=== PATIENT | female | born 1965 | race Caucasian/White ===

== ENCOUNTER 2017-08-23 01:51 | Inpatient (IN) | payer SELFPAY ==
[2017-08-23] VITALS (37 sets, daily range): BP systolic 109–241; BP diastolic 51–106; PULSE 45–94; RESP 16–18; TEMP 94–98.9; O2SAT 98–100
[2017-08-23] MEDS ORDERED: MIDAZOLAM HCL 5 MG/ML VIAL (1 ML) ONE (02:10)
[2017-08-23 02:13] LABS: AUTOMATED NEUTROPHIL # 13.3 TH/MM3 (1.8-7.7); BASOPHIL % 0.2 % (0.0-2.0); HEMOGLOBIN 13.7 GM/DL (11.6-15.3); LYMPH % 5.5 % (9.0-44.0); LYMPHOCYTE # 0.8 TH/MM3 (1.0-4.8); MEAN CELL VOLUME 86.3 FL (80.0-100.0); MEAN CORPUSCULAR HEMOGLOBIN 30.4 PG (27.0-34.0); MEAN CORPUSCULAR HGB CONC 35.2 % (32.0-36.0); MEAN PLATELET VOLUME 8.4 FL (7.0-11.0); MONO % 4.7 % (0.0-8.0); MONOCYTE # 0.7 TH/MM3 (0-0.9); NEUT % 89.6 % (16.0-70.0); PLATELET COUNT 361 TH/MM3 (150-450); RED BLOOD COUNT 4.52 MIL/MM3 (4.00-5.30); RED CELL DISTRIBUTION WIDTH 13.2 % (11.6-17.2); WHITE BLOOD COUNT 14.8 TH/MM3 (4.0-11.0)
[2017-08-23] MEDS: POTASSIUM CHLOR 10 MEQ PREMIX 100 ML IV SCH ×3 (02:15→04:15)
[2017-08-23] MEDS ORDERED: SUCCINYLCHOLINE CHLORIDE 200 MG/10 ML VIAL IV PUSH ONE (02:15)
[2017-08-23] MEDS ORDERED: MIDAZOLAM HCL 5 MG/5 ML VIAL IV PUSH ONE (02:15)
[2017-08-23] MEDS ORDERED: ETOMIDATE 20 MG/10 ML VIAL IV PUSH ONE (02:15)
[2017-08-23 02:18] LABS: INTERNATIONAL NORMALIZED RATIO 1.1 RATIO; PROTHROMBIN TIME - PATIENT 11.5 SEC (9.8-11.6)
--- NOTE | 2017-08-23 02:23 | RADRPT ---
EXAM DATE/TIME: 08/23/2017 02:08 [facility] COMPARISON: No previous studies available for comparison. INDICATIONS : Stroke alert; left side gaze. RADIATION DOSE: 56.35 CTDIvol (mGy) This report was called by Dr. Choi to Dr. Prather at 2: 18 AM MEDICAL HISTORY : Non-responsive. SURGICAL HISTORY : Non-responsive. ENCOUNTER: Initial ACUITY: 1 day PAIN SCALE: Non-responsive LOCATION: cranial TECHNIQUE: Multiple contiguous axial images were obtained of the head. Using automated exposure control and adj ustment of the mA and/or kV according to patient size, radiation dose was kept as low as reasonably a chievable to obtain optimal diagnostic quality images. DICOM format image data is available electro nically for review and comparison. FINDINGS: Large area of white matter parenchymal hemorrhage seen in the left frontal lobe, measures 4.8 x 5.9 c m in greatest transaxial dimension. There surrounding cerebral edema and 11 mm of rightward midline s hift. The hemorrhage extends into the ventricles. Probable underlying chronic white matter changes. No perceptible mass lesion demonstrated. No convinc ing evidence of an acute ischemic event. CONCLUSION: Large left frontal lobe parenchymal hemorrhage and diffuse intraventricular blood. 11 mm of rightward midline shift. Saeid Choi MD on August 23, 2017 at 2:17 Board Certified Radiologist. This report was verified electronically.
[2017-08-23] MEDS: niCARdipine INJ 25 MG in SODIUM CHLOR 0.9% 250 ML INJ 240 ML IV PRN ×3 (02:24→09:20)
--- NOTE | 2017-08-23 02:24 | PD ---
HPI Chief Complaint: cva Time Seen by Provider: 01:57 Travel History International Travel<30 days: No Contact w/Intl Traveler<30days: No Traveled to known affect area: No History of Present Illness HPI 52-year-old female presents to the emergency department by EMS transport from home after witnessed collapse. According to delivery specialist report patient had had vomiting earlier in the day this evening was given a one-time dose of ibuprofen by family member and then had further vomiting and collapse. Upon EMS arrival patient was noted to have fixed downward leftward gaze was unresponsive except to painful stimuli with some posturing of the right upper extremity. No seizure activity identified. No report of injury or trauma. No prior medical history provided to EMS by family. No medication use. [facility] Past Medical History Narrative Medical None per delivery specialist/per family; nursing notes reviewed Social History Alcohol Use: Yes (Occasional alcohol) Tobacco Use: Yes Substance Use: Yes (Occasional marijuana) Allergies-Medications (Allergen,Severity, Reaction): Coded Allergies: No Known Allergies (Unverified , 08/23/17) Narrative Medication None per uncle Review of Systems ROS Limitations: Clinical Condition, Unresponsive Except as stated in HPI: all other systems reviewed are Neg Physical Exam Narrative GENERAL: Well-developed well-nourished female unresponsive, Ambu assisted ventilations; gcs6 SKIN: Warm and dry. HEAD: Atraumatic. Normocephalic. EYES: Pupils equal and round nonreactive to light fixed left lateral downward gaze. ENT: No nasal bleeding or discharge. Mucous membranes pink and moist. NECK: Trachea midline. No JVD. Cervical collar applied. CARDIOVASCULAR: Regular rate and rhythm. RESPIRATORY: No accessory muscle use. Clear to auscultation. Breath sounds equal bilaterally. GASTROINTESTINAL: Abdomen soft, non-tender, nondistended. Hepatic and splenic margins not palpable. MUSCULOSKELETAL: Extremities without clubbing, cyanosis, or edema. No obvious deformities. With maintained spinal mobilization log rolled from backboard no bony step-off along the thoracic or lumbar spine no ecchymosis or abrasions. NEUROLOGICAL: GCS 6 no obvious cranial nerve deficits. Occasional flexion posturing of right upper extreme Data Data Last Documented VS Vital Signs Date Time Temp Pulse Resp B/P (MAP) Pulse Ox O2 Delivery O2 Flow Rate FiO2 08/23/17 02:40 100 100 08/23/17 02:37 54 18 174/78 (110) Ventilator 08/23/17 01:45 15.00 Orders Orders Diet Npo (08/23/17 Breakfast) Activity Bed Rest (08/23/17 ) Electrocardiogram (08/23/17 ) I-Stat Profile (08/23/17 01:57) Prothrombin Time / Inr (Pt) (08/23/17 01:57) Act Partial Throm Time (Ptt) (08/23/17 01:57) Complete Blood Count With Diff (08/23/17 01:57) Fibrinogen (08/23/17 01:57) Creatine Kinase (Cpk) (08/23/17 01:57) Troponin I (08/23/17 01:57) Ua Includes Microscopic (08/23/17 01:57) Drug Screen, Random Urine (08/23/17 01:57) Type And Screen (08/23/17 01:57) Ct Brain W/O Iv Contrast(Rout) (08/23/17 ) Cta Brain W Iv Contrast W 3d (08/23/17 01:57) Cta Neck W Iv Contrast W 3d (08/23/17 01:57) Beta Hcg (Quant/Titer) (08/23/17 01:57) Consult Neurology (08/23/17 ) Blood Glucose (08/23/17 01:57) Ecg Monitoring (08/23/17 01:57) Neuro Checks Q2HX12,Q4H (08/23/17 01:57) Nursing Bedside Swallow Assess .ONCE (08/23/17 01:57) Iv Access Insert/Monitor (08/23/17 01:57) NPO (08/23/17 01:57) Oximetry (08/23/17 01:57) Resp Oxygen Nc Stroke (08/23/17 ) Cath For Specimen (08/23/17 01:57) Ct Cerv Spine W/O Contrast (08/23/17 ) Apply Cervical Collar (08/23/17 02:03) Resp Ventilation- Volume (08/23/17 ) Midazolam Inj (Versed Inj) (08/23/17 02:15) Etomidate Inj (Amidate Inj) (08/23/17 02:15) Succinylcholine Inj (Quelicin Inj) (08/23/17 02:15) Nicardipine Inj (Cardene Inj) (08/23/17 02:15) Mickey-Gastric Tube Insert/Mon (08/23/17 02:03) Place Ng Tube To Low Intermit (08/23/17 02:03) Midazolam Inj (Versed Inj) (08/23/17 02:10) (Hub Use Only)Inp Phy Cons/Ref (08/23/17 ) Potassium Chlor 10 Meq Premix (Kcl 10 Me (08/23/17 02:15) Chest, Single Ap (08/23/17 ) Iodixanol 320 Inj (Rad Ct) (Visipaque 32 (08/23/17 02:31) Mannitol Inj (Mannitol Inj) (08/23/17 02:45) Admit Order (Ed Use Only) (08/23/17 ) Real Time Trader / Telemetry MADAN.Q8H (08/23/17 02:40) Activity Bed Rest (08/23/17 02:40) Notify Dr: Other (08/23/17 02:40) Consult Neurosurgery (08/23/17 ) Potassium, Serum (K) (08/23/17 01:55) Labs Laboratory Tests Test 08/23/17 01:55 08/23/17 02:27 White Blood Count 14.8 TH/MM3 Red Blood Count 4.52 MIL/MM3 Hemoglobin 13.7 GM/DL Bedside Hemoglobin 8.5 G/DL Hematocrit 39.0 % Bedside Hematocrit 25.0 % Mean Corpuscular Volume 86.3 FL Mean Corpuscular Hemoglobin 30.4 PG Mean Corpuscular Hemoglobin Concent 35.2 % Red Cell Distribution Width 13.2 % Platelet Count 361 TH/MM3 Mean Platelet Volume 8.4 FL Neutrophils (%) (Auto) 89.6 % Lymphocytes (%) (Auto) 5.5 % Monocytes (%) (Auto) 4.7 % Eosinophils (%) (Auto) 0.0 % Basophils (%) (Auto) 0.2 % Neutrophils # (Auto) 13.3 TH/MM3 Lymphocytes # (Auto) 0.8 TH/MM3 Monocytes # (Auto) 0.7 TH/MM3 Eosinophils # (Auto) 0.0 TH/MM3 Basophils # (Auto) 0.0 TH/MM3 CBC Comment DIFF FINAL Differential Comment Prothrombin Time 11.5 SEC Prothromb Time International Ratio 1.1 RATIO Activated Partial Thromboplast Time 25.8 SEC Fibrinogen 339 mg/dL Bedside Sodium 138 MMOL/L Bedside Potassium LESS THAN 2.0 MMOL/L Potassium Level 1.7 MEQ/L Bedside Chloride 104 MMOL/L Bedside Blood Urea Nitrogen LESS THAN 3 MG/DL Bedside Creatinine LESS THAN 0.2 MG/DL Bedside Glucose 105 MG/DL Total Creatine Kinase 50 U/L Troponin I 0.02 NG/ML Human Chorionic Gonadotropin, Quant 1 MIU/ML Urine Color LIGHT-YELLOW Urine Turbidity CLEAR Urine pH 6.0 Urine Specific [place] 1.020 Urine Protein TRACE mg/dL Urine Glucose (UA) NEG mg/dL Urine Ketones 150 mg/dL Urine Occult Blood NEG Urine Nitrite NEG Urine Bilirubin NEG Urine Urobilinogen LESS THAN 2.0 MG/DL Urine Leukocyte Esterase NEG Urine RBC 1 /hpf Urine WBC 1 /hpf Urine Mucus FEW /lpf Urine Opiates Screen NEG Urine Barbiturates Screen NEG Urine Amphetamines Screen NEG Urine Benzodiazepines Screen POS Urine Cocaine Screen NEG Urine Cannabinoids Screen POS MDM Medical Decision Making Medical Screen Exam Complete: Yes Emergency Medical Condition: Yes Medical Record Reviewed: Yes Interpretation(s) cxrL no lobar infiltrate; ETT in good position Last Impressions Head CT 08/23/17 0000 Signed Impressions: Service Date/Time: Wednesday, August 23, 2017 02:08 - CONCLUSION: Large left frontal lobe parenchymal hemorrhage and diffuse intraventricular blood. 11 mm of rightward midline shift. Saeid Choi MD Cervical Spine CT 08/23/17 0000 Signed Impressions: Service Date/Time: Wednesday, August 23, 2017 02:08 - CONCLUSION: 1. No fracture or acute appearing malalignment of the cervical spine. 2. Degenerative changes as above. Saeid Choi MD Differential Diagnosis Altered mental status, CVA, ICH, mass, hypertensive crisis Narrative Course Patient transferred from EMS stretcher to ED stretcher with Ambu assisted ventilation with emesis about the face and mouth; patient emergently intubated @ 2:[address] Valencia start on mannitol 50mg iv now and then 25 gm iv q 6h to isc to intensivists hyperventilate OR in am At 240 patient's uncle confirms that patient felt well until approximately 3 PM on Monday and then developed vomiting and complained of not feeling well around 6 PM without complaint of pain took a one-time dose of ibuprofen and then fell asleep on the couch while they were watching TV and just prior to arrival to the emergency department awake and vomiting and then became unresponsive. Uncle states there was no injury or trauma he assisted her to the floor and because she was vomiting rolled her over so that she would not aspirate her emesis. Per the uncle there was no injury or trauma and patient has no significant past medical history and no known history of hypertension dyslipidemia diabetes heart disease autoimmune disorder asthma COPD occasionally smokes cigarettes does drink beer and on rare occasion smokes marijuana. Patient has no known medications takes no prescription medications and no known allergies according to the uncle who provides her history. Patient 's name is Casandra Dleuca. @2:45 Dr Carmona at the bedside C-collar removed by me at 2:50 Critical Care Narrative Aggregate critical care time was 30 minutes. Time to perform other separately billable procedures was not included in the critical care time. My time did not include minutes spent treating any other patients simultaneously or on activities that did not directly contribute to the patient's treatment. The services I provided to this patient were to treat and/or prevent clinically significant deterioration that could result in: Arrhythmia, respiratory arrest, brain herniation, I provided critical care services requiring my management, as noted below: Chart data review, documentation time, medication orders and management, vital sign assessments/reviewing monitor data, ordering and reviewing lab tests, ordering and interpreting/reviewing x-rays and diagnostic studies, care of the patient and discussion of the patient with the admitting physicians. Procedures Procedure Narrative Emergently the following procedure was performed: INTUBATION: The patient was put in optimal position for the procedure. Rapid sequence intubation was initiated by me using 20 milligrams of etomidate IV and 5 milligrams of versed IV succinyl choline 70 mg IV. The patient was intubated with a 8.0 cuffed endotracheal tube. Tube placement was confirmed by visualization of the tube and balloon passing through the cords, capnometry and subsequent chest x-ray. Breath sounds were equal and well aerated bilaterally postintubation. No breath sounds over stomach. Patient tolerated procedure well. Physician Communication Physician Communication in field stroke alert called --@ 2:[address] Perfecto MOHR pending; At 2: 18 AM notified by radiologist Dr. Choi large left frontal parenchymal bleed with 11 mm of midline shift and bleeding into the ventricles; discussed with Dr Valencia --ISC to certified emergency vehicle technician mannitol hyperventilate or this AM; call to certified emergency vehicle technician, Dr Carmona Diagnosis Primary Impression: Intraparenchymal hemorrhage of brain Additional Impression: HTN (hypertension) Admitting Information Admitting Physician Requests: Admit Nadia Prather MD Aug 23, 2017 02:24
[2017-08-23] MEDS ORDERED: MANNITOL 12.5 GM/50 ML VIAL IV ONE ×2 (02:30→02:45)
[2017-08-23] MEDS ORDERED: IODIXANOL 320 MG/ML 10 ML VIAL (for Rad CT) IVCONTRAST ONE (02:31)
[2017-08-23 02:43] LABS: TROPONIN I 0.02 NG/ML (0.02-0.05)
--- NOTE | 2017-08-23 02:44 | RADRPT ---
EXAM DATE/TIME: 08/23/2017 02:08 [facility] COMPARISON: No previous studies available for comparison. INDICATIONS : trauma; found down. RADIATION DOSE: 16.29 CTDIvol (mGy) MEDICAL HISTORY : Non-responsive. SURGICAL HISTORY : Non-responsive. ENCOUNTER: Initial ACUITY: 1 day PAIN SCALE: Non-responsive LOCATION: Bilateral neck TECHNIQUE: Volumetric scanning of the cervical spine was performed. Multiplanar reconstructions in the sagittal, coronal and oblique axial planes were performed. Using automated exposure control and adjustment o f the mA and/or kV according to patient size, radiation dose was kept as low as reasonably achievable to obtain optimal diagnostic quality images. DICOM format image data is available electronically f or review and comparison. FINDINGS: There is approximately 3 mm of degenerative anterolisthesis at C4/C5 and 4 mm of degenerative retroli sthesis at C5/C6. No fracture or acute appearing malalignment paravertebral bodies have normal height . Severe disc space narrowing with moderate uncovertebral and and facet osteoarthritis and circumferent ial disc osteophyte complex seen at C5/C6 and C6/C7. Milder degenerative changes at the other levels. There is mild bilateral foraminal stenosis at C4/C5, C5/C6 and C6 on C7. There is mild spinal stenos is at C5/C6. Paravertebral soft tissues are within normal limits. CONCLUSION: 1. No fracture or acute appearing malalignment of the cervical spine. 2. Degenerative changes as above. Saeid Choi MD on August 23, 2017 at 2:41 Board Certified Radiologist. This report was verified electronically.
--- NOTE | 2017-08-23 02:49 | RADRPT ---
EXAM DATE/TIME: 08/23/2017 02:26 [facility] COMPARISON: No previous studies available for comparison. INDICATIONS : Stroke alert; left side gaze. IV CONTRAST: 100 cc Visipaque (iodixanol) IV ; Cumulative dose for multiple exams. RADIATION DOSE: 10.31 CTDIvol (mGy) ; Combined studies - Thorax/Abdomen/Pelvis MEDICAL HISTORY : Non-responsive. SURGICAL HISTORY : Non-responsive. ENCOUNTER: Initial ACUITY: 1 day PAIN SCALE: Non-responsive LOCATION: cranial TECHNIQUE: Volumetric scanning was performed using a multi-row detector CT scanner. The data was post processed with a variety of visualization algorithms including full volume maximum intensity projection, multi -planar sliding thin slab reformation, curved planar reformation, and surface rendering techniques. Using automated exposure control and adjustment of the mA and/or kV according to patient size, radiat ion dose was kept as low as reasonably achievable to obtain optimal diagnostic quality images. DICO M format image data is available electronically for review and comparison. FINDINGS: Large parenchymal hemorrhage of the left frontal lobe white matter. There is mildly decreased filling of the left middle and anterior cerebral arteries in an appearance suggesting secondary to pressure/ mass effect/spasm. No thrombosis demonstrated. No aneurysm. I don't see an enhancing mass lesion. CONCLUSION: No perceptible aneurysm or enhancing mass. Saeid Choi MD on August 23, 2017 at 2:45 Board Certified Radiologist. This report was verified electronically.
--- NOTE | 2017-08-23 03:02 | RADRPT ---
EXAM DATE/TIME: 08/23/2017 02:44 [facility] COMPARISON: No previous studies available for comparison. INDICATIONS : Post ET tube placement. MEDICAL HISTORY : None. SURGICAL HISTORY : None. ENCOUNTER: Initial ACUITY: 1 day PAIN SCORE: 0/10 LOCATION: Bilateral chest FINDINGS: Lungs are clear. No pleural effusion or pneumothorax. Normal heart size. Endotracheal tube tip is approximately 4 cm above the ashley. CONCLUSION: Appropriate position of the endotracheal tube. Clear lungs. Saeid Choi MD on August 23, 2017 at 3:01 Board Certified Radiologist. This report was verified electronically.
--- NOTE | 2017-08-23 03:29 | HHI.HP ---
HPI Service Critical Care Medicine Primary Care Physician No Primary Care Physician Admission Diagnosis L intraparenchymal hemorrhage w/ shift; HTN Diagnosis: (1) Intraparenchymal hemorrhage of brain Diagnosis: Principal (2) Acute respiratory failure Diagnosis: Principal (3) HTN (hypertension) Diagnosis: Principal (4) Leukocytosis Diagnosis: Principal Chief Complaint: Unresponsive, left-sided gaze Travel History International Travel<30 Days: No Contact w/Intl Traveler <30 Da: No Traveled to Known Affected Are: No History of Present Illness This is a 52-year-old female. Actually name is Casandra Deluca. Date of admission 08/23/2017. Past medical history is unremarkable including Dr. Prather spoke with uncle. Patient was in her normal state of health today until approximately 3 PM on Monday and then developed acute onset of nausea associated with vomiting and complained of not feeling well. At approximately 1800 hrs., she took a one-time dose of ibuprofen and fell asleep on the couch. Early this a.m., and just prior to arrival to the emergency department awake and vomiting and then became unresponsive. Uncle states there was no injury or trauma he assisted her to the floor and because she was vomiting rolled her over so that she would not aspirate her emesis. Due to instability patient received 20 mg etomidate, 5 mg midazolam and 70 mg succinylcholine was intubated by ED physician. CT brain revealed a large left frontal parenchymal hemorrhage with diffuse intraventricular blood [address] Valencia/neurosurgery was notified. Recommended 50 g mannitol still hyperventilating he will evaluate the patient. Gear Machine Operator were asked to admit. Central lines placed in ED for mannitol, hypertonic saline and multiple lab draws. Potassium is been reordered. Review of Systems ROS Limitations: Intubated Past Family Social History Allergies: Coded Allergies: No Known Allergies (Unverified , 08/23/17) Past Medical History None Past Surgical History None Reported Medications None Active Ordered Medications Reviewed in EMR Family History Unobtainable. Social History Documentation by ED physician of alcohol, tobacco and THC Physical Exam Vital Signs Vital Signs Date Time Temp Pulse Resp B/P (MAP) Pulse Ox O2 Delivery O2 Flow Rate FiO2 08/23/17 02:51 18 100 Ventilator 100 08/23/17 02:48 100 100 08/23/17 02:30 59 241/106 (151) 100 08/23/17 02:24 54 199/89 08/23/17 01:54 100 100 08/23/17 01:45 100 15.00 100 Physical Exam GENERAL: 52-year-old female currently orotracheally intubated, SKIN: Warm and dry. HEAD: Atraumatic. Normocephalic. EYES: Right pupil is 8 mm in size. Left pupil is 9 mm and nonreactive. No scleral icterus or drainage. ENT: No nasal bleeding or discharge. Mucous membranes pink and moist. NECK: Trachea midline. No JVD. CARDIOVASCULAR: Bradycardic, RRR. S1, S2. No S4. Without murmur RESPIRATORY: Few faint crackles appreciated right lower lobe. No wheezing GASTROINTESTINAL: Abdomen soft, non-tender, nondistended. Hepatic and splenic margins not palpable. MUSCULOSKELETAL: Extremities without significant peripheral edema. No obvious deformities. NEUROLOGICAL: Extremely sedated. Upward toes. Currently minimal cough. No gag.. Pupils as above. Cannot elicit withdrawal to noxious stimuli. Laboratory Laboratory Tests Test 08/23/17 01:55 08/23/17 03:00 White Blood Count 14.8 Red Blood Count 4.52 Hemoglobin 13.7 Bedside Hemoglobin 8.5 Hematocrit 39.0 Bedside Hematocrit 25.0 Mean Corpuscular Volume 86.3 Mean Corpuscular Hemoglobin 30.4 Mean Corpuscular Hemoglobin Concent 35.2 Red Cell Distribution Width 13.2 Platelet Count 361 Mean Platelet Volume 8.4 Neutrophils (%) (Auto) 89.6 Lymphocytes (%) (Auto) 5.5 Monocytes (%) (Auto) 4.7 Eosinophils (%) (Auto) 0.0 Basophils (%) (Auto) 0.2 Neutrophils # (Auto) 13.3 Lymphocytes # (Auto) 0.8 Monocytes # (Auto) 0.7 Eosinophils # (Auto) 0.0 Basophils # (Auto) 0.0 CBC Comment DIFF FINAL Differential Comment Prothrombin Time 11.5 Prothromb Time International Ratio 1.1 Activated Partial Thromboplast Time 25.8 Fibrinogen 339 Bedside Sodium 138 Bedside Potassium LESS THAN 2.0 Bedside Chloride 104 Bedside Blood Urea Nitrogen LESS THAN 3 Bedside Creatinine LESS THAN 0.2 Bedside Glucose 105 Total Creatine Kinase 50 Troponin I 0.02 Human Chorionic Gonadotropin, Quant 1 Result Diagram: 08/23/17154 Imaging Last Impressions Head CTA 08/23/17156 Signed Impressions: Service Date/Time: Wednesday, August 23, 2017 02:26 - CONCLUSION: No perceptible aneurysm or enhancing mass. Saeid Choi MD Head CT 08/23/17 0000 Signed Impressions: Service Date/Time: Wednesday, August 23, 2017 02:08 - CONCLUSION: Large left frontal lobe parenchymal hemorrhage and diffuse intraventricular blood. 11 mm of rightward midline shift. Saeid Choi MD Chest X-Ray 08/23/17 0000 Signed Impressions: Service Date/Time: Wednesday, August 23, 2017 02:44 - CONCLUSION: Appropriate position of the endotracheal tube. Clear lungs. Saeid Choi MD Cervical Spine CT 08/23/17 0000 Signed Impressions: Service Date/Time: Wednesday, August 23, 2017 02:08 - CONCLUSION: 1. No fracture or acute appearing malalignment of the cervical spine. 2. Degenerative changes as above. Saeid Choi MD Septic Shock Reassessment Septic shock perfusion: reassessment completed Caprini VTE Risk Assessment Caprini VTE Risk Assessment: Mod/High Risk (score >= 2) VTE Pharm Contraindication: Hemorrhage Caprini Risk Assessment Model Point Value = 1 Point Value = 2 Point Value = 3 Point Value = 5 Age 41-60 Minor surgery BMI > 25 kg/m2 Swollen legs Varicose veins or History of unexplained or recurrent spontaneous Oral contraceptives or hormone replacement Sepsis (< 1 month) Serious lung disease, including pneumonia (< 1 month) Abnormal pulmonary function Acute myocardial infarction Congestive heart failure (< 1 month) History of inflammatory bowel disease Medical patient at bed rest Age 61-74 Arthroscopic surgery Major open surgery (> 45 min) Laparoscopic surgery (> 45 min) Malignancy Confined to bed (> 72 hours) Immobilizing plaster cast Central venous access Age >= 75 History of VTE Family history of VTE Factor V Leiden Prothrombin [id number] Lupus anticoagulant Anticardiolipin antibodies Elevated serum homocysteine Heparin-induced thrombocytopenia Other congenital or acquired thrombophilia Stroke (< 1 month) Elective arthroplasty Hip, pelvis, or leg fracture Acute spinal cord injury (< 1 month) Prophylaxis Regimen Total Risk Factor Score Risk Level Prophylaxis Regimen 0-1 Low Early ambulation 2 Moderate Order ONE of the following: *Sequential Compression Device (SCD) *Heparin 5000 units SQ BID 3-4 Higher Order ONE of the following medications: *Heparin 5000 units SQ TID *Enoxaparin/Lovenox 40 mg SQ daily (WT < 150 kg, CrCl > 30 mL/min) *Enoxaparin/Lovenox 30 mg SQ daily (WT < 150 kg, CrCl > 10-29 mL/min) *Enoxaparin/Lovenox 30 mg SQ BID (WT < 150 kg, CrCl > 30 mL/min) AND/OR *Sequential Compression Device (SCD) 5 or more Highest Order ONE of the following medications: *Heparin 5000 units SQ TID (Preferred with Epidurals) *Enoxaparin/Lovenox 40 mg SQ daily (WT < 150 kg, CrCl > 30 mL/min) *Enoxaparin/Lovenox 30 mg SQ daily (WT < 150 kg, CrCl > 10-29 mL/min) *Enoxaparin/Lovenox 30 mg SQ BID (WT < 150 kg, CrCl > 30 mL/min) AND *Sequential Compression Device (SCD) Assessment and Plan Assessment and Plan Neuro/Psych: Large left frontal lobe parenchymal hemorrhage with intraventricular blood with associated 11 mm shift from right to left. CT brain revealed 4.85.9 cm left frontoparietal hemorrhage with surrounding cerebral edema and 11 mm right which midline shift. Hemorrhage extends to the ventricles. Negative CT angiogram the brain. Dr. Valencia notified. Recommended mannitol 50 g IV 1, hyperventilation Discussed with Dr. Valencia. Very poor prognosis. Considering ventriculostomy Order repeat CT brain a.m. 08/24 Hypertonic saline will sodium 1 5155 Mannitol 12.5 g IV every 8 hours. Hold if osm > greater than 310 CV: Hypertensive emergency Nicardipine drip to keep systolic blood pressure less than 140 Norepinephrine drip to keep systolic blood pressure greater than 110 Currently normal saline 84 cc an hour EKG pending Resp: Acute respiratory failure secondary to large parenchymal hemorrhage [facility] 16/475/05/12/49 Ventilator bundle Albuterol/ipratropium aerosols every 6 hours with albuterol aerosols every 2 hours as needed dyspnea Spontaneous breathing trials when clinically indicated A.m. chest x-ray 08/24 End-tidal CO2 35-40 GI: N.p.o. NG tube to low intermittent wall suction Lansoprazole for GI prophylaxis Docusate sodium/senna 1 tablet twice daily for bowel regimen : Dumont catheter for accurate I's and O's in a critically ill patient Endo: Sliding scale insulin Novulin R with Accu-Cheks every 6 hours to maintain euglycemia/medium protocol Check TSH in a.m. Renal: Creatinine currently within normal limits Monitor urine output Accurate I's and O's Heme: Leukocytosis Likely leukemoid reaction. Monitor CBC daily. Follow trends ID: Monitor for infection MSK: PT/OT evaluate and treat FEN: Repeat potassium ordered. Originally hypokalemic. Magnesium and phosphorus ordered as well. Replace electrolytes per ICU electrolyte protocol Access -Left IJ CVL day #1 placed 08/23 Prophylaxis -GI -lansoprazole -DVT -SCD/holding pharmacological prophylaxis until okayed with neurosurgery Critical Care: The total critical care time was 35 minutes. Time to perform other separately billable procedures was not included in the critical care time. Code Status Full code Discussed Condition With Dr. Prather. Care plan discussed and all questions answered. Problem Qualifiers (1) Acute respiratory failure: Qualified Codes: J96.01 - Acute respiratory failure with hypoxia (2) HTN (hypertension): Qualified Codes: I10 - Essential (primary) hypertension (3) Leukocytosis: Qualified Codes: D72.829 - Elevated white blood cell count, unspecified Sami Carmona MD Aug 23, 2017 03:29
[2017-08-23] MEDS ORDERED: ONDANSETRON HCL 4 MG/2 ML VIAL IV PUSH PRN (03:30)
[2017-08-23] MEDS ORDERED: fentaNYL DRIP 250 ML IV PRN (03:30)
[2017-08-23] MEDS ORDERED: GLUCAGON 1 MG/ML VIAL OTHER PRN (03:30)
[2017-08-23] MEDS ORDERED: SODIUM PHOSPHATE INJ 30 MMOL in SODIUM CHLOR 0.9% 250 ML INJ 240 ML IV PRN (03:30)
[2017-08-23] MEDS ORDERED: POTASSIUM CHLORIDE 25 MEQ EFFERVESCENT TAB PO PRN (03:30)
[2017-08-23] MEDS ORDERED: LACTULOSE SYRUP 20 GM/30 ML CUP PO PRN (03:30)
[2017-08-23] MEDS ORDERED: levETIRAcetam INJ 500 MG in SODIUM CHLORIDE 0.9% INJ 100 ML IV ONE (03:30)
[2017-08-23] MEDS ORDERED: NOREPINEPHRINE INJ 4 MG in SODIUM CHLOR 0.9% 250 ML INJ 246 ML IV PRN (03:30)
[2017-08-23] MEDS ORDERED: NURSING INFORMATION XX SCH (03:30)
[2017-08-23] MEDS ORDERED: POTASSIUM PHOSPHATE MONOBASIC 500 MG TAB PO/TUBE PRN (03:30)
[2017-08-23] MEDS ORDERED: POTASSIUM CHLOR 40 MEQ PREMIX 100 ML IV PRN (03:30)
[2017-08-23] MEDS ORDERED: MAGNESIUM HYDROXIDE SUSP 30 ML CUP PO PRN (03:30)
[2017-08-23] MEDS ORDERED: MAGNESIUM SULFATE INJ 4 GM in SODIUM CHLORIDE 0.9% INJ 92 ML IV PRN (03:30)
[2017-08-23] MEDS ORDERED: CHLORHEXIDINE GLUCONATE 2 % 1 PACK (2 CLOTHS) TOP PRN (03:30)
[2017-08-23] MEDS ORDERED: POTASSIUM PHOSPHATE MONOBASIC 500 MG TAB PO PRN (03:30)
[2017-08-23] MEDS ORDERED: SODIUM CHLORIDE 0.9% FLUSH 10 ML FLUSH IV FLUSH PRN ×2 (03:30)
[2017-08-23] MEDS ORDERED: BISACODYL 10 MG SUPP RECTAL PRN (03:30)
[2017-08-23] MEDS ORDERED: SENNOSIDES 8.6 MG TAB PO PRN (03:30)
[2017-08-23] MEDS ORDERED: TERBUTALINE INJ 1 MG/ML AMP SQ PRN (03:30)
[2017-08-23] MEDS ORDERED: MAGNESIUM SULFATE INJ 2 GM in SODIUM CHLORIDE 0.9% INJ 96 ML IV PRN (03:30)
[2017-08-23] MEDS ORDERED: PROPOFOL 1000 MG/100 ML INJ 100 ML IV PRN (03:30)
[2017-08-23] MEDS ORDERED: MAGNESIUM OXIDE 400 MG TAB PO PRN (03:30)
--- NOTE | 2017-08-23 03:38 | PD.PROCEDR ---
Central Line Procedure REASON FOR PROCEDURE Central venous access PROCEDURE PERFORMED Central line placement: Left IJ CVL CONSENT Informed consent for procedure was not obtained and considered emergent for hemodynamic access/medication. The risks and benefits of the procedure were discussed to include but limited to bleeding, clot formation, infection, and even . ANESTHESIA Local injection of 1% Lidocaine DESCRIPTION OF THE PROCEDURE The patient was placed in supine, mild Trendelenburg position. The area was exposed and cleansed with ChloraPrep, times two. Large sterile drape was used to cover the patient, with the site exposed, under sterile conditions including cap, face mask, sterile gown, and sterile gloves. On single attempt, the introducer needle was inserted with negative pressure in syringe and venous flash was obtained. The guide wire was then advanced without any restriction and the needle was removed. The dilator was used without any complications. Using Seldinger technique the antibiotic coated triple lumen catheter was advanced over the guide wire to a depth of 20 centimeters. The guide wire was removed. All ports were aspirated with dark venous blood return and flushed easily with sterile saline. All ports were capped. Antibiotic disc was placed around central line at puncture site. The central line was secured to the skin with two interrupted 2.0 silk sutures. The area was bandaged with sterile see- through central line bandage. The site was sutured secondary to unable to affix stay fix dressing - adhesion failure as it would not adequately be secured to the skin RADIOLOGICAL DATA Ultrasound guidance was used to locate left internal jugular vein. Doppler/ color flow was used to confirm venous flow. COMPLICATIONS: No apparent complications ESTIMATED BLOOD LOSS: Less than 1 cc. Sami Carmona MD Aug 23, 2017 03:38
--- NOTE | 2017-08-23 03:43 | RADRPT ---
EXAM DATE/TIME: 08/23/2017 02:26 [facility] COMPARISON: No previous studies available for comparison. INDICATIONS : Stroke alert; left side gaze. IV CONTRAST: 100 cc Visipaque (iodixanol) IV ; Cumulative dose for multiple exams. RADIATION DOSE: 10.31 CTDIvol (mGy) ; Combined studies MEDICAL HISTORY : Non-responsive. SURGICAL HISTORY : Non-responsive. ENCOUNTER: Initial ACUITY: 1 day PAIN SCALE: Non-responsive LOCATION: neck Elevated flow velocities and ICA/CCA ratios have been found to correlate with increased degrees of vessel stenosis, calculated as percentage of diameter relative to a normal segment of distal ICA/CCA. TECHNIQUE: Volumetric scanning was performed using a multirow detector CT scanner. The data was post processed with a variety of visualization algorithms including full-volume maximum intensity projection, multip lanar sliding thin-slab reformation, curved-planar reformation, and surface-rendering techniques. Us ing automated exposure control and adjustment of the mA and/or kV according to patient size, radiatio n dose was kept as low as reasonably achievable to obtain optimal diagnostic quality images. DICOM f ormat image data is available electronically for review and comparison. FINDINGS: AORTIC ARCH: There is a three-vessel origin of the great vessels from the aorta. No evidence of ostial narrowing. RIGHT CAROTID: The common carotid artery is intact. The carotid bulb has a normal configuration without ulceration o r narrowing. The internal carotid artery lumen is smooth without stenosis. The external carotid thu ry is intact. LEFT CAROTID: The common carotid artery is intact. The carotid bulb has a normal configuration without ulceration or narrowing. The internal carotid artery lumen is smooth without stenosis. The external carotid ar ganga is intact. VERTEBRALS: The vertebral arteries have a symmetric diameter. No stenotic lesions are seen. CONCLUSION: Normal carotid arteries. Saeid Choi MD on August 23, 2017 at 3:41 Board Certified Radiologist. This report was verified electronically.
--- NOTE | 2017-08-23 03:51 | RADRPT ---
EXAM DATE/TIME: 08/23/2017 03:22 [facility] COMPARISON: CHEST SINGLE AP, August 23, 2017, 2:44. INDICATIONS : Post central line placement. MEDICAL HISTORY : Non-responsive SURGICAL HISTORY : Non-responsive ENCOUNTER: Subsequent ACUITY: 1 day PAIN SCORE: Non-responsive. LOCATION: Bilateral chest FINDINGS: Lungs remain clear. Endotracheal tube tip is approximately 4.5 cm above the ashley. There is now a na sogastric tube with tip in the stomach. There is also now a left internal jugular centimeters cathete r with tip at the atriocaval junction. CONCLUSION: Appropriate position of lines and tubes as above. Lungs remain clear. Saeid Choi MD on August 23, 2017 at 3:49 Board Certified Radiologist. This report was verified electronically.
[2017-08-23 03:54] LABS: BILIRUBIN, URINE NEG (NEG); BLOOD, URINE NEG (NEG); GLUCOSE,URINE NEG (NEG); KETONE, URINE 150 mg/dL (NEG); MUCUS URINE FEW /lpf (OCC); NITRITE,URINE NEG (NEG); URINE COLOR LIGHT-YELLOW (YELLW/STRAW); URINE LEUKOCYTE ESTERASE NEG (NEG)
[2017-08-23] MEDS: SODIUM CHLOR 0.9% 1000 ML INJ 1,000 ML IV SCH ×2 (04:06→13:38)
[2017-08-23] MEDS: CHLORHEXIDINE GLUCONATE 2 % 1 PACK (2 CLOTHS) TOP SCH (04:06)
--- NOTE | 2017-08-23 04:06 | PD.CONS ---
HPI Consult Requested By Primary Care Physician No Primary Care Physician History of Present Illness This is a 52-year-old female brought to [facility] emergency department by EMS transport from home after collapse at home. According to paramedics she had had vomiting earlier in the day this evening was given a one-time dose of ibuprofen by family member and then had further vomiting and collapse. Upon EMS arrival patient was noted to have fixed downward leftward gaze was unresponsive except to painful stimuli with some posturing of the right upper extremity. No seizure activity identified. No tongue bitting. No incontinence of stool or urine, No tonic clonic movements. No report of injury or trauma. No prior medical history provided to EMS by family. She has a GCS of 3. Pupils 7mm dilated and fixed. CT of the brain showed a very large deep intracerebral hemorrhage, in the dominant hemisphere with uncal and subfalcine herniation. Neurosurgical consultation requested Past Family Social History Allergies: Coded Allergies: No Known Allergies (Unverified , 08/23/17) Social History Alcohol Use: Yes (Occasional alcohol) Tobacco Use: Yes Substance Use: Yes (Occasional marijuana) Physical Exam Vital Signs Vital Signs Date Time Temp Pulse Resp B/P (MAP) Pulse Ox O2 Delivery O2 Flow Rate FiO2 08/23/17 03:31 45 18 109/54 (72) 100 Ventilator 100 08/23/17 02:51 18 100 Ventilator 100 08/23/17 02:48 100 100 08/23/17 02:40 100 100 08/23/17 02:30 59 241/106 (151) 100 08/23/17 02:24 54 199/89 08/23/17 02:23 100 100 08/23/17 02:18 100 100 08/23/17 02:06 100 100 08/23/17 01:54 100 100 08/23/17 01:52 100 08/23/17 01:45 100 15.00 100 Physical Exam The patient is intubated and sedated. GCS 3 Cranial Nerves: Pupils 7mm dilated and fixed. Eyes appear nonconjugated. No nystagmus, no papilledema. Face musculature appeared symmetrical at rest. Face sensation, olfaction, visual mcwilliams, and hearing cannot be adequately assessed due to his neurological condition. The patient has no right corneal reflex, very weak left corneal. I could not elicit a gag reflex. The sternocleidomastoid and trapezius are symmetrical. Cervical Spine: Her neck is soft, supple, without nuchal rigidity. Motor: No response to pain Reflexes: Deep tendon reflexes are trace, if any. There is a bilateral silent response t plantar stimulation. There is no clonus Sensory: On examination there is no response to painful stimuli Cerebellar: Examination cannot be adequately assessed due to the patient's neurological condition. Lungs. Clear Heart regular rhythm and rate Skin warm and dry Laboratory Laboratory Tests Test 08/23/17 01:55 08/23/17 02:27 08/23/17 03:00 White Blood Count 14.8 Red Blood Count 4.52 Hemoglobin 13.7 Bedside Hemoglobin 8.5 Hematocrit 39.0 Bedside Hematocrit 25.0 Mean Corpuscular Volume 86.3 Mean Corpuscular Hemoglobin 30.4 Mean Corpuscular Hemoglobin Concent 35.2 Red Cell Distribution Width 13.2 Platelet Count 361 Mean Platelet Volume 8.4 Neutrophils (%) (Auto) 89.6 Lymphocytes (%) (Auto) 5.5 Monocytes (%) (Auto) 4.7 Eosinophils (%) (Auto) 0.0 Basophils (%) (Auto) 0.2 Neutrophils # (Auto) 13.3 Lymphocytes # (Auto) 0.8 Monocytes # (Auto) 0.7 Eosinophils # (Auto) 0.0 Basophils # (Auto) 0.0 CBC Comment DIFF FINAL Differential Comment Prothrombin Time 11.5 Prothromb Time International Ratio 1.1 Activated Partial Thromboplast Time 25.8 Fibrinogen 339 Bedside Sodium 138 Bedside Potassium LESS THAN 2.0 Bedside Chloride 104 Bedside Blood Urea Nitrogen LESS THAN 3 Bedside Creatinine LESS THAN 0.2 Bedside Glucose 105 Total Creatine Kinase 50 Troponin I 0.02 Human Chorionic Gonadotropin, Quant 1 Urine Color LIGHT-YELLOW Urine Turbidity CLEAR Urine pH 6.0 Urine Specific [place] 1.020 Urine Protein TRACE Urine Glucose (UA) NEG Urine Ketones 150 Urine Occult Blood NEG Urine Nitrite NEG Urine Bilirubin NEG Urine Urobilinogen LESS THAN 2.0 Urine Leukocyte Esterase NEG Urine RBC 1 Urine WBC 1 Urine Mucus FEW Urine Opiates Screen NEG Urine Barbiturates Screen NEG Urine Amphetamines Screen NEG Urine Benzodiazepines Screen POS Urine Cocaine Screen NEG Urine Cannabinoids Screen POS Blood Gas Puncture Site RT RADIAL Blood Gas Patient Temperature 98.6 Blood Gas HCO3 20 Blood Gas Base Excess -2.3 Blood Gas Oxygen Saturation 99 Arterial Blood pH 7.51 Arterial Blood Partial Pressure CO2 26 Arterial Blood Partial Pressure O2 564 Arterial Blood Oxygen Content 20.3 Arterial Blood Carboxyhemoglobin 0.9 Arterial Blood Methemoglobin 0.6 Blood Gas Hemoglobin 13.6 Oxygen Delivery Device VENTILATOR Blood Gas Ventilator Setting AC/18/500/PEEP5 Blood Gas Inspired Oxygen 100 Result Diagram: 08/23/17154 Attending Statement I reviewed her radiological studies, including Chest X-Ray 08/23/17 0316 Signed Impressions: Service Date/Time: Wednesday, August 23, 2017 03:22 - CONCLUSION: Appropriate position of lines and tubes as above. Lungs remain clear. aSeid Choi MD Neck CTA 08/23/17156 Signed Impressions: Service Date/Time: Wednesday, August 23, 2017 02:26 - CONCLUSION: Normal carotid arteries. Saeid Choi MD Head CTA 08/23/17156 Signed Impressions: Service Date/Time: Wednesday, August 23, 2017 02:26 - CONCLUSION: No perceptible aneurysm or enhancing mass. Saeid Choi MD Head CT 08/23/17 0000 Signed Impressions: Service Date/Time: Wednesday, August 23, 2017 02:08 - CONCLUSION: Large left frontal lobe parenchymal hemorrhage and diffuse intraventricular blood. 11 mm of rightward midline shift. Saeid Choi MD Chest X-Ray 08/23/17 0000 Signed Impressions: Service Date/Time: Wednesday, August 23, 2017 02:44 - CONCLUSION: Appropriate position of the endotracheal tube. Clear lungs. Saeid Choi MD Cervical Spine CT 08/23/17 0000 Signed Impressions: Service Date/Time: Wednesday, August 23, 2017 02:08 - CONCLUSION: 1. No fracture or acute appearing malalignment of the cervical spine. 2. Degenerative changes as above. Saeid Choi MD This patient has suffered a devastating injury in his dominant hemisphere with clinical evidence of uncal herniation. She has herniated. Her condition is irreversible, and there is no chance for meaningful recovery at this time. She is not a surgical candidate. I cannot be enthusiastic recommending a neurosurgical intervention. She is not a surgical candidate. Recommend medical nonoperative treatment Pulmonary.aggressive pulmonary toilette, nasotracheal suction, and breathing treatments with nebulizers. Renal. monitor closely urine output, BUN and creatinine Endocrine. Monitor serial Acu checks and SSI as needed in detail ID monitor for signs of infection Protonix for stress ulcer prophylaxis Lc hose and SCD's for DVT prophylaxis Further recommendations will be provided depending on the patient's clinical evaluation and follow up studies. Discussed with Dr Carmona who agrees with the plan Frederick Valencia MD Aug 23, 2017 04:06
[2017-08-23] MEDS: MANNITOL 12.5 GM/50 ML VIAL IV SCH ×3 (04:11→19:54)
[2017-08-23] MEDS: RESP: ALBUTEROL 2.5 MG/IPRATROPIUM 0.5 MG NEB (SCH) INH ×6 (04:13→23:29)
[2017-08-23 04:47] LABS: HEMATOCRIT 37.4 % (35.0-46.0); MEAN CELL VOLUME 85.9 FL (80.0-100.0); MEAN CORPUSCULAR HEMOGLOBIN 29.9 PG (27.0-34.0); MEAN CORPUSCULAR HGB CONC 34.8 % (32.0-36.0); PLATELET COUNT 335 TH/MM3 (150-450); RED BLOOD COUNT 4.36 MIL/MM3 (4.00-5.30); RED CELL DISTRIBUTION WIDTH 13.2 % (11.6-17.2); WHITE BLOOD COUNT 16.7 TH/MM3 (4.0-11.0)
[2017-08-23 05:02] LABS: INTERNATIONAL NORMALIZED RATIO 1.2 RATIO; PROTHROMBIN TIME - PATIENT 12.2 SEC (9.8-11.6)
[2017-08-23] MEDS: 3% SALINE INJ 500 ML IV SCH ×2 (05:03→19:43)
[2017-08-23] MEDS: POTASSIUM CHLOR 40 MEQ PREMIX 100 ML IV PRN ×2 (05:17→06:58)
[2017-08-23 05:22] LABS: BICARBONATE 22.3 MEQ/L (21.0-32.0); CALCIUM 8.3 MG/DL (8.5-10.1); CREATININE 0.56 MG/DL (0.50-1.00); MAGNESIUM 1.5 MG/DL (1.5-2.5)
[2017-08-23] MEDS: ARTIFICIAL TEARS OPTH SOLN 15 ML BTL EACH EYE SCH ×6 (06:00→21:38)
[2017-08-23] MEDS: POTASSIUM CHLOR 40 MEQ PREMIX 100 ML IV SCH ×2 (06:00→09:01)
[2017-08-23] MEDS ORDERED: POTASSIUM CHLORIDE 20 MEQ PWD PACKET PO ONE (06:00)
[2017-08-23] MEDS ORDERED: CALCIUM GLUCONATE 10% 1 GM/10 ML VIAL IV PUSH ONE (06:00)
[2017-08-23] MEDS ORDERED: MAGNESIUM SULFATE 1 GM PREMIX 100 ML IV ONE (06:00)
[2017-08-23] MEDS: INSULIN NovoLIN REGULAR SUPPLEMENTAL SCALE SQ SCH ×3 (06:29→18:00)
[2017-08-23] MEDS: MAGNESIUM SULFATE 1 GM PREMIX 100 ML IV SCH ×2 (06:58→08:21)
[2017-08-23] MEDS: DOCUSATE SODIUM 50 MG/SENNA 8.6 MG TAB PO SCH ×2 (08:22→20:58)
[2017-08-23] MEDS: FOLIC ACID 1 MG TAB PO SCH (08:22)
[2017-08-23] MEDS: SODIUM CHLORIDE 0.9% FLUSH 10 ML FLUSH IV FLUSH SCH ×3 (08:22→20:58)
[2017-08-23] MEDS: CHLORHEXIDINE 0.12% (ORAL KIT) 15 ML CUP MT SCH ×2 (08:22→20:58)
[2017-08-23] MEDS: MULTIVITAMIN TAB PO SCH (08:22)
[2017-08-23] MEDS: LANSOPRAZOLE SOLUTAB 30 MG TAB G-TUBE SCH (08:22)
[2017-08-23] MEDS ORDERED: levETIRAcetam INJ 500 MG in SODIUM CHLORIDE 0.9% INJ 100 ML IV SCH (09:00)
[2017-08-23] MEDS: THIAMINE INJ 100 MG in SODIUM CHLORIDE 0.9% INJ 100 ML IV SCH (09:01)
--- NOTE | 2017-08-23 09:40 | HHI.CCPN ---
Subjective Remarks/Hospital Course L intraparenchymal hemorrhage w/ shift; HTN Diagnosis: (1) Intraparenchymal hemorrhage of brain Diagnosis: Principal (2) Acute respiratory failure Diagnosis: Principal (3) HTN (hypertension) Diagnosis: Principal (4) Leukocytosis Diagnosis: Principal Chief Complaint: Unresponsive, left-sided gaze This is a 52-year-old female. Actually name is Casandra Deluca. Date of admission 08/23/2017. Past medical history is unremarkable including Dr. Prather spoke with uncle. Patient was in her normal state of health today until approximately 3 PM on Monday and then developed acute onset of nausea associated with vomiting and complained of not feeling well. At approximately 1800 hrs., she took a one-time dose of ibuprofen and fell asleep on the couch. Early this a.m., and just prior to arrival to the emergency department awake and vomiting and then became unresponsive. Uncle states there was no injury or trauma he assisted her to the floor and because she was vomiting rolled her over so that she would not aspirate her emesis. Due to instability patient received 20 mg etomidate, 5 mg midazolam and 70 mg succinylcholine was intubated by ED physician. CT brain revealed a large left frontal parenchymal hemorrhage with diffuse intraventricular blood [address] Valencia /neurosurgery was notified. Recommended 50 g mannitol still hyperventilating he will evaluate the patient. [facility] were asked to admit. 08/23 0930 hours: Continued deterioration in neurological exam with absent peripheral reflexes and minimal cough. No Doll's eyes present. Mildly alkalotic , will correct to facilitate apnea test tomorrow. Objective Vital Signs Date Time Temp Pulse Resp B/P (MAP) Pulse Ox O2 Delivery O2 Flow Rate FiO2 08/23/17 09:20 94 128/65 08/23/17 09:05 100 40 08/23/17 05:00 94.0 16 08/23/17 03:45 Ventilator 08/23/17 01:45 15.00 Intake and Output 08/23/17 08/23/17 08/23/17 07:59 15:59 23:59 Intake Total 205 ml Output Total 1650 ml Balance -1445 ml Result Diagram: 08/23/17 0428 08/23/17 0428 Other Results Laboratory Tests Test 08/23/17 03:00 08/23/17 06:49 Blood Gas Puncture Site RT RADIAL RT BRACHIAL Blood Gas Patient Temperature 98.6 98.6 Blood Gas HCO3 20 mmol/L (22-26) 30 mmol/L (22-26) Blood Gas Base Excess -2.3 mmol/L (-2-2) 6.9 mmol/L (-2-2) Blood Gas Oxygen Saturation 99 % (90-100) 98 % (90-100) Arterial Blood pH 7.51 (7.380-7.420) 7.52 (7.380-7.420) Arterial Blood Partial Pressure CO2 26 mmHg (38-42) 37 mmHg (38-42) Arterial Blood Partial Pressure O2 564 mmHG (61-120) 282 mmHg (61-120) Arterial Blood Oxygen Content 20.3 Vol % (12.0-20.0) 19.2 Vol % (12.0-20.0) Arterial Blood Carboxyhemoglobin 0.9 % (0-4) 1.1 % (0-4) Arterial Blood Methemoglobin 0.6 % (0-2) 0.9 % (0-2) Blood Gas Hemoglobin 13.6 G/DL (12.0-16.0) 13.5 G/DL (12.0-16.0) Oxygen Delivery Device VENTILATOR VENT Blood Gas Ventilator Setting AC/18/500/PEEP5 SEE COMMENTS Blood Gas Inspired Oxygen 100 % 50 % Imaging Last Impressions Head CTA 08/23/17 0157 Signed Impressions: Service Date/Time: Wednesday, August 23, 2017 02:26 - CONCLUSION: No perceptible aneurysm or enhancing mass. Saeid Choi MD Head CT 08/23/17 0000 Signed Impressions: Service Date/Time: Wednesday, August 23, 2017 02:08 - CONCLUSION: Large left frontal lobe parenchymal hemorrhage and diffuse intraventricular blood. 11 mm of rightward midline shift. Saeid Choi MD Chest X-Ray 08/23/17 0000 Signed Impressions: Service Date/Time: Wednesday, August 23, 2017 02:44 - CONCLUSION: Appropriate position of the endotracheal tube. Clear lungs. Saeid Choi MD Cervical Spine CT 08/23/17 0000 Signed Impressions: Service Date/Time: Wednesday, August 23, 2017 02:08 - CONCLUSION: 1. No fracture or acute appearing malalignment of the cervical spine. 2. Degenerative changes as above. Saeid Choi MD Objective Remarks GENERAL: 52-year-old female currently orotracheally intubated, SKIN: Warm and dry. HEAD: Atraumatic. Normocephalic. EYES: Right pupil is 3 mm in size. Left pupil is 2 mm and nonreactive. No scleral icterus or drainage. ENT: No nasal bleeding or discharge. Mucous membranes pink and moist. NECK: Trachea midline. Orally intubated. CARDIOVASCULAR: RRR. S1, S2. No S4. Without murmur, no JVD. RESPIRATORY: Few faint crackles appreciated right lower lobe. No wheezing GASTROINTESTINAL: Abdomen soft, non-tender, nondistended. MUSCULOSKELETAL: Extremities without significant peripheral edema. No obvious deformities. NEUROLOGICAL: Unresponsive. Upward toes. Minimal cough. No gag.. Pupils as above. Cannot elicit withdrawal to noxious stimuli. No Doll'e eyes. A/P Assessment and Plan Neuro/Psych: Large left frontal lobe parenchymal hemorrhage with intraventricular blood with associated 11 mm shift from right to left. CT brain revealed 4.85.9 cm left frontoparietal hemorrhage with surrounding cerebral edema and 11 mm right which midline shift. Hemorrhage extends to the ventricles. Negative CT angiogram the brain. Dr. Valencia notified. Recommended mannitol 50 g IV 1, hyperventilation Discussed with Dr. Valencia. Very poor prognosis. Considering ventriculostomy Order repeat CT brain a.m. 08/24 Hypertonic saline will sodium 1 5155 Mannitol 12.5 g IV every 8 hours. Hold if osm > greater than 310 3% saline CV: Hypertensive emergency Nicardipine drip to keep systolic blood pressure less than 140 Norepinephrine drip to keep systolic blood pressure greater than 110 Currently normal saline 84 cc an hour EKG pending Resp: Acute respiratory failure secondary to large parenchymal hemorrhage [facility] 16475/05/12/49 Ventilator bundle Albuterol/ipratropium aerosols every 6 hours with albuterol aerosols every 2 hours as needed dyspnea Spontaneous breathing trials when clinically indicated A.m. chest x-ray 08/24 End-tidal CO2 35-40 GI: N.p.o. NG tube to low intermittent wall suction Lansoprazole for GI prophylaxis Docusate sodium/senna 1 tablet twice daily for bowel regimen : Dumont catheter for accurate I's and O's in a critically ill patient Endo: Sliding scale insulin Novulin R with Accu-Cheks every 6 hours to maintain euglycemia/medium protocol Check TSH in a.m. Renal: Creatinine currently within normal limits Monitor urine output Accurate I's and O's Heme: Leukocytosis Likely leukemoid reaction. Monitor CBC daily. Follow trends ID: Monitor for infection MSK: PT/OT evaluate and treat FEN: Repeat potassium ordered. Originally hypokalemic. Magnesium and phosphorus ordered as well. Replace electrolytes per ICU electrolyte protocol Access -Left IJ CVL day #1 placed 08/23 Prophylaxis -GI -lansoprazole -DVT -SCD/holding pharmacological prophylaxis until okayed with neurosurgery Overall impression: The patient is critically ill with a devastating intracranial hemorrhage and considerable parenchymal destruction. She is requiring ongoing resuscitative efforts particularly designed to reduce cerebral edema. The prognosis is poor. Critical care time 45 minutes aside from procedures. Rayray Strickland MD Aug 23, 2017 09:40
[2017-08-23 12:01] LABS: BICARBONATE 31.5 MEQ/L (21.0-32.0); CALCIUM 9.1 MG/DL (8.5-10.1); CREATININE 0.61 MG/DL (0.50-1.00)
[2017-08-23 12:05] LABS: TROPONIN I 0.05 NG/ML (0.02-0.05)
--- NOTE | 2017-08-23 12:12 | EKG ---
Date Performed: 08/23/2017 Time Performed: 05:11:46 PTAGE: 89 years EKG: Sinus arrhythmia Prolonged QT interval Lateral ST changes are nonspecific Tall T waves - co nsider acute ischemia or hyperkalemia Borderline ECG PREVIOUS TRACING : 08/23/2017 02.52 Compared to previous tracing, rate faster DOCTOR: Julio Louise Interpretating Date/Time 08/23/2017 12:10:43
[2017-08-23] MEDS ORDERED: LORazepam 2 MG/ML VIAL IV PUSH PRN (15:15)
--- NOTE | 2017-08-23 15:51 | PD.PROCEDR ---
Procedure Note Procedure Diagnosis: Intra-parenchymal brain hemorrhage Operation: Insertion left dorsalis pedis arterial monitoring line Procedure: Left foot posterior tibial and dorsalis pedis pulses strong. Compression of dorsalis pedis pulse does not impair circulation to the foot. The dorsum of the left foot is prepped and draped. A 20-gauge needle is inserted in the dorsalis pedis artery in the region of the midfoot and the wire was easily advanced. A 3 cm catheter is advanced over the wire and a good waveform is observed. Sterile dressing is applied. Following the procedure circulation to the left foot and toes is normal. Rayray Strickland MD Aug 23, 2017 15:51
--- NOTE | 2017-08-23 16:13 | MB ---
cc: Adelso Garcia MD, PhD DATE: 08/23/2017 REASON FOR CONSULTATION: Cerebral hemorrhage. HISTORY OF PRESENT ILLNESS: This is a 52-year-old female who came to the ER as a stroke alert after she collapsed at home. She was found on CT scan to have a very large intraparenchymal hemorrhage in the left frontoparietal area with extension into the lateral ventricles, third ventricle and fourth ventricle, with subfalcine as well as uncal herniation. Initially, her pupils were 7 mm, dilated and fixed. GCS was 3. She has developed some twitching activity, myoclonic-type activity of the facial muscles and tongue, and Keppra has been added. Ativan has diminished this. NEUROLOGIC EXAMINATION: VITAL SIGNS: Blood pressure is 136/71, pulse 77, respiratory rate is 16, temperature 98.6 degrees. HIGHER CORTICAL FUNCTION: Nonresponsive. CRANIAL NERVES: The right pupil is oval shaped, roughly 3 mm. Left pupil is 2 mm. Neither of them react to light. She has no corneal reflex present. There is no ciliospinal reflex. There is no extraocular movement to doll's eye maneuver. Gag is absent. MOTOR: There is no spontaneous limb movement. There is some reflexive withdrawal in the lower extremities, probably Babinski's. Reflexes symmetric. DIAGNOSTIC DATA: CT of the brain reveals a very large left frontal lobe hemorrhage with extension into the ventricles, lateral third and fourth, with significant mass effect as well as herniation. She had a CT angiogram of the neck, which was normal. CTA of the head normal. No sign of AVM. LABORATORY DATA: White count is 16,700, hemoglobin 13, hematocrit 37%, platelet count is 335,000. Sodium is 140, potassium 3.3, chloride 99, CO2 is 31.5, the BUN is 5, creatinine 0.61, glucose 170. PT 12.2, INR 1.2, aPTT 28. IMPRESSION: Large intraparenchymal hemorrhage with significant mass effect, herniation and intraventricular extension. At this time, and also early this morning on presentation, she has had no brainstem reflexes. The presentation is extremely poor, poor prognosis. She may be having some seizure activity, which seems to be responding to the Keppra. We will increase the dose to 500 mg IV q. 6 hours. We will also obtain an EEG, which would be helpful prognostically, although prognosis is very poor. Adelso Garcia MD, PhD ALPA/FERCHO , 03:42 PM , 04:12 PM
[2017-08-23] MEDS ORDERED: FOSPHENYTOIN INJ 1,000 MGPE in SODIUM CHLORIDE 0.9% INJ 50 ML IV ONE (16:30)
[2017-08-23] MEDS: levETIRAcetam INJ 500 MG in SODIUM CHLORIDE 0.9% INJ 100 ML IV SCH (17:31)
[2017-08-23 21:00] LABS: ALBUMIN 3.5 GM/DL (3.4-5.0); DIRECT BILIRUBIN ADULT 0.2 MG/DL (0.0-0.2); INDIRECT BILIRUBIN 0.6 MG/DL (0.0-0.8); MAGNESIUM 2.5 MG/DL (1.5-2.5); PHOSPHORUS 1.9 MG/DL (2.5-4.9); TOTAL BILIRUBIN ADULT 0.8 MG/DL (0.2-1.0); TOTAL PROTEIN 7.2 GM/DL (6.4-8.2); TROPONIN I 0.05 NG/ML (0.02-0.05)
[2017-08-23] MEDS: FOSPHENYTOIN SODIUM 100 MG PE/2 ML VIAL IV SCH (21:38)
--- NOTE | 2017-08-23 21:50 | EKG ---
Date Performed: 08/23/2017 Time Performed: 02:52:13 PTAGE: 89 years EKG: SINUS BRADYCARDIA POSSIBLE RIGHT VENTRICULAR CONDUCTION DELAY SIGNIFICANTLY PROLONGED QT IN TERVAL ABNORMAL ECG NO PREVIOUS TRACING DOCTOR: Julio Louise Interpretating Date/Time 08/23/2017 21:48:42
[2017-08-24] VITALS (23 sets, daily range): BP systolic 124–164; BP diastolic 54–88; PULSE 54–91; RESP 16–21; TEMP 94–99; O2SAT 100
[2017-08-24] MEDS: niCARdipine INJ 25 MG in SODIUM CHLOR 0.9% 250 ML INJ 240 ML IV PRN ×3 (00:13→20:59)
[2017-08-24] MEDS: levETIRAcetam INJ 500 MG in SODIUM CHLORIDE 0.9% INJ 100 ML IV SCH ×4 (00:56→17:58)
[2017-08-24] MEDS: INSULIN NovoLIN REGULAR SUPPLEMENTAL SCALE SQ SCH ×4 (00:57→18:00)
[2017-08-24] MEDS: MANNITOL 12.5 GM/50 ML VIAL IV SCH ×3 (03:16→19:30)
[2017-08-24] MEDS: SODIUM CHLOR 0.9% 1000 ML INJ 1,000 ML IV SCH ×2 (03:16→14:09)
[2017-08-24] MEDS: CHLORHEXIDINE GLUCONATE 2 % 1 PACK (2 CLOTHS) TOP SCH (03:17)
[2017-08-24] MEDS: RESP: ALBUTEROL 2.5 MG/IPRATROPIUM 0.5 MG NEB (SCH) INH ×5 (03:24→19:55)
[2017-08-24 04:15] LABS: AUTOMATED NEUTROPHIL # 11.5 TH/MM3 (1.8-7.7); BASOPHIL % 0.1 % (0.0-2.0); HEMATOCRIT 33.5 % (35.0-46.0); HEMOGLOBIN 11.3 GM/DL (11.6-15.3); LYMPH % 3.8 % (9.0-44.0); LYMPHOCYTE # 0.5 TH/MM3 (1.0-4.8); MEAN CELL VOLUME 88.9 FL (80.0-100.0); MEAN CORPUSCULAR HGB CONC 33.8 % (32.0-36.0); MONOCYTE # 0.9 TH/MM3 (0-0.9); NEUT % 89.1 % (16.0-70.0); PLATELET COUNT 281 TH/MM3 (150-450); RED BLOOD COUNT 3.77 MIL/MM3 (4.00-5.30); RED CELL DISTRIBUTION WIDTH 13.7 % (11.6-17.2); WHITE BLOOD COUNT 12.9 TH/MM3 (4.0-11.0)
[2017-08-24 04:27] LABS: INTERNATIONAL NORMALIZED RATIO 1.2 RATIO; PROTHROMBIN TIME - PATIENT 11.8 SEC (9.8-11.6)
[2017-08-24 04:36] LABS: ALBUMIN 2.7 GM/DL (3.4-5.0); ALKALINE PHOSPHATASE 98 U/L (45-117); ALT (GPT) 53 U/L (10-53); AST (GOT) 55 U/L (15-37); BICARBONATE 20.2 MEQ/L (21.0-32.0); BLOOD UREA NITROGEN 5 MG/DL (7-18); CALCIUM 7.9 MG/DL (8.5-10.1); CHLORIDE 122 MEQ/L (98-107); GLOMERULAR FILTRATION RATE 137 ML/MIN (>89); GLUCOSE,RANDOM 201 MG/DL (74-106); MAGNESIUM 1.8 MG/DL (1.5-2.5); PHOSPHORUS 1.5 MG/DL (2.5-4.9); SODIUM (NA) 151 MEQ/L (136-145); TOTAL BILIRUBIN ADULT 0.6 MG/DL (0.2-1.0); TOTAL PROTEIN 5.8 GM/DL (6.4-8.2)
[2017-08-24] MEDS: 3% SALINE INJ 500 ML IV SCH (05:17)
--- NOTE | 2017-08-24 05:23 | RADRPT ---
EXAM DATE/TIME: 08/24/2017 03:57 [facility] COMPARISON: CHEST SINGLE AP, August 23, 2017, 3:22. INDICATIONS : Respiratory failure MEDICAL HISTORY : None. SURGICAL HISTORY : None. ENCOUNTER: Subsequent ACUITY: 2 days PAIN SCORE: Non-responsive. LOCATION: Bilateral chest FINDINGS: No infiltrate, effusion or pneumothorax. Endotracheal tube tip is 4 cm above the ashley. Nasogastric tube courses into the stomach. Study is u nchanged. CONCLUSION: No change. Lungs remain clear. Saeid Choi MD on August 24, 2017 at 5:21 Board Certified Radiologist. This report was verified electronically.
--- NOTE | 2017-08-24 05:57 | RADRPT ---
EXAM DATE/TIME: 08/24/2017 04:27 [facility] COMPARISON: No previous studies available for comparison. INDICATIONS : Left parenchymal hemorrhage. RADIATION DOSE: 56.35 CTDIvol (mGy) MEDICAL HISTORY : Non-responsive. SURGICAL HISTORY : Non-responsive. ENCOUNTER: Subsequent ACUITY: 2 days PAIN SCALE: Non-responsive LOCATION: cranial TECHNIQUE: Multiple contiguous axial images were obtained of the head. Using automated exposure control and adj ustment of the mA and/or kV according to patient size, radiation dose was kept as low as reasonably a chievable to obtain optimal diagnostic quality images. DICOM format image data is available electro nically for review and comparison. FINDINGS: Parenchymal consolidation in the white matter of the left frontal lobe again noted and not significan tly changed in size, approximately 4.8 x 5.8 cm in greatest transaxial dimension. There is increased hemorrhage in the ventricles and mild to moderate ventriculomegaly is developing. There is approximat hola 9 mm of rightward midline shift, slightly improved. No perceptible mass lesion. No evidence of an acute ischemic event. CONCLUSION: Diffuse intraventricular hemorrhage and left frontal lobe parenchymal hemorrhage again noted. Intrave ntricular blood has increased and there is mild to moderate ventriculomegaly. 9 mm of rightward midli ne shift, slightly improved. Saeid Choi MD on August 24, 2017 at 5:53 Board Certified Radiologist. This report was verified electronically.
[2017-08-24] MEDS: ARTIFICIAL TEARS OPTH SOLN 15 ML BTL EACH EYE SCH ×6 (06:00→21:50)
[2017-08-24] MEDS: FOSPHENYTOIN SODIUM 100 MG PE/2 ML VIAL IV SCH ×3 (06:21→21:50)
--- NOTE | 2017-08-24 07:26 | HHI.CCPN ---
Subjective Remarks/Hospital Course L intraparenchymal hemorrhage w/ shift; HTN Diagnosis: (1) Intraparenchymal hemorrhage of brain Diagnosis: Principal (2) Acute respiratory failure Diagnosis: Principal (3) HTN (hypertension) Diagnosis: Principal (4) Leukocytosis Diagnosis: Principal Chief Complaint: Unresponsive, left-sided gaze This is a 52-year-old female. Actually name is Casandra Deluca. Date of admission 08/23/2017. Past medical history is unremarkable including Dr. Prather spoke with uncle. Patient was in her normal state of health today until approximately 3 PM on Monday and then developed acute onset of nausea associated with vomiting and complained of not feeling well. At approximately 1800 hrs., she took a one-time dose of ibuprofen and fell asleep on the couch. Early this a.m., and just prior to arrival to the emergency department awake and vomiting and then became unresponsive. Uncle states there was no injury or trauma he assisted her to the floor and because she was vomiting rolled her over so that she would not aspirate her emesis. Due to instability patient received 20 mg etomidate, 5 mg midazolam and 70 mg succinylcholine was intubated by ED physician. CT brain revealed a large left frontal parenchymal hemorrhage with diffuse intraventricular blood [address] Valencia /neurosurgery was notified. Recommended 50 g mannitol still hyperventilating he will evaluate the patient. [employer] were asked to admit. 08/23 0930 hours: Continued deterioration in neurological exam with absent peripheral reflexes and minimal cough. No Doll's eyes present. Mildly alkalotic , will correct to facilitate apnea test tomorrow. 08/24: Appears to withdraw left foot this morning mild cough response. Breathes strongly over ventilator with slight hyperventilation. Otherwise unresponsive. About 6 x 5 cm area of hemorrhage persists in the left hemisphere with considerable intraventricular blood. Ventricles starting to dilate. Vasogenic edema and surrounding normal brain. Objective Vital Signs Date Time Temp Pulse Resp B/P (MAP) Pulse Ox O2 Delivery O2 Flow Rate FiO2 08/24/17 06:00 56 08/24/17 04:15 100 100 08/24/17 04:00 98.0 17 125/77 (93) 08/23/17 19:00 Mechanical Ventilator 15.00 Intake and Output 08/24/17 08/24/17 08/25/17 08:00 16:00 00:00 Intake Total 1194 ml Output Total 1000 ml Balance 194 ml Result Diagram: 08/24/17 0340 08/24/17 0340 Other Results Laboratory Tests Test 08/23/17 09:44 Blood Gas Puncture Site LT RADIAL Blood Gas Patient Temperature 98.6 Blood Gas HCO3 33 mmol/L (22-26) Blood Gas Base Excess 9.7 mmol/L (-2-2) Blood Gas Oxygen Saturation 98 % (90-100) Arterial Blood pH 7.53 (7.380-7.420) Arterial Blood Partial Pressure CO2 40 mmHg (38-42) Arterial Blood Partial Pressure O2 204 mmHg (61-120) Arterial Blood Oxygen Content 18.3 Vol % (12.0-20.0) Arterial Blood Carboxyhemoglobin 1.3 % (0-4) Arterial Blood Methemoglobin 1.1 % (0-2) Blood Gas Hemoglobin 13.1 G/DL (12.0-16.0) Oxygen Delivery Device VENTILATOR Blood Gas Ventilator Setting 16/470/1.0/+5 Blood Gas Inspired Oxygen 40 % Imaging Last Impressions Head CTA 08/23/17 0157 Signed Impressions: Service Date/Time: Wednesday, August 23, 2017 02:26 - CONCLUSION: No perceptible aneurysm or enhancing mass. Saeid Choi MD Head CT 08/23/17 0000 Signed Impressions: Service Date/Time: Wednesday, August 23, 2017 02:08 - CONCLUSION: Large left frontal lobe parenchymal hemorrhage and diffuse intraventricular blood. 11 mm of rightward midline shift. Saeid Choi MD Chest X-Ray 08/23/17 0000 Signed Impressions: Service Date/Time: Wednesday, August 23, 2017 02:44 - CONCLUSION: Appropriate position of the endotracheal tube. Clear lungs. Saeid Choi MD Cervical Spine CT 08/23/17 0000 Signed Impressions: Service Date/Time: Wednesday, August 23, 2017 02:08 - CONCLUSION: 1. No fracture or acute appearing malalignment of the cervical spine. 2. Degenerative changes as above. Saeid Choi MD Objective Remarks GENERAL: 52-year-old female currently orotracheally intubated, SKIN: Warm and dry. HEAD: Atraumatic. Normocephalic. EYES: Right pupil is 4 mm in size. Left pupil is 3 mm and nonreactive. No scleral icterus or drainage. ENT: No nasal bleeding or discharge. Mucous membranes pink and moist. NECK: Trachea midline. Orally intubated. CARDIOVASCULAR: RRR. S1, S2. No S4. Without murmur, no JVD. RESPIRATORY: Clear, good excursions on ventilated breaths. No wheezing GASTROINTESTINAL: Abdomen soft, non-tender, nondistended. Bowel sounds present. MUSCULOSKELETAL: Extremities without significant peripheral edema. No obvious deformities. NEUROLOGICAL: Unresponsive. Upward toes. Minimal cough. No gag. Withdrawal response left foot. Pupils as above. Cannot elicit withdrawal to noxious stimuli. No Doll'e eyes. A/P Assessment and Plan Neuro/Psych: Large left frontal lobe parenchymal hemorrhage with intraventricular blood with associated 11 mm shift from right to left. CT brain revealed 4.85.9 cm left frontoparietal hemorrhage with surrounding cerebral edema and 11 mm right which midline shift. Hemorrhage extends to the ventricles. Negative CT angiogram the brain. Dr. Valencia notified. Recommended mannitol 50 g IV 1, hyperventilation Discussed with Dr. Valencia. Very poor prognosis. Considering ventriculostomy Order repeat CT brain a.m. 08/24 Hypertonic saline will sodium 1 5155 Mannitol 12.5 g IV every 8 hours. Hold if osm > greater than 310 Hold 3% saline CV: Hypertensive emergency Nicardipine drip to keep systolic blood pressure less than 140 Norepinephrine drip to keep systolic blood pressure greater than 110 Currently normal saline 84 cc an hour EKG pending Well controlled now, add potassium to intravenous fluid. Resp: Acute respiratory failure secondary to large parenchymal hemorrhage [facility] 16/475/05/12/49 Ventilator bundle Albuterol/ipratropium aerosols every 6 hours with albuterol aerosols every 2 hours as needed dyspnea Spontaneous breathing trials when clinically indicated A.m. chest x-ray 08/24 End-tidal CO2 35-40 Patient is hyperventilating, unable to control PCO2 precisely. GI: N.p.o. NG tube to low intermittent wall suction Lansoprazole for GI prophylaxis Docusate sodium/senna 1 tablet twice daily for bowel regimen Start trickle feeds. : Dumont catheter for accurate I's and O's in a critically ill patient Endo: Sliding scale insulin Novulin R with Accu-Cheks every 6 hours to maintain euglycemia/medium protocol Check TSH in a.m. Renal: Creatinine currently within normal limits Monitor urine output Accurate I's and O's Heme: Leukocytosis Likely leukemoid reaction. Monitor CBC daily. Follow trends ID: Monitor for infection MSK: PT/OT evaluate and treat FEN: Repeat potassium ordered. Originally hypokalemic. Magnesium and phosphorus ordered as well. Replace electrolytes per ICU electrolyte protocol Electrolyte replacement protocol, add potassium. Access -Left IJ CVL day #2 placed 08/23 Prophylaxis -GI -lansoprazole -DVT -SCD/holding pharmacological prophylaxis until okayed with neurosurgery Overall impression: The patient remains critically ill with a devastating intracranial hemorrhage and considerable parenchymal destruction. She is requiring ongoing resuscitative efforts particularly designed to reduce cerebral edema. She is now in coma with minimal and weak reflexes. CAT scan of the head reveals progression of bleed and surrounding vasogenic edema. I discussed her prognosis and care in detail with her uncle who is her only family. Her son is estranged and there is no way to contact him. The prognosis is poor. Critical care time 48 minutes aside from procedures. Rayray Strickland MD Aug 24, 2017 07:26
[2017-08-24] MEDS: NS + KCL 40 MEQ INJ 1,000 ML IV SCH (08:33)
[2017-08-24] MEDS: THIAMINE INJ 100 MG in SODIUM CHLORIDE 0.9% INJ 100 ML IV SCH (08:33)
[2017-08-24] MEDS: CHLORHEXIDINE 0.12% (ORAL KIT) 15 ML CUP MT SCH ×2 (08:33→21:48)
[2017-08-24] MEDS: MULTIVITAMIN TAB PO SCH (08:34)
[2017-08-24] MEDS: LANSOPRAZOLE SOLUTAB 30 MG TAB G-TUBE SCH (08:34)
[2017-08-24] MEDS: SODIUM CHLORIDE 0.9% FLUSH 10 ML FLUSH IV FLUSH SCH ×3 (08:34→21:49)
[2017-08-24] MEDS: DOCUSATE SODIUM 50 MG/SENNA 8.6 MG TAB PO SCH ×2 (08:34→21:49)
[2017-08-24] MEDS: FOLIC ACID 1 MG TAB PO SCH (08:34)
[2017-08-24] MEDS: POTASSIUM PHOSPHATE INJ 30 MMOL in SODIUM CHLOR 0.9% 250 ML INJ 250 ML IV PRN (12:30)
--- NOTE | 2017-08-24 16:44 | HHI.NSPN ---
(Shabnam rOosco) Note Status Status: Progress Note (Shabnam Orosco) Interval History Interval History This is a 52-year-old female brought to [facility] emergency department by EMS transport from home after collapse at home. According to paramedics she had had vomiting earlier in the day this evening was given a one-time dose of ibuprofen by family member and then had further vomiting and collapse. Upon EMS arrival patient was noted to have fixed downward leftward gaze was unresponsive except to painful stimuli with some posturing of the right upper extremity. No seizure activity identified. No tongue bitting. No incontinence of stool or urine, No tonic clonic movements. No report of injury or trauma. No prior medical history provided to EMS by family. She has a GCS of 3. Pupils 7mm dilated and fixed. CT of the brain showed a very large deep intracerebral hemorrhage, in the dominant hemisphere with uncal and subfalcine herniation. Neurosurgical consultation requested 08/24: Intubated, no sedatives. Nursing reports given Ativan last night for persistent possible seizures noted from the abnormal movements of her tongue. No eye opening, not following commands. Pupils currently 5-6 mm nonreactive. Positive corneal reflex today on exam. Nursing reports no cough or gag. (Shabnam Orosco) Labs, Micro, & Vital Signs Results Date Time Temp Pulse Resp B/P (MAP) Pulse Ox O2 Delivery O2 Flow Rate FiO2 08/24/17 15:00 56 08/24/17 14:00 59 08/24/17 12:00 59 08/24/17 12:00 40 08/24/17 12:00 98.6 62 19 164/88 (113) 100 08/24/17 11:03 100 40 08/24/17 10:00 57 08/24/17 08:00 94.0 54 18 136/80 (98) 100 08/24/17 08:00 58 08/24/17 08:00 40 08/24/17 07:40 100 40 08/24/17 07:34 100 40 08/24/17 07:00 100 Mechanical Ventilator 40 08/24/17 07:00 58 08/24/17 06:00 56 08/24/17 04:15 100 100 08/24/17 04:00 98.0 55 17 125/77 (93) 100 08/24/17 04:00 40 08/24/17 04:00 55 08/24/17 03:24 100 40 08/24/17 03:16 63 122/56 08/24/17 02:15 100 40 08/24/17 02:00 65 08/24/17 00:13 59 139/53 08/24/17 00:00 98.2 58 16 140/54 (82) 100 08/24/17 00:00 58 08/24/17 00:00 40 08/23/17 23:27 100 40 08/23/17 23:00 59 08/23/17 22:00 58 08/23/17 20:00 98.0 92 16 134/51 (78) 100 08/23/17 20:00 40 08/23/17 20:00 60 08/23/17 19:41 100 40 08/23/17 19:41 100 40 08/23/17 19:00 100 Mechanical Ventilator 15.00 40 08/23/17 18:00 67 Constitutional Vital Signs Date Time Temp Pulse Resp B/P (MAP) Pulse Ox O2 Delivery O2 Flow Rate FiO2 08/24/17 15:00 56 08/24/17 14:00 59 08/24/17 12:00 59 08/24/17 12:00 40 08/24/17 12:00 98.6 62 19 164/88 (113) 100 08/24/17 11:03 100 40 08/24/17 10:00 57 08/24/17 08:00 94.0 54 18 136/80 (98) 100 08/24/17 08:00 58 08/24/17 08:00 40 08/24/17 07:40 100 40 08/24/17 07:34 100 40 08/24/17 07:00 100 Mechanical Ventilator 40 08/24/17 07:00 58 08/24/17 06:00 56 08/24/17 04:15 100 100 08/24/17 04:00 98.0 55 17 125/77 (93) 100 08/24/17 04:00 40 08/24/17 04:00 55 4/19/18 03:24 100 40 08/24/17 03:16 63 122/56 08/24/17 02:15 100 40 08/24/17 02:00 65 08/24/17 00:13 59 139/53 08/24/17 00:00 98.2 58 16 140/54 (82) 100 08/24/17 00:00 58 08/24/17 00:00 40 08/23/17 23:27 100 40 08/23/17 23:00 59 08/23/17 22:00 58 08/23/17 20:00 98.0 92 16 134/51 (78) 100 08/23/17 20:00 40 08/23/17 20:00 60 08/23/17 19:41 100 40 08/23/17 19:41 100 40 08/23/17 19:00 100 Mechanical Ventilator 15.00 40 08/23/17 18:00 67 (Shabnam Orosco) Review of Systems ROS Limitations: Clinical Condition, Intubated, Altered Mental Status (Shabnam Orosco) Physical Exam The patient is intubated and without sedative. Cranial Nerves: Pupils left 5 mm, right 6 mm both nonreactive. Eyes appear conjugated. Face musculature appeared symmetrical at rest. Face sensation, olfaction, visual mcwilliams, and hearing cannot be adequately assessed due to his neurological condition. The patient has a corneal reflex. Cervical Spine: Soft supple Motor: Mild mild clonus noted to both feet with noxious stimuli. Otherwise no withdrawals to extremities, no spontaneous movements. Reflexes: Plantars neutral bilaterally. Cerebellar: Examination cannot be adequately assessed due to the patient's neurological condition. (Shabnam Orosco) The patient is intubated and without sedative. Cranial Nerves: Pupils left 5 mm, right 6 mm both nonreactive. Eyes appear conjugated. Face musculature appeared symmetrical at rest. Face sensation, olfaction, visual mcwilliams, and hearing cannot be adequately assessed due to his neurological condition. The patient has a corneal reflex. Cervical Spine: Soft supple Motor: Mild mild clonus noted to both feet with noxious stimuli. Otherwise no withdrawals to extremities, no spontaneous movements. Reflexes: Plantars neutral bilaterally. Cerebellar: Examination cannot be adequately assessed due to the patient's neurological condition. Lungs clear Heart regular rhythm or rate Skin warm and dry (Frederick Valencia MD) Medications Current Medications Current Medications Medications (Trade) Dose Ordered Sig/Kat Route PRN Reason Start Time Stop Time Status Last Admin Dose Admin Nicardipine HCl 25 mg/Sodium Chloride 250 ml @ 50 mls/hr TITRATE PRN IV Blood pressure management 08/23/17 02:15 08/24/17 03:16 Sodium Chloride (NS Flush) DAILY IV FLUSH 08/23/17 09:00 08/24/17 08:34 Sodium Chloride (NS Flush) UNSCH PRN IV FLUSH SEE PROTOCOL 08/23/17 03:30 Potassium Chloride 100 ml @ 50 mls/hr Q2H PRN IV For Potassium 2.8 - 3.2 mEq/L 08/23/17 03:30 08/23/17 06:58 Potassium Chloride 100 ml @ 50 mls/hr Q2H PRN IV For Potassium 2.8 - 3.2 mEq/L 08/23/17 03:30 Potassium Bicarb/ Potassium Chloride (K-Lyte Cl Eff) 50 meq UNSCH PRN PO For Potassium 3.3 - 3.5 mEq/L 08/23/17 03:30 Potassium Chloride 100 ml @ 25 mls/hr UNSCH PRN IV For Potassium 3.3 - 3.5 mEq/L 08/23/17 03:30 Potassium Chloride 100 ml @ 50 mls/hr Q2H PRN IV For Potassium 3.3 - 3.5 mEq/L 08/23/17 03:30 Magnesium Sulfate 4 gm/Sodium Chloride 100 ml @ 50 mls/hr UNSCH PRN IV For Magnesium 0.9 - 1.1 mg/dL 08/23/17 03:30 Magnesium Oxide (Mag-Ox) 800 mg UNSCH PRN PO For Magnesium 1.2 - 1.6 mg/dL 08/23/17 03:30 Magnesium Sulfate 2 gm/Sodium Chloride 100 ml @ 50 mls/hr UNSCH PRN IV For Magnesium 1.2 - 1.6 mg/dL 08/23/17 03:30 Potassium Phosphate (K-Phos) 2,000 mg Q4H PRN PO For Phosphorus < 2.5 mg/dL 08/23/17 03:30 Sodium Phosphate 30 mmol/Sodium Chloride 250 ml @ 42 mls/hr UNSCH PRN IV For Phosphorus < 2.5 mg/dL 08/23/17 03:30 Potassium Phosphate (K-Phos) 2,000 mg UNSCH PRN PO/TUBE SEE LABEL COMMENTS 08/23/17 03:30 Potassium Phosphate 30 mmol/ Sodium Chloride 260 ml @ 42 mls/hr UNSCH PRN IV SEE LABEL COMMENTS 08/23/17 03:30 08/24/17 12:30 Dextrose (D50w (Vial) Inj) 50 ml UNSCH PRN IV PUSH HYPOGLYCEMIA-SEE COMMENTS 08/23/17 03:30 Glucagon (Glucagon Inj) 1 mg UNSCH PRN OTHER HYPOGLYCEMIA-SEE COMMENTS 08/23/17 03:30 Insulin Human Regular (NovoLIN R SUPPLEMENTAL SCALE) 1 Q6HR SQ 08/23/17 06:00 08/24/17 06:22 Mannitol (Mannitol Inj) 12.5 gm Q8H IV 08/23/17 03:30 08/24/17 03:16 Sodium Chloride 1,000 ml @ 84 mls/hr [id number] IV 08/23/17 03:23 08/24/17 03:16 Sodium Chloride (NS Flush) 2 ml UNSCH PRN IV FLUSH FLUSH AFTER USING IV ACCESS 08/23/17 03:30 Sodium Chloride (NS Flush) 2 ml BID IV FLUSH 08/23/17 09:00 08/23/17 20:58 Lansoprazole (Prevacid Odt) 30 mg DAILY G-TUBE 08/23/17 09:00 08/24/17 08:34 Artificial Tears (Tears Naturale Opth Soln) 1 drop TID EACH EYE 08/23/17 09:00 08/24/17 13:19 Ondansetron HCl (Zofran Inj) 4 mg Q6H PRN IV PUSH NAUSEA OR VOMITING 08/23/17 03:30 Albuterol/ Ipratropium (Duoneb Neb) 1 ampule Q4HR NEB INH 08/23/17 04:00 08/24/17 11:08 Albuterol Sulfate (Albuterol Neb) 2.5 mg Q2HR NEB PRN INH SOB/WHEEZING 08/23/17 03:30 Miscellaneous Information 1 [id number] XX 08/23/17 03:30 08/23/17 04:33 Chlorhexidine Gluconate (Chlorhexidine 2% Cloth) 3 pack Taper DAILY@04 TOP 08/23/17 04:00 08/19/18 03:59 08/23/17 04:06 Chlorhexidine Gluconate (Chlorhexidine 2% Cloth) 3 pack UNSCH PRN TOP HYGIENIC CARE 08/23/17 03:30 Senna/Docusate Sodium (Maggy-Colace) 1 tab BID PO 08/23/17 09:00 08/24/17 08:34 Magnesium Hydroxide (Milk Of Magnesia Liq) 30 ml Q12H PRN PO Mild constipation 08/23/17 03:30 Sennosides (Senokot) 17.2 mg Q12H PRN PO Moderate constipation 08/23/17 03:30 Bisacodyl (Dulcolax Supp) 10 mg DAILY PRN RECTAL SEVERE CONSITIPATION 08/23/17 03:30 Lactulose (Lactulose Liq) 30 ml DAILY PRN PO SEVERE CONSITIPATION 08/23/17 03:30 Chlorhexidine Gluconate (Peridex 0.12% Liq) 15 ml BID@08,20 MT 08/23/17 08:00 08/24/17 08:33 Propofol 100 ml @ 2.286 mls/ hr TITRATE PRN IV SEDATION 08/23/17 03:30 Fentanyl Citrate 250 ml @ 5 mls/hr TITRATE PRN IV SEDATION 08/23/17 03:30 Norepinephrine Bitartrate 4 mg/ Sodium Chloride 250 ml @ 7.5 mls/hr TITRATE PRN IV Blood pressure management 08/23/17 03:30 08/23/17 11:20 Terbutaline Sulfate (Brethine Inj) 1 mg UNSCH PRN SQ For Extravasation 08/23/17 03:30 Artificial Tears (Tears Naturale Opth Soln) 1 drop Q8HR EACH EYE 08/23/17 06:00 08/24/17 06:00 Thiamine HCl 100 mg/Sodium Chloride 101 ml @ 101 mls/hr DAILY IV 08/23/17 09:00 08/24/17 08:33 Multivitamins (Theragran) 1 tab DAILY PO 08/23/17 09:00 08/24/17 08:34 Folic Acid (Folate) 1 mg DAILY PO 08/23/17 09:00 08/24/17 08:34 Lorazepam (Ativan Inj) 1 mg Q15M PRN IV PUSH seizures 08/23/17 15:15 08/23/17 15:42 Levetriacetam 500 mg/Sodium Chloride 105 ml @ 420 mls/hr Q6HR IV 08/23/17 18:00 08/24/17 11:13 Fosphenytoin Sodium (Cerebyx Inj) 100 mgpe Q8HR IV 08/23/17 22:00 08/24/17 14:41 Potassium Chloride/Sodium Chloride 1,000 ml @ 42 mls/hr [id number] IV 08/24/17 07:15 08/24/17 08:33 (Shabnam Orosco) Medical Decision Making MDM Remarks 52-year-old female with large left intra-cranial hemorrhage, intraventricular hemorrhage (Shabnam Orosco) Plan Plan Remarks continue neuro checks critical care management (Shabnam Orosco) Attending Statement She has suffered a devastating injury in his dominant hemisphere with clinical evidence of uncal herniation. Her condition is irreversible, and there is no chance for meaningful recovery at this time. She is not a surgical candidate. I cannot be enthusiastic recommending a neurosurgical intervention. She is undergoing medical treatment Pulmonary. Continue aggressive pulmonary toilette, nasotracheal suction, and breathing treatments with nebulizers. Daily PT and OT Renal. Continue to monitor closely urine output, BUN and creatinine Endocrine. Continue to Monitor serial Acu checks and SSI as needed in detail ID continue to monitor for signs of infection Continue Protonix for stress ulcer prophylaxis Continue Lc hose and SCD's for DVT prophylaxis Further recommendations will be provided depending on the patient's clinical evaluation and follow up studies. The exam, history, and the medical decision-making described in the above note were completed with the assistance of the mid-level provider. I reviewed and agree with the findings presented. I attest that I had a [id number] encounter with the patient on the same day, and personally performed and documented my assessment and findings in the medical record. (Frederick Valencia MD) Shabnam Orosco Aug 24, 2017 16:44 Frederick Valencia MD Aug 25, 2017 18:54
[2017-08-24 19:42] LABS: MAGNESIUM 1.5 MG/DL (1.5-2.5); PHOSPHORUS 2.9 MG/DL (2.5-4.9)
[2017-08-25] VITALS (22 sets, daily range): BP systolic 118–136; BP diastolic 55–65; PULSE 70–88; RESP 16–23; TEMP 96.1–100; O2SAT 100
[2017-08-25] MEDS: RESP: ALBUTEROL 2.5 MG/IPRATROPIUM 0.5 MG NEB (SCH) INH ×8 (00:35→23:55)
[2017-08-25] MEDS: levETIRAcetam INJ 500 MG in SODIUM CHLORIDE 0.9% INJ 100 ML IV SCH ×4 (01:10→17:22)
[2017-08-25] MEDS: MANNITOL 12.5 GM/50 ML VIAL IV SCH ×2 (03:30→11:20)
[2017-08-25] MEDS: CHLORHEXIDINE GLUCONATE 2 % 1 PACK (2 CLOTHS) TOP SCH (04:00)
--- NOTE | 2017-08-25 04:18 | RADRPT ---
EXAM DATE/TIME: 08/25/2017 03:12 [facility] COMPARISON: CHEST SINGLE AP, August 24, 2017, 3:57. INDICATIONS : Respiratory failure MEDICAL HISTORY : None. SURGICAL HISTORY : None. ENCOUNTER: Subsequent ACUITY: 3 days PAIN SCORE: Non-responsive. LOCATION: Bilateral chest FINDINGS: A single portable frontal view of the chest shows an endotracheal tube with the tip 4 cm from the car selin. Left sided central line. Nasogastric tube coiled in the fundus. Heart is normal in size. Lungs a re clear. No pneumothorax. CONCLUSION: Life-support lines. Clear lungs. Julian Gray Jr., MD on August 25, 2017 at 4:16 Board Certified Radiologist. This report was verified electronically.
[2017-08-25] MEDS: INSULIN NovoLIN REGULAR SUPPLEMENTAL SCALE SQ SCH ×4 (06:00→17:22)
[2017-08-25 06:03] LABS: AUTOMATED NEUTROPHIL # 12.8 TH/MM3 (1.8-7.7); BASOPHIL % 0.1 % (0.0-2.0); HEMATOCRIT 32.5 % (35.0-46.0); LYMPH % 7.8 % (9.0-44.0); LYMPHOCYTE # 1.2 TH/MM3 (1.0-4.8); MEAN CELL VOLUME 89.3 FL (80.0-100.0); MEAN CORPUSCULAR HEMOGLOBIN 30.1 PG (27.0-34.0); MEAN CORPUSCULAR HGB CONC 33.7 % (32.0-36.0); MEAN PLATELET VOLUME 8.3 FL (7.0-11.0); MONOCYTE # 1.4 TH/MM3 (0-0.9); NEUT % 83.1 % (16.0-70.0); PLATELET COUNT 280 TH/MM3 (150-450); RED BLOOD COUNT 3.64 MIL/MM3 (4.00-5.30); RED CELL DISTRIBUTION WIDTH 13.9 % (11.6-17.2); WHITE BLOOD COUNT 15.4 TH/MM3 (4.0-11.0)
[2017-08-25] MEDS: ARTIFICIAL TEARS OPTH SOLN 15 ML BTL EACH EYE SCH ×6 (06:07→20:23)
[2017-08-25] MEDS: FOSPHENYTOIN SODIUM 100 MG PE/2 ML VIAL IV SCH ×3 (06:07→20:22)
[2017-08-25] MEDS: SODIUM CHLOR 0.9% 1000 ML INJ 1,000 ML IV SCH ×2 (06:08→16:03)
[2017-08-25] MEDS: niCARdipine INJ 25 MG in SODIUM CHLOR 0.9% 250 ML INJ 240 ML IV PRN ×2 (06:52→09:49)
--- NOTE | 2017-08-25 08:21 | MG ---
cc: Tania Syed MD REFERRING PHYSICIAN: Dr. Garcia DESCRIPTION: An EEG was obtained on this 52-year-old intubated patient. No sedation, unresponsive. This EEG is showing intermittent burst activity characterized by some delta, theta and some beta rhythms. There is suppression sometimes lasting a few seconds. At times, the bursts is a little bit of asynchronous, but perhaps not quite a significant finding. Photic stimulation was unremarkable and hyperventilation not performed. INTERPRETATION: Markedly abnormal EEG because of a burst suppression pattern, with mild asymmetry/asynchronous, but the findings overall suggest a severe diffuse disturbance of cerebral function, No epileptiform features present. Tania Syed MD [facility]/ , 06:56 PM , 07:18 PM
[2017-08-25] MEDS: DOCUSATE SODIUM 50 MG/SENNA 8.6 MG TAB PO SCH ×2 (08:37→20:22)
[2017-08-25] MEDS: FOLIC ACID 1 MG TAB PO SCH (08:37)
[2017-08-25] MEDS: MULTIVITAMIN TAB PO SCH (08:37)
[2017-08-25] MEDS: LANSOPRAZOLE SOLUTAB 30 MG TAB G-TUBE SCH (08:37)
[2017-08-25] MEDS: THIAMINE INJ 100 MG in SODIUM CHLORIDE 0.9% INJ 100 ML IV SCH (08:38)
[2017-08-25] MEDS: NS + KCL 40 MEQ INJ 1,000 ML IV SCH (08:38)
[2017-08-25] MEDS: CHLORHEXIDINE 0.12% (ORAL KIT) 15 ML CUP MT SCH ×2 (08:38→20:00)
[2017-08-25] MEDS: SODIUM CHLORIDE 0.9% FLUSH 10 ML FLUSH IV FLUSH SCH ×3 (08:39→20:23)
[2017-08-25] MEDS: POTASSIUM CHLOR 20 MEQ PREMIX 100 ML IV PRN ×4 (10:42→16:33)
[2017-08-25] MEDS: niCARdipine INJ 50 MG in SODIUM CHLORID 0.9% 500 ML INJ 480 ML IV PRN ×3 (12:00→22:11)
--- NOTE | 2017-08-25 12:32 | HHI.CCPN ---
Subjective Remarks/Hospital Course L intraparenchymal hemorrhage w/ shift; HTN Diagnosis: (1) Intraparenchymal hemorrhage of brain Diagnosis: Principal (2) Acute respiratory failure Diagnosis: Principal (3) HTN (hypertension) Diagnosis: Principal (4) Leukocytosis Diagnosis: Principal Chief Complaint: Unresponsive, left-sided gaze This is a 52-year-old female. Actually name is Casandra Deluca. Date of admission 08/23/2017. Past medical history is unremarkable including Dr. Prather spoke with uncle. Patient was in her normal state of health today until approximately 3 PM on Monday and then developed acute onset of nausea associated with vomiting and complained of not feeling well. At approximately 1800 hrs., she took a one-time dose of ibuprofen and fell asleep on the couch. Early this a.m., and just prior to arrival to the emergency department awake and vomiting and then became unresponsive. Uncle states there was no injury or trauma he assisted her to the floor and because she was vomiting rolled her over so that she would not aspirate her emesis. Due to instability patient received 20 mg etomidate, 5 mg midazolam and 70 mg succinylcholine was intubated by ED physician. CT brain revealed a large left frontal parenchymal hemorrhage with diffuse intraventricular blood [address] Valencia /neurosurgery was notified. Recommended 50 g mannitol still hyperventilating he will evaluate the patient. Director Project Management were asked to admit. 08/23 0930 hours: Continued deterioration in neurological exam with absent peripheral reflexes and minimal cough. No Doll's eyes present. Mildly alkalotic , will correct to facilitate apnea test tomorrow. 08/24: Appears to withdraw left foot this morning mild cough response. Breathes strongly over ventilator with slight hyperventilation. Otherwise unresponsive. About 6 x 5 cm area of hemorrhage persists in the left hemisphere with considerable intraventricular blood. Ventricles starting to dilate. Vasogenic edema and surrounding normal brain. 08/25: No improvement in neurologic function. Persistent severe neurologic deficit. She lives with her uncle and that appears to be the only available family. She basically took care of her uncle and he appears quite devastated by her illness. Her son is estranged for many years and the uncle says he would not know how to get a hold of him. In a personal conversation with the uncle in the [facility] he specifically stated that the patient and he had an agreement that they would not allow the other to be kept alive with artificial devices if each were irreparably injured. The uncle has expressed that he needs to stop the ventilator but states that he cannot do it. I will ask the palliative care service to assist the uncle in his decision involving her care plan. Objective Vital Signs Date Time Temp Pulse Resp B/P (MAP) Pulse Ox O2 Delivery O2 Flow Rate FiO2 08/25/17 12:00 89 134/58 08/25/17 11:41 100 40 08/25/17 04:00 99.7 20 08/24/17 19:00 Mechanical Ventilator 15.00 Intake and Output 08/25/17 08/25/17 08/26/17 08:00 16:00 00:00 Intake Total 442 ml Output Total 1000 ml Balance -558 ml Result Diagram: 08/25/17 0327 08/25/17 0842 Imaging Last Impressions Head CTA 08/23/17 0157 Signed Impressions: Service Date/Time: Wednesday, August 23, 2017 02:26 - CONCLUSION: No perceptible aneurysm or enhancing mass. Saeid Choi MD Head CT 08/23/17 0000 Signed Impressions: Service Date/Time: Wednesday, August 23, 2017 02:08 - CONCLUSION: Large left frontal lobe parenchymal hemorrhage and diffuse intraventricular blood. 11 mm of rightward midline shift. Saeid Choi MD Chest X-Ray 08/23/17 0000 Signed Impressions: Service Date/Time: Wednesday, August 23, 2017 02:44 - CONCLUSION: Appropriate position of the endotracheal tube. Clear lungs. Saeid Choi MD Cervical Spine CT 08/23/17 0000 Signed Impressions: Service Date/Time: Wednesday, August 23, 2017 02:08 - CONCLUSION: 1. No fracture or acute appearing malalignment of the cervical spine. 2. Degenerative changes as above. Saedi Choi MD Objective Remarks GENERAL: 52-year-old female currently orotracheally intubated, SKIN: Warm and dry. HEAD: Atraumatic. Normocephalic. EYES: Right pupil is 4 mm in size. Left pupil is 3 mm and nonreactive. No scleral icterus or drainage. ENT: No nasal bleeding or discharge. Mucous membranes pink and moist. NECK: Trachea midline. Orally intubated. CARDIOVASCULAR: RRR. S1, S2. No S4. Without murmur, no JVD. RESPIRATORY: Clear, good excursions on ventilated breaths. No wheezing GASTROINTESTINAL: Abdomen soft, non-tender, nondistended. Bowel sounds present. MUSCULOSKELETAL: Extremities without significant peripheral edema. No obvious deformities. NEUROLOGICAL: Unresponsive. Upward toes. Minimal cough. No gag. Withdrawal response left foot. Pupils as above. Cannot elicit withdrawal to noxious stimuli. No Doll'e eyes. A/P Assessment and Plan Neuro/Psych: Large left frontal lobe parenchymal hemorrhage with intraventricular blood with associated 11 mm shift from right to left. CT brain revealed 4.85.9 cm left frontoparietal hemorrhage with surrounding cerebral edema and 11 mm right which midline shift. Hemorrhage extends to the ventricles. Negative CT angiogram the brain. Dr. Valencia notified. Recommended mannitol 50 g IV 1, hyperventilation Discussed with Dr. Valencia. Very poor prognosis. Considering ventriculostomy Order repeat CT brain a.m. 08/24 Hypertonic saline will sodium 1 5155 Mannitol 12.5 g IV every 8 hours. Hold if osm > greater than 310 Hold 3% saline CV: Hypertensive emergency Nicardipine drip to keep systolic blood pressure less than 140 Norepinephrine drip to keep systolic blood pressure greater than 110 Currently normal saline 84 cc an hour EKG pending Well controlled now, add potassium to intravenous fluid. Resp: Acute respiratory failure secondary to large parenchymal hemorrhage [facility] 16/475/05/12/49 Ventilator bundle Albuterol/ipratropium aerosols every 6 hours with albuterol aerosols every 2 hours as needed dyspnea Spontaneous breathing trials when clinically indicated A.m. chest x-ray 08/24 End-tidal CO2 35-40 Patient is hyperventilating, unable to control PCO2 precisely. GI: N.p.o. NG tube to low intermittent wall suction Lansoprazole for GI prophylaxis Docusate sodium/senna 1 tablet twice daily for bowel regimen Start trickle feeds. : Dumont catheter for accurate I's and O's in a critically ill patient Endo: Sliding scale insulin Novulin R with Accu-Cheks every 6 hours to maintain euglycemia/medium protocol Check TSH in a.m. Renal: Creatinine currently within normal limits Monitor urine output Accurate I's and O's Heme: Leukocytosis Likely leukemoid reaction. Monitor CBC daily. Follow trends ID: Monitor for infection MSK: PT/OT evaluate and treat FEN: Repeat potassium ordered. Originally hypokalemic. Magnesium and phosphorus ordered as well. Replace electrolytes per ICU electrolyte protocol Electrolyte replacement protocol, add potassium. Access -Left IJ CVL day #2 placed 08/23 Prophylaxis -GI -lansoprazole -DVT -SCD/holding pharmacological prophylaxis until okayed with neurosurgery Overall impression: The patient remains critically ill with a devastating intracranial hemorrhage and considerable parenchymal destruction. She is requiring ongoing resuscitative efforts particularly designed to reduce cerebral edema. She is now in coma with minimal and weak reflexes. CAT scan of the head reveals progression of bleed and surrounding vasogenic edema. I discussed her prognosis and care in detail with her uncle who is her only family. Her son is estranged and there is no way to contact him. The prognosis is poor. We will continue to have discussions with her uncle with whom she lives. Critical care time 45 minutes aside from procedures. Rayray Striclkand MD Aug 25, 2017 12:32
--- NOTE | 2017-08-25 13:07 | HHI.HCPN ---
Palliative care consulted to assist in goals of care and family support for Ms. Deluca. No family at the bedside at this time. Attempted to contact uncle to arrange family meeting, no answer, left message requesting call back. In review of notes, Ms. Deluca has an estranged son, uncle does not have contact information, unable to obtain additional information until we can speak with the uncle. In the meantime to exhaust all searches for patient's son, palliative care has requested an accurint report. Awaiting results. Attempted google and social media search, unable to further identify. Palliative care will continue to follow throughout hospitalization. Family meeting pending contact with uncle. Sultana Gray, BELT SPLICER Aug 25, 2017 13:07
[2017-08-25] MEDS: POTASSIUM CHLORIDE INJ 30 MEQ in LACTATED RINGER'S 1000 ML INJ 1,000 ML IV SCH (13:37)
--- NOTE | 2017-08-25 14:16 | PD.CONS ---
Consult Service Palliative Care . Consult Requested By Dr. Strickland . Primary Care Physician No Primary Care Physician . Reason for Consultation a. To assist with evaluation and management of symptoms including: dyspnea, pain. b. To assist medical decision maker(s) with: better understanding of current medical conditions; weighing benefits/burdens of medical treatment options; making medical treatment decisions. . HPI History of Present Illness Ms. Deluca is a 52 year old female with no known past medical history. She lives with her uncle, Andrew Kinney. Patient presented to [facility] emergency department via EMS as a stroke alert on 08/23/17 after witnessed collapse. Patient had reportedly vomited earlier in the day. She was given as dose of Ibuprofen, vomited again and then collapsed. Upon EMS arrival she was unresponsive with fixed downward leftward gaze. She was noted to have posturing of RUE to painful stimuli. No obvious seizures noted. Review of emergency room evaluation: * VS: Pulse 54, respiration 18, BP 174/78 * WBC 14.8, hemoglobin 13.7, hematocrit 39, platelet count 361, neutrophil 89.6% * PT 11.5, INR 1.1, PTT 25.8, fibrinogen 339 * Sodium 138, potassium 1.7, chloride 104, BUN less than 3, creatinine less than 0.2, glucose 105 * Total creatine kinase 50, troponin 0 0.02 * Quantitative hCG 1 * Urinalysis negative * Toxicology screen positive for benzodiazepine and cannabinoid * CT head - large left frontal parenchymal hemorrhage and diffuse intraventricular bleed, 11 mm rightward midline shift. * CT cervical spine - no fracture or acute appearing malalignment of the cervical spine, degenerative changes. Patient was intubated, [facility] and transferred to ICU. Dr. Valencia, neurosurgery was consulted; his note states "this patient has suffered a devastating injury in his dominant hemisphere with clinical evidence of uncal herniation. Her condition is irreversible, and there is no chance for meaningful recovery at this time. She is not a surgical candidate. I cannot be enthusiastic recommending a neurosurgical intervention. She is undergoing maximal medical treatment." Dr. Garcia, neurology was consulted who agrees with overall poor prognosis. EEG revealed markedly abnormal EEG because of burst suppression pattern, with mild asymmetry/asynchronous findings suggestive of severe diffuse disturbance of cerebral function, no epileptiform features. Patient has had no improvement in neurologic function. No evidence of pain or shortness of breath. She has not been on any sedation since admission. Palliative care was consulted to assist with further clarification of medical treatment goals. . Function/Cognitive Trajectory Patient was apparently living at home with her uncle, she may have been his caregiver. I have left a message for uncle x 2. Requested nurse to have uncle call if he arrives or calls. . Review of Systems ROS Limitations: Intubated, Unresponsive Gastrointestinal: COMPLAINS OF: Nausea, Vomiting Other ROS: Unable to obtain ROS, pt unresponsive. No family present. Pertinent ROS per EMR review. . Past Family Social History Coded Allergies: No Known Allergies (Unverified , 08/23/17) Past Medical History Uncle reported No known past medical history. . Past Surgical History Uncle reported No known prior surgeries. . Reported Medications Uncle reported no medications prior to admission. . Current Medications Medications (Trade) Dose Ordered Sig/Kat Route Start Time Stop Time Status Last Admin (NS Flush) DAILY IV FLUSH 08/23/17 09:00 08/25/17 08:39 (NS Flush) UNSCH PRN IV FLUSH 08/23/17 03:30 Potassium Chloride 100 ml @ 50 mls/hr Q2H PRN IV 08/23/17 03:30 08/23/17 06:58 Potassium Chloride 100 ml @ 50 mls/hr Q2H PRN IV 08/23/17 03:30 08/25/17 12:49 (K-Lyte Cl Eff) 50 meq UNSCH PRN PO 08/23/17 03:30 08/25/17 11:21 Potassium Chloride 100 ml @ 25 mls/hr UNSCH PRN IV 08/23/17 03:30 Potassium Chloride 100 ml @ 50 mls/hr Q2H PRN IV 08/23/17 03:30 Magnesium Sulfate 4 gm/Sodium Chloride 100 ml @ 50 mls/hr UNSCH PRN IV 08/23/17 03:30 (Mag-Ox) 800 mg UNSCH PRN PO 08/23/17 03:30 Magnesium Sulfate 2 gm/Sodium Chloride 100 ml @ 50 mls/hr UNSCH PRN IV 08/23/17 03:30 (K-Phos) 2,000 mg Q4H PRN PO 08/23/17 03:30 Sodium Phosphate 30 mmol/Sodium Chloride 250 ml @ 42 mls/hr UNSCH PRN IV 08/23/17 03:30 (K-Phos) 2,000 mg UNSCH PRN PO/TUBE 08/23/17 03:30 Potassium Phosphate 30 mmol/ Sodium Chloride 260 ml @ 42 mls/hr UNSCH PRN IV 08/23/17 03:30 08/24/17 12:30 (D50w (Vial) Inj) 50 ml UNSCH PRN IV PUSH 08/23/17 03:30 (Glucagon Inj) 1 mg UNSCH PRN OTHER 08/23/17 03:30 (NovoLIN R SUPPLEMENTAL SCALE) 1 Q6HR SQ 08/23/17 06:00 08/25/17 12:00 Sodium Chloride 1,000 ml @ 84 mls/hr [id number] IV 08/23/17 03:23 08/25/17 06:08 (NS Flush) 2 ml UNSCH PRN IV FLUSH 08/23/17 03:30 (NS Flush) 2 ml BID IV FLUSH 08/23/17 09:00 08/25/17 08:39 (Prevacid Odt) 30 mg DAILY G-TUBE 08/23/17 09:00 08/25/17 08:37 (Tears Naturale Opth Soln) 1 drop TID EACH EYE 08/23/17 09:00 08/25/17 12:00 (Zofran Inj) 4 mg Q6H PRN IV PUSH 08/23/17 03:30 (Duoneb Neb) 1 ampule Q4HR NEB INH 08/23/17 04:00 08/25/17 11:40 (Albuterol Neb) 2.5 mg Q2HR NEB PRN INH 08/23/17 03:30 Miscellaneous Information 1 Q361D XX 08/23/17 03:30 08/23/17 04:33 (Chlorhexidine 2% Cloth) 3 pack Taper DAILY@04 TOP 08/23/17 04:00 08/19/18 03:59 08/23/17 04:06 (Chlorhexidine 2% Cloth) 3 pack UNSCH PRN TOP 08/23/17 03:30 (Maggy-Colace) 1 tab BID PO 08/23/17 09:00 08/25/17 08:37 (Milk Of Magnesia Liq) 30 ml Q12H PRN PO 08/23/17 03:30 (Senokot) 17.2 mg Q12H PRN PO 08/23/17 03:30 (Dulcolax Supp) 10 mg DAILY PRN RECTAL 08/23/17 03:30 (Lactulose Liq) 30 ml DAILY PRN PO 08/23/17 03:30 (Peridex 0.12% Liq) 15 ml BID@08,20 MT 08/23/17 08:00 08/25/17 08:38 Propofol 100 ml @ 2.286 mls/ hr TITRATE PRN IV 08/23/17 03:30 Fentanyl Citrate 250 ml @ 5 mls/hr TITRATE PRN IV 08/23/17 03:30 Norepinephrine Bitartrate 4 mg/ Sodium Chloride 250 ml @ 7.5 mls/hr TITRATE PRN IV 08/23/17 03:30 08/23/17 11:20 (Brethine Inj) 1 mg UNSCH PRN SQ 08/23/17 03:30 (Tears Naturale Opth Soln) 1 drop Q8HR EACH EYE 08/23/17 06:00 08/25/17 06:07 Thiamine HCl 100 mg/Sodium Chloride 101 ml @ 101 mls/hr DAILY IV 08/23/17 09:00 08/25/17 08:38 (Theragran) 1 tab DAILY PO 08/23/17 09:00 08/25/17 08:37 (Folate) 1 mg DAILY PO 08/23/17 09:00 08/25/17 08:37 (Ativan Inj) 1 mg Q15M PRN IV PUSH 08/23/17 15:15 08/23/17 15:42 Levetriacetam 500 mg/Sodium Chloride 105 ml @ 420 mls/hr Q6HR IV 08/23/17 18:00 08/25/17 11:19 (Cerebyx Inj) 100 mgpe Q8HR IV 08/23/17 22:00 08/25/17 06:07 Nicardipine HCl 50 mg/Sodium Chloride 500 ml @ 50 mls/hr TITRATE PRN IV 08/25/17 11:00 08/25/17 12:00 Potassium Chloride 30 meq/ Lactated Ringer's 1,015 ml @ 42 mls/hr Q24H IV 08/25/17 13:00 08/25/17 13:37 Family History Only known family is an uncle, possible estranged son. Uncle has not returned palliative care calls. . Substance Use Tobacco: Occasional tobacco use. Alcohol: Occasional alcohol use, drinks beer. Prescription med abuse: Toxicology screen positive benzodiazepines. Illicits: Positive marijuana use. . Psychosocial History Single. Reportedly has an estranged son. Lives with her uncleAndrew. . Spiritual/Cultural Factors Unknown. . Living Will: Never completed Health Care Surrogate: Never completed Durable Power of Gleason Operator: Never completed Health Care Surrogate(s): Patient is not capacitated to make her own healthcare decisions, will not regain capacity. No written advanced directives. Single. According to [place] statutes healthcare proxy decision making would fall to the majority of adult children. Reportedly has 1 son. Left message to obtain additional information from uncle, to further clarify healthcare proxy decision making. . Documented care wishes: None in EMR. Today's verbally stated goals: Patient is not capacitated to make her own healthcare decisions, will not regain capacity. . Family/friends goals: Left messages for uncle to return call. . Ethical and Legal Issues Patient is not capacitated to make her own healthcare decisions, will not regain capacity. No written advanced directives. Single. According to [place] statutes healthcare proxy decision making would fall to the majority of adult children. Reportedly has 1 son. Left message to obtain additional information from uncle, to further clarify healthcare proxy decision making. . Physical Exam Vital Signs Date Time Temp Pulse Resp B/P (MAP) Pulse Ox O2 Delivery O2 Flow Rate FiO2 08/25/17 12:00 89 134/58 08/25/17 11:41 100 40 08/25/17 09:49 86 139/64 08/25/17 08:04 100 40 08/25/17 06:52 88 133/63 08/25/17 06:00 86 08/25/17 04:20 100 40 08/25/17 04:00 40 08/25/17 04:00 88 08/25/17 04:00 99.7 88 20 133/62 (85) 100 08/25/17 02:00 84 08/25/17 00:37 100 40 08/25/17 00:37 100 40 08/25/17 00:00 40 08/25/17 00:00 98.9 88 23 136/63 (87) 100 08/25/17 00:00 88 08/24/17 23:00 82 08/24/17 22:00 80 08/24/17 20:59 77 123/55 08/24/17 20:00 99.0 81 20 124/60 (81) 100 08/24/17 20:00 40 08/24/17 20:00 81 08/24/17 19:56 100 40 08/24/17 19:00 100 Mechanical Ventilator 15.00 40 08/24/17 18:00 74 08/24/17 17:08 100 40 08/24/17 16:00 98.8 91 21 147/58 (87) 100 08/24/17 16:00 40 08/24/17 16:00 86 08/24/17 15:00 56 08/24/17 14:00 59 Exam CONSTITUTIONAL/GENERAL: This is an adequately nourished patient, in no apparent distress. She appears younger than her actual age. TUBES/LINES/DRAINS: ETT, OG, PIV right, a-line right dorsalis pedis, SCDs. SKIN: No jaundice, rashes, or lesions. Ecchymoses on upper extremities. No wounds seen anteriorly. Skin temperature appropriate. Not diaphoretic. HEAD: Atraumatic. Normocephalic. EYES: Pupils right 4mm, left 3mm, non reactive. ENT: Unable to assess hearing. Nose without bleeding or purulent drainage. Throat difficult to visualize due to tubes. NECK: Trachea midline. CARDIOVASCULAR: Regular rate and rhythm without murmur. No JVD. RESPIRATORY/CHEST: Symmetric, unlabored respirations on vent. Clear to auscultation. GASTROINTESTINAL: Abdomen soft, non-tender, nondistended. Bowel sounds present. GENITOURINARY: Without palpable bladder distension. MUSCULOSKELETAL: Extremities with trace edema. No mottling or clubbing. LYMPHATICS: No palpable cervical or supraclavicular adenopathy. NEUROLOGICAL: Unresponsive. Minimal cough. Withdrawal to pain left foot. PSYCHIATRIC: Unresponsive, no sedation. . Diagnostic Tests Laboratory Laboratory Tests Test 08/23/17 01:55 08/23/17 02:27 08/23/17 03:00 08/23/17 04:28 White Blood Count 14.8 TH/MM3 (4.0-11.0) 16.7 TH/MM3 (4.0-11.0) Red Blood Count 4.52 MIL/MM3 (4.00-5.30) 4.36 MIL/MM3 (4.00-5.30) Hemoglobin 13.7 GM/DL (11.6-15.3) 13.0 GM/DL (11.6-15.3) Bedside Hemoglobin 8.5 G/DL (11.6-15.3) Hematocrit 39.0 % (35.0-46.0) 37.4 % (35.0-46.0) Bedside Hematocrit 25.0 % (35.0-46.0) Mean Corpuscular Volume 86.3 FL (80.0-100.0) 85.9 FL (80.0-100.0) Mean Corpuscular Hemoglobin 30.4 PG (27.0-34.0) 29.9 PG (27.0-34.0) Mean Corpuscular Hemoglobin Concent 35.2 % (32.0-36.0) 34.8 % (32.0-36.0) Red Cell Distribution Width 13.2 % (11.6-17.2) 13.2 % (11.6-17.2) Platelet Count 361 TH/MM3 (150-450) 335 TH/MM3 (150-450) Mean Platelet Volume 8.4 FL (7.0-11.0) 8.0 FL (7.0-11.0) Neutrophils (%) (Auto) 89.6 % (16.0-70.0) Lymphocytes (%) (Auto) 5.5 % (9.0-44.0) Monocytes (%) (Auto) 4.7 % (0.0-8.0) Eosinophils (%) (Auto) 0.0 % (0.0-4.0) Basophils (%) (Auto) 0.2 % (0.0-2.0) Neutrophils # (Auto) 13.3 TH/MM3 (1.8-7.7) Lymphocytes # (Auto) 0.8 TH/MM3 (1.0-4.8) Monocytes # (Auto) 0.7 TH/MM3 (0-0.9) Eosinophils # (Auto) 0.0 TH/MM3 (0-0.4) Basophils # (Auto) 0.0 TH/MM3 (0-0.2) CBC Comment DIFF FINAL Differential Comment Prothrombin Time 11.5 SEC (9.8-11.6) 12.2 SEC (9.8-11.6) Prothromb Time International Ratio 1.1 RATIO 1.2 RATIO Activated Partial Thromboplast Time 25.8 SEC (24.3-30.1) 28.0 SEC (24.3-30.1) Fibrinogen 339 mg/dL (227-377) Bedside Sodium 138 MMOL/L (137-144) Bedside Potassium LESS THAN 2.0 MMOL/L Potassium Level 1.7 MEQ/L (3.5-5.1) 2.2 MEQ/L (3.5-5.1) Bedside Chloride 104 MMOL/L (102-111) Bedside Blood Urea Nitrogen LESS THAN 3 MG/DL (5-21) Bedside Creatinine LESS THAN 0.2 MG/DL Bedside Glucose 105 MG/DL (68-110) Total Creatine Kinase 50 U/L (26-192) Troponin I 0.02 NG/ML (0.02-0.05) Human Chorionic Gonadotropin, Quant 1 MIU/ML (0-5) Urine Color LIGHT-YELLOW (YELLW/STRAW) Urine Turbidity CLEAR (CLEAR) Urine pH 6.0 (5.0-8.5) Urine Specific [place]ill 1.020 (1.002-1.035) Urine Protein TRACE mg/dL (NEG-TRACE) Urine Glucose (UA) NEG mg/dL (NEG) Urine Ketones 150 mg/dL (NEG) Urine Occult Blood NEG (NEG) Urine Nitrite NEG (NEG) Urine Bilirubin NEG (NEG) Urine Urobilinogen LESS THAN 2.0 MG/DL (LESS Urine Leukocyte Esterase NEG (NEG) Urine RBC 1 /hpf (0-3) Urine WBC 1 /hpf (0-5) Urine Mucus FEW /lpf (OCC) Urine Opiates Screen NEG (NEG) Urine Barbiturates Screen NEG (NEG) Urine Amphetamines Screen NEG (NEG) Urine Benzodiazepines Screen POS (NEG) Urine Cocaine Screen NEG (NEG) Urine Cannabinoids Screen POS (NEG) Blood Gas Puncture Site RT RADIAL Blood Gas Patient Temperature 98.6 Blood Gas HCO3 20 mmol/L (22-26) Blood Gas Base Excess -2.3 mmol/L (-2-2) Blood Gas Oxygen Saturation 99 % (90-100) Arterial Blood pH 7.51 (7.380-7.420) Arterial Blood Partial Pressure CO2 26 mmHg (38-42) Arterial Blood Partial Pressure O2 564 mmHG (61-120) Arterial Blood Oxygen Content 20.3 Vol % (12.0-20.0) Arterial Blood Carboxyhemoglobin 0.9 % (0-4) Arterial Blood Methemoglobin 0.6 % (0-2) Blood Gas Hemoglobin 13.6 G/DL (12.0-16.0) Oxygen Delivery Device VENTILATOR Blood Gas Ventilator Setting AC/18/500/PEEP5 Blood Gas Inspired Oxygen 100 % Blood Urea Nitrogen 5 MG/DL (7-18) Creatinine 0.56 MG/DL (0.50-1.00) Random Glucose 202 MG/DL (74-106) Calcium Level 8.3 MG/DL (8.5-10.1) Magnesium Level 1.5 MG/DL (1.5-2.5) Sodium Level 127 MEQ/L (136-145) Chloride Level 82 MEQ/L (98-107) Carbon Dioxide Level 22.3 MEQ/L (21.0-32.0) Anion Gap 23 MEQ/L (5-15) Estimat Glomerular Filtration Rate 93 ML/MIN (>89) Lactic Acid Level 5.4 mmol/L (0.4-2.0) Test 08/23/17 06:49 08/23/17 09:44 08/23/17 10:45 08/23/17 14:50 Blood Gas Puncture Site RT BRACHIAL LT RADIAL Blood Gas Patient Temperature 98.6 98.6 Blood Gas HCO3 30 mmol/L (22-26) 33 mmol/L (22-26) Blood Gas Base Excess 6.9 mmol/L (-2-2) 9.7 mmol/L (-2-2) Blood Gas Oxygen Saturation 98 % (90-100) 98 % (90-100) Arterial Blood pH 7.52 (7.380-7.420) 7.53 (7.380-7.420) Arterial Blood Partial Pressure CO2 37 mmHg (38-42) 40 mmHg (38-42) Arterial Blood Partial Pressure O2 282 mmHg (61-120) 204 mmHg (61-120) Arterial Blood Oxygen Content 19.2 Vol % (12.0-20.0) 18.3 Vol % (12.0-20.0) Arterial Blood Carboxyhemoglobin 1.1 % (0-4) 1.3 % (0-4) Arterial Blood Methemoglobin 0.9 % (0-2) 1.1 % (0-2) Blood Gas Hemoglobin 13.5 G/DL (12.0-16.0) 13.1 G/DL (12.0-16.0) Oxygen Delivery Device VENT VENTILATOR Blood Gas Ventilator Setting SEE COMMENTS 16470/1.0/+5 Blood Gas Inspired Oxygen 50 % 40 % Blood Urea Nitrogen 5 MG/DL (7-18) Creatinine 0.61 MG/DL (0.50-1.00) Random Glucose 170 MG/DL (74-106) Calcium Level 9.1 MG/DL (8.5-10.1) Sodium Level 140 MEQ/L (136-145) 144 MEQ/L (136-145) Potassium Level 3.3 MEQ/L (3.5-5.1) Chloride Level 99 MEQ/L (98-107) Carbon Dioxide Level 31.5 MEQ/L (21.0-32.0) Anion Gap 10 MEQ/L (5-15) Estimat Glomerular Filtration Rate 84 ML/MIN (>89) Serum Osmolality 298 MOSM/KG (275-295) 301 MOSM/KG (275-295) Lactic Acid Level 2.2 mmol/L (0.4-2.0) Phosphorus Level 1.9 MG/DL (2.5-4.9) Magnesium Level 2.5 MG/DL (1.5-2.5) Total Bilirubin 0.8 MG/DL (0.2-1.0) Direct Bilirubin 0.2 MG/DL (0.0-0.2) Indirect Bilirubin 0.6 MG/DL (0.0-0.8) Aspartate Amino Transf (AST/SGOT) 83 U/L (15-37) Alanine Aminotransferase (ALT/SGPT) 77 U/L (10-53) Alkaline Phosphatase 130 U/L (45-117) Troponin I 0.05 NG/ML (0.02-0.05) Total Protein 7.2 GM/DL (6.4-8.2) Albumin 3.5 GM/DL (3.4-5.0) Test 08/23/17 22:50 08/24/17 03:40 08/24/17 12:51 08/24/17 18:45 Serum Osmolality 309 MOSM/KG (275-295) 317 MOSM/KG (275-295) 317 MOSM/KG (275-295) 319 MOSM/KG (275-295) White Blood Count 12.9 TH/MM3 (4.0-11.0) Red Blood Count 3.77 MIL/MM3 (4.00-5.30) Hemoglobin 11.3 GM/DL (11.6-15.3) Hematocrit 33.5 % (35.0-46.0) Mean Corpuscular Volume 88.9 FL (80.0-100.0) Mean Corpuscular Hemoglobin 30.0 PG (27.0-34.0) Mean Corpuscular Hemoglobin Concent 33.8 % (32.0-36.0) Red Cell Distribution Width 13.7 % (11.6-17.2) Platelet Count 281 TH/MM3 (150-450) Mean Platelet Volume 8.0 FL (7.0-11.0) Neutrophils (%) (Auto) 89.1 % (16.0-70.0) Lymphocytes (%) (Auto) 3.8 % (9.0-44.0) Monocytes (%) (Auto) 7.0 % (0.0-8.0) Eosinophils (%) (Auto) 0.0 % (0.0-4.0) Basophils (%) (Auto) 0.1 % (0.0-2.0) Neutrophils # (Auto) 11.5 TH/MM3 (1.8-7.7) Lymphocytes # (Auto) 0.5 TH/MM3 (1.0-4.8) Monocytes # (Auto) 0.9 TH/MM3 (0-0.9) Eosinophils # (Auto) 0.0 TH/MM3 (0-0.4) Basophils # (Auto) 0.0 TH/MM3 (0-0.2) CBC Comment DIFF FINAL Differential Comment Prothrombin Time 11.8 SEC (9.8-11.6) Prothromb Time International Ratio 1.2 RATIO Activated Partial Thromboplast Time 28.1 SEC (24.3-30.1) Blood Urea Nitrogen 5 MG/DL (7-18) Creatinine 0.40 MG/DL (0.50-1.00) Random Glucose 201 MG/DL (74-106) Total Protein 5.8 GM/DL (6.4-8.2) Albumin 2.7 GM/DL (3.4-5.0) Calcium Level 7.9 MG/DL (8.5-10.1) Phosphorus Level 1.5 MG/DL (2.5-4.9) 2.9 MG/DL (2.5-4.9) Magnesium Level 1.8 MG/DL (1.5-2.5) 1.5 MG/DL (1.5-2.5) Alkaline Phosphatase 98 U/L (45-117) Aspartate Amino Transf (AST/SGOT) 55 U/L (15-37) Alanine Aminotransferase (ALT/SGPT) 53 U/L (10-53) Total Bilirubin 0.6 MG/DL (0.2-1.0) Sodium Level 151 MEQ/L (136-145) 154 MEQ/L (136-145) 155 MEQ/L (136-145) Potassium Level 2.2 MEQ/L (3.5-5.1) 2.7 MEQ/L (3.5-5.1) Chloride Level 122 MEQ/L (98-107) Carbon Dioxide Level 20.2 MEQ/L (21.0-32.0) Anion Gap 9 MEQ/L (5-15) Estimat Glomerular Filtration Rate 137 ML/MIN (>89) Lactic Acid Level 1.6 mmol/L (0.4-2.0) Test 08/25/17 00:55 08/25/17 03:27 08/25/17 08:42 08/25/17 11:51 Sodium Level 157 MEQ/L (136-145) 157 MEQ/L (136-145) 158 MEQ/L (136-145) Serum Osmolality 321 MOSM/KG (275-295) 317 MOSM/KG (275-295) 323 MOSM/KG (275-295) White Blood Count 15.4 TH/MM3 (4.0-11.0) Red Blood Count 3.64 MIL/MM3 (4.00-5.30) Hemoglobin 11.0 GM/DL (11.6-15.3) Hematocrit 32.5 % (35.0-46.0) Mean Corpuscular Volume 89.3 FL (80.0-100.0) Mean Corpuscular Hemoglobin 30.1 PG (27.0-34.0) Mean Corpuscular Hemoglobin Concent 33.7 % (32.0-36.0) Red Cell Distribution Width 13.9 % (11.6-17.2) Platelet Count 280 TH/MM3 (150-450) Mean Platelet Volume 8.3 FL (7.0-11.0) Neutrophils (%) (Auto) 83.1 % (16.0-70.0) Lymphocytes (%) (Auto) 7.8 % (9.0-44.0) Monocytes (%) (Auto) 9.0 % (0.0-8.0) Eosinophils (%) (Auto) 0.0 % (0.0-4.0) Basophils (%) (Auto) 0.1 % (0.0-2.0) Neutrophils # (Auto) 12.8 TH/MM3 (1.8-7.7) Lymphocytes # (Auto) 1.2 TH/MM3 (1.0-4.8) Monocytes # (Auto) 1.4 TH/MM3 (0-0.9) Eosinophils # (Auto) 0.0 TH/MM3 (0-0.4) Basophils # (Auto) 0.0 TH/MM3 (0-0.2) CBC Comment DIFF FINAL Differential Comment Potassium Level 2.4 MEQ/L (3.5-5.1) Result Diagram: 08/25/17 0327 08/25/17 1151 Imaging Last Impressions Chest X-Ray 08/25/17 0400 Signed Impressions: Service Date/Time: Friday, August 25, 2017 03:12 - CONCLUSION: Life-support lines. Clear lungs. Julian Gray Jr., MD Head CT 08/24/17 0600 Signed Impressions: Service Date/Time: August 04:27 - CONCLUSION: Diffuse intraventricular hemorrhage and left frontal lobe parenchymal hemorrhage again noted. Intraventricular blood has increased and there is mild to moderate ventriculomegaly. 9 mm of rightward midline shift, slightly improved. Saeid Choi MD Neck CTA 08/23/17 0157 Signed Impressions: Service Date/Time: Wednesday, August 23, 2017 02:26 - CONCLUSION: Normal carotid arteries. Saeid Cohi MD Head CTA 08/23/17 0157 Signed Impressions: Service Date/Time: Wednesday, August 23, 2017 02:26 - CONCLUSION: No perceptible aneurysm or enhancing mass. Saeid Choi MD Cervical Spine CT 08/23/17 0000 Signed Impressions: Service Date/Time: Wednesday, August 23, 2017 02:08 - CONCLUSION: 1. No fracture or acute appearing malalignment of the cervical spine. 2. Degenerative changes as above. Saeid Choi MD . Procedures * 08/23/17 - A line placement. * 08/23/17 - left IJ central line placement. * 08/23/17 - Intubated. . Patient/Family Conference Present at Family Conference: Left 2 messages for uncle. Left card with nurse and number on whiteboard in room. . Assessment and Plan Disease Oriented Problem List: (1) Leukocytosis (2) Acute respiratory failure (3) Intraparenchymal hemorrhage of brain (4) HTN (hypertension) Symptom Scale: (1) Pain 0-10 Scale: Unable to quantify Comment: secondary to intracranial hemorrhage, tubes/lines,etc. (2) Dyspnea 0-10 Scale: Unable to quantify Comment: On mechanical ventilation Pertinent Non-Medical Issues Psychosocial: Spiritual: Legal: Ethical issues impacting care: Important Contacts Andrew Katz, uncle: [phone]. Prognosis Per Dr. Valencia, neurosurgery was consulted; his note states "this patient has suffered a devastating injury in his dominant hemisphere with clinical evidence of uncal herniation. Her condition is irreversible, and there is no chance for meaningful recovery at this time. She is not a surgical candidate." . Code Status: No Code Plan * Patient is not capacitated to make her own healthcare decisions, will not regain capacity. No written advanced directives. Single. According to [place] statutes healthcare proxy decision making would fall to the majority of adult children. Reportedly has 1 son. Left message to obtain additional information from uncle, to further clarify healthcare proxy decision making. * NO CODE * Left message x 2, card with nurse and number on whiteboard in room for uncleAndrew to return call to obtain additional history to determine healthcare proxy decision-maker and further clarify medical treatment goals. * Discussed with nurse and Dr. Strickland. * SYMPTOMS: Pain: secondary to intracranial hemorrhage, tubes/lines,etc. Dyspnea : On mechanical ventilation. No new medication recommendations at this time. * Palliative care will continue to follow to assist with communication, symptom management and further clarification of medical treatment goals throughout hospital course. . Thank you for the opportunity to participate in the care of Ms. Deluca. Attestation To help prompt me to consider important information that might be impacting today's encounter and assessment, information from prior notes written by myself or my colleagues may have been "brought forward" into today's note. My signature on this note, however, is an attestation that I personally performed the exam, history, and/or decision-making noted today, and, unless otherwise indicated, the interactions with patient, family, and staff as well as the review of records all occurred today. I also attest that the listed assessment and stated plan reflect my best clinical judgment today based on the combination of historical information, prior notes, and today's exam/ interactions. When time spent is documented, it refers only to time spent today by the signer, or if indicated, combined time spent today by collaborating physician/nurse practitioner. Mey Sherwood Aug 25, 2017 14:16
--- NOTE | 2017-08-25 14:52 | PD.PROCEDR ---
Procedure Note Procedure Procedure Diagnosis: Intra-parenchymal brain hemorrhage Operation: Insertion right dorsalis pedis arterial monitoring line Procedure: Right foot posterior tibial and dorsalis pedis pulses strong. Compression of dorsalis pedis pulse does not impair circulation to the foot. The dorsum of the right foot is prepped and draped. A 20-gauge needle is inserted in the dorsalis pedis artery in the region of the midfoot and the wire was easily advanced. A 3 cm catheter is advanced over the wire and a good waveform is observed. Sterile dressing is applied. Following the procedure circulation to the right foot and toes is normal. Rayray Strickland MD Aug 25, 2017 14:52
--- NOTE | 2017-08-25 18:52 | HHI.NSPN ---
This is a 52-year-old female brought to [place] emergency department by EMS transport from home after collapse at home. According to paramedics she had had vomiting earlier in the day this evening was given a one-time dose of ibuprofen by family member and then had further vomiting and collapse. Upon EMS arrival patient was noted to have fixed downward leftward gaze was unresponsive except to painful stimuli with some posturing of the right upper extremity. No seizure activity identified. No tongue bitting. No incontinence of stool or urine, No tonic clonic movements. No report of injury or trauma. No prior medical history provided to EMS by family. She has a GCS of 3. Pupils 7mm dilated and fixed. CT of the brain showed a very large deep intracerebral hemorrhage, in the dominant hemisphere with uncal and subfalcine herniation. Neurosurgical consultation requested 08/24: Intubated, no sedatives. Nursing reports given Ativan last night for persistent possible seizures noted from the abnormal movements of her tongue. No eye opening, not following commands. Pupils currently 5-6 mm nonreactive. Positive corneal reflex today on exam. Nursing reports no cough or gag. 08/25 No clinical improvement. GCS 3. No pupilary reaction. Some spontaneous respirations Note Status Status: Progress Note Labs, Micro, & Vital Signs Results Date Time Temp Pulse Resp B/P (MAP) Pulse Ox O2 Delivery O2 Flow Rate FiO2 08/25/17 16:44 100 40 08/25/17 16:03 75 123/66 08/25/17 12:00 89 134/58 08/25/17 11:41 100 40 08/25/17 09:49 86 139/64 08/25/17 08:04 100 40 08/25/17 06:52 88 133/63 08/25/17 06:00 86 08/25/17 04:20 100 40 08/25/17 04:00 40 08/25/17 04:00 88 08/25/17 04:00 99.7 88 20 133/62 (85) 100 08/25/17 02:00 84 08/25/17 00:37 100 40 08/25/17 00:37 100 40 08/25/17 00:00 40 08/25/17 00:00 98.9 88 23 136/63 (87) 100 08/25/17 00:00 88 08/24/17 23:00 82 08/24/17 22:00 80 08/24/17 20:59 77 123/55 08/24/17 20:00 99.0 81 20 124/60 (81) 100 08/24/17 20:00 40 08/24/17 20:00 81 08/24/17 19:56 100 40 08/24/17 19:00 100 Mechanical Ventilator 15.00 40 Constitutional Vital Signs Date Time Temp Pulse Resp B/P (MAP) Pulse Ox O2 Delivery O2 Flow Rate FiO2 08/25/17 16:44 100 40 08/25/17 16:03 75 123/66 08/25/17 12:00 89 134/58 08/25/17 11:41 100 40 08/25/17 09:49 86 139/64 08/25/17 08:04 100 40 08/25/17 06:52 88 133/63 08/25/17 06:00 86 08/25/17 04:20 100 40 08/25/17 04:00 40 08/25/17 04:00 88 08/25/17 04:00 99.7 88 20 133/62 (85) 100 08/25/17 02:00 84 08/25/17 00:37 100 40 08/25/17 00:37 100 40 08/25/17 00:00 40 08/25/17 00:00 98.9 88 23 136/63 (87) 100 08/25/17 00:00 88 08/24/17 23:00 82 08/24/17 22:00 80 08/24/17 20:59 77 123/55 08/24/17 20:00 99.0 81 20 124/60 (81) 100 08/24/17 20:00 40 08/24/17 20:00 81 08/24/17 19:56 100 40 08/24/17 19:00 100 Mechanical Ventilator 15.00 40 Physical Exam The patient is intubated and without sedative. Cranial Nerves: Pupils left mm nonreactive. No pupilary reaction. Eyes appear conjugated. Face musculature appeared symmetrical at rest. Face sensation, olfaction, visual mcwilliams, and hearing cannot be adequately assessed due to his neurological condition. The patient has a corneal reflex. Cervical Spine: Soft supple Motor: Mild mild clonus noted to both feet with noxious stimuli. Otherwise no withdrawals to extremities, no spontaneous movements. Reflexes: Plantars neutral bilaterally. Cerebellar: Examination cannot be adequately assessed due to the patient's neurological condition. Lungs clear Heart regular rhythm and rate Skin warm and dry Attending Statement She has suffered a devastating injury in his dominant hemisphere with clinical evidence of uncal herniation. Her condition is irreversible, and there is no chance for meaningful recovery at this time. She is not a surgical candidate. I cannot be enthusiastic recommending a neurosurgical intervention. She is undergoing medical treatment Pulmonary. Continue aggressive pulmonary toilette, nasotracheal suction, and breathing treatments with nebulizers. Daily PT and OT Renal. Continue to monitor closely urine output, BUN and creatinine Endocrine. Continue to Monitor serial Acu checks and SSI as needed in detail ID continue to monitor for signs of infection Continue Protonix for stress ulcer prophylaxis Continue Lc hose and SCD's for DVT prophylaxis Further recommendations will be provided depending on the patient's clinical evaluation and follow up studies. Discussed with dr Strickland who is in agreement Frederick Valencia MD Aug 25, 2017 18:52
[2017-08-26] VITALS (18 sets, daily range): BP systolic 110–139; BP diastolic 58–66; PULSE 66–102; RESP 16–20; TEMP 96.8–98.6; O2SAT 100
[2017-08-26] MEDS: levETIRAcetam INJ 500 MG in SODIUM CHLORIDE 0.9% INJ 100 ML IV SCH ×4 (00:37→17:53)
[2017-08-26] MEDS: hydrALAZINE HCL 20 MG/ML VIAL IV PUSH PRN ×2 (01:58→14:28)
[2017-08-26] MEDS: POTASSIUM CHLORIDE INJ 30 MEQ in LACTATED RINGER'S 1000 ML INJ 1,000 ML IV SCH (02:03)
[2017-08-26] MEDS: niCARdipine INJ 50 MG in SODIUM CHLORID 0.9% 500 ML INJ 480 ML IV PRN ×4 (03:00→22:11)
[2017-08-26] MEDS: RESP: ALBUTEROL 2.5 MG/IPRATROPIUM 0.5 MG NEB (SCH) INH ×5 (03:09→23:39)
[2017-08-26] MEDS: SODIUM CHLOR 0.9% 1000 ML INJ 1,000 ML IV SCH ×2 (03:24→14:11)
[2017-08-26] MEDS: CHLORHEXIDINE GLUCONATE 2 % 1 PACK (2 CLOTHS) TOP SCH (03:25)
[2017-08-26] MEDS: FOSPHENYTOIN SODIUM 100 MG PE/2 ML VIAL IV SCH ×3 (05:29→21:03)
[2017-08-26] MEDS: ARTIFICIAL TEARS OPTH SOLN 15 ML BTL EACH EYE SCH ×6 (05:29→21:03)
[2017-08-26 05:52] LABS: ALBUMIN 2.3 GM/DL (3.4-5.0); AST (GOT) 60 U/L (15-37); BICARBONATE 22.4 MEQ/L (21.0-32.0); BLOOD UREA NITROGEN 4 MG/DL (7-18); CALCIUM 8.7 MG/DL (8.5-10.1); CHLORIDE 126 MEQ/L (98-107); CREATININE 0.48 MG/DL (0.50-1.00); GLOMERULAR FILTRATION RATE 136 ML/MIN (>89); GLUCOSE,RANDOM 169 MG/DL (74-106); SODIUM (NA) 155 MEQ/L (136-145)
[2017-08-26 05:53] LABS: ALT (GPT) 33 U/L (10-53)
[2017-08-26 05:55] LABS: ALKALINE PHOSPHATASE 91 U/L (45-117); TOTAL BILIRUBIN ADULT 0.3 MG/DL (0.2-1.0); TOTAL PROTEIN 5.9 GM/DL (6.4-8.2)
[2017-08-26] MEDS: INSULIN NovoLIN REGULAR SUPPLEMENTAL SCALE SQ SCH ×4 (06:00→17:53)
[2017-08-26] MEDS: POTASSIUM CHLOR 20 MEQ PREMIX 100 ML IV PRN ×3 (06:19→17:55)
[2017-08-26] MEDS: LABETALOL HCL 100 MG/20 ML VIAL IV PUSH PRN (07:29)
--- NOTE | 2017-08-26 07:55 | HHI.CCPN ---
Subjective Remarks/Hospital Course L intraparenchymal hemorrhage w/ shift; HTN Diagnosis: (1) Intraparenchymal hemorrhage of brain Diagnosis: Principal (2) Acute respiratory failure Diagnosis: Principal (3) HTN (hypertension) Diagnosis: Principal (4) Leukocytosis Diagnosis: Principal Chief Complaint: Unresponsive, left-sided gaze This is a 52-year-old female. Actually name is Casandra Deluca. Date of admission 08/23/2017. Past medical history is unremarkable including Dr. Prather spoke with uncle. Patient was in her normal state of health today until approximately 3 PM on Monday and then developed acute onset of nausea associated with vomiting and complained of not feeling well. At approximately 1800 hrs., she took a one-time dose of ibuprofen and fell asleep on the couch. Early this a.m., and just prior to arrival to the emergency department awake and vomiting and then became unresponsive. Uncle states there was no injury or trauma he assisted her to the floor and because she was vomiting rolled her over so that she would not aspirate her emesis. Due to instability patient received 20 mg etomidate, 5 mg midazolam and 70 mg succinylcholine was intubated by ED physician. CT brain revealed a large left frontal parenchymal hemorrhage with diffuse intraventricular blood [address] Valencia /neurosurgery was notified. Recommended 50 g mannitol still hyperventilating he will evaluate the patient. Traveling Storekeeper were asked to admit. 08/23 0930 hours: Continued deterioration in neurological exam with absent peripheral reflexes and minimal cough. No Doll's eyes present. Mildly alkalotic , will correct to facilitate apnea test tomorrow. 08/24: Appears to withdraw left foot this morning mild cough response. Breathes strongly over ventilator with slight hyperventilation. Otherwise unresponsive. About 6 x 5 cm area of hemorrhage persists in the left hemisphere with considerable intraventricular blood. Ventricles starting to dilate. Vasogenic edema and surrounding normal brain. 08/25: No improvement in neurologic function. Persistent severe neurologic deficit. She lives with her uncle and that appears to be the only available family. She basically took care of her uncle and he appears quite devastated by her illness. Her son is estranged for many years and the uncle says he would not know how to get a hold of him. In a personal conversation with the uncle in the [facility] he specifically stated that the patient and he had an agreement that they would not allow the other to be kept alive with artificial devices if each were irreparably injured. The uncle has expressed that he needs to stop the ventilator but states that he cannot do it. I will ask the palliative care service to assist the uncle in his decision involving her care plan. 08/26: Devastating neurological injury. Largely unresponsive with the exception of withdrawal of her feet to noxious stimulation. Her uncle is still deciding care plan. Objective Vital Signs Date Time Temp Pulse Resp B/P (MAP) Pulse Ox O2 Delivery O2 Flow Rate FiO2 08/26/17 07:25 91 144/60 08/26/17 04:00 96.8 20 100 08/26/17 04:00 40 08/25/17 19:00 Mechanical Ventilator 08/24/17 19:00 15.00 Intake and Output 08/26/17 08/26/17 08/26/17 07:59 15:59 23:59 Intake Total 2093 ml Output Total 800 ml Balance 1293 ml Result Diagram: 08/25/17 0327 08/26/17 0500 Imaging Last Impressions Head CTA 08/23/17 0157 Signed Impressions: Service Date/Time: Wednesday, August 23, 2017 02:26 - CONCLUSION: No perceptible aneurysm or enhancing mass. Saeid Choi MD Head CT 08/23/17 0000 Signed Impressions: Service Date/Time: Wednesday, August 23, 2017 02:08 - CONCLUSION: Large left frontal lobe parenchymal hemorrhage and diffuse intraventricular blood. 11 mm of rightward midline shift. Saeid Choi MD Chest X-Ray 08/23/17 0000 Signed Impressions: Service Date/Time: Wednesday, August 23, 2017 02:44 - CONCLUSION: Appropriate position of the endotracheal tube. Clear lungs. Saeid Choi MD Cervical Spine CT 08/23/17 0000 Signed Impressions: Service Date/Time: Wednesday, August 23, 2017 02:08 - CONCLUSION: 1. No fracture or acute appearing malalignment of the cervical spine. 2. Degenerative changes as above. Saeid Choi MD Objective Remarks GENERAL: 52-year-old female currently orotracheally intubated, SKIN: Warm and dry. HEAD: Atraumatic. Normocephalic. EYES: Right pupil is 4 mm in size. Left pupil is 3 mm and nonreactive. No scleral icterus or drainage. ENT: No nasal bleeding or discharge. Mucous membranes pink and moist. NECK: Trachea midline. Orally intubated. CARDIOVASCULAR: RRR. S1, S2. No S4. Without murmur, no JVD. RESPIRATORY: Clear, good excursions on ventilated breaths. No wheezing GASTROINTESTINAL: Abdomen soft, non-tender, nondistended. Bowel sounds present. MUSCULOSKELETAL: Extremities without significant peripheral edema. No obvious deformities. NEUROLOGICAL: Unresponsive. Unreactive toes. Minimal cough. No gag. Withdrawal response left, right foot. Pupils as above. Cannot elicit withdrawal to noxious stimuli. No Doll's eyes. A/P Assessment and Plan Neuro/Psych: Large left frontal lobe parenchymal hemorrhage with intraventricular blood with associated 11 mm shift from right to left. CT brain revealed 4.85.9 cm left frontoparietal hemorrhage with surrounding cerebral edema and 11 mm right which midline shift. Hemorrhage extends to the ventricles. Negative CT angiogram the brain. Dr. Valencia notified. Recommended mannitol 50 g IV 1, hyperventilation Discussed with Dr. Valencia. Very poor prognosis. Considering ventriculostomy Order repeat CT brain a.m. 08/24 Hypertonic saline will sodium 1 5155 Mannitol 12.5 g IV every 8 hours. Hold if osm > greater than 310 Hold 3% saline Seizures have ceased on multiple AEDs. CV: Hypertensive emergency Nicardipine drip to keep systolic blood pressure less than 140 Norepinephrine drip to keep systolic blood pressure greater than 110 Currently normal saline 84 cc an hour EKG pending Well controlled now, add potassium to intravenous fluid. Resp: Acute respiratory failure secondary to large parenchymal hemorrhage [facility] 16/05/12/49 Ventilator bundle Albuterol/ipratropium aerosols every 6 hours with albuterol aerosols every 2 hours as needed dyspnea Spontaneous breathing trials when clinically indicated A.m. chest x-ray 08/24 End-tidal CO2 35-40 Patient is hyperventilating, unable to control PCO2 precisely. GI: N.p.o. NG tube to low intermittent wall suction Lansoprazole for GI prophylaxis Docusate sodium/senna 1 tablet twice daily for bowel regimen Start trickle feeds. : Dumont catheter for accurate I's and O's in a critically ill patient Endo: Sliding scale insulin Novulin R with Accu-Cheks every 6 hours to maintain euglycemia/medium protocol Check TSH in a.m. Renal: Creatinine currently within normal limits Monitor urine output Accurate I's and O's Heme: Leukocytosis Likely leukemoid reaction. Monitor CBC daily. Follow trends ID: Monitor for infection MSK: PT/OT evaluate and treat FEN: Repeat potassium ordered. Originally hypokalemic. Magnesium and phosphorus ordered as well. Replace electrolytes per ICU electrolyte protocol Electrolyte replacement protocol, add potassium. Access -Left IJ CVL day #2 placed 08/23 Prophylaxis -GI -lansoprazole -DVT -SCD/holding pharmacological prophylaxis until okayed with neurosurgery Overall impression: The patient remains critically ill with a devastating CAT scan of the head reveals continued progression of bleed and surrounding vasogenic edema. I discussed her prognosis and care in detail with her uncle who is her only family. Her son is estranged and there is no way to contact him. The prognosis is poor. We will continue to have discussions with her uncle with whom she lives. Continues to demonstrate some brainstem function, but supratentorial function appears largely absent. Critical care time 40 minutes aside from procedures. Rayray Strickland MD Aug 26, 2017 07:55
[2017-08-26] MEDS: CHLORHEXIDINE 0.12% (ORAL KIT) 15 ML CUP MT SCH ×2 (08:00→20:00)
[2017-08-26] MEDS: SODIUM CHLORIDE 0.9% FLUSH 10 ML FLUSH IV FLUSH SCH ×3 (09:00→21:00)
[2017-08-26] MEDS: THIAMINE INJ 100 MG in SODIUM CHLORIDE 0.9% INJ 100 ML IV SCH (09:06)
[2017-08-26] MEDS: LANSOPRAZOLE SOLUTAB 30 MG TAB G-TUBE SCH (09:07)
[2017-08-26] MEDS: MULTIVITAMIN TAB PO SCH (09:07)
[2017-08-26] MEDS: FOLIC ACID 1 MG TAB PO SCH (09:07)
[2017-08-26] MEDS: DOCUSATE SODIUM 50 MG/SENNA 8.6 MG TAB PO SCH ×2 (09:07→21:03)
--- NOTE | 2017-08-26 13:38 | HHI.NSPN ---
(Enrique Samson) History Chief Complaint: Unable to obtain due to patient's clinical condition. (Enrique Samson) Interval History This is a 52-year-old female brought to [place] emergency department by EMS transport from home after collapse at home. According to paramedics she had had vomiting earlier in the day this evening was given a one-time dose of ibuprofen by family member and then had further vomiting and collapse. Upon EMS arrival patient was noted to have fixed downward leftward gaze was unresponsive except to painful stimuli with some posturing of the right upper extremity. No seizure activity identified. No tongue bitting. No incontinence of stool or urine, No tonic clonic movements. No report of injury or trauma. No prior medical history provided to EMS by family. She has a GCS of 3. Pupils 7mm dilated and fixed. CT of the brain showed a very large deep intracerebral hemorrhage, in the dominant hemisphere with uncal and subfalcine herniation. Neurosurgical consultation requested 08/24: Intubated, no sedatives. Nursing reports given Ativan last night for persistent possible seizures noted from the abnormal movements of her tongue. No eye opening, not following commands. Pupils currently 5-6 mm nonreactive. Positive corneal reflex today on exam. Nursing reports no cough or gag. 08/25 No clinical improvement. GCS 3. No pupilary reaction. Some spontaneous respirations 08/26: The patient is obtunded when seen. She has no sedation infusing. She remains intubated and mechanically ventilated. She has a flexion response to the lower extremities to noxious stimulation but no other response. Her pupils are 4 to 5 mm and nonreactive. (Enrique Samson) System Review Comments Unable to obtain due to patient's clinical condition. (Enrique Samson) Exam Results 08/24/17 08/24/17 08/25/17 08/25/17 08/26/17 08/26/17 06:00 18:00 06:00 18:00 06:00 18:00 Intake Total 1233.6 ml 846 ml 554 ml 2593 ml Output Total 1000 ml 1100 ml 1000 ml 1000 ml 800 ml Balance 233.6 ml -1100 ml -154 ml -446 ml 1793 ml Intake IV Total 1233.6 ml 404 ml 105 ml 2120 ml Tube Feeding 242 ml 329 ml 473 ml Other 200 ml 120 ml Output Urine Total 1000 ml 1100 ml 1000 ml 1000 ml 800 ml Gastric Drainage Total 0 ml 0 ml # Bowel Movements 0 0 0 0 Vital Signs Date Time Temp Pulse Resp B/P (MAP) Pulse Ox O2 Delivery O2 Flow Rate FiO2 08/26/17 08:10 100 40 08/26/17 08:10 100 40 08/26/17 07:25 91 144/60 08/26/17 06:00 92 08/26/17 04:00 82 08/26/17 04:00 96.8 75 20 126/66 (86) 100 08/26/17 04:00 40 08/26/17 03:49 100 40 08/26/17 03:00 78 126/62 08/26/17 02:00 81 08/26/17 00:00 40 08/26/17 00:00 102 08/26/17 00:00 98.6 96 19 139/66 (90) 100 08/25/17 23:56 100 40 08/25/17 23:55 100 40 08/25/17 22:11 89 132/62 08/25/17 22:00 86 08/25/17 20:00 40 08/25/17 20:00 71 08/25/17 20:00 96.1 74 16 120/60 (80) 100 08/25/17 19:43 100 40 08/25/17 19:00 100 Mechanical Ventilator 40 08/25/17 18:00 70 08/25/17 16:44 100 40 08/25/17 16:03 75 123/66 08/25/17 16:00 76 08/25/17 16:00 97.8 76 16 127/65 (85) 100 08/25/17 16:00 40 08/25/17 15:00 78 08/25/17 14:00 86 08/25/17 12:00 98.6 88 20 118/60 (79) 100 08/25/17 12:00 88 08/25/17 12:00 89 134/58 08/25/17 12:00 40 08/25/17 11:41 100 40 08/25/17 10:00 84 08/25/17 09:49 86 139/64 08/25/17 08:04 100 40 08/25/17 08:00 86 08/25/17 08:00 100.0 86 18 131/55 (80) 100 18 08:00 40 08/25/17 07:00 86 08/25/17 07:00 100 Mechanical Ventilator 40 08/25/17 06:52 88 133/63 08/25/17 06:00 86 08/25/17 04:20 100 40 08/25/17 04:00 40 08/25/17 04:00 88 08/25/17 04:00 99.7 88 20 133/62 (85) 100 08/25/17 02:00 84 08/25/17 00:37 100 40 08/25/17 00:37 100 40 08/25/17 00:00 40 08/25/17 00:00 98.9 88 23 136/63 (87) 100 08/25/17 00:00 88 08/24/17 23:00 82 08/24/17 22:00 80 08/24/17 20:59 77 123/55 08/24/17 20:00 99.0 81 20 124/60 (81) 100 08/24/17 20:00 40 08/24/17 20:00 81 08/24/17 19:56 100 40 08/24/17 19:00 100 Mechanical Ventilator 15.00 40 18 18:00 74 08/24/17 17:08 100 40 18 16:00 98.8 91 21 147/58 (87) 100 18 16:00 40 18 16:00 86 08/24/17 15:00 56 18 14:00 59 18 12:00 59 18 12:00 40 18 12:00 98.6 62 19 164/88 (113) 100 18 11:03 100 40 18 10:00 57 18 08:00 94.0 54 18 136/80 (98) 100 08/24/17 08:00 58 18 08:00 40 08/24/17 07:40 100 40 08/24/17 07:34 100 40 08/24/17 07:00 100 Mechanical Ventilator 40 08/24/17 07:00 58 08/24/17 06:00 56 08/24/17 04:15 100 100 08/24/17 04:00 98.0 55 17 125/77 (93) 100 08/24/17 04:00 40 08/24/17 04:00 55 08/24/17 03:24 100 40 08/24/17 03:16 63 122/56 08/24/17 02:15 100 40 08/24/17 02:00 65 08/24/17 00:13 59 139/53 08/24/17 00:00 98.2 58 16 140/54 (82) 100 08/24/17 00:00 58 08/24/17 00:00 40 08/23/17 23:27 100 40 08/23/17 23:00 59 08/23/17 22:00 58 08/23/17 20:00 98.0 92 16 134/51 (78) 100 08/23/17 20:00 40 08/23/17 20:00 60 08/23/17 19:41 100 40 08/23/17 19:41 100 40 08/23/17 19:00 100 Mechanical Ventilator 15.00 40 08/23/17 18:00 67 08/23/17 16:02 100 40 08/23/17 16:00 98.9 67 16 144/57 (86) 100 08/23/17 16:00 66 08/23/17 16:00 40 08/23/17 15:00 79 08/23/17 14:00 75 (Enirque Samson) Physical Examination GENERAL: Obtunded, intubated & mechanically ventilated w/o any sedation. No apparent distress. Nicardipine infusing at 12 mg/hr for blood pressure support. HEENT: Normocephalic, atraumatic. Pupils 4-5 mm nonreactive. Orally intubated. OGT. MUSCULOSKELETAL: Slight flexion response BLE to noxious stimulation. No evident clubbing or deformity. NEUROLOGICAL: Obtunded, no sedation. No eye opening to any stimulation. Pupils 4-5 mm nonreactive. Positive corneal reflex bilaterally. Nonverbal, intubated. Positive cough reflex. Slight flexion response L>R LE to noxious stimulation, no response w/UEs. No response to central noxious stimulation. (Enrique Samson) Lab, Micro, Other Results Recent Impressions Chest X-Ray 08/25/17 0400 Signed Impressions: Service Date/Time: Friday, August 25, 2017 03:12 - CONCLUSION: Life-support lines. Clear lungs. Julian Gray Jr., MD Head CT 08/24/17 0600 Signed Impressions: Service Date/Time: August 04:27 - CONCLUSION: Diffuse intraventricular hemorrhage and left frontal lobe parenchymal hemorrhage again noted. Intraventricular blood has increased and there is mild to moderate ventriculomegaly. 9 mm of rightward midline shift, slightly improved. Saeid Choi MD Chest X-Ray 08/24/17 0000 Signed Impressions: Service Date/Time: August 03:57 - CONCLUSION: No change. Lungs remain clear. Saeid Choi MD Laboratory Tests Test 08/23/17 14:50 08/23/17 22:50 08/24/17 03:40 08/24/17 12:51 Sodium Level 144 MEQ/L 151 MEQ/L 154 MEQ/L Serum Osmolality 301 MOSM/KG 309 MOSM/KG 317 MOSM/KG 317 MOSM/KG White Blood Count 12.9 TH/MM3 Red Blood Count 3.77 MIL/MM3 Hemoglobin 11.3 GM/DL Hematocrit 33.5 % Mean Corpuscular Volume 88.9 FL Mean Corpuscular Hemoglobin 30.0 PG Mean Corpuscular Hemoglobin Concent 33.8 % Red Cell Distribution Width 13.7 % Platelet Count 281 TH/MM3 Mean Platelet Volume 8.0 FL Neutrophils (%) (Auto) 89.1 % Lymphocytes (%) (Auto) 3.8 % Monocytes (%) (Auto) 7.0 % Eosinophils (%) (Auto) 0.0 % Basophils (%) (Auto) 0.1 % Neutrophils # (Auto) 11.5 TH/MM3 Lymphocytes # (Auto) 0.5 TH/MM3 Monocytes # (Auto) 0.9 TH/MM3 Eosinophils # (Auto) 0.0 TH/MM3 Basophils # (Auto) 0.0 TH/MM3 CBC Comment DIFF FINAL Differential Comment Prothrombin Time 11.8 SEC Prothromb Time International Ratio 1.2 RATIO Activated Partial Thromboplast Time 28.1 SEC Blood Urea Nitrogen 5 MG/DL Creatinine 0.40 MG/DL Random Glucose 201 MG/DL Total Protein 5.8 GM/DL Albumin 2.7 GM/DL Calcium Level 7.9 MG/DL Phosphorus Level 1.5 MG/DL Magnesium Level 1.8 MG/DL Alkaline Phosphatase 98 U/L Aspartate Amino Transf (AST/SGOT) 55 U/L Alanine Aminotransferase (ALT/SGPT) 53 U/L Total Bilirubin 0.6 MG/DL Potassium Level 2.2 MEQ/L Chloride Level 122 MEQ/L Carbon Dioxide Level 20.2 MEQ/L Anion Gap 9 MEQ/L Estimat Glomerular Filtration Rate 137 ML/MIN Lactic Acid Level 1.6 mmol/L Test 08/24/17 18:45 08/25/17 00:55 08/25/17 03:27 08/25/17 08:42 Sodium Level 155 MEQ/L 157 MEQ/L 157 MEQ/L Potassium Level 2.7 MEQ/L 2.4 MEQ/L Serum Osmolality 319 MOSM/KG 321 MOSM/KG 317 MOSM/KG Phosphorus Level 2.9 MG/DL Magnesium Level 1.5 MG/DL White Blood Count 15.4 TH/MM3 Red Blood Count 3.64 MIL/MM3 Hemoglobin 11.0 GM/DL Hematocrit 32.5 % Mean Corpuscular Volume 89.3 FL Mean Corpuscular Hemoglobin 30.1 PG Mean Corpuscular Hemoglobin Concent 33.7 % Red Cell Distribution Width 13.9 % Platelet Count 280 TH/MM3 Mean Platelet Volume 8.3 FL Neutrophils (%) (Auto) 83.1 % Lymphocytes (%) (Auto) 7.8 % Monocytes (%) (Auto) 9.0 % Eosinophils (%) (Auto) 0.0 % Basophils (%) (Auto) 0.1 % Neutrophils # (Auto) 12.8 TH/MM3 Lymphocytes # (Auto) 1.2 TH/MM3 Monocytes # (Auto) 1.4 TH/MM3 Eosinophils # (Auto) 0.0 TH/MM3 Basophils # (Auto) 0.0 TH/MM3 CBC Comment DIFF FINAL Differential Comment Test 08/25/17 11:51 08/25/17 18:00 08/25/17 22:25 08/26/17 00:00 Sodium Level 158 MEQ/L 156 MEQ/L 156 MEQ/L Serum Osmolality 323 MOSM/KG 324 MOSM/KG 318 MOSM/KG Potassium Level 3.8 MEQ/L Test 08/26/17 05:00 Blood Urea Nitrogen 4 MG/DL Creatinine 0.48 MG/DL Random Glucose 169 MG/DL Total Protein 5.9 GM/DL Albumin 2.3 GM/DL Calcium Level 8.7 MG/DL Alkaline Phosphatase 91 U/L Aspartate Amino Transf (AST/SGOT) 60 U/L Alanine Aminotransferase (ALT/SGPT) 33 U/L Total Bilirubin 0.3 MG/DL Sodium Level 155 MEQ/L Potassium Level 3.4 MEQ/L Chloride Level 126 MEQ/L Carbon Dioxide Level 22.4 MEQ/L Anion Gap 7 MEQ/L Estimat Glomerular Filtration Rate 136 ML/MIN Serum Osmolality 321 MOSM/KG Phenytoin (Dilantin) Level 14.8 MCG/ML (Enrique Samson) Medical Decision Making Impression and Plan Impression: Large left frontal parenchymal haemorrhage & diffuse intraventricular blood w/ rightward midline shift She has suffered a devastating injury in his dominant hemisphere with clinical evidence of uncal herniation. Her condition is irreversible, and there is no chance for meaningful recovery at this time. (Dr Valencia ) The patient still remains critical. She is obtunded w/o any sedation. She does have a L>R flexion response to the LE to noxious stimulation but not the UEs. Pupils equal & nonreactive. On nicardipine drip for blood pressure support. Reviewed labs for today. Sodium 155. Hypokalemia. Elevated AST. CT brain demonstrated diffuse IVH & left frontal lobe parenchymal haemorrhage. The IVH has increased. Mild to moderate ventriculomegaly. Slight improvement of rightward midline shift. Plan: Primary & critical care management per Customer Service Correspondence Clerk. Neuro checks. She is not a surgical candidate & neurosurgical intervention is not recommended. (Dr Valencia ) Continue medical treatment. (Enrique Samson) Attending Statement The exam, history, and the medical decision-making described in the above note were completed with the assistance of the mid-level provider. I reviewed and agree with the findings presented. I attest that I had a [id number] encounter with the patient on the same day, and personally performed and documented my assessment and findings in the medical record. On my examination 08/30/2017, remains on nicardipine drip. No eye opening to voice. Does not follow. Pupils 3-4 mm and reactive. Minimal oculocephalic responses. Mild right greater than left corneal response. No response to the extremities Remains with severe neurologic deficit. No neurosurgical intervention planned (Sher Segal MD) Enrique Samson Aug 26, 2017 13:38 Sher Segal MD Aug 26, 2017 18:35
[2017-08-27] VITALS (21 sets, daily range): BP systolic 100–163; BP diastolic 58–72; PULSE 52–100; RESP 14–25; TEMP 96.3–98.6; O2SAT 97–100
[2017-08-27] MEDS: levETIRAcetam INJ 500 MG in SODIUM CHLORIDE 0.9% INJ 100 ML IV SCH ×4 (00:58→19:01)
[2017-08-27] MEDS: hydrALAZINE HCL 20 MG/ML VIAL IV PUSH PRN ×2 (02:02→12:26)
[2017-08-27] MEDS: niCARdipine INJ 50 MG in SODIUM CHLORID 0.9% 500 ML INJ 480 ML IV PRN ×4 (02:30→13:04)
[2017-08-27] MEDS: SODIUM CHLOR 0.9% 1000 ML INJ 1,000 ML IV SCH ×3 (02:43→19:02)
[2017-08-27] MEDS: RESP: ALBUTEROL 2.5 MG/IPRATROPIUM 0.5 MG NEB (SCH) INH (03:17)
[2017-08-27] MEDS: CHLORHEXIDINE GLUCONATE 2 % 1 PACK (2 CLOTHS) TOP SCH (03:48)
[2017-08-27] MEDS: POTASSIUM CHLOR 20 MEQ PREMIX 100 ML IV PRN ×2 (03:53→05:54)
[2017-08-27] MEDS: FOSPHENYTOIN SODIUM 100 MG PE/2 ML VIAL IV SCH ×3 (05:53→21:09)
[2017-08-27] MEDS: ARTIFICIAL TEARS OPTH SOLN 15 ML BTL EACH EYE SCH ×6 (05:53→21:09)
[2017-08-27] MEDS: INSULIN NovoLIN REGULAR SUPPLEMENTAL SCALE SQ SCH ×4 (06:00→18:00)
[2017-08-27 06:06] LABS: BICARBONATE 22.5 MEQ/L (21.0-32.0); CALCIUM 8.4 MG/DL (8.5-10.1); CREATININE 0.3 MG/DL (0.50-1.00)
--- NOTE | 2017-08-27 08:46 | HHI.CCPN ---
Subjective Remarks/Hospital Course L intraparenchymal hemorrhage w/ shift; HTN Diagnosis: (1) Intraparenchymal hemorrhage of brain Diagnosis: Principal (2) Acute respiratory failure Diagnosis: Principal (3) HTN (hypertension) Diagnosis: Principal (4) Leukocytosis Diagnosis: Principal Chief Complaint: Unresponsive, left-sided gaze This is a 52-year-old female. Actually name is Casandra Deluca. Date of admission 08/23/2017. Past medical history is unremarkable including Dr. Prather spoke with uncle. Patient was in her normal state of health today until approximately 3 PM on Monday and then developed acute onset of nausea associated with vomiting and complained of not feeling well. At approximately 1800 hrs., she took a one-time dose of ibuprofen and fell asleep on the couch. Early this a.m., and just prior to arrival to the emergency department awake and vomiting and then became unresponsive. Uncle states there was no injury or trauma he assisted her to the floor and because she was vomiting rolled her over so that she would not aspirate her emesis. Due to instability patient received 20 mg etomidate, 5 mg midazolam and 70 mg succinylcholine was intubated by ED physician. CT brain revealed a large left frontal parenchymal hemorrhage with diffuse intraventricular blood [address] Valencia /neurosurgery was notified. Recommended 50 g mannitol still hyperventilating he will evaluate the patient. Institutional Custodian were asked to admit. 08/23 0930 hours: Continued deterioration in neurological exam with absent peripheral reflexes and minimal cough. No Doll's eyes present. Mildly alkalotic , will correct to facilitate apnea test tomorrow. 08/24: Appears to withdraw left foot this morning mild cough response. Breathes strongly over ventilator with slight hyperventilation. Otherwise unresponsive. About 6 x 5 cm area of hemorrhage persists in the left hemisphere with considerable intraventricular blood. Ventricles starting to dilate. Vasogenic edema and surrounding normal brain. 08/25: No improvement in neurologic function. Persistent severe neurologic deficit. She lives with her uncle and that appears to be the only available family. She basically took care of her uncle and he appears quite devastated by her illness. Her son is estranged for many years and the uncle says he would not know how to get a hold of him. In a personal conversation with the uncle in the [facility] he specifically stated that the patient and he had an agreement that they would not allow the other to be kept alive with artificial devices if each were irreparably injured. The uncle has expressed that he needs to stop the ventilator but states that he cannot do it. I will ask the palliative care service to assist the uncle in his decision involving her care plan. 08/26: Devastating neurological injury. Largely unresponsive with the exception of withdrawal of her feet to noxious stimulation. Her uncle is still deciding care plan. 08/27: No improvement in neurologic function. Withdrawal response and lower extremities persists. Convert to APRV ventilator mode to maintain lung recruitment. Objective Vital Signs Date Time Temp Pulse Resp B/P (MAP) Pulse Ox O2 Delivery O2 Flow Rate FiO2 08/27/17 07:23 99 40 08/27/17 06:00 81 08/27/17 05:35 141/52 08/27/17 04:00 97.7 20 08/26/17 19:00 Mechanical Ventilator 08/24/17 19:00 15.00 Intake and Output 08/27/17 08/27/17 08/28/17 08:00 16:00 00:00 Intake Total 2600 ml Output Total 1475.0 ml Balance 1125.0 ml Result Diagram: 08/25/17 0327 08/27/17 0515 Imaging Last Impressions Head CTA 08/23/17 0157 Signed Impressions: Service Date/Time: Wednesday, August 23, 2017 02:26 - CONCLUSION: No perceptible aneurysm or enhancing mass. Saeid Choi MD Head CT 08/23/17 0000 Signed Impressions: Service Date/Time: Wednesday, August 23, 2017 02:08 - CONCLUSION: Large left frontal lobe parenchymal hemorrhage and diffuse intraventricular blood. 11 mm of rightward midline shift. Saeid Choi MD Chest X-Ray 08/23/17 0000 Signed Impressions: Service Date/Time: Wednesday, August 23, 2017 02:44 - CONCLUSION: Appropriate position of the endotracheal tube. Clear lungs. Saeid Choi MD Cervical Spine CT 08/23/17 0000 Signed Impressions: Service Date/Time: Wednesday, August 23, 2017 02:08 - CONCLUSION: 1. No fracture or acute appearing malalignment of the cervical spine. 2. Degenerative changes as above. Saeid Choi MD Objective Remarks GENERAL: 52-year-old female currently orotracheally intubated, SKIN: Warm and dry. HEAD: Atraumatic. Normocephalic. EYES: Right pupil is 4 mm in size. Left pupil is 3 mm and nonreactive. No scleral icterus or drainage. ENT: No nasal bleeding or discharge. Mucous membranes pink and moist. NECK: Trachea midline. Orally intubated. CARDIOVASCULAR: RRR. S1, S2. No S4. Without murmur, no JVD. RESPIRATORY: Clear, good excursions on ventilated breaths. No wheezing GASTROINTESTINAL: Abdomen soft, non-tender, nondistended. Bowel sounds present. MUSCULOSKELETAL: Extremities without significant peripheral edema. No obvious deformities. NEUROLOGICAL: Unresponsive. Unreactive toes. Minimal cough. No gag. Withdrawal response left, right foot. Pupils as above. A/P Assessment and Plan Neuro/Psych: Large left frontal lobe parenchymal hemorrhage with intraventricular blood with associated 11 mm shift from right to left. CT brain revealed 4.85.9 cm left frontoparietal hemorrhage with surrounding cerebral edema and 11 mm right which midline shift. Hemorrhage extends to the ventricles. Negative CT angiogram the brain. Dr. Valencia notified. Recommended mannitol 50 g IV 1, hyperventilation Discussed with Dr. Valencia. Very poor prognosis. Considering ventriculostomy Order repeat CT brain a.m. 08/24 Hypertonic saline will sodium 1 5155 Mannitol 12.5 g IV every 8 hours. Hold if osm > greater than 310 Hold 3% saline Seizures have ceased on multiple AEDs. CV: Hypertensive emergency Nicardipine drip to keep systolic blood pressure less than 140 Norepinephrine drip to keep systolic blood pressure greater than 110 Currently normal saline 84 cc an hour EKG pending Well controlled now, add potassium to intravenous fluid. Resp: Acute respiratory failure secondary to large parenchymal hemorrhage [facility] 16/05/12/49 Ventilator bundle Albuterol/ipratropium aerosols every 6 hours with albuterol aerosols every 2 hours as needed dyspnea Spontaneous breathing trials when clinically indicated A.m. chest x-ray 08/24 End-tidal CO2 35-40 Patient is hyperventilating, unable to control PCO2 precisely. Converted to airway pressure release ventilation to maintain functional residual capacity. GI: N.p.o. NG tube to low intermittent wall suction Lansoprazole for GI prophylaxis Docusate sodium/senna 1 tablet twice daily for bowel regimen Start trickle feeds. : Dumont catheter for accurate I's and O's in a critically ill patient Endo: Sliding scale insulin Novulin R with Accu-Cheks every 6 hours to maintain euglycemia/medium protocol Check TSH in a.m. Renal: Creatinine currently within normal limits Monitor urine output Accurate I's and O's Heme: Leukocytosis Likely leukemoid reaction. Monitor CBC daily. Follow trends ID: Monitor for infection MSK: PT/OT evaluate and treat FEN: Repeat potassium ordered. Originally hypokalemic. Magnesium and phosphorus ordered as well. Replace electrolytes per ICU electrolyte protocol Electrolyte replacement protocol, add potassium. Access -Left IJ CVL day #4 placed 08/23 Prophylaxis -GI -lansoprazole -DVT -SCD/holding pharmacological prophylaxis until okayed with neurosurgery Overall impression: The patient remains critically ill with a devastating CAT scan of the head reveals continued progression of bleed and surrounding vasogenic edema. I discussed her prognosis and care in detail with her uncle who is her only family. Her son is estranged and there is no way to contact him. The prognosis is poor. We will continue to have discussions with her uncle with whom she lives. Continues to demonstrate some brainstem function, but supratentorial function appears largely absent. Episode about 1300 today where patient became tachycardic and hypertensive, followed by agonal respiratory effort despite ventilator minute volume > 7 liters guaranteed. This was followed by hypotension and lower heart rate, dilation of left pupil to 6 mm. Possibly indicative of herniation. Critical care time 46 minutes aside from procedures. Rayray Strickland MD Aug 27, 2017 08:46
[2017-08-27] MEDS: SODIUM CHLORIDE 0.9% FLUSH 10 ML FLUSH IV FLUSH SCH ×3 (09:00→21:00)
[2017-08-27] MEDS: DOCUSATE SODIUM 50 MG/SENNA 8.6 MG TAB PO SCH ×2 (09:11→21:08)
[2017-08-27] MEDS: LANSOPRAZOLE SOLUTAB 30 MG TAB G-TUBE SCH (09:11)
[2017-08-27] MEDS: MULTIVITAMIN TAB PO SCH (09:11)
[2017-08-27] MEDS: FOLIC ACID 1 MG TAB PO SCH (09:11)
[2017-08-27] MEDS: THIAMINE INJ 100 MG in SODIUM CHLORIDE 0.9% INJ 100 ML IV SCH (09:12)
[2017-08-27] MEDS: CHLORHEXIDINE 0.12% (ORAL KIT) 15 ML CUP MT SCH ×2 (09:13→20:00)
--- NOTE | 2017-08-27 10:36 | HHI.NSPN ---
(Enrique Samson) History Chief Complaint: Unable to obtain due to patient's clinical condition. (Enrique Samson) Interval History This is a 52-year-old female brought to [place] emergency department by EMS transport from home after collapse at home. According to paramedics she had had vomiting earlier in the day this evening was given a one-time dose of ibuprofen by family member and then had further vomiting and collapse. Upon EMS arrival patient was noted to have fixed downward leftward gaze was unresponsive except to painful stimuli with some posturing of the right upper extremity. No seizure activity identified. No tongue bitting. No incontinence of stool or urine, No tonic clonic movements. No report of injury or trauma. No prior medical history provided to EMS by family. She has a GCS of 3. Pupils 7mm dilated and fixed. CT of the brain showed a very large deep intracerebral hemorrhage, in the dominant hemisphere with uncal and subfalcine herniation. Neurosurgical consultation requested 08/24: Intubated, no sedatives. Nursing reports given Ativan last night for persistent possible seizures noted from the abnormal movements of her tongue. No eye opening, not following commands. Pupils currently 5-6 mm nonreactive. Positive corneal reflex today on exam. Nursing reports no cough or gag. 08/25 No clinical improvement. GCS 3. No pupilary reaction. Some spontaneous respirations 08/26: The patient is obtunded when seen. She has no sedation infusing. She remains intubated and mechanically ventilated. She has a flexion response to the lower extremities to noxious stimulation but no other response. Her pupils are 4 to 5 mm and nonreactive. 08/27: When seen the patient continues to be obtunded without any sedation infusing. She is still intubated and mechanically ventilated. She had no motor response to any noxious stimulation. The left pupil is 4 mm and the right 3 mm, both nonreactive. (Enrique Samson) System Review Comments Unable to obtain due to patient's clinical condition. (Enrique Samson) Exam Results 4/20/18 4/08/26/17 08/26/17 08/27/17 08/27/17 06:00 18:00 06:00 18:00 06:00 18:00 Intake Total 846 ml 554 ml 2593 ml 609 ml 3095 ml 105 ml Output Total 1000 ml 1000 ml 800 ml 1200 ml 1475.0 ml Balance -154 ml -446 ml 1793 ml -591 ml 1620.0 ml 105 ml Intake IV Total 404 ml 105 ml 2120 ml 2805 ml 105 ml Tube Feeding 242 ml 329 ml 473 ml 489 ml 290 ml Other 200 ml 120 ml 120 ml Output Urine Total 1000 ml 1000 ml 800 ml 1200 ml 1225 ml Gastric Drainage Total 0 ml 0 ml Tube Feeding Residual Discard 250.0 ml # Bowel Movements 0 0 0 Vital Signs Date Time Temp Pulse Resp B/P (MAP) Pulse Ox O2 Delivery O2 Flow Rate FiO2 08/27/17 10:00 74 08/27/17 09:40 97 40 08/27/17 08:55 97 40 08/27/17 07:23 99 40 08/27/17 06:00 81 08/27/17 05:35 82 141/52 08/27/17 04:09 99 40 08/27/17 04:00 40 08/27/17 04:00 84 08/27/17 04:00 97.7 82 20 133/59 (83) 100 08/27/17 02:30 90 144/64 08/27/17 02:00 90 08/27/17 01:13 100 40 08/27/17 00:00 79 08/27/17 00:00 40 08/27/17 00:00 98.6 79 17 136/69 (91) 100 08/26/17 22:15 100 40 08/26/17 22:11 69 117/63 08/26/17 22:00 76 08/26/17 20:00 97.5 70 16 110/60 (77) 100 08/26/17 20:00 40 08/26/17 20:00 69 08/26/17 19:28 100 40 08/26/17 19:28 100 40 08/26/17 19:00 100 Mechanical Ventilator 40 08/26/17 18:00 68 08/26/17 16:40 100 40 08/26/17 16:00 97.2 66 20 114/58 (76) 100 08/26/17 16:00 40 08/26/17 16:00 66 08/26/17 15:55 100 40 08/26/17 14:10 67 122/66 08/26/17 14:00 68 08/26/17 12:00 40 08/26/17 12:00 78 08/26/17 12:00 97.9 78 20 138/65 (89) 100 08/26/17 10:00 80 08/26/17 08:10 100 40 08/26/17 08:10 100 40 08/26/17 08:00 97.5 76 18 131/66 (87) 100 08/26/17 08:00 40 08/26/17 08:00 76 08/26/17 07:25 91 144/60 08/26/17 07:00 100 Mechanical Ventilator 40 08/26/17 06:00 92 08/26/17 04:00 82 08/26/17 04:00 96.8 75 20 126/66 (86) 100 08/26/17 04:00 40 08/26/17 03:49 100 40 08/26/17 03:00 78 126/62 08/26/17 02:00 81 08/26/17 00:00 40 08/26/17 00:00 102 08/26/17 00:00 98.6 96 19 139/66 (90) 100 08/25/17 23:56 100 40 08/25/17 23:55 100 40 08/25/17 22:11 89 132/62 08/25/17 22:00 86 08/25/17 20:00 40 08/25/17 20:00 71 08/25/17 20:00 96.1 74 16 120/60 (80) 100 08/25/17 19:43 100 40 08/25/17 19:00 100 Mechanical Ventilator 40 08/25/17 18:00 70 08/25/17 16:44 100 40 08/25/17 16:03 75 123/66 08/25/17 16:00 76 08/25/17 16:00 97.8 76 16 127/65 (85) 100 08/25/17 16:00 40 08/25/17 15:00 78 08/25/17 14:00 86 08/25/17 12:00 98.6 88 20 118/60 (79) 100 4/20/18 12:00 88 08/25/17 12:00 89 134/58 08/25/17 12:00 40 08/25/17 11:41 100 40 08/25/17 10:00 84 08/25/17 09:49 86 139/64 08/25/17 08:04 100 40 08/25/17 08:00 86 08/25/17 08:00 100.0 86 18 131/55 (80) 100 08/25/17 08:00 40 08/25/17 07:00 86 08/25/17 07:00 100 Mechanical Ventilator 40 08/25/17 06:52 88 133/63 08/25/17 06:00 86 08/25/17 04:20 100 40 08/25/17 04:00 40 08/25/17 04:00 88 08/25/17 04:00 99.7 88 20 133/62 (85) 100 08/25/17 02:00 84 08/25/17 00:37 100 40 08/25/17 00:37 100 40 08/25/17 00:00 40 08/25/17 00:00 98.9 88 23 136/63 (87) 100 08/25/17 00:00 88 08/24/17 23:00 82 08/24/17 22:00 80 08/24/17 20:59 77 123/55 08/24/17 20:00 99.0 81 20 124/60 (81) 100 08/24/17 20:00 40 08/24/17 20:00 81 08/24/17 19:56 100 40 08/24/17 19:00 100 Mechanical Ventilator 15.00 40 18 18:00 74 18 17:08 100 40 18 16:00 98.8 91 21 147/58 (87) 100 08/24/17 16:00 40 08/24/17 16:00 86 08/24/17 15:00 56 18 14:00 59 18 12:00 59 08/24/17 12:00 40 08/24/17 12:00 98.6 62 19 164/88 (113) 100 08/24/17 11:03 100 40 (Enrique Samson) Physical Examination GENERAL: Obtunded, intubated & mechanically ventilated w/o any sedation. No apparent distress. Nicardipine infusing at 15 mg/hr for blood pressure support. HEENT: Normocephalic, atraumatic. Left pupil 4 mm & right 3 mm, both nonreactive. Orally intubated. OGT. MUSCULOSKELETAL: No motor response to noxious stimulation. No evident clubbing or deformity. NEUROLOGICAL: Obtunded, no sedation. No eye opening to any stimulation. Left pupil 4 mm & right 3 mm, both nonreactive. Positive corneal reflex on right only. Nonverbal, intubated. Positive cough reflex. No response to any noxious stimulation. (Enrique Samson) Lab, Micro, Other Results Recent Impressions Chest X-Ray 08/25/17 0400 Signed Impressions: Service Date/Time: Friday, August 25, 2017 03:12 - CONCLUSION: Life-support lines. Clear lungs. Julian Gray Jr., MD Laboratory Tests Test 08/24/17 12:51 08/24/17 18:45 08/25/17 00:55 08/25/17 03:27 Sodium Level 154 MEQ/L 155 MEQ/L 157 MEQ/L 157 MEQ/L Serum Osmolality 317 MOSM/KG 319 MOSM/KG 321 MOSM/KG 317 MOSM/KG Potassium Level 2.7 MEQ/L Phosphorus Level 2.9 MG/DL Magnesium Level 1.5 MG/DL White Blood Count 15.4 TH/MM3 Red Blood Count 3.64 MIL/MM3 Hemoglobin 11.0 GM/DL Hematocrit 32.5 % Mean Corpuscular Volume 89.3 FL Mean Corpuscular Hemoglobin 30.1 PG Mean Corpuscular Hemoglobin Concent 33.7 % Red Cell Distribution Width 13.9 % Platelet Count 280 TH/MM3 Mean Platelet Volume 8.3 FL Neutrophils (%) (Auto) 83.1 % Lymphocytes (%) (Auto) 7.8 % Monocytes (%) (Auto) 9.0 % Eosinophils (%) (Auto) 0.0 % Basophils (%) (Auto) 0.1 % Neutrophils # (Auto) 12.8 TH/MM3 Lymphocytes # (Auto) 1.2 TH/MM3 Monocytes # (Auto) 1.4 TH/MM3 Eosinophils # (Auto) 0.0 TH/MM3 Basophils # (Auto) 0.0 TH/MM3 CBC Comment DIFF FINAL Differential Comment Test 08/25/17 08:42 08/25/17 11:51 08/25/17 18:00 08/25/17 22:25 Potassium Level 2.4 MEQ/L 3.8 MEQ/L Sodium Level 158 MEQ/L 156 MEQ/L Serum Osmolality 323 MOSM/KG 324 MOSM/KG Test 08/26/17 00:00 08/26/17 05:00 08/26/17 15:05 08/26/17 17:44 Sodium Level 156 MEQ/L 155 MEQ/L Serum Osmolality 318 MOSM/KG 321 MOSM/KG 317 MOSM/KG Blood Urea Nitrogen 4 MG/DL Creatinine 0.48 MG/DL Random Glucose 169 MG/DL Total Protein 5.9 GM/DL Albumin 2.3 GM/DL Calcium Level 8.7 MG/DL Alkaline Phosphatase 91 U/L Aspartate Amino Transf (AST/SGOT) 60 U/L Alanine Aminotransferase (ALT/SGPT) 33 U/L Total Bilirubin 0.3 MG/DL Potassium Level 3.4 MEQ/L 3.4 MEQ/L Chloride Level 126 MEQ/L Carbon Dioxide Level 22.4 MEQ/L Anion Gap 7 MEQ/L Estimat Glomerular Filtration Rate 136 ML/MIN Phenytoin (Dilantin) Level 14.8 MCG/ML Test 08/27/17 02:00 08/27/17 05:15 Potassium Level 3.4 MEQ/L 3.6 MEQ/L Blood Urea Nitrogen 4 MG/DL Creatinine 0.30 MG/DL Random Glucose 90 MG/DL Calcium Level 8.4 MG/DL Sodium Level 152 MEQ/L Chloride Level 123 MEQ/L Carbon Dioxide Level 22.5 MEQ/L Anion Gap 7 MEQ/L Estimat Glomerular Filtration Rate 235 ML/MIN Serum Osmolality 310 MOSM/KG (Enrique Samson) Medical Decision Making Impression and Plan Impression: Large left frontal parenchymal haemorrhage & diffuse intraventricular blood w/ rightward midline shift She has suffered a devastating injury in his dominant hemisphere with clinical evidence of uncal herniation. Her condition is irreversible, and there is no chance for meaningful recovery at this time. (Dr Valencia ) The patient continues to be critical. She is obtunded w/o any sedation. She did not have any response to noxious stimulation. Pupils unequal & nonreactive. On nicardipine drip for blood pressure support. Reviewed labs for today. Sodium 152. Hypokalemia resolved. CT brain demonstrated diffuse IVH & left frontal lobe parenchymal haemorrhage. The IVH has increased. Mild to moderate ventriculomegaly. Slight improvement of rightward midline shift. Plan: Primary & critical care management per [facility]. Neuro checks. She is not a surgical candidate & neurosurgical intervention is not recommended. (Dr Valencia ) Continue medical treatment. (Enrique Samson) Attending Statement The exam, history, and the medical decision-making described in the above note were completed with the assistance of the mid-level provider. I reviewed and agree with the findings presented. I attest that I had a [id number] encounter with the patient on the same day, and personally performed and documented my assessment and findings in the medical record. No evidence of Brain function on exam today except pupils midrange non reactive Continuing supportive care (Sher Segal MD) Enrique Samson Aug 27, 2017 10:36 Sher Segal MD Aug 28, 2017 23:29
[2017-08-27] MEDS: POTASSIUM CHLORIDE INJ 30 MEQ in LACTATED RINGER'S 1000 ML INJ 1,000 ML IV SCH (13:49)
[2017-08-27] MEDS: LABETALOL HCL 100 MG/20 ML VIAL IV PUSH PRN (13:49)
[2017-08-27] MEDS: NOREPINEPHRINE INJ 4 MG in SODIUM CHLOR 0.9% 250 ML INJ 246 ML IV PRN (15:36)
[2017-08-28] VITALS (19 sets, daily range): BP systolic 110–134; BP diastolic 56–70; PULSE 69–86; RESP 12–15; TEMP 95.7–99.7; O2SAT 94–100
[2017-08-28] MEDS: levETIRAcetam INJ 500 MG in SODIUM CHLORIDE 0.9% INJ 100 ML IV SCH ×4 (00:34→18:03)
[2017-08-28] MEDS: DEXTROSE 50% IN WATER 50 ML VIAL(D50) IV PUSH PRN ×6 (00:34→21:50)
[2017-08-28] MEDS: CHLORHEXIDINE GLUCONATE 2 % 1 PACK (2 CLOTHS) TOP SCH (03:35)
[2017-08-28] MEDS: RESP: ALBUTEROL 2.5 MG/3 ML NEB (PRN) INH (03:35)
[2017-08-28] MEDS: SODIUM CHLOR 0.9% 1000 ML INJ 1,000 ML IV SCH ×3 (04:40→20:44)
[2017-08-28 04:57] LABS: AUTOMATED NEUTROPHIL # 7.2 TH/MM3 (1.8-7.7); BASOPHIL % 0.3 % (0.0-2.0); EOSINOPHIL # 0.1 TH/MM3 (0-0.4); EOSINOPHIL % 0.8 % (0.0-4.0); HEMOGLOBIN 9.6 GM/DL (11.6-15.3); LYMPH % 13.6 % (9.0-44.0); LYMPHOCYTE # 1.3 TH/MM3 (1.0-4.8); MEAN CELL VOLUME 90.8 FL (80.0-100.0); MEAN CORPUSCULAR HEMOGLOBIN 31.2 PG (27.0-34.0); MEAN CORPUSCULAR HGB CONC 34.4 % (32.0-36.0); MEAN PLATELET VOLUME 8.3 FL (7.0-11.0); MONO % 12.6 % (0.0-8.0); MONOCYTE # 1.2 TH/MM3 (0-0.9); NEUT % 72.7 % (16.0-70.0); PLATELET COUNT 218 TH/MM3 (150-450); RED BLOOD COUNT 3.08 MIL/MM3 (4.00-5.30); RED CELL DISTRIBUTION WIDTH 13.8 % (11.6-17.2); WHITE BLOOD COUNT 9.9 TH/MM3 (4.0-11.0)
[2017-08-28 05:18] LABS: ALBUMIN 1.7 GM/DL (3.4-5.0); BICARBONATE 21.4 MEQ/L (21.0-32.0); CALCIUM 7.8 MG/DL (8.5-10.1); CREATININE 0.42 MG/DL (0.50-1.00)
[2017-08-28 05:21] LABS: DIRECT BILIRUBIN ADULT 0.1 MG/DL (0.0-0.2); INDIRECT BILIRUBIN 0.1 MG/DL (0.0-0.8); TOTAL BILIRUBIN ADULT 0.2 MG/DL (0.2-1.0); TOTAL PROTEIN 5.3 GM/DL (6.4-8.2)
--- NOTE | 2017-08-28 05:32 | RADRPT ---
EXAM DATE/TIME: 08/28/2017 04:45 [place] COMPARISON: CHEST SINGLE AP, August 25, 2017, 3:12. INDICATIONS : Short of breath. MEDICAL HISTORY : None. SURGICAL HISTORY : None. ENCOUNTER: Subsequent ACUITY: 4 - 6 days PAIN SCORE: 0/10 LOCATION: Bilateral chest FINDINGS: A single view of the chest demonstrates endotracheal tube in good position. Left central line in supe rior vena cava. Basilar airspace disease, left greater than right. CONCLUSION: 1. Increase in left-sided basilar airspace disease and probable small left effusion since August 25. S upport apparatus unchanged. Regan Awan MD on August 28, 2017 at 5:30 Board Certified Radiologist. This report was verified electronically.
[2017-08-28] MEDS: ARTIFICIAL TEARS OPTH SOLN 15 ML BTL EACH EYE SCH ×4 (05:50→18:03)
[2017-08-28] MEDS: INSULIN NovoLIN REGULAR SUPPLEMENTAL SCALE SQ SCH ×4 (05:50→18:00)
[2017-08-28] MEDS: FOSPHENYTOIN SODIUM 100 MG PE/2 ML VIAL IV SCH ×3 (05:50→20:44)
[2017-08-28] MEDS: POTASSIUM CHLOR 40 MEQ PREMIX 100 ML IV PRN ×2 (06:09→07:09)
--- NOTE | 2017-08-28 06:57 | HHI.CCPN ---
Subjective Remarks/Hospital Course This is a 52-year-old female. Actually name is Casandra Deluca. Date of admission 08/23/2017. Past medical history is unremarkable including Dr. Prather spoke with uncle. Patient was in her normal state of health today until approximately 3 PM on Monday and then developed acute onset of nausea associated with vomiting and complained of not feeling well. At approximately 1800 hrs., she took a one-time dose of ibuprofen and fell asleep on the couch. Early this a.m., and just prior to arrival to the emergency department awake and vomiting and then became unresponsive. Uncle states there was no injury or trauma he assisted her to the floor and because she was vomiting rolled her over so that she would not aspirate her emesis. Due to instability patient received 20 mg etomidate, 5 mg midazolam and 70 mg succinylcholine was intubated by ED physician. CT brain revealed a large left frontal parenchymal hemorrhage with diffuse intraventricular blood [address] Valencia /neurosurgery was notified. Recommended 50 g mannitol still hyperventilating he will evaluate the patient. [employer] were asked to admit. 08/23 0930 hours: Continued deterioration in neurological exam with absent peripheral reflexes and minimal cough. No Doll's eyes present. Mildly alkalotic , will correct to facilitate apnea test tomorrow. 08/24: Appears to withdraw left foot this morning mild cough response. Breathes strongly over ventilator with slight hyperventilation. Otherwise unresponsive. About 6 x 5 cm area of hemorrhage persists in the left hemisphere with considerable intraventricular blood. Ventricles starting to dilate. Vasogenic edema and surrounding normal brain. 08/25: No improvement in neurologic function. Persistent severe neurologic deficit. She lives with her uncle and that appears to be the only available family. She basically took care of her uncle and he appears quite devastated by her illness. Her son is estranged for many years and the uncle says he would not know how to get a hold of him. In a personal conversation with the uncle in the [facility] he specifically stated that the patient and he had an agreement that they would not allow the other to be kept alive with artificial devices if each were irreparably injured. The uncle has expressed that he needs to stop the ventilator but states that he cannot do it. I will ask the palliative care service to assist the uncle in his decision involving her care plan. 08/26: Devastating neurological injury. Largely unresponsive with the exception of withdrawal of her feet to noxious stimulation. Her uncle is still deciding care plan. 08/27: No improvement in neurologic function. Withdrawal response and lower extremities persists. Convert to APRV ventilator mode to maintain lung recruitment. Subjective 08/28: Positive cough. Currently does not bilateral lower extremities. Decreased urine output noted. Increasing gastric distention with 800 cc via NG tube. Right pupil 4 mm. Left pupil 6 mm. Objective Vital Signs Date Time Temp Pulse Resp B/P (MAP) Pulse Ox O2 Delivery O2 Flow Rate FiO2 08/28/17 06:00 77 08/28/17 04:09 98 30 08/28/17 04:00 97.6 14 118/63 (81) 08/27/17 19:00 Mechanical Ventilator 08/24/17 19:00 15.00 Intake and Output 08/28/17 08/28/17 08/29/17 08:00 16:00 00:00 Intake Total 1105 ml Output Total 640 ml Balance 465 ml Result Diagram: 08/28/17 0430 08/28/17 0430 Imaging Last Impressions Chest X-Ray 08/28/17 0400 Signed Impressions: Service Date/Time: Monday, August 28, 2017 04:45 - CONCLUSION: 1. Increase in left-sided basilar airspace disease and probable small left effusion since August 25. Support apparatus unchanged. Regan Awan MD Head CT 08/24/17 0600 Signed Impressions: Service Date/Time: August 04:27 - CONCLUSION: Diffuse intraventricular hemorrhage and left frontal lobe parenchymal hemorrhage again noted. Intraventricular blood has increased and there is mild to moderate ventriculomegaly. 9 mm of rightward midline shift, slightly improved. Saeid Choi MD Neck CTA 08/23/17 0157 Signed Impressions: Service Date/Time: Wednesday, August 23, 2017 02:26 - CONCLUSION: Normal carotid arteries. Saeid Choi MD Head CTA 08/23/17 0157 Signed Impressions: Service Date/Time: Wednesday, August 23, 2017 02:26 - CONCLUSION: No perceptible aneurysm or enhancing mass. Saeid Choi MD Cervical Spine CT 08/23/17 0000 Signed Impressions: Service Date/Time: Wednesday, August 23, 2017 02:08 - CONCLUSION: 1. No fracture or acute appearing malalignment of the cervical spine. 2. Degenerative changes as above. Saeid Choi MD Objective Remarks GENERAL: 52-year-old female currently orotracheally intubated, SKIN: Warm and dry. HEAD: Atraumatic. Normocephalic. EYES: Right pupil is 4 mm in size. Left pupil is 6 mm and nonreactive. No scleral icterus or drainage. ENT: No nasal bleeding or discharge. Mucous membranes pink and moist. NECK: Trachea midline. Orally intubated. No JVD or thyromegaly. CARDIOVASCULAR: RRR. S1, S2. No S4. Without murmur RESPIRATORY: Diminished breath sounds in the bases left greater than right. No wheezing. GASTROINTESTINAL: Abdomen soft, non-tender, slightly distended. Hypoactive bowel sounds are appreciated. MUSCULOSKELETAL: Extremities with 1-2+ bilateral upper and lower extremity edema /anasarca. Dopplerable pulse to right radial. No obvious deformities. NEUROLOGICAL: Unresponsive. Unreactive toes. Minimal cough. No gag. Currently no withdrawal response left or right foot. Pupils as above. Urinary Catheter: Yes Assessment to: Continue Dumont insert reason: Prolonged Immobilization Vascular Central Line Catheter: Yes Assessment to: Continue Date of Insertion: Aug 23, 2017 Line: Central Venous Catheter Side: Left Location: Internal, Jugular A/P Assessment and Plan Neuro/Psych: Large left frontal lobe parenchymal hemorrhage with intraventricular blood with associated 11 mm shift from right to left. Seizure THC use CT brain revealed 4.85.9 cm left frontoparietal hemorrhage with surrounding cerebral edema and 11 mm right which midline shift. Hemorrhage extends to the ventricles. Negative CT angiogram the brain. Dr. Valencia/neurosurgery following. Recommended mannitol 50 g IV 1, hyperventilation on admission Repeat brain CT 08/24 revealed mild to moderate amount of blood/increased intraventricular hemorrhage with evolving left frontal parenchymal hemorrhage. Slight improvement of hemorrhage shift to 9 mm right to left. EEG - Markedly abnormal EEG because of a burst suppression pattern, with mild asymmetry/asynchronous, but the findings overall suggest a severe diffuse disturbance of cerebral function, No epileptiform features present. UDS + THC/Benzos Hypertonic saline will sodium 150-155 currently on hold Mannitol 12.5 g IV every 8 hours. Hold if osm > greater than 310 Currently off 3% saline Seizures have ceased on levetiracetam 500 mg IV every 6 hours and fosphenytoin 100 mg every 8 hours. Phenytoin level 14.8. Repeat in a.m. 08/[address] Garcia/neurology Written for propofol/fentanyl drips as needed for sedation/analgesia while intubated Acetaminophen 650 mg by tube every 6 hours as needed fever CV: Hypertensive emergency Nicardipine drip to keep systolic blood pressure less than 140 with as needed labetalol/hydralazine Norepinephrine drip currently at 4 mcg/min to keep systolic blood pressure greater than 110 Currently normal saline 100 cc an hour Resp: Acute respiratory failure secondary to large parenchymal hemorrhage [facility] 15/05/12/29 Ventilator bundle Albuterol and ipratropium aerosols every alternate nebs 6 hours with albuterol aerosols every 2 hours as needed dyspnea Spontaneous breathing trials when clinically indicated A.m. chest x-ray 08/29 GI: Constipation Elevated AST Hypoalbuminemia Vital 1.5 goal 45 cc an hour per nutrition's recommendation NG tube to low intermittent wall suction Lansoprazole for GI prophylaxis Docusate sodium/senna 1 tablet twice daily for bowel regimen. Add polythene glycol 17 g twice daily, lactulose 30 cc 4 times daily and glycerin suppository 1 now. Methylnaltrexone 12 mg subcu 1 now Check KUB : Dumont catheter for accurate I's and O's in a critically ill patient Endo: Sliding scale insulin Novulin R with Accu-Cheks every 6 hours to maintain euglycemia/medium protocol Check TSH in a.m. Renal: Creatinine currently within normal limits Monitor urine output Accurate I's and O's Heme: Normocytic anemia Monitor CBC daily. Follow trends ID: Monitor for infection MSK: PT/OT evaluate and treat FEN: Hypernatremia Hypokalemia Repeat potassium ordered. Originally hypokalemic. Magnesium and phosphorus ordered as well. Replace electrolytes per ICU electrolyte protocol Electrolyte replacement protocol, add potassium. Access -Left IJ CVL day #6 placed 08/23 Prophylaxis -GI -lansoprazole -DVT -SCD/holding pharmacological prophylaxis until okayed with neurosurgery Level 2 follow-up Sami Carmona MD Aug 28, 2017 06:57
[2017-08-28] MEDS ORDERED: SODIUM CHLORID 0.9% 500 ML INJ 500 ML IV ONE (07:00)
[2017-08-28] MEDS ORDERED: hydrALAZINE HCL 20 MG/ML VIAL IV PUSH PRN (07:15)
[2017-08-28] MEDS ORDERED: LABETALOL HCL 100 MG/20 ML VIAL IV PUSH PRN (07:15)
[2017-08-28] MEDS ORDERED: METHYLNALTREXONE BROMIDE 12 MG/0.6 ML VIAL SQ ONE (07:15)
[2017-08-28] MEDS ORDERED: MINERAL OIL EMULSION 55% PO ONE (07:15)
[2017-08-28] MEDS ORDERED: GLYCERIN ADULT 2 GM SUPP RECTAL ONE (07:15)
[2017-08-28] MEDS ORDERED: ACETAMINOPHEN 650 MG/20.3 ML UDC PO PRN (07:30)
[2017-08-28 07:49] LABS: MAGNESIUM 1.3 MG/DL (1.5-2.5); PHOSPHORUS 2.4 MG/DL (2.5-4.9)
[2017-08-28] MEDS ORDERED: RESP: ALBUTEROL 2.5 MG/3 ML NEB (SCH) NEB (08:00)
[2017-08-28] MEDS: FOLIC ACID 1 MG TAB PO SCH (08:24)
[2017-08-28] MEDS: LACTULOSE SYRUP 20 GM/30 ML CUP PO SCH ×4 (08:24→20:43)
[2017-08-28] MEDS: LANSOPRAZOLE SOLUTAB 30 MG TAB G-TUBE SCH (08:24)
[2017-08-28] MEDS: DOCUSATE SODIUM 50 MG/SENNA 8.6 MG TAB PO SCH ×2 (08:24→20:43)
[2017-08-28] MEDS: MULTIVITAMIN TAB PO SCH (08:24)
[2017-08-28] MEDS: THIAMINE INJ 100 MG in SODIUM CHLORIDE 0.9% INJ 100 ML IV SCH (08:25)
[2017-08-28] MEDS: POLYETHYLENE GLYCOL 17 GM PKG NG SCH ×2 (08:25→20:43)
[2017-08-28] MEDS: SODIUM CHLORIDE 0.9% FLUSH 10 ML FLUSH IV FLUSH SCH ×3 (08:25→20:27)
[2017-08-28] MEDS: POTASSIUM CHLORIDE 20 MEQ PWD PACKET NG SCH (08:25)
[2017-08-28] MEDS: CHLORHEXIDINE 0.12% (ORAL KIT) 15 ML CUP MT SCH ×2 (08:26→20:00)
[2017-08-28] MEDS: RESP: IPRATROPIUM 0.5 MG/2.5 ML NEB NEB SCH ×3 (08:36→19:31)
[2017-08-28] MEDS: POTASSIUM PHOSPHATE INJ 30 MMOL in SODIUM CHLOR 0.9% 250 ML INJ 250 ML IV PRN (08:53)
[2017-08-28] MEDS: NOREPINEPHRINE INJ 4 MG in SODIUM CHLOR 0.9% 250 ML INJ 246 ML IV PRN ×2 (08:59→20:27)
--- NOTE | 2017-08-28 09:23 | RADRPT ---
EXAM DATE/TIME: 08/28/2017 08:16 [place] COMPARISON: No previous studies available for comparison. INDICATIONS : No bowel movement for 5 days. MEDICAL HISTORY : None. SURGICAL HISTORY : None. ENCOUNTER: Initial ACUITY: 4 - 6 days PAIN SCORE: Non-responsive. LOCATION: Abdoman. FINDINGS: The bowel gas pattern appears normal. No free air is identified. No organomegaly is evident. A nasoga stric tube is in place with its tip in the stomach. There are no findings of impaction CONCLUSION: No evidence of obstruction. Andrew Contreras MD on August 28, 2017 at 9:20 Board Certified Radiologist. This report was verified electronically.
[2017-08-28] MEDS: RESP: ALBUTEROL 2.5 MG/3 ML NEB (SCH) NEB ×2 (12:27→19:31)
[2017-08-28] MEDS: METOCLOPRAMIDE HCL 10 MG/2 ML VIAL IV PUSH SCH ×2 (12:49→20:43)
--- NOTE | 2017-08-28 13:01 | HHI.NSPN ---
(Shabnam Orosco) Note Status Status: Progress Note (Shabnam Orosco) Interval History Interval History This is a 52-year-old female brought to [place] emergency department by EMS transport from home after collapse at home. According to paramedics she had had vomiting earlier in the day this evening was given a one-time dose of ibuprofen by family member and then had further vomiting and collapse. Upon EMS arrival patient was noted to have fixed downward leftward gaze was unresponsive except to painful stimuli with some posturing of the right upper extremity. No seizure activity identified. No tongue bitting. No incontinence of stool or urine, No tonic clonic movements. No report of injury or trauma. No prior medical history provided to EMS by family. She has a GCS of 3. Pupils 7mm dilated and fixed. CT of the brain showed a very large deep intracerebral hemorrhage, in the dominant hemisphere with uncal and subfalcine herniation. Neurosurgical consultation requested 08/24: Intubated, no sedatives. Nursing reports given Ativan last night for persistent possible seizures noted from the abnormal movements of her tongue. No eye opening, not following commands. Pupils currently 5-6 mm nonreactive. Positive corneal reflex today on exam. Nursing reports no cough or gag. 08/28: Nursing reports on neuro checks no cough or gag seen. Remains intubated. (Shabnam Orosco) Labs, Micro, & Vital Signs Results Date Time Temp Pulse Resp B/P (MAP) Pulse Ox O2 Delivery O2 Flow Rate FiO2 08/28/17 12:27 97 30 08/28/17 12:00 69 08/28/17 12:00 30 08/28/17 12:00 95.7 69 15 126/70 (88) 96 08/28/17 10:00 75 08/28/17 09:45 78 118/71 08/28/17 08:59 78 114/59 08/28/17 08:01 98 30 08/28/17 08:00 77 08/28/17 08:00 97.6 77 15 110/57 (74) 98 08/28/17 08:00 30 08/28/17 07:00 98 Mechanical Ventilator 30 08/28/17 06:09 70 107/54 08/28/17 06:00 77 08/28/17 04:09 98 30 08/28/17 04:00 97.6 84 14 118/63 (81) 97 08/28/17 04:00 84 08/28/17 04:00 30 08/28/17 03:00 70 104/54 08/28/17 02:00 77 08/28/17 02:00 80 101/50 08/28/17 01:19 99 30 08/28/17 00:34 84 126/53 08/28/17 00:00 98.7 84 14 134/57 (82) 100 08/28/17 00:00 84 08/28/17 00:00 30 08/27/17 23:00 84 129/59 08/27/17 22:18 100 30 08/27/17 22:00 84 08/27/17 20:00 82 08/27/17 20:00 97.7 80 14 108/71 (83) 100 08/27/17 20:00 30 08/27/17 19:22 100 30 08/27/17 19:00 100 Mechanical Ventilator 30 08/27/17 18:00 86 08/27/17 16:00 98.1 90 14 100/58 (72) 100 08/27/17 16:00 30 08/27/17 16:00 92 94/55 08/27/17 16:00 92 08/27/17 15:54 100 30 08/27/17 15:45 94 90/60 08/27/17 15:36 94 79/42 08/27/17 14:00 30 08/27/17 14:00 100 08/27/17 13:16 99 40 08/27/17 13:04 116 173/72 08/29/17 07:00 Intake Total 950 ml Balance 950 ml Constitutional Vital Signs Date Time Temp Pulse Resp B/P (MAP) Pulse Ox O2 Delivery O2 Flow Rate FiO2 08/28/17 12:27 97 30 08/28/17 12:00 69 08/28/17 12:00 30 08/28/17 12:00 95.7 69 15 126/70 (88) 96 08/28/17 10:00 75 08/28/17 09:45 78 118/71 08/28/17 08:59 78 114/59 08/28/17 08:01 98 30 08/28/17 08:00 77 08/28/17 08:00 97.6 77 15 110/57 (74) 98 08/28/17 08:00 30 08/28/17 07:00 98 Mechanical Ventilator 30 08/28/17 06:09 70 107/54 08/28/17 06:00 77 08/28/17 04:09 98 30 08/28/17 04:00 97.6 84 14 118/63 (81) 97 08/28/17 04:00 84 08/28/17 04:00 30 08/28/17 03:00 70 104/54 08/28/17 02:00 77 08/28/17 02:00 80 101/50 08/28/17 01:19 99 30 08/28/17 00:34 84 126/53 08/28/17 00:00 98.7 84 14 134/57 (82) 100 08/28/17 00:00 84 08/28/17 00:00 30 08/27/17 23:00 84 129/59 08/27/17 22:18 100 30 08/27/17 22:00 84 08/27/17 20:00 82 08/27/17 20:00 97.7 80 14 108/71 (83) 100 08/27/17 20:00 30 08/27/17 19:22 100 30 08/27/17 19:00 100 Mechanical Ventilator 30 08/27/17 18:00 86 08/27/17 16:00 98.1 90 14 100/58 (72) 100 08/27/17 16:00 30 08/27/17 16:00 92 94/55 08/27/17 16:00 92 08/27/17 15:54 100 30 08/27/17 15:45 94 90/60 08/27/17 15:36 94 79/42 08/27/17 14:00 30 08/27/17 14:00 100 08/27/17 13:16 99 40 08/27/17 13:04 116 173/72 08/29/17 07:00 Intake Total 950 ml Balance 950 ml (Shabnam Orosco) Review of Systems ROS Limitations: Clinical Condition, Intubated (Shabnam Orosco) Physical Exam The patient is intubated and without sedative. Cranial Nerves: Pupils bilaterally 6 mm nonreactive. Eyes appear conjugated. Face musculature appeared symmetrical at rest. Face sensation, olfaction, visual mcwilliams, and hearing cannot be adequately assessed due to his neurological condition. Cervical Spine: Soft supple Motor: No withdraws 4, no spontaneous movements Reflexes: Plantars neutral bilaterally. Cerebellar: Examination cannot be adequately assessed due to the patient's neurological condition. (Shabnam Orosco) The patient is intubated and without sedative. Cranial Nerves: Pupils bilaterally 6 mm nonreactive. Eyes appear nonconjugated. No corneal reflex. no gag reflex. Face musculature appeared symmetrical at rest. Face sensation, olfaction, visual mcwilliams, and hearing cannot be adequately assessed due to his neurological condition. Cervical Spine: Soft supple Motor: No withdraws 4, no spontaneous movements Reflexes: Plantars neutral bilaterally. Cerebellar: Examination cannot be adequately assessed due to the patient's neurological condition. (Frederick Valencia MD) Medications Current Medications Current Medications Medications (Trade) Dose Ordered Sig/Kat Route PRN Reason Start Time Stop Time Status Last Admin Dose Admin Sodium Chloride (NS Flush) DAILY IV FLUSH 08/23/17 09:00 08/28/17 08:25 Sodium Chloride (NS Flush) UNSCH PRN IV FLUSH SEE PROTOCOL 08/23/17 03:30 Potassium Chloride 100 ml @ 50 mls/hr Q2H PRN IV For Potassium 2.8 - 3.2 mEq/L 08/23/17 03:30 08/28/17 07:09 Potassium Chloride 100 ml @ 50 mls/hr Q2H PRN IV For Potassium 2.8 - 3.2 mEq/L 08/23/17 03:30 08/25/17 16:33 Potassium Bicarb/ Potassium Chloride (K-Lyte Cl Eff) 50 meq UNSCH PRN PO For Potassium 3.3 - 3.5 mEq/L 08/23/17 03:30 08/25/17 11:21 Potassium Chloride 100 ml @ 25 mls/hr UNSCH PRN IV For Potassium 3.3 - 3.5 mEq/L 08/23/17 03:30 Potassium Chloride 100 ml @ 50 mls/hr Q2H PRN IV For Potassium 3.3 - 3.5 mEq/L 08/23/17 03:30 08/27/17 05:54 Magnesium Sulfate 4 gm/Sodium Chloride 100 ml @ 50 mls/hr UNSCH PRN IV For Magnesium 0.9 - 1.1 mg/dL 08/23/17 03:30 Magnesium Oxide (Mag-Ox) 800 mg UNSCH PRN PO For Magnesium 1.2 - 1.6 mg/dL 08/23/17 03:30 Magnesium Sulfate 2 gm/Sodium Chloride 100 ml @ 50 mls/hr UNSCH PRN IV For Magnesium 1.2 - 1.6 mg/dL 08/23/17 03:30 08/28/17 08:54 Potassium Phosphate (K-Phos) 2,000 mg Q4H PRN PO For Phosphorus < 2.5 mg/dL 08/23/17 03:30 Sodium Phosphate 30 mmol/Sodium Chloride 250 ml @ 42 mls/hr UNSCH PRN IV For Phosphorus < 2.5 mg/dL 08/23/17 03:30 Potassium Phosphate (K-Phos) 2,000 mg UNSCH PRN PO/TUBE SEE LABEL COMMENTS 08/23/17 03:30 Potassium Phosphate 30 mmol/ Sodium Chloride 260 ml @ 42 mls/hr UNSCH PRN IV SEE LABEL COMMENTS 08/23/17 03:30 08/28/17 08:53 Dextrose (D50w (Vial) Inj) 50 ml UNSCH PRN IV PUSH HYPOGLYCEMIA-SEE COMMENTS 08/23/17 03:30 08/28/17 12:49 Glucagon (Glucagon Inj) 1 mg UNSCH PRN OTHER HYPOGLYCEMIA-SEE COMMENTS 08/23/17 03:30 Insulin Human Regular (NovoLIN R SUPPLEMENTAL SCALE) 1 Q6HR SQ 08/23/17 06:00 08/26/17 12:00 Sodium Chloride 1,000 ml @ 100 mls/hr Q10H IV 08/23/17 03:23 08/28/17 12:15 Sodium Chloride (NS Flush) 2 ml UNSCH PRN IV FLUSH FLUSH AFTER USING IV ACCESS 08/23/17 03:30 Sodium Chloride (NS Flush) 2 ml BID IV FLUSH 08/23/17 09:00 08/27/17 21:00 Lansoprazole (Prevacid Odt) 30 mg DAILY G-TUBE 08/23/17 09:00 08/28/17 08:24 Artificial Tears (Tears Naturale Opth Soln) 1 drop TID EACH EYE 08/23/17 09:00 08/28/17 11:31 Ondansetron HCl (Zofran Inj) 4 mg Q6H PRN IV PUSH NAUSEA OR VOMITING 08/23/17 03:30 Albuterol Sulfate (Albuterol Neb) 2.5 mg Q2HR NEB PRN INH SOB/WHEEZING 08/23/17 03:30 08/28/17 03:35 Miscellaneous Information 1 Q361D XX 08/23/17 03:30 08/23/17 04:33 Chlorhexidine Gluconate (Chlorhexidine 2% Cloth) Taper DAILY@04 TOP 08/23/17 04:00 08/19/18 03:59 08/23/17 04:06 Chlorhexidine Gluconate (Chlorhexidine 2% Cloth) 3 pack UNSCH PRN TOP HYGIENIC CARE 08/23/17 03:30 Senna/Docusate Sodium (Maggy-Colace) 1 tab BID PO 08/23/17 09:00 08/28/17 08:24 Magnesium Hydroxide (Milk Of Magnesia Liq) 30 ml Q12H PRN PO Mild constipation 08/23/17 03:30 08/27/17 09:11 Sennosides (Senokot) 17.2 mg Q12H PRN PO Moderate constipation 08/23/17 03:30 Bisacodyl (Dulcolax Supp) 10 mg DAILY PRN RECTAL SEVERE CONSITIPATION 08/23/17 03:30 Lactulose (Lactulose Liq) 30 ml DAILY PRN PO SEVERE CONSITIPATION 08/23/17 03:30 08/27/17 09:11 Chlorhexidine Gluconate (Peridex 0.12% Liq) 15 ml BID@08,20 MT 08/23/17 08:00 08/28/17 08:26 Propofol 100 ml @ 2.286 mls/ hr TITRATE PRN IV SEDATION 08/23/17 03:30 Fentanyl Citrate 250 ml @ 5 mls/hr TITRATE PRN IV SEDATION 08/23/17 03:30 Terbutaline Sulfate (Brethine Inj) 1 mg UNSCH PRN SQ For Extravasation 08/23/17 03:30 Thiamine HCl 100 mg/Sodium Chloride 101 ml @ 101 mls/hr DAILY IV 08/23/17 09:00 08/28/17 08:25 Multivitamins (Theragran) 1 tab DAILY PO 08/23/17 09:00 08/28/17 08:24 Folic Acid (Folate) 1 mg DAILY PO 08/23/17 09:00 08/28/17 08:24 Lorazepam (Ativan Inj) 1 mg Q15M PRN IV PUSH seizures 08/23/17 15:15 08/23/17 15:42 Levetriacetam 500 mg/Sodium Chloride 105 ml @ 420 mls/hr Q6HR IV 08/23/17 18:00 08/28/17 11:30 Fosphenytoin Sodium (Cerebyx Inj) 100 mgpe Q8HR IV 08/23/17 22:00 08/28/17 12:49 Nicardipine HCl 50 mg/Sodium Chloride 500 ml @ 50 mls/hr TITRATE PRN IV Blood Pressure Management 08/25/17 11:00 08/27/17 13:04 Norepinephrine Bitartrate 4 mg/ Sodium Chloride 250 ml @ 7.5 mls/hr TITRATE PRN IV Blood pressure management 08/27/17 15:00 08/28/17 08:59 Hydralazine HCl (Apresoline Inj) 10 mg Q1HR PRN IV PUSH SBP>140, DBP>90 08/28/17 07:15 Labetalol HCl (Trandate Inj) 10 mg Q1HR PRN IV PUSH SBP>140, DBP>90, HR>65 08/28/17 07:15 Metoclopramide HCl (Reglan Inj) 5 mg Q8HR IV PUSH 08/28/17 14:00 08/28/17 12:49 Polyethylene Glycol (Miralax) 17 gm BID NG 08/28/17 09:00 08/28/17 08:25 Lactulose (Lactulose Liq) 30 ml QID PO 08/28/17 09:00 08/28/17 11:30 Ipratropium [place] (Atrovent Neb) 0.5 mg Q6HR ALT NEB NEB 08/28/17 07:00 08/28/17 12:27 Acetaminophen (Tylenol 650 Mg/ 20 ml Liq) 650 mg Q6H PRN PO Fever 08/28/17 07:30 Potassium Chloride (KCl Powder) 20 meq DAILY NG 08/28/17 09:00 08/28/17 08:25 Albuterol Sulfate (Albuterol Neb) 2.5 mg Q6HR ALT NEB NEB 08/28/17 13:00 08/28/17 12:27 (Shabnam Orosco) Current Medications Current Medications Midazolam HCl (Versed Inj) 5 mg ONCE ONCE IV PUSH Last administered on at 01:50; Start 08/23/17 at 02:15; Stop 08/23/17 at 02:16; Status DC Etomidate (Amidate Inj) 20 mg ONCE ONCE IV PUSH Last administered on at 01:50; Start 08/23/17 at 02:15; Stop 08/23/17 at 02:16; Status DC Succinylcholine Chloride (Quelicin Inj) 70 mg ONCE ONCE IV PUSH Last administered on 08/23/17at 01:50; Start 08/23/17 at 02:15; Stop 08/23/17 at 02:16 ; Status DC Nicardipine HCl 25 mg/Sodium Chloride 250 ml @ 50 mls/hr TITRATE PRN IV Blood pressure management Last administered on 08/25/17at 09:49; Start 08/23/17 at 02: 15; Stop 08/25/17 at 10:13; Status DC Midazolam HCl (Versed Inj) 5 mg STK-MED ONCE .ROUTE ; Start 08/23/17 at 02:10; Stop 08/23/17 at 02:11; Status DC Potassium Chloride 100 ml @ 100 mls/hr Q1H IV ; Start 08/23/17 at 02:15; Stop 08/23/17 at 05:14; Status DC Mannitol (Mannitol Inj) 25 gm ONCE ONCE IV ; Start 08/23/17 at 02:30; Stop at 02:31; Status Cancel Iodixanol (VISIPAQUE 320 INJ (Rad CT)) 100 ml STK-MED ONCE IVCONTRAST Last administered on 08/23/17at 02:31; Start 08/23/17 at 02:31; Stop 08/23/17 at 02:32 ; Status DC Mannitol (Mannitol Inj) 50 gm ONCE ONCE IV Last administered on 08/23/17at 04: 06; Start 08/23/17 at 02:45; Stop 08/23/17 at 02:46; Status DC Sodium Chloride (NS Flush) DAILY IV FLUSH Last administered on 08/28/17at 08:25 ; Start 08/23/17 at 09:00 Sodium Chloride (NS Flush) UNSCH PRN IV FLUSH SEE PROTOCOL; Start 08/23/17 at 03:30 Potassium Chloride 100 ml @ 50 mls/hr Q2H PRN IV For Potassium 2.8 - 3.2 mEq/ L Last administered on 08/28/17at 07:09; Start 08/23/17 at 03:30 Potassium Chloride 100 ml @ 50 mls/hr Q2H PRN IV For Potassium 2.8 - 3.2 mEq/ L Last administered on 08/25/17at 16:33; Start 08/23/17 at 03:30 Potassium Bicarb/ Potassium Chloride (K-Lyte Cl Eff) 50 meq UNSCH PRN PO For Potassium 3.3 - 3.5 mEq/L Last administered on 08/25/17at 11:21; Start 08/23/17 at 03:30 Potassium Chloride 100 ml @ 25 mls/hr UNSCH PRN IV For Potassium 3.3 - 3.5 mEq /L; Start 08/23/17 at 03:30 Potassium Chloride 100 ml @ 50 mls/hr Q2H PRN IV For Potassium 3.3 - 3.5 mEq/ L Last administered on 08/27/17at 05:54; Start 08/23/17 at 03:30 Magnesium Sulfate 4 gm/Sodium Chloride 100 ml @ 50 mls/hr UNSCH PRN IV For Magnesium 0.9 - 1.1 mg/dL; Start 08/23/17 at 03:30 Magnesium Oxide (Mag-Ox) 800 mg UNSCH PRN PO For Magnesium 1.2 - 1.6 mg/dL; Start 08/23/17 at 03:30 Magnesium Sulfate 2 gm/Sodium Chloride 100 ml @ 50 mls/hr UNSCH PRN IV For Magnesium 1.2 - 1.6 mg/dL Last administered on 08/28/17at 08:54; Start 08/23/17 at 03:30 Potassium Phosphate (K-Phos) 2,000 mg Q4H PRN PO For Phosphorus < 2.5 mg/dL; Start 08/23/17 at 03:30 Sodium Phosphate 30 mmol/Sodium Chloride 250 ml @ 42 mls/hr UNSCH PRN IV For Phosphorus < 2.5 mg/dL; Start 08/23/17 at 03:30 Potassium Phosphate (K-Phos) 2,000 mg UNSCH PRN PO/TUBE SEE LABEL COMMENTS; Start 08/23/17 at 03:30 Potassium Phosphate 30 mmol/ Sodium Chloride 260 ml @ 42 mls/hr UNSCH PRN IV SEE LABEL COMMENTS Last administered on 08/28/17at 08:53; Start 08/23/17 at 03:30 Dextrose (D50w (Vial) Inj) 50 ml UNSCH PRN IV PUSH HYPOGLYCEMIA-SEE COMMENTS Last administered on 08/28/17at 12:49; Start 08/23/17 at 03:30 Glucagon (Glucagon Inj) 1 mg UNSCH PRN OTHER HYPOGLYCEMIA-SEE COMMENTS; Start 08/23/17 at 03:30 Insulin Human Regular (NovoLIN R SUPPLEMENTAL SCALE) 1 Q6HR SQ Last administered on 08/26/17at 12:00; Start 08/23/17 at 06:00 Levetriacetam 500 mg/Sodium Chloride 105 ml @ 420 mls/hr BOLUS ONCE IV Last administered on 08/23/17at 04:06; Start 08/23/17 at 03:30; Stop 08/23/17 at 03:44 ; Status DC Levetriacetam 500 mg/Sodium Chloride 105 ml @ 420 mls/hr Q12HR IV Last administered on 08/23/17at 08:23; Start 08/23/17 at 09:00; Stop 08/23/17 at 15:44 ; Status DC Sodium Chloride 500 ml @ 40 mls/hr CONTINUOUS IV Last administered on at 05:17; Start 08/23/17 at 03:30; Stop 08/24/17 at 07:18; Status DC Mannitol (Mannitol Inj) 12.5 gm Q8H IV Last administered on 08/24/17at 03:16; Start 08/23/17 at 03:30; Stop 08/25/17 at 12:28; Status DC Sodium Chloride 1,000 ml @ 100 mls/hr Q10H IV Last administered on 08/28/17at 12:15; Start 08/23/17 at 03:23 Sodium Chloride (NS Flush) 2 ml UNSCH PRN IV FLUSH FLUSH AFTER USING IV ACCESS ; Start 08/23/17 at 03:30 Sodium Chloride (NS Flush) 2 ml BID IV FLUSH Last administered on 08/27/17at 21: 00; Start 08/23/17 at 09:00 Lansoprazole (Prevacid Odt) 30 mg DAILY G-TUBE Last administered on 08/28/17 08:24; Start 08/23/17 at 09:00 Artificial Tears (Tears Naturale Opth Soln) 1 drop TID EACH EYE Last administered on 08/28/17 11:31; Start 08/23/17 at 09:00 Ondansetron HCl (Zofran Inj) 4 mg Q6H PRN IV PUSH NAUSEA OR VOMITING; Start at 03:30 Albuterol/ Ipratropium (Duoneb Neb) 1 ampule Q4HR NEB INH Last administered on 08/27/17 03:17; Start 08/23/17 at 04:00; Stop 08/27/17 at 03:59; Status DC Albuterol Sulfate (Albuterol Neb) 2.5 mg Q2HR NEB PRN INH SOB/WHEEZING Last administered on 08/28/17 03:35; Start 08/23/17 at 03:30 Miscellaneous Information 1 Q361D XX Last administered on 08/23/17 04:33; Start 08/23/17 at 03:30 Chlorhexidine Gluconate (Chlorhexidine 2% Cloth) Taper DAILY@04 TOP Last administered on 08/23/17at 04:06; Start 08/23/17 at 04:00; Stop 08/19/18 at 03:59 Chlorhexidine Gluconate (Chlorhexidine 2% Cloth) 3 pack UNSCH PRN TOP HYGIENIC CARE; Start 08/23/17 at 03:30 Senna/Docusate Sodium (Maggy-Colace) 1 tab BID PO Last administered on 08:24; Start 08/23/17 at 09:00 Magnesium Hydroxide (Milk Of Magnesia Liq) 30 ml Q12H PRN PO Mild constipation Last administered on 08/27/17at 09:11; Start 08/23/17 at 03:30 Sennosides (Senokot) 17.2 mg Q12H PRN PO Moderate constipation; Start 08/23/17 at 03:30 Bisacodyl (Dulcolax Supp) 10 mg DAILY PRN RECTAL SEVERE CONSITIPATION; Start at 03:30 Lactulose (Lactulose Liq) 30 ml DAILY PRN PO SEVERE CONSITIPATION Last administered on 08/27/17at 09:11; Start 08/23/17 at 03:30 Chlorhexidine Gluconate (Peridex 0.12% Liq) 15 ml BID@08,20 MT Last administered on 08/28/17at 08:26; Start 08/23/17 at 08:00 Propofol 100 ml @ 2.286 mls/ hr TITRATE PRN IV SEDATION; Start 08/23/17 at 03: 30 Fentanyl Citrate 250 ml @ 5 mls/hr TITRATE PRN IV SEDATION; Start 08/23/17 at 03:30 Norepinephrine Bitartrate 4 mg/ Sodium Chloride 250 ml @ 7.5 mls/hr TITRATE PRN IV Blood pressure management Last administered on 08/23/17at 11:20; Start at 03:30; Stop 08/27/17 at 14:55; Status DC Terbutaline Sulfate (Brethine Inj) 1 mg UNSCH PRN SQ For Extravasation; Start 08/23/17 at 03:30 Artificial Tears (Tears Naturale Opth Soln) 1 drop Q8HR EACH EYE Last administered on 08/28/17at 05:50; Start 08/23/17 at 06:00; Stop 08/28/17 at 07:04 ; Status DC Thiamine HCl 100 mg/Sodium Chloride 101 ml @ 101 mls/hr DAILY IV Last administered on 08/28/17at 08:25; Start 08/23/17 at 09:00 Multivitamins (Theragran) 1 tab DAILY PO Last administered on 08/28/17at 08:24; Start 08/23/17 at 09:00 Folic Acid (Folate) 1 mg DAILY PO Last administered on 08/28/17at 08:24; Start 08/23/17 at 09:00 Magnesium Sulfate/ Dextrose 100 ml @ 100 mls/hr ONCE ONCE IV Last administered on 08/23/17at 06:00; Start 08/23/17 at 06:00; Stop 08/23/17 at 06:59 ; Status DC Magnesium Sulfate/ Dextrose 100 ml @ 100 mls/hr Q1H IV Last administered on at 08:21; Start 08/23/17 at 06:00; Stop 08/23/17 at 07:59; Status DC Potassium Chloride 100 ml @ 25 mls/hr Q4H IV ; Start 08/23/17 at 06:00; Stop at 13:59; Status DC Potassium Chloride (KCl Powder) 20 meq ONCE ONCE PO ; Start 08/23/17 at 06:00; Stop 08/23/17 at 06:01; Status DC Calcium Gluconate (Calcium Gluconate Inj) 1 gm NOW ONCE IV PUSH Last administered on 08/23/17at 06:01; Start 08/23/17 at 06:00; Stop 08/23/17 at 06:01 ; Status DC Acetazolamide Sodium (Diamox Inj) 500 mg DAILY IV PUSH Last administered on at 11:28; Start 08/23/17 at 09:30; Stop 08/24/17 at 07:18; Status DC Lorazepam (Ativan Inj) 1 mg Q15M PRN IV PUSH seizures Last administered on 08/23at 15:42; Start 08/23/17 at 15:15 Levetriacetam 500 mg/Sodium Chloride 105 ml @ 420 mls/hr Q6HR IV Last administered on 08/28/17at 11:30; Start 08/23/17 at 18:00 Fosphenytoin Sodium 1000 mgpe/ Sodium Chloride 70 ml @ 280 mls/hr ONCE ONCE IV Last administered on 08/23/17at 16:54; Start 08/23/17 at 16:30; Stop at 16:44; Status DC Fosphenytoin Sodium (Cerebyx Inj) 100 mgpe Q8HR IV Last administered on at 12:49; Start 08/23/17 at 22:00 Potassium Chloride/Sodium Chloride 1,000 ml @ 42 mls/hr [id number] IV Last administered on 08/25/17at 08:38; Start 08/24/17 at 07:15; Stop 08/25/17 at 12:28 ; Status DC Nicardipine HCl 50 mg/Sodium Chloride 500 ml @ 50 mls/hr TITRATE PRN IV Blood Pressure Management Last administered on 08/27/17at 13:04; Start 08/25/17 at 11: 00 Potassium Chloride 30 meq/ Lactated Ringer's 1,015 ml @ 42 mls/hr Q24H IV Last administered on 08/27/17at 13:49; Start 08/25/17 at 13:00; Stop 08/27/17 at 18:30; Status DC Labetalol HCl (Trandate Inj) 20 mg Q15M PRN IV PUSH sbp > 140 Last administered on 08/27/17at 13:49; Start 08/26/17 at 01:45; Stop 08/28/17 at 07:04 ; Status DC Hydralazine HCl (Apresoline Inj) 10 mg Q30M PRN IV PUSH sbp > 140 Last administered on 08/27/17at 12:26; Start 08/26/17 at 01:45; Stop 08/28/17 at 07:04 ; Status DC Norepinephrine Bitartrate 4 mg/ Sodium Chloride 250 ml @ 7.5 mls/hr TITRATE PRN IV Blood pressure management Last administered on 08/28/17at 08:59; Start at 15:00 Hydralazine HCl (Apresoline Inj) 10 mg Q1HR PRN IV PUSH SBP>140, DBP>90; Start 08/28/17 at 07:15 Labetalol HCl (Trandate Inj) 10 mg Q1HR PRN IV PUSH SBP>140, DBP>90, HR>65; Start 08/28/17 at 07:15 Metoclopramide HCl (Reglan Inj) 5 mg Q8HR IV PUSH Last administered on at 12:49; Start 08/28/17 at 14:00 Sodium Chloride 500 ml @ 500 mls/hr BOLUS ONCE IV Last administered on 08:25; Start 08/28/17 at 07:00; Stop 08/28/17 at 07:59; Status DC Polyethylene Glycol (Miralax) 17 gm BID NG Last administered on 08/28/17at 08:25 ; Start 08/28/17 at 09:00 Lactulose (Lactulose Liq) 30 ml QID PO Last administered on 08/28/17at 11:30; Start 08/28/17 at 09:00 Mineral Oil (Kondremul Liq) 30 ml ONCE ONCE PO Last administered on 08/28/17at 08:53; Start 08/28/17 at 07:15; Stop 08/28/17 at 07:23; Status DC Methylnaltrexone [place] (Relistor Inj) 12 mg ONCE ONCE SQ Last administered on 08/28/17 08:53; Start 08/28/17 at 07:15; Stop 08/28/17 at 07:22; Status DC Glycerin (Glycerin Adult Supp) 2 gm ONCE ONCE RECTAL Last administered on 08/28 08:53; Start 08/28/17 at 07:15; Stop 08/28/17 at 07:21; Status DC Albuterol Sulfate (Albuterol Neb) 2.5 mg Q12HR NEB NEB ; Start 08/28/17 at 08: 00; Status Cancel Ipratropium [place] (Atrovent Neb) 0.5 mg Q6HR ALT NEB NEB Last administered on 08/28/17 12:27; Start 08/28/17 at 07:00 Acetaminophen (Tylenol 650 Mg/ 20 ml Liq) 650 mg Q6H PRN PO Fever; Start at 07:30 Potassium Chloride (KCl Powder) 20 meq DAILY NG Last administered on 08/28/17at 08:25; Start 08/28/17 at 09:00 Albuterol Sulfate (Albuterol Neb) 2.5 mg Q6HR ALT NEB NEB Last administered on 08/28/17 12:27; Start 08/28/17 at 13:00 (Frederick Valencia MD) Medical Decision Making MDM Remarks 52-year-old female with large left intra-cranial hemorrhage, intraventricular hemorrhage (Shabnam Orosco) Plan Plan Remarks continue neuro checks critical care management (Shabnam Orosco) Attending Statement She has suffered a devastating injury in his dominant hemisphere with clinical evidence of uncal herniation. Her condition is irreversible, and there is no chance for meaningful recovery at this time. She is not a surgical candidate. I cannot be enthusiastic recommending a neurosurgical intervention. She is undergoing medical treatment cerebral blood flow study Pulmonary. Continue aggressive pulmonary toilette, nasotracheal suction, and breathing treatments with nebulizers. Daily PT and OT Renal. Continue to monitor closely urine output, BUN and creatinine Endocrine. Continue to Monitor serial Acu checks and SSI as needed in detail ID continue to monitor for signs of infection Continue Protonix for stress ulcer prophylaxis Continue Lc hose and SCD's for DVT prophylaxis Further recommendations will be provided depending on the patient's clinical evaluation and follow up studies. Discussed with Dr Carmona who is in agreement The exam, history, and the medical decision-making described in the above note were completed with the assistance of the mid-level provider. I reviewed and agree with the findings presented. I attest that I had a [id number] encounter with the patient on the same day, and personally performed and documented my assessment and findings in the medical record. (Frederick Valencia MD) Shabnam Orosco Aug 28, 2017 13:01 Frederick Valencia MD Aug 28, 2017 14:10
[2017-08-28] MEDS: MAGNESIUM SULFATE 1 GM PREMIX 100 ML IV SCH (14:44)
[2017-08-28] MEDS ORDERED: MAGNESIUM SULFATE 1 GM PREMIX 100 ML IV ONE (15:00)
[2017-08-28] MEDS ORDERED: SODIUM PHOSPHATE INJ 15 MMOL in SODIUM CHLORIDE 0.9% INJ 150 ML IV ONE (15:00)
--- NOTE | 2017-08-28 15:00 | HHI.HCPN ---
Palliative care follow-up, attempts to identify/contact next of kin. [employer] report. Possible Son Michael Barnes d/o/b 01/28/88. 3 telephone numbers listed. Called . No answer, unable to leave a voice message. Possibly related to Michael Barnes d/o/b 01/16/1942 (potential father of her son??) Called , left voice message -potential incorrect number, name of Krystina provided. Called [phone], left voice message. JAYLYN Downing. Palliative Care [employer] HEL[employer] . Liliana Thomas Aug 28, 2017 15:00
--- NOTE | 2017-08-28 16:39 | RADRPT ---
EXAM DATE/TIME: 08/28/2017 15:57 [facility] COMPARISON: CT BRAIN W/O CONTRAST, August 24, 2017, 4:27. CT BRAIN W/O CONTRAST, August 23, 2017, 2:08. INDICATIONS : Hemorrhage. Patient fall. DOSE: 26.1 mCi Tc99m DTPA IV The diagnosis of brain is clinical and the results of this test should be taken in the content of clinical and electrocephalographic data. MEDICAL HISTORY : None SURGICAL HISTORY : None. ENCOUNTER: Initial ACUITY: 1 day PAIN SCALE: 0/10 LOCATION: cranial TECHNIQUE: Anterior dynamic imaging as well as delayed static imaging. FINDINGS: There is a small amount of flow in the sagittal sinus. CONCLUSION: Small amount of flow in the sagittal sinus. Jamey Sears MD on August 28, 2017 at 16:36 Board Certified Radiologist. This report was verified electronically.
[2017-08-28] MEDS ORDERED: MAGNESIUM CITRATE SOLN 300 ML BTL DOBHOFF ONE (17:00)
--- NOTE | 2017-08-28 19:15 | HHI.HCPN ---
Call from Andrew Moreno, uncle of patient. Medical update provided. Explained we have been attempting to locate her son, Michael Yeager. Left messages as per Liliana Thomas prior note. Mr. Moreno is willing to serve as HCP if Michael is not located. He verbalizes patient would not want life prolonging measures. We agreed to speak again 08/29/17. Mey Sherwood Aug 28, 2017 19:15
[2017-08-29] VITALS (19 sets, daily range): BP systolic 108–154; BP diastolic 56–86; PULSE 71–90; RESP 12–14; TEMP 95–99; O2SAT 92–98
[2017-08-29] MEDS: levETIRAcetam INJ 500 MG in SODIUM CHLORIDE 0.9% INJ 100 ML IV SCH ×4 (00:20→18:07)
[2017-08-29] MEDS: DEXTROSE 50% IN WATER 50 ML VIAL(D50) IV PUSH PRN (00:21)
[2017-08-29] MEDS: RESP: ALBUTEROL 2.5 MG/3 ML NEB (SCH) NEB ×3 (00:29→23:42)
[2017-08-29] MEDS: RESP: IPRATROPIUM 0.5 MG/2.5 ML NEB NEB SCH ×3 (00:29→19:33)
[2017-08-29] MEDS ORDERED: DEXTROSE 10% INJ 1,000 ML IV SCH (00:30)
[2017-08-29] MEDS: NOREPINEPHRINE INJ 4 MG in SODIUM CHLOR 0.9% 250 ML INJ 246 ML IV PRN ×2 (02:48→13:32)
[2017-08-29] MEDS: CHLORHEXIDINE GLUCONATE 2 % 1 PACK (2 CLOTHS) TOP SCH (04:00)
[2017-08-29] MEDS: RESP: ALBUTEROL 2.5 MG/3 ML NEB (PRN) INH (04:02)
--- NOTE | 2017-08-29 05:45 | RADRPT ---
EXAM DATE/TIME: 08/29/2017 04:46 [facility] COMPARISON: CHEST SINGLE AP, August 28, 2017, 4:45. INDICATIONS : Respiratory failure. MEDICAL HISTORY : None. SURGICAL HISTORY : None. ENCOUNTER: Subsequent ACUITY: 4 - 6 days PAIN SCORE: Non-responsive. LOCATION: Bilateral chest FINDINGS: Endotracheal tube in good position. Nasogastric tube coiled in stomach. Left central line in superior vena cava. Bilateral mostly basilar airspace consolidation is present, increased on the right since August 28. No pneumothorax. CONCLUSION: 1. Increasing basilar airspace disease compared with August 28. Support apparatus unchanged. Regan Awan MD on August 29, 2017 at 5:42 Board Certified Radiologist. This report was verified electronically.
[2017-08-29] MEDS: FOSPHENYTOIN SODIUM 100 MG PE/2 ML VIAL IV SCH ×3 (06:00→21:08)
[2017-08-29] MEDS: INSULIN NovoLIN REGULAR SUPPLEMENTAL SCALE SQ SCH ×4 (06:00→17:54)
[2017-08-29] MEDS ORDERED: FUROSEMIDE 40 MG/4 ML VIAL IV PUSH ONE (06:30)
[2017-08-29] MEDS ORDERED: NEOSTIGMINE METHYLSULFATE 10 MG/10 ML VIAL SQ ONE (06:45)
[2017-08-29] MEDS ORDERED: METHYLNALTREXONE BROMIDE 12 MG/0.6 ML VIAL SQ ONE (06:45)
[2017-08-29] MEDS ORDERED: MINERAL OIL EMULSION 55% PO ONE (06:45)
[2017-08-29] MEDS: METOCLOPRAMIDE HCL 10 MG/2 ML VIAL IV PUSH SCH ×3 (06:45→21:08)
[2017-08-29] MEDS ORDERED: ATROPINE SULFATE 1 MG/10 ML SYRINGE IV PUSH ONE (06:45)
[2017-08-29] MEDS ORDERED: GLYCERIN ADULT 2 GM SUPP RECTAL ONE (06:45)
[2017-08-29] MEDS ORDERED: MAGNESIUM CITRATE SOLN 300 ML BTL PO ONE (06:45)
--- NOTE | 2017-08-29 06:50 | HHI.CCPN ---
Subjective Remarks/Hospital Course This is a 52-year-old female. Actually name is Casandra Deluca. Date of admission 08/23/2017. Past medical history is unremarkable including Dr. Prather spoke with uncle. Patient was in her normal state of health today until approximately 3 PM on Monday and then developed acute onset of nausea associated with vomiting and complained of not feeling well. At approximately 1800 hrs., she took a one-time dose of ibuprofen and fell asleep on the couch. Early this a.m., and just prior to arrival to the emergency department awake and vomiting and then became unresponsive. Uncle states there was no injury or trauma he assisted her to the floor and because she was vomiting rolled her over so that she would not aspirate her emesis. Due to instability patient received 20 mg etomidate, 5 mg midazolam and 70 mg succinylcholine was intubated by ED physician. CT brain revealed a large left frontal parenchymal hemorrhage with diffuse intraventricular blood [address] Valencia /neurosurgery was notified. Recommended 50 g mannitol still hyperventilating he will evaluate the patient. Egg Gatherer were asked to admit. 08/23 0930 hours: Continued deterioration in neurological exam with absent peripheral reflexes and minimal cough. No Doll's eyes present. Mildly alkalotic , will correct to facilitate apnea test tomorrow. 08/24: Appears to withdraw left foot this morning mild cough response. Breathes strongly over ventilator with slight hyperventilation. Otherwise unresponsive. About 6 x 5 cm area of hemorrhage persists in the left hemisphere with considerable intraventricular blood. Ventricles starting to dilate. Vasogenic edema and surrounding normal brain. 08/25: No improvement in neurologic function. Persistent severe neurologic deficit. She lives with her uncle and that appears to be the only available family. She basically took care of her uncle and he appears quite devastated by her illness. Her son is estranged for many years and the uncle says he would not know how to get a hold of him. In a personal conversation with the uncle in the [facility] he specifically stated that the patient and he had an agreement that they would not allow the other to be kept alive with artificial devices if each were irreparably injured. The uncle has expressed that he needs to stop the ventilator but states that he cannot do it. I will ask the palliative care service to assist the uncle in his decision involving her care plan. 08/26: Devastating neurological injury. Largely unresponsive with the exception of withdrawal of her feet to noxious stimulation. Her uncle is still deciding care plan. 08/27: No improvement in neurologic function. Withdrawal response and lower extremities persists. Convert to APRV ventilator mode to maintain lung recruitment. 08/28: Positive cough. Currently does not bilateral lower extremities. Decreased urine output noted. Increasing gastric distention with 800 cc via NG tube. Right pupil 4 mm. Left pupil 6 mm. Subjective 08/29: High residuals overnight. Started on D10 normal saline at 50 cc an hour by overnight family reunification specialist due to hypoglycemia. No bowel movement since admission. Remains on xiomara hugger. 1250 cc urine output overnight. Abdomen became more distended. Brain flow scan revealed some flow in the sagittal sinuses. Objective Vital Signs Date Time Temp Pulse Resp B/P (MAP) Pulse Ox O2 Delivery O2 Flow Rate FiO2 08/29/17 04:20 97 50 08/29/17 02:48 80 110/57 08/29/17 00:00 97.9 12 08/28/17 20:00 Mechanical Ventilator Result Diagram: 08/28/17 0430 08/28/17 1857 Imaging Last Impressions Chest X-Ray 08/29/17 0600 Signed Impressions: Service Date/Time: Tuesday, August 29, 2017 04:46 - CONCLUSION: 1. Increasing basilar airspace disease compared with August 28. Support apparatus unchanged. Regan Awan MD Brain Flow Nuclear Medicine 08/28/17 0000 Signed Impressions: Service Date/Time: Monday, August 28, 2017 15:57 - CONCLUSION: Small amount of flow in the sagittal sinus. Jamey Sears MD Abdomen X-Ray 08/28/17 0000 Signed Impressions: Service Date/Time: Monday, August 28, 2017 08:16 - CONCLUSION: No evidence of obstruction. Andrew Contreras MD Head CT 08/24/17 0600 Signed Impressions: Service Date/Time: August 04:27 - CONCLUSION: Diffuse intraventricular hemorrhage and left frontal lobe parenchymal hemorrhage again noted. Intraventricular blood has increased and there is mild to moderate ventriculomegaly. 9 mm of rightward midline shift, slightly improved. aSeid Choi MD Neck CTA 08/23/17 0157 Signed Impressions: Service Date/Time: Wednesday, August 23, 2017 02:26 - CONCLUSION: Normal carotid arteries. Saeid Choi MD Head CTA 08/23/17 0157 Signed Impressions: Service Date/Time: Wednesday, August 23, 2017 02:26 - CONCLUSION: No perceptible aneurysm or enhancing mass. Saeid Choi MD Cervical Spine CT 08/23/17 0000 Signed Impressions: Service Date/Time: Wednesday, August 23, 2017 02:08 - CONCLUSION: 1. No fracture or acute appearing malalignment of the cervical spine. 2. Degenerative changes as above. Saeid Choi MD Objective Remarks GENERAL: 52-year-old female currently orotracheally intubated, SKIN: Warm and dry. HEAD: Atraumatic. Normocephalic. EYES: Right pupil is 4 mm in size. Left pupil is 6 mm and nonreactive. No scleral icterus or drainage. Positive scleral edema ENT: No nasal bleeding or discharge. Mucous membranes pink and moist. OG tube in place to low intermittent wall suction NECK: Trachea midline. Orally intubated. No JVD or thyromegaly. CARDIOVASCULAR: RRR. S1, S2. No S4. Without murmur RESPIRATORY: Diminished breath sounds in the bases left greater than right. No wheezing. GASTROINTESTINAL: Abdomen more distended and protuberant the same. Very hypoactive bowel sounds are appreciated. MUSCULOSKELETAL: Extremities with 1-2+ bilateral upper and lower extremity edema /anasarca. Dopplerable pulse to right radial. No obvious deformities. NEUROLOGICAL: Unresponsive. Unreactive toes. No cough the same. No gag. Currently no withdrawal response left or right foot. Pupils as above. Urinary Catheter: Yes Assessment to: Continue Dumont insert reason: ICU Pt Getting Diuretics Vascular Central Line Catheter: Yes Assessment to: Continue Date of Insertion: Aug 23, 2017 Line: Central Venous Catheter Side: Left Location: Internal, Jugular A/P Assessment and Plan Neuro/Psych: Large left frontal lobe parenchymal hemorrhage with intraventricular blood with associated 11 mm shift from right to left. Seizure THC use CT brain revealed 4.85.9 cm left frontoparietal hemorrhage with surrounding cerebral edema and 11 mm right which midline shift. Hemorrhage extends to the ventricles. Negative CT angiogram the brain. Dr. Valencia/neurosurgery following. Recommended mannitol 50 g IV 1, hyperventilation on admission Repeat brain CT 4/19 revealed mild to moderate amount of blood/increased intraventricular hemorrhage with evolving left frontal parenchymal hemorrhage. Slight improvement of hemorrhage shift to 9 mm right to left. EEG - Markedly abnormal EEG because of a burst suppression pattern, with mild asymmetry/asynchronous, but the findings overall suggest a severe diffuse disturbance of cerebral function, No epileptiform features present. UDS + THC/Benzos Nuclear medicine brain flow scan with some flow in the sagittal sinus Hypertonic saline with goal sodium 150-155 currently on hold Mannitol 12.5 g IV every 8 hours. Hold if osm > greater than 310 Currently off 3% saline Seizures have ceased on levetiracetam 500 mg IV every 6 hours and fosphenytoin 100 mg every 8 hours. Phenytoin level 14.8. Repeat in a.m. 08/[address] Garcia/Neurology Written for propofol/fentanyl drips as needed for sedation/analgesia while intubated Acetaminophen 650 mg by tube every 6 hours as needed fever CV: Hypertensive emergency Nicardipine drip to keep systolic blood pressure less than 140 with as needed labetalol/hydralazine Norepinephrine drip currently at 4 mcg/min to keep systolic blood pressure greater than 110 Currently normal saline 50 cc an hour in D10 normal saline at 50 cc an hour due to hypoglycemia Resp: Acute respiratory failure secondary to large parenchymal hemorrhage PRVC 14/500/05/13/49 Ventilator bundle Albuterol and ipratropium aerosols every alternate nebs 6 hours with albuterol aerosols every 2 hours as needed dyspnea Spontaneous breathing trials when clinically indicated A.m. chest x-ray 08/30 GI: Constipation Elevated AST Hypoalbuminemia Vital 1.5 goal 45 cc an hour per nutrition's recommendation currently on hold due to high residuals OG tube to low intermittent wall suction Lansoprazole 30 mg daily for GI prophylaxis Docusate sodium 100 cc twice daily/senna liquid 8.8 mg tablet twice daily for bowel regimen, polythene glycol 17 g twice daily, lactulose 30 cc 4 times daily and glycerin suppository 1 now. Methylnaltrexone 12 mg subcu 1 now. Mineral oil 30 mL 1 now. Magnesium citrate 50 cc 1 now. Check KUB this a.m. 08/28 with nonobstructive bowel gas pattern. On metoclopramide 10 mg 3 times daily and erythromycin 250 mg 3 times daily prokinetic : Dumont catheter for accurate I's and O's in a critically ill patient Endo: Sliding scale insulin Novulin R with Accu-Cheks every 6 hours to maintain euglycemia/medium protocol Pending TSH in a.m. Renal: Creatinine currently within normal limits Monitor urine output Accurate I's and O's Heme: Normocytic anemia Monitor CBC daily. Follow trends ID: Monitor for infection MSK: PT/OT evaluate and treat FEN: Hypernatremia Hypokalemia Repeat potassium ordered. Originally hypokalemic. Magnesium and phosphorus ordered as well. Replace electrolytes per ICU electrolyte protocol Electrolyte replacement protocol, add potassium. Access -Left IJ CVL day #7 placed 08/23 -Right dorsalis pedis arterial line placed 08/[address] Carl day #5 Prophylaxis -GI -lansoprazole -DVT -SCD/holding pharmacological prophylaxis until okayed with neurosurgery Level 2 follow-up Sami Carmona MD Aug 29, 2017 06:50
[2017-08-29 06:51] LABS: AUTOMATED NEUTROPHIL # 5.1 TH/MM3 (1.8-7.7); BASOPHIL % 0.2 % (0.0-2.0); EOSINOPHIL # 0.1 TH/MM3 (0-0.4); EOSINOPHIL % 1.4 % (0.0-4.0); LYMPH % 12.5 % (9.0-44.0); LYMPHOCYTE # 0.8 TH/MM3 (1.0-4.8); MEAN CELL VOLUME 90.4 FL (80.0-100.0); MEAN CORPUSCULAR HEMOGLOBIN 30.2 PG (27.0-34.0); MEAN CORPUSCULAR HGB CONC 33.4 % (32.0-36.0); MEAN PLATELET VOLUME 9.1 FL (7.0-11.0); MONO % 6.5 % (0.0-8.0); MONOCYTE # 0.4 TH/MM3 (0-0.9); NEUT % 79.4 % (16.0-70.0); PLATELET COUNT 241 TH/MM3 (150-450); RED BLOOD COUNT 3.32 MIL/MM3 (4.00-5.30); RED CELL DISTRIBUTION WIDTH 13.9 % (11.6-17.2); WHITE BLOOD COUNT 6.4 TH/MM3 (4.0-11.0)
[2017-08-29 07:04] LABS: ALBUMIN 1.3 GM/DL (3.4-5.0); AST (GOT) 40 U/L (15-37); BICARBONATE 20.2 MEQ/L (21.0-32.0); BLOOD UREA NITROGEN 13 MG/DL (7-18); CHLORIDE 126 MEQ/L (98-107); CREATININE 0.68 MG/DL (0.50-1.00); GLOMERULAR FILTRATION RATE 91 ML/MIN (>89); GLUCOSE,RANDOM 87 MG/DL (74-106); MAGNESIUM 1.9 MG/DL (1.5-2.5); SODIUM (NA) 155 MEQ/L (136-145)
[2017-08-29 07:08] LABS: ALT (GPT) 18 U/L (10-53); PHENYTOIN (DILANTIN) 9.3 MCG/ML (10.0-20.0); PHOSPHORUS 4.7 MG/DL (2.5-4.9)
[2017-08-29 07:15] LABS: ALKALINE PHOSPHATASE 83 U/L (45-117); TOTAL BILIRUBIN ADULT 0.1 MG/DL (0.2-1.0)
[2017-08-29] MEDS: SODIUM CHLOR 0.9% 1000 ML INJ 1,000 ML IV SCH (07:46)
[2017-08-29] MEDS ORDERED: ERYTHROMYCIN EC 250 MG TABEC PO SCH (08:00)
[2017-08-29] MEDS: SODIUM CHLORIDE 23.4% INJ 154 MEQ in DEXTROSE 10% INJ 1,000 ML IV SCH (08:00)
[2017-08-29] MEDS: CHLORHEXIDINE 0.12% (ORAL KIT) 15 ML CUP MT SCH ×2 (08:28→21:07)
[2017-08-29] MEDS ORDERED: POTASSIUM CHLORIDE 20 MEQ PWD PACKET PO ONE (08:30)
[2017-08-29] MEDS ORDERED: POTASSIUM CHLOR 40 MEQ PREMIX 100 ML IV ONE (08:30)
[2017-08-29] MEDS: FOLIC ACID 1 MG TAB PO SCH (08:37)
[2017-08-29] MEDS: LANSOPRAZOLE SOLUTAB 30 MG TAB G-TUBE SCH (08:37)
[2017-08-29] MEDS: LACTULOSE SYRUP 20 GM/30 ML CUP PO SCH ×4 (08:37→21:07)
[2017-08-29] MEDS: POLYETHYLENE GLYCOL 17 GM PKG NG SCH ×2 (08:37→21:07)
[2017-08-29] MEDS: MULTIVITAMIN TAB PO SCH (08:37)
[2017-08-29] MEDS: DOCUSATE SODIUM 100 MG/10 ML UDC PO SCH ×2 (08:37→21:07)
[2017-08-29] MEDS: SODIUM CHLORIDE 0.9% FLUSH 10 ML FLUSH IV FLUSH SCH ×3 (08:38→21:00)
[2017-08-29] MEDS: SENNOSIDES SYRUP 8.8 MG/5 ML CUP PO SCH ×2 (08:38→21:00)
[2017-08-29] MEDS: ARTIFICIAL TEARS OPTH SOLN 15 ML BTL EACH EYE SCH ×3 (08:38→17:54)
[2017-08-29] MEDS: POTASSIUM CHLORIDE 20 MEQ PWD PACKET NG SCH (08:39)
[2017-08-29] MEDS: THIAMINE INJ 100 MG in SODIUM CHLORIDE 0.9% INJ 100 ML IV SCH (08:41)
[2017-08-29] MEDS: ERYTHROMYCIN ETHYLSUCCINATE 200 MG/5 ML SUSP 100 ML BOTTLE PO SCH ×3 (08:52→17:00)
--- NOTE | 2017-08-29 10:34 | HHI.HCSW ---
Clinical Informatics Physician Visit Significant Family/Friend Attempting to locate patient's son, Michael Barnes. Accurint results exhausted ( see previous palliative care notes). Additional google search produced contact # [phone] (number rings then rings disconnected). Social media search produced possible match. Private message sent requesting call. . Sultana Gray, MARGUERITE Aug 29, 2017 10:34
--- NOTE | 2017-08-29 10:43 | HHI.HCPN ---
Reason for visit a. To assist with evaluation and management of symptoms including: dyspnea, pain. b. To assist medical decision maker(s) with: better understanding of current medical conditions; weighing benefits/burdens of medical treatment options; making medical treatment decisions. . Subjective/Interval History Patient seen and examined in ICU. No family at bedside. Discussed with Dr. Carmona and nurse. Temp 95.7, warmer in place. Patient remains on mech vent, FiO2 50%. Remains unresponsive off sedation. Hypotensive on pressor support. Albumin 1.3. Sodium 155, potassium 3.4, serum osmolality 311. Chest xray increasing basilar airspace disease. . Family/friend interactions Call from uncle, Andrew Moreno. I advised we have attempted to reach son, Michael Barnes again via phone and via Facebook. He apreciates that we have attempted to find her son. He indicates patient and her son have not spoken in many years and "did not have a good relationship." Advised I will call him this afternoon with another update. He agrees and appreciates time. Call from Michael Barnes, he confirms he is the patient's son. He indicates he has not been in touch with her since he was 16 years old and that he has been searching for her. He is appropriately overwhelmed and tearful. He is so appreciative that we made the effort to find him stating "[facility], thank you for finding me, God Bless You." He wants what is best for his mother. He agrees with NO CODE status. He hopes he can find a flight from [place] to [place]. He hopes we can wait to make additional decisions until he can determine if and when he can get a flight here. He tells me we can give Andrew Josh his number. Given the situation he is currently overwhelmed with emotion and did not answer whether or not he wants to be the health care proxy, he will call back when he has a chance to process and this about "all of this." Spoke with Michael's grandfather to provide medical update per son's request. He is very appreciative. 3:30pm: Called Michael from patient room so he can "say his good-byes" in case something happens to her before he can come from [place]. He indicates a friend is trying to get him a airline ticket to come to [place]. He will notify palliative care if and when he will be able to come to [place]. He tells us he would want to proceed with transition to comfort with withdrawal of life support , timing to be determined with Uncle and son. Exhibit sent to sonMichael for signature if he is unable to come to [place]. . Advance Directives Living Will: Never completed Health Care Surrogate: Never completed Durable Power of Barmaid: Never completed Advance Directive Specifics Health Care Surrogate(s): Patient is not capacitated to make her own healthcare decisions, will not regain capacity. No written advanced directives. Single. According to [place] statutes healthcare proxy decision making would fall to the majority of adult children. Reportedly has 1 son. Left message to obtain additional information from uncle, to further clarify healthcare proxy decision making. . Documented care wishes: None in EMR. Significant change in goals: Tentative plan to transition to comfort measures with withdrawal of life support , timing to be determined once son decides if he will be able to come to [place] from [place]. . Objective Vital Signs Date Time Temp Pulse Resp B/P (MAP) Pulse Ox O2 Delivery O2 Flow Rate FiO2 08/29/17 10:00 74 08/29/17 08:00 95.7 76 14 123/86 (98) 94 08/29/17 08:00 76 08/29/17 08:00 50 08/29/17 07:37 94 50 08/29/17 07:00 94 Mechanical Ventilator 50 08/29/17 06:00 71 08/29/17 04:20 97 50 08/29/17 04:00 83 08/29/17 04:00 40 08/29/17 04:00 96.1 76 12 134/64 (87) 92 08/29/17 02:48 80 110/57 08/29/17 02:00 81 08/29/17 01:15 95 40 08/29/17 00:00 97.9 89 12 108/56 (73) 94 08/29/17 00:00 40 08/29/17 00:00 89 08/28/17 22:40 94 30 08/28/17 22:00 86 08/28/17 20:27 87 108/55 08/28/17 20:00 99.7 86 12 116/56 (76) 96 08/28/17 20:00 86 08/28/17 20:00 96 Mechanical Ventilator 30 4/23/18 20:00 30 08/28/17 19:58 97 30 08/28/17 19:06 80 91/54 08/28/17 18:59 80 100/55 08/28/17 18:00 79 08/28/17 17:30 100 30 08/28/17 16:00 75 08/28/17 16:00 30 08/28/17 16:00 97.5 75 12 122/69 (86) 100 08/28/17 16:00 99 60 08/28/17 15:00 75 111/66 08/28/17 14:00 72 08/28/17 13:15 71 99/57 08/28/17 12:27 97 30 08/28/17 12:00 69 08/28/17 12:00 30 08/28/17 12:00 95.7 69 15 126/70 (88) 96 Intake & Output 08/29/17 08/29/17 06:59 18:59 Intake Total 170 ml 374 ml Output Total 2500.0 ml Balance -2330.0 ml 374 ml Intake IV Total 374 ml Tube Feeding 150 ml Other 20 ml Output Urine Total 1300 ml Gastric Drainage Total 700 ml Tube Feeding Residual Discard 500.0 ml # Bowel Movements 0 Physical Exam CONSTITUTIONAL/GENERAL: This is an adequately nourished patient, in no apparent distress. She appears younger than her actual age. TUBES/LINES/DRAINS: ETT, OG, left IJ central line, PIV right, a-line right dorsalis pedis, SCDs. SKIN: No jaundice, rashes, or lesions. Ecchymoses on upper extremities. No wounds seen anteriorly. Skin temperature appropriate. Not diaphoretic. EYES: Pupils unequal, non reactive. ENT: Unable to assess hearing. Nose without bleeding or purulent drainage. Throat difficult to visualize due to tubes. Tongue edematous. CARDIOVASCULAR: Regular rate and rhythm without murmur. RESPIRATORY/CHEST: Diminished breath sounds, scattered course breath sounds. GASTROINTESTINAL: Abdomen distended. Hypoactive bowel sounds. GENITOURINARY: Without palpable bladder distension. MUSCULOSKELETAL: Extremities with increased edema. NEUROLOGICAL: Unresponsive. PSYCHIATRIC: Unresponsive, no sedation. . Diagnostic Tests Laboratory Laboratory Tests Test 08/26/17 15:05 08/26/17 17:44 08/27/17 02:00 08/27/17 05:15 Potassium Level 3.4 MEQ/L (3.5-5.1) 3.4 MEQ/L (3.5-5.1) 3.6 MEQ/L (3.5-5.1) Serum Osmolality 317 MOSM/KG (275-295) 310 MOSM/KG (275-295) Blood Urea Nitrogen 4 MG/DL (7-18) Creatinine 0.30 MG/DL (0.50-1.00) Random Glucose 90 MG/DL (74-106) Calcium Level 8.4 MG/DL (8.5-10.1) Sodium Level 152 MEQ/L (136-145) Chloride Level 123 MEQ/L (98-107) Carbon Dioxide Level 22.5 MEQ/L (21.0-32.0) Anion Gap 7 MEQ/L (5-15) Estimat Glomerular Filtration Rate 235 ML/MIN (>89) Test 08/27/17 10:51 08/27/17 12:15 08/28/17 04:30 08/28/17 14:50 Blood Gas Puncture Site ART LINE ART LINE Blood Gas Patient Temperature 98.6 98.6 Blood Gas HCO3 21 mmol/L (22-26) 20 mmol/L (22-26) Blood Gas Base Excess -2.0 mmol/L (-2-2) -4.0 mmol/L (-2-2) Blood Gas Oxygen Saturation 96 % (90-100) 95 % (90-100) Arterial Blood pH 7.52 (7.380-7.420) 7.43 (7.380-7.420) Arterial Blood Partial Pressure CO2 26 mmHg (38-42) 30 mmHg (38-42) Arterial Blood Partial Pressure O2 85 mmHg (61-120) 84 mmHg (61-120) Arterial Blood Oxygen Content 13.9 Vol % (12.0-20.0) 13.2 Vol % (12.0-20.0) Arterial Blood Carboxyhemoglobin 1.3 % (0-4) 1.3 % (0-4) Arterial Blood Methemoglobin 0.8 % (0-2) 0.9 % (0-2) Blood Gas Hemoglobin 10.2 G/DL (12.0-16.0) 9.8 G/DL (12.0-16.0) Oxygen Delivery Device VENTILATOR VENTILATOR Blood Gas Ventilator Setting 15/500/PEEP5 Blood Gas Inspired Oxygen 40 % 30 % Hepatitis A IgM Antibody NONREACTIVE (NONREACTIVE) Hepatitis B Surface Antigen NONREACTIVE (NONREACTIVE) Hepatitis B Core IgM Antibody NONREACTIVE (NONREACTIVE) Hepatitis C IgG Antibody NONREACTIVE (NONREACTIVE) White Blood Count 9.9 TH/MM3 (4.0-11.0) Red Blood Count 3.08 MIL/MM3 (4.00-5.30) Hemoglobin 9.6 GM/DL (11.6-15.3) Hematocrit 28.0 % (35.0-46.0) Mean Corpuscular Volume 90.8 FL (80.0-100.0) Mean Corpuscular Hemoglobin 31.2 PG (27.0-34.0) Mean Corpuscular Hemoglobin Concent 34.4 % (32.0-36.0) Red Cell Distribution Width 13.8 % (11.6-17.2) Platelet Count 218 TH/MM3 (150-450) Mean Platelet Volume 8.3 FL (7.0-11.0) Neutrophils (%) (Auto) 72.7 % (16.0-70.0) Lymphocytes (%) (Auto) 13.6 % (9.0-44.0) Monocytes (%) (Auto) 12.6 % (0.0-8.0) Eosinophils (%) (Auto) 0.8 % (0.0-4.0) Basophils (%) (Auto) 0.3 % (0.0-2.0) Neutrophils # (Auto) 7.2 TH/MM3 (1.8-7.7) Lymphocytes # (Auto) 1.3 TH/MM3 (1.0-4.8) Monocytes # (Auto) 1.2 TH/MM3 (0-0.9) Eosinophils # (Auto) 0.1 TH/MM3 (0-0.4) Basophils # (Auto) 0.0 TH/MM3 (0-0.2) CBC Comment DIFF FINAL Differential Comment Blood Urea Nitrogen 13 MG/DL (7-18) Creatinine 0.42 MG/DL (0.50-1.00) Random Glucose 64 MG/DL (74-106) Total Protein 5.3 GM/DL (6.4-8.2) Albumin 1.7 GM/DL (3.4-5.0) Calcium Level 7.8 MG/DL (8.5-10.1) Alkaline Phosphatase 66 U/L (45-117) Aspartate Amino Transf (AST/SGOT) 41 U/L (15-37) Alanine Aminotransferase (ALT/SGPT) 20 U/L (10-53) Total Bilirubin 0.2 MG/DL (0.2-1.0) Direct Bilirubin 0.1 MG/DL (0.0-0.2) Sodium Level 153 MEQ/L (136-145) Potassium Level 3.2 MEQ/L (3.5-5.1) Chloride Level 122 MEQ/L (98-107) Carbon Dioxide Level 21.4 MEQ/L (21.0-32.0) Anion Gap 10 MEQ/L (5-15) Estimat Glomerular Filtration Rate 159 ML/MIN (>89) Phosphorus Level 2.4 MG/DL (2.5-4.9) Magnesium Level 1.3 MG/DL (1.5-2.5) Indirect Bilirubin 0.1 MG/DL (0.0-0.8) Test 08/28/17 18:57 08/29/17 06:00 Potassium Level 3.7 MEQ/L (3.5-5.1) 3.4 MEQ/L (3.5-5.1) White Blood Count 6.4 TH/MM3 (4.0-11.0) Red Blood Count 3.32 MIL/MM3 (4.00-5.30) Hemoglobin 10.0 GM/DL (11.6-15.3) Hematocrit 30.0 % (35.0-46.0) Mean Corpuscular Volume 90.4 FL (80.0-100.0) Mean Corpuscular Hemoglobin 30.2 PG (27.0-34.0) Mean Corpuscular Hemoglobin Concent 33.4 % (32.0-36.0) Red Cell Distribution Width 13.9 % (11.6-17.2) Platelet Count 241 TH/MM3 (150-450) Mean Platelet Volume 9.1 FL (7.0-11.0) Neutrophils (%) (Auto) 79.4 % (16.0-70.0) Lymphocytes (%) (Auto) 12.5 % (9.0-44.0) Monocytes (%) (Auto) 6.5 % (0.0-8.0) Eosinophils (%) (Auto) 1.4 % (0.0-4.0) Basophils (%) (Auto) 0.2 % (0.0-2.0) Neutrophils # (Auto) 5.1 TH/MM3 (1.8-7.7) Lymphocytes # (Auto) 0.8 TH/MM3 (1.0-4.8) Monocytes # (Auto) 0.4 TH/MM3 (0-0.9) Eosinophils # (Auto) 0.1 TH/MM3 (0-0.4) Basophils # (Auto) 0.0 TH/MM3 (0-0.2) CBC Comment DIFF FINAL Differential Comment Blood Urea Nitrogen 13 MG/DL (7-18) Creatinine 0.68 MG/DL (0.50-1.00) Random Glucose 87 MG/DL (74-106) Total Protein 5.0 GM/DL (6.4-8.2) Albumin 1.3 GM/DL (3.4-5.0) Calcium Level 8.0 MG/DL (8.5-10.1) Phosphorus Level 4.7 MG/DL (2.5-4.9) Magnesium Level 1.9 MG/DL (1.5-2.5) Alkaline Phosphatase 83 U/L (45-117) Aspartate Amino Transf (AST/SGOT) 40 U/L (15-37) Alanine Aminotransferase (ALT/SGPT) 18 U/L (10-53) Total Bilirubin 0.1 MG/DL (0.2-1.0) Sodium Level 155 MEQ/L (136-145) Chloride Level 126 MEQ/L (98-107) Carbon Dioxide Level 20.2 MEQ/L (21.0-32.0) Anion Gap 9 MEQ/L (5-15) Estimat Glomerular Filtration Rate 91 ML/MIN (>89) Serum Osmolality 311 MOSM/KG (275-295) Thyroid Stimulating Hormone 3rd Gen 2.330 uIU/ML (0.358-3.740) Phenytoin (Dilantin) Level 9.3 MCG/ML (10.0-20.0) Result Diagram: 08/29/17 0600 08/29/17 06 Imaging Last Impressions Chest X-Ray 08/29/17 06 Signed Impressions: Service Date/Time: Tuesday, August 29, 2017 04:46 - CONCLUSION: 1. Increasing basilar airspace disease compared with August 28. Support apparatus unchanged. Regan Awan MD Brain Flow Nuclear Medicine 08/28/17 0000 Signed Impressions: Service Date/Time: Monday, August 28, 2017 15:57 - CONCLUSION: Small amount of flow in the sagittal sinus. Jamey Sears MD Abdomen X-Ray 08/28/17 0000 Signed Impressions: Service Date/Time: Monday, August 28, 2017 08:16 - CONCLUSION: No evidence of obstruction. Andrew Contreras MD Head CT 08/24/17 0600 Signed Impressions: Service Date/Time: August 04:27 - CONCLUSION: Diffuse intraventricular hemorrhage and left frontal lobe parenchymal hemorrhage again noted. Intraventricular blood has increased and there is mild to moderate ventriculomegaly. 9 mm of rightward midline shift, slightly improved. Saeid Choi MD Neck CTA 08/23/17 015 Signed Impressions: Service Date/Time: Wednesday, August 23, 2017 02:26 - CONCLUSION: Normal carotid arteries. Saeid Choi MD Head CTA 08/23/17 015 Signed Impressions: Service Date/Time: Wednesday, August 23, 2017 02:26 - CONCLUSION: No perceptible aneurysm or enhancing mass. Saeid Choi MD Cervical Spine CT 08/23/17 0000 Signed Impressions: Service Date/Time: Wednesday, August 23, 2017 02:08 - CONCLUSION: 1. No fracture or acute appearing malalignment of the cervical spine. 2. Degenerative changes as above. Saeid Choi MD Procedures * 08/23/17 - A line placement. * 08/23/17 - left IJ central line placement. * 08/23/17 - Intubated. . Assessment and Plan Disease Oriented Problem List: (1) Leukocytosis (2) Acute respiratory failure (3) Intraparenchymal hemorrhage of brain (4) HTN (hypertension) Symptom Scale: (1) Pain 0-10 Scale: Unable to quantify Comment: secondary to intracranial hemorrhage, tubes/lines,etc. (2) Dyspnea 0-10 Scale: Unable to quantify Comment: On mechanical ventilation Pertinent Non-Medical Issues Psychosocial: Spiritual: Legal: Ethical issues impacting care: Important Contacts * Michael Barnes, son/HCP: [phone] (lives in [place]) * Andrew Katz, uncle: [phone] (lives local) . Prognosis Per Dr. Valencia, neurosurgery was consulted; his note states "this patient has suffered a devastating injury in his dominant hemisphere with clinical evidence of uncal herniation. Her condition is irreversible, and there is no chance for meaningful recovery at this time. She is not a surgical candidate." . Code Status: No Code Plan * Patient is not capacitated to make her own healthcare decisions, will not regain capacity. No written advanced directives. Single. According to [place] statutes healthcare proxy decision making would fall to the majority of adult children. Reportedly has 1 son, Michael Barnes is willing to serve as HCP. * NO CODE * 08/29/17 11am - Call from Michael Barnes, he confirms he is the patient's son. He indicates he has not been in touch with her since he was 16 years old and that he has been searching for her. He is appropriately overwhelmed and tearful. He is so appreciative that we made the effort to find him stating "[facility], thank you for finding me, God Bless You." He wants what is best for his mother. He agrees with NO CODE status. He hopes he can find a flight from [place] to [place]. He hopes we can wait to make additional decisions until he can determine if and when he can get a flight here. He tells me we can give Andrew Moreno his number. Given the situation he is currently overwhelmed with emotion and did not answer whether or not he wants to be the health care proxy, he will call back when he has a chance to process and this about "all of this." * 3:30pm: Son is willing to serve as health care proxy. Called Michael from patient room so he can "say his good-byes" in case something happens to her before he can come from [place]. He indicates a friend is trying to get him a airline ticket to come to [place]. He will notify palliative care if and when he will be able to come to [place]. He tells us he would want to proceed with transition to comfort with withdrawal of life support, timing to be determined with Uncle and son. * Uncle Andrew Moreno has been update, Michael's number has been provided and they plan to talk. * Exhibits B & C on chart, signed by Dr. Contreras and Dr. Carmona. Exhibit sent to sonMichael for signature if he is unable to come to [place]. * Discussed with nurse and Dr. Carmona. * SYMPTOMS: Pain: secondary to intracranial hemorrhage, tubes/lines,etc. Dyspnea : On mechanical ventilation. No new medication recommendations at this time. * Palliative care will continue to follow to assist with communication, symptom management and further clarification of medical treatment goals throughout hospital course. . Attestation To help prompt me to consider important information that might be impacting today's encounter and assessment, information from prior notes written by myself or my colleagues may have been "brought forward" into today's note. My signature on this note, however, is an attestation that I personally performed the exam, history, and/or decision-making noted today, and, unless otherwise indicated, the interactions with patient, family, and staff as well as the review of records all occurred today. I also attest that the listed assessment and stated plan reflect my best clinical judgment today based on the combination of historical information, prior notes, and today's exam/ interactions. When time spent is documented, it refers only to time spent today by the signer, or if indicated, combined time spent today by collaborating physician/nurse practitioner. Mey Sherwood Aug 29, 2017 10:43
--- NOTE | 2017-08-29 10:46 | RADRPT ---
EXAM DATE/TIME: 08/29/2017 09:34 [facility] COMPARISON: ABDOMEN KUB ONLY, August 28, 2017, 8:16. INDICATIONS : No bowel movement for 7 days. MEDICAL HISTORY : None. SURGICAL HISTORY : None. ENCOUNTER: Subsequent ACUITY: 1 week PAIN SCORE: Non-responsive. LOCATION: abdomen FINDINGS: Supine view of the abdomen was performed. There is an NGT in the stomach. Air is seen in the distal c olon. Overall, there is a paucity of bowel gas. No gross free air or pneumatosis. The osseous structu res are unremarkable. CONCLUSION: 1. NGT in the stomach. 2. Paucity of bowel gas. This finding is nonspecific but may rarely be seen with diffusely fluid-fill ed bowel loops. Roldan Ambrosio MD on August 29, 2017 at 10:42 Board Certified Radiologist. This report was verified electronically.
--- NOTE | 2017-08-29 11:05 | HHI.NSPN ---
Note Status Status: Progress Note Interval History Interval History 08/28: Nursing reports on neuro checks no cough or gag seen. Remains intubated. 08/29. intubated. No corneals. No gag. No spontaneous respirations. SBF showed a small trickle of flow in the sagital sinus Labs, Micro, & Vital Signs Results Date Time Temp Pulse Resp B/P (MAP) Pulse Ox O2 Delivery O2 Flow Rate FiO2 08/29/17 10:00 74 08/29/17 08:00 95.7 76 14 123/86 (98) 94 08/29/17 08:00 76 08/29/17 08:00 50 08/29/17 07:37 94 50 08/29/17 07:00 94 Mechanical Ventilator 50 08/29/17 06:00 71 08/29/17 04:20 97 50 08/29/17 04:00 83 08/29/17 04:00 40 08/29/17 04:00 96.1 76 12 134/64 (87) 92 08/29/17 02:48 80 110/57 08/29/17 02:00 81 08/29/17 01:15 95 40 08/29/17 00:00 97.9 89 12 108/56 (73) 94 08/29/17 00:00 40 08/29/17 00:00 89 08/28/17 22:40 94 30 08/28/17 22:00 86 08/28/17 20:27 87 108/55 08/28/17 20:00 99.7 86 12 116/56 (76) 96 08/28/17 20:00 86 08/28/17 20:00 96 Mechanical Ventilator 30 08/28/17 20:00 30 08/28/17 19:58 97 30 08/28/17 19:06 80 91/54 08/28/17 18:59 80 100/55 08/28/17 18:00 79 08/28/17 17:30 100 30 08/28/17 16:00 75 08/28/17 16:00 30 08/28/17 16:00 97.5 75 12 122/69 (86) 100 08/28/17 16:00 99 60 08/28/17 15:00 75 111/66 08/28/17 14:00 72 08/28/17 13:15 71 99/57 08/28/17 12:27 97 30 08/28/17 12:00 69 08/28/17 12:00 30 08/28/17 12:00 95.7 69 15 126/70 (88) 96 08/30/17 07:00 Intake Total 374 ml Balance 374 ml Constitutional Vital Signs Date Time Temp Pulse Resp B/P (MAP) Pulse Ox O2 Delivery O2 Flow Rate FiO2 08/29/17 10:00 74 08/29/17 08:00 95.7 76 14 123/86 (98) 94 08/29/17 08:00 76 08/29/17 08:00 50 08/29/17 07:37 94 50 08/29/17 07:00 94 Mechanical Ventilator 50 08/29/17 06:00 71 08/29/17 04:20 97 50 08/29/17 04:00 83 08/29/17 04:00 40 08/29/17 04:00 96.1 76 12 134/64 (87) 92 08/29/17 02:48 80 110/57 08/29/17 02:00 81 08/29/17 01:15 95 40 08/29/17 00:00 97.9 89 12 108/56 (73) 94 08/29/17 00:00 40 08/29/17 00:00 89 08/28/17 22:40 94 30 08/28/17 22:00 86 08/28/17 20:27 87 108/55 08/28/17 20:00 99.7 86 12 116/56 (76) 96 08/28/17 20:00 86 08/28/17 20:00 96 Mechanical Ventilator 30 08/28/17 20:00 30 08/28/17 19:58 97 30 08/28/17 19:06 80 91/54 08/28/17 18:59 80 100/55 08/28/17 18:00 79 08/28/17 17:30 100 30 08/28/17 16:00 75 08/28/17 16:00 30 08/28/17 16:00 97.5 75 12 122/69 (86) 100 08/28/17 16:00 99 60 08/28/17 15:00 75 111/66 08/28/17 14:00 72 08/28/17 13:15 71 99/57 08/28/17 12:27 97 30 08/28/17 12:00 69 08/28/17 12:00 30 08/28/17 12:00 95.7 69 15 126/70 (88) 96 08/30/17 07:00 Intake Total 374 ml Balance 374 ml Physical Exam The patient is intubated and without sedatives. No gag. Npo corneal reflex. No spontaneous respirations, GCS 3 Cranial Nerves: Pupils bilaterally 6 mm nonreactive. Eyes appear nonconjugated. No corneal reflex. no gag reflex. Face musculature appeared symmetrical at rest. Face sensation, olfaction, visual mcwilliams, and hearing cannot be adequately assessed due to his neurological condition. Cervical Spine: Soft supple Motor: No withdraws , no spontaneous movements, no response to pain Reflexes: Plantars neutral bilaterally. Cerebellar: Examination cannot be adequately assessed due to the patient's neurological condition. Medications Current Medications Current Medications Midazolam HCl (Versed Inj) 5 mg ONCE ONCE IV PUSH Last administered on at 01:50; Start 08/23/17 at 02:15; Stop 08/23/17 at 02:16; Status DC Etomidate (Amidate Inj) 20 mg ONCE ONCE IV PUSH Last administered on at 01:50; Start 08/23/17 at 02:15; Stop 08/23/17 at 02:16; Status DC Succinylcholine Chloride (Quelicin Inj) 70 mg ONCE ONCE IV PUSH Last administered on 08/23/17at 01:50; Start 08/23/17 at 02:15; Stop 08/23/17 at 02:16 ; Status DC Nicardipine HCl 25 mg/Sodium Chloride 250 ml @ 50 mls/hr TITRATE PRN IV Blood pressure management Last administered on 08/25/17at 09:49; Start 08/23/17 at 02: 15; Stop 08/25/17 at 10:13; Status DC Midazolam HCl (Versed Inj) 5 mg STK-MED ONCE .ROUTE ; Start 08/23/17 at 02:10; Stop 08/23/17 at 02:11; Status DC Potassium Chloride 100 ml @ 100 mls/hr Q1H IV ; Start 08/23/17 at 02:15; Stop 08/23/17 at 05:14; Status DC Mannitol (Mannitol Inj) 25 gm ONCE ONCE IV ; Start 08/23/17 at 02:30; Stop at 02:31; Status Cancel Iodixanol (VISIPAQUE 320 INJ (Rad CT)) 100 ml STK-MED ONCE IVCONTRAST Last administered on 08/23/17at 02:31; Start 08/23/17 at 02:31; Stop 08/23/17 at 02:32 ; Status DC Mannitol (Mannitol Inj) 50 gm ONCE ONCE IV Last administered on 08/23/17at 04: 06; Start 08/23/17 at 02:45; Stop 08/23/17 at 02:46; Status DC Sodium Chloride (NS Flush) DAILY IV FLUSH Last administered on 08/28/17at 08:25 ; Start 08/23/17 at 09:00 Sodium Chloride (NS Flush) UNSCH PRN IV FLUSH SEE PROTOCOL; Start 08/23/17 at 03:30 Potassium Chloride 100 ml @ 50 mls/hr Q2H PRN IV For Potassium 2.8 - 3.2 mEq/ L Last administered on 08/28/17at 07:09; Start 08/23/17 at 03:30 Potassium Chloride 100 ml @ 50 mls/hr Q2H PRN IV For Potassium 2.8 - 3.2 mEq/ L Last administered on 08/25/17at 16:33; Start 08/23/17 at 03:30 Potassium Bicarb/ Potassium Chloride (K-Lyte Cl Eff) 50 meq UNSCH PRN PO For Potassium 3.3 - 3.5 mEq/L Last administered on 08/25/17at 11:21; Start 08/23/17 at 03:30 Potassium Chloride 100 ml @ 25 mls/hr UNSCH PRN IV For Potassium 3.3 - 3.5 mEq /L; Start 08/23/17 at 03:30 Potassium Chloride 100 ml @ 50 mls/hr Q2H PRN IV For Potassium 3.3 - 3.5 mEq/ L Last administered on 08/27/17at 05:54; Start 08/23/17 at 03:30 Magnesium Sulfate 4 gm/Sodium Chloride 100 ml @ 50 mls/hr UNSCH PRN IV For Magnesium 0.9 - 1.1 mg/dL; Start 08/23/17 at 03:30 Magnesium Oxide (Mag-Ox) 800 mg UNSCH PRN PO For Magnesium 1.2 - 1.6 mg/dL; Start 08/23/17 at 03:30 Magnesium Sulfate 2 gm/Sodium Chloride 100 ml @ 50 mls/hr UNSCH PRN IV For Magnesium 1.2 - 1.6 mg/dL Last administered on 08/28/17at 08:54; Start 08/23/17 at 03:30 Potassium Phosphate (K-Phos) 2,000 mg Q4H PRN PO For Phosphorus < 2.5 mg/dL; Start 08/23/17 at 03:30 Sodium Phosphate 30 mmol/Sodium Chloride 250 ml @ 42 mls/hr UNSCH PRN IV For Phosphorus < 2.5 mg/dL; Start 08/23/17 at 03:30 Potassium Phosphate (K-Phos) 2,000 mg UNSCH PRN PO/TUBE SEE LABEL COMMENTS; Start 08/23/17 at 03:30 Potassium Phosphate 30 mmol/ Sodium Chloride 260 ml @ 42 mls/hr UNSCH PRN IV SEE LABEL COMMENTS Last administered on 08/28/17at 08:53; Start 08/23/17 at 03:30 Dextrose (D50w (Vial) Inj) 50 ml UNSCH PRN IV PUSH HYPOGLYCEMIA-SEE COMMENTS Last administered on 08/29/17at 00:21; Start 08/23/17 at 03:30 Glucagon (Glucagon Inj) 1 mg UNSCH PRN OTHER HYPOGLYCEMIA-SEE COMMENTS; Start 08/23/17 at 03:30 Insulin Human Regular (NovoLIN R SUPPLEMENTAL SCALE) 1 Q6HR SQ Last administered on 08/26/17at 12:00; Start 08/23/17 at 06:00 Levetriacetam 500 mg/Sodium Chloride 105 ml @ 420 mls/hr BOLUS ONCE IV Last administered on 08/23/17at 04:06; Start 08/23/17 at 03:30; Stop 08/23/17 at 03:44 ; Status DC Levetriacetam 500 mg/Sodium Chloride 105 ml @ 420 mls/hr Q12HR IV Last administered on 08/23/17at 08:23; Start 08/23/17 at 09:00; Stop 08/23/17 at 15:44 ; Status DC Sodium Chloride 500 ml @ 40 mls/hr CONTINUOUS IV Last administered on 05:17; Start 08/23/17 at 03:30; Stop 08/24/17 at 07:18; Status DC Mannitol (Mannitol Inj) 12.5 gm Q8H IV Last administered on 08/24/17 03:16; Start 08/23/17 at 03:30; Stop 08/25/17 at 12:28; Status DC Sodium Chloride 1,000 ml @ 50 mls/hr Q20H IV Last administered on 08/29/17 07 :46; Start 08/23/17 at 03:23 Sodium Chloride (NS Flush) 2 ml UNSCH PRN IV FLUSH FLUSH AFTER USING IV ACCESS ; Start 08/23/17 at 03:30 Sodium Chloride (NS Flush) 2 ml BID IV FLUSH Last administered on 08/27/17 21: 00; Start 08/23/17 at 09:00 Lansoprazole (Prevacid Odt) 30 mg DAILY G-TUBE Last administered on 08/29/17 08:37; Start 08/23/17 at 09:00 Artificial Tears (Tears Naturale Opth Soln) 1 drop TID EACH EYE Last administered on 08/29/17 08:38; Start 08/23/17 at 09:00 Ondansetron HCl (Zofran Inj) 4 mg Q6H PRN IV PUSH NAUSEA OR VOMITING; Start at 03:30 Albuterol/ Ipratropium (Duoneb Neb) 1 ampule Q4HR NEB INH Last administered on 08/27/17 03:17; Start 08/23/17 at 04:00; Stop 08/27/17 at 03:59; Status DC Albuterol Sulfate (Albuterol Neb) 2.5 mg Q2HR NEB PRN INH SOB/WHEEZING Last administered on 08/29/17 04:02; Start 08/23/17 at 03:30 Miscellaneous Information 1 [id number] Last administered on 08/23/17 04:33; Start 08/23/17 at 03:30 Chlorhexidine Gluconate (Chlorhexidine 2% Cloth) Taper DAILY@04 TOP Last administered on 08/29/17 04:00; Start 08/23/17 at 04:00; Stop 08/19/18 at 03:59 Chlorhexidine Gluconate (Chlorhexidine 2% Cloth) 3 pack UNSCH PRN TOP HYGIENIC CARE; Start 08/23/17 at 03:30 Senna/Docusate Sodium (Maggy-Colace) 1 tab BID PO Last administered on at 20:43; Start 08/23/17 at 09:00; Stop 08/29/17 at 06:34; Status DC Magnesium Hydroxide (Milk Of Magnesia Liq) 30 ml Q12H PRN PO Mild constipation Last administered on 08/27/17 09:11; Start 08/23/17 at 03:30 Sennosides (Senokot) 17.2 mg Q12H PRN PO Moderate constipation; Start 08/23/17 at 03:30 Bisacodyl (Dulcolax Supp) 10 mg DAILY PRN RECTAL SEVERE CONSITIPATION; Start at 03:30 Lactulose (Lactulose Liq) 30 ml DAILY PRN PO SEVERE CONSITIPATION Last administered on 08/27/17at 09:11; Start 08/23/17 at 03:30 Chlorhexidine Gluconate (Peridex 0.12% Liq) 15 ml BID@08,20 MT Last administered on 08/29/17 08:28; Start 08/23/17 at 08:00 Propofol 100 ml @ 2.286 mls/ hr TITRATE PRN IV SEDATION; Start 08/23/17 at 03: 30 Fentanyl Citrate 250 ml @ 5 mls/hr TITRATE PRN IV SEDATION; Start 08/23/17 at 03:30 Norepinephrine Bitartrate 4 mg/ Sodium Chloride 250 ml @ 7.5 mls/hr TITRATE PRN IV Blood pressure management Last administered on 08/23/17at 11:20; Start at 03:30; Stop 08/27/17 at 14:55; Status DC Terbutaline Sulfate (Brethine Inj) 1 mg UNSCH PRN SQ For Extravasation; Start 08/23/17 at 03:30 Artificial Tears (Tears Naturale Opth Soln) 1 drop Q8HR EACH EYE Last administered on 08/28/17at 05:50; Start 08/23/17 at 06:00; Stop 08/28/17 at 07:04 ; Status DC Thiamine HCl 100 mg/Sodium Chloride 101 ml @ 101 mls/hr DAILY IV Last administered on 08/29/17 08:41; Start 08/23/17 at 09:00 Multivitamins (Theragran) 1 tab DAILY PO Last administered on 08/29/17 08:37; Start 08/23/17 at 09:00 Folic Acid (Folate) 1 mg DAILY PO Last administered on 08/29/17 08:37; Start 08/23/17 at 09:00 Magnesium Sulfate/ Dextrose 100 ml @ 100 mls/hr ONCE ONCE IV Last administered on 08/23/17 06:00; Start 08/23/17 at 06:00; Stop 08/23/17 at 06:59 ; Status DC Magnesium Sulfate/ Dextrose 100 ml @ 100 mls/hr Q1H IV Last administered on 08:21; Start 08/23/17 at 06:00; Stop 08/23/17 at 07:59; Status DC Potassium Chloride 100 ml @ 25 mls/hr Q4H IV ; Start 08/23/17 at 06:00; Stop at 13:59; Status DC Potassium Chloride (KCl Powder) 20 meq ONCE ONCE PO ; Start 08/23/17 at 06:00; Stop 08/23/17 at 06:01; Status DC Calcium Gluconate (Calcium Gluconate Inj) 1 gm NOW ONCE IV PUSH Last administered on 08/23/17at 06:01; Start 08/23/17 at 06:00; Stop 08/23/17 at 06:01 ; Status DC Acetazolamide Sodium (Diamox Inj) 500 mg DAILY IV PUSH Last administered on at 11:28; Start 08/23/17 at 09:30; Stop 08/24/17 at 07:18; Status DC Lorazepam (Ativan Inj) 1 mg Q15M PRN IV PUSH seizures Last administered on 08/23 15:42; Start 08/23/17 at 15:15 Levetriacetam 500 mg/Sodium Chloride 105 ml @ 420 mls/hr Q6HR IV Last administered on 08/29/17 06:00; Start 08/23/17 at 18:00 Fosphenytoin Sodium 1000 mgpe/ Sodium Chloride 70 ml @ 280 mls/hr ONCE ONCE IV Last administered on 4/18/18at 16:54; Start 08/23/17 at 16:30; Stop at 16:44; Status DC Fosphenytoin Sodium (Cerebyx Inj) 100 mgpe Q8HR IV Last administered on at 06:00; Start 08/23/17 at 22:00 Potassium Chloride/Sodium Chloride 1,000 ml @ 42 mls/hr [id number] IV Last administered on 08/25/17at 08:38; Start 08/24/17 at 07:15; Stop 08/25/17 at 12:28 ; Status DC Nicardipine HCl 50 mg/Sodium Chloride 500 ml @ 50 mls/hr TITRATE PRN IV Blood Pressure Management Last administered on 08/27/17at 13:04; Start 08/25/17 at 11: 00 Potassium Chloride 30 meq/ Lactated Ringer's 1,015 ml @ 42 mls/hr Q24H IV Last administered on 08/27/17at 13:49; Start 08/25/17 at 13:00; Stop 08/27/17 at 18:30; Status DC Labetalol HCl (Trandate Inj) 20 mg Q15M PRN IV PUSH sbp > 140 Last administered on 08/27/17at 13:49; Start 08/26/17 at 01:45; Stop 08/28/17 at 07:04 ; Status DC Hydralazine HCl (Apresoline Inj) 10 mg Q30M PRN IV PUSH sbp > 140 Last administered on 08/27/17at 12:26; Start 08/26/17 at 01:45; Stop 08/28/17 at 07:04 ; Status DC Norepinephrine Bitartrate 4 mg/ Sodium Chloride 250 ml @ 7.5 mls/hr TITRATE PRN IV Blood pressure management Last administered on 08/29/17at 02:48; Start at 15:00 Hydralazine HCl (Apresoline Inj) 10 mg Q1HR PRN IV PUSH SBP>140, DBP>90; Start 08/28/17 at 07:15 Labetalol HCl (Trandate Inj) 10 mg Q1HR PRN IV PUSH SBP>140, DBP>90, HR>65; Start 08/28/17 at 07:15 Metoclopramide HCl (Reglan Inj) 5 mg Q8HR IV PUSH Last administered on 06:45; Start 08/28/17 at 14:00; Stop 08/29/17 at 06:44; Status DC Sodium Chloride 500 ml @ 500 mls/hr BOLUS ONCE IV Last administered on 08:25; Start 08/28/17 at 07:00; Stop 08/28/17 at 07:59; Status DC Polyethylene Glycol (Miralax) 17 gm BID NG Last administered on 08/29/17 08:37 ; Start 08/28/17 at 09:00 Lactulose (Lactulose Liq) 30 ml QID PO Last administered on 08/29/17 08:37; Start 08/28/17 at 09:00 Mineral Oil (Kondremul Liq) 30 ml ONCE ONCE PO Last administered on 08/28/17 08:53; Start 08/28/17 at 07:15; Stop 08/28/17 at 07:23; Status DC Methylnaltrexone Epps (Relistor Inj) 12 mg ONCE ONCE SQ Last administered on 08/28/17 08:53; Start 08/28/17 at 07:15; Stop 08/28/17 at 07:22; Status DC Glycerin (Glycerin Adult Supp) 2 gm ONCE ONCE RECTAL Last administered on 08/28 08:53; Start 08/28/17 at 07:15; Stop 08/28/17 at 07:21; Status DC Albuterol Sulfate (Albuterol Neb) 2.5 mg Q12HR NEB NEB ; Start 08/28/17 at 08: 00; Status Cancel Ipratropium Epps (Atrovent Neb) 0.5 mg Q6HR ALT NEB NEB Last administered on 08/29/17at 08:34; Start 08/28/17 at 07:00 Acetaminophen (Tylenol 650 Mg/ 20 ml Liq) 650 mg Q6H PRN PO Fever; Start at 07:30 Potassium Chloride (KCl Powder) 20 meq DAILY NG Last administered on 08/28/17 08:25; Start 08/28/17 at 09:00 Albuterol Sulfate (Albuterol Neb) 2.5 mg Q6HR ALT NEB NEB Last administered on 08/29/17at 00:29; Start 08/28/17 at 13:00; Stop 08/29/17 at 07:48; Status DC Magnesium Sulfate/ Dextrose 100 ml @ 100 mls/hr ONCE ONCE IV Last administered on 08/28/17at 14:52; Start 08/28/17 at 15:00; Stop 08/28/17 at 15:59 ; Status DC Magnesium Sulfate/ Dextrose 100 ml @ 100 mls/hr Q1H IV ; Start 08/28/17 at 15: 00; Stop 08/28/17 at 16:59; Status DC Sodium Phosphate 15 mmol/Sodium Chloride 155 ml @ 38.75 mls/ hr ONCE ONCE IV ; Start 08/28/17 at 15:00; Stop 08/28/17 at 18:59; Status DC Magnesium Citrate (Citroma Liq) 150 ml ONCE ONCE DOBHOFF Last administered on 08/28/17at 18:02; Start 08/28/17 at 17:00; Stop 08/28/17 at 17:04; Status DC Dextrose 1,000 ml @ 50 mls/hr Q20H IV Last administered on 08/29/17at 00:30; Start 08/29/17 at 00:30; Stop 08/29/17 at 06:34; Status DC Furosemide (Lasix Inj) 40 mg ONCE ONCE IV PUSH Last administered on 08/29/17at 06:30; Start 08/29/17 at 06:30; Stop 08/29/17 at 06:32; Status DC Docusate Sodium (Colace Liq) 100 mg Q12HR PO Last administered on 08/29/17at 08: 37; Start 08/29/17 at 09:00 Sennosides (Senna Liq) 8.8 mg Q12HR PO Last administered on 08/29/17at 08:38; Start 08/29/17 at 09:00 Methylnaltrexone Epps (Relistor Inj) 12 mg ONCE ONCE SQ Last administered on 08/29/17at 08:28; Start 08/29/17 at 06:45; Stop 08/29/17 at 06:46; Status DC Glycerin (Glycerin Adult Supp) 2 gm ONCE ONCE RECTAL Last administered on 08/29at 08:01; Start 08/29/17 at 06:45; Stop 08/29/17 at 06:46; Status DC Metoclopramide HCl (Reglan Inj) 10 mg Q8HR IV PUSH ; Start 08/29/17 at 14:00 Atropine Sulfate (Atropine Inj) 1 mg ONCE ONCE IV PUSH ; Start 08/29/17 at 06: 45; Stop 08/29/17 at 06:52; Status DC Neostigmine Methylsulfate (Prostigmin Inj) 2 mg ONCE ONCE SQ Last administered on 08/29/17at 08:50; Start 08/29/17 at 06:45; Stop 08/29/17 at 06:53 ; Status DC Erythromycin (Erythromycin Ec) 250 mg TIDAC PO ; Start 08/29/17 at 08:00; Stop 08/29/17 at 08:28; Status DC Sodium Chloride 154 meq/Dextrose 1,038.5 ml @ 50 mls/hr [id number] IV Last administered on 08/29/17at 08:00; Start 08/29/17 at 06:45 Mineral Oil (Kondremul Liq) 30 ml ONCE ONCE PO Last administered on 08/29/17at 08:01; Start 08/29/17 at 06:45; Stop 08/29/17 at 06:53; Status DC Magnesium Citrate (Citroma Liq) 150 ml ONCE ONCE PO Last administered on at 08:01; Start 08/29/17 at 06:45; Stop 08/29/17 at 06:53; Status DC Albuterol Sulfate (Albuterol Neb) 2.5 mg Q8HR ALT NEB NEB ; Start 08/29/17 at 12:00 Potassium Chloride (KCl Powder) 20 meq ONCE ONCE PO Last administered on at 08:39; Start 08/29/17 at 08:30; Stop 08/29/17 at 08:31; Status DC Potassium Chloride 100 ml @ 25 mls/hr BOLUS ONCE IV Last administered on 08/29at 08:53; Start 08/29/17 at 08:30; Stop 08/29/17 at 12:29 Erythromycin Ethylsuccinate (Ees 200 Mg/5 ml Liq) 250 mg TIDAC PO Last administered on 08/29/17at 08:52; Start 08/29/17 at 08:28 Attending Statement Her condition is irreversible, and there is no chance for meaningful recovery at this time. She is not a surgical candidate. I cannot be enthusiastic recommending a neurosurgical intervention. She is undergoing medical treatment cerebral blood flow study. CBF showed a trickle of flow through the sagital sinus Pulmonary. Continue aggressive pulmonary toilette, nasotracheal suction, and breathing treatments with nebulizers. Daily PT and OT Renal. Continue to monitor closely urine output, BUN and creatinine Endocrine. Continue to Monitor serial Acu checks and SSI as needed in detail ID continue to monitor for signs of infection Continue Protonix for stress ulcer prophylaxis Continue Lc hose and SCD's for DVT prophylaxis Further recommendations will be provided depending on the patient's clinical evaluation and follow up studies. Discussed with Dr Carmona who is in agreement Frederick Valencia MD Aug 29, 2017 11:05
[2017-08-29] MEDS ORDERED: RESP: ALBUTEROL 2.5 MG/3 ML NEB (SCH) NEB ×2 (12:00)
[2017-08-29] MEDS ORDERED: RESP: IPRATROPIUM 0.5 MG/2.5 ML NEB NEB SCH (16:00)
[2017-08-30] VITALS (17 sets, daily range): BP systolic 107–128; BP diastolic 55–61; PULSE 66–94; RESP 14; TEMP 96.1–101.1; O2SAT 93–100
[2017-08-30] MEDS: SODIUM CHLOR 0.9% 1000 ML INJ 1,000 ML IV SCH ×3 (00:15→17:09)
[2017-08-30] MEDS: levETIRAcetam INJ 500 MG in SODIUM CHLORIDE 0.9% INJ 100 ML IV SCH ×5 (00:19→23:34)
[2017-08-30] MEDS: NOREPINEPHRINE INJ 4 MG in SODIUM CHLOR 0.9% 250 ML INJ 246 ML IV PRN ×3 (03:17→21:09)
[2017-08-30] MEDS: SODIUM CHLORIDE 23.4% INJ 154 MEQ in DEXTROSE 10% INJ 1,000 ML IV SCH ×2 (03:32→23:34)
[2017-08-30] MEDS: CHLORHEXIDINE GLUCONATE 2 % 1 PACK (2 CLOTHS) TOP SCH (03:34)
[2017-08-30] MEDS: RESP: IPRATROPIUM 0.5 MG/2.5 ML NEB NEB SCH ×3 (03:35→19:48)
[2017-08-30 05:02] LABS: AUTOMATED NEUTROPHIL # 12.6 TH/MM3 (1.8-7.7); BASOPHIL % 0.3 % (0.0-2.0); EOSINOPHIL # 0.1 TH/MM3 (0-0.4); EOSINOPHIL % 0.8 % (0.0-4.0); HEMOGLOBIN 9.3 GM/DL (11.6-15.3); LYMPHOCYTE # 1.2 TH/MM3 (1.0-4.8); MEAN CELL VOLUME 89.2 FL (80.0-100.0); MEAN CORPUSCULAR HEMOGLOBIN 29.7 PG (27.0-34.0); MEAN CORPUSCULAR HGB CONC 33.3 % (32.0-36.0); MEAN PLATELET VOLUME 9.1 FL (7.0-11.0); MONO % 7.9 % (0.0-8.0); MONOCYTE # 1.2 TH/MM3 (0-0.9); PLATELET COUNT 281 TH/MM3 (150-450); RED BLOOD COUNT 3.14 MIL/MM3 (4.00-5.30); RED CELL DISTRIBUTION WIDTH 14.1 % (11.6-17.2); WHITE BLOOD COUNT 15.1 TH/MM3 (4.0-11.0)
[2017-08-30 05:27] LABS: ALBUMIN 1.3 GM/DL (3.4-5.0); AST (GOT) 44 U/L (15-37); BICARBONATE 22.6 MEQ/L (21.0-32.0); BLOOD UREA NITROGEN 12 MG/DL (7-18); CALCIUM 7.7 MG/DL (8.5-10.1); CHLORIDE 127 MEQ/L (98-107); CREATININE 1.04 MG/DL (0.50-1.00); GLOMERULAR FILTRATION RATE 56 ML/MIN (>89); GLUCOSE,RANDOM 103 MG/DL (74-106); MAGNESIUM 1.8 MG/DL (1.5-2.5); SODIUM (NA) 155 MEQ/L (136-145)
[2017-08-30 05:29] LABS: ALT (GPT) 17 U/L (10-53); PHOSPHORUS 4.6 MG/DL (2.5-4.9)
[2017-08-30 05:31] LABS: ALKALINE PHOSPHATASE 105 U/L (45-117); TOTAL BILIRUBIN ADULT 0.2 MG/DL (0.2-1.0)
[2017-08-30] MEDS: INSULIN NovoLIN REGULAR SUPPLEMENTAL SCALE SQ SCH ×4 (05:39→18:00)
[2017-08-30] MEDS: FOSPHENYTOIN SODIUM 100 MG PE/2 ML VIAL IV SCH ×3 (05:40→21:08)
[2017-08-30] MEDS: METOCLOPRAMIDE HCL 10 MG/2 ML VIAL IV PUSH SCH ×3 (05:41→21:08)
--- NOTE | 2017-08-30 05:58 | RADRPT ---
EXAM DATE/TIME: 08/30/2017 05:10 [facility] COMPARISON: CHEST SINGLE AP, August 29, 2017, 4:46. INDICATIONS : Shortness of breath. MEDICAL HISTORY : Non-responsive SURGICAL HISTORY : Non-responsive ENCOUNTER: Subsequent ACUITY: 1 week PAIN SCORE: Non-responsive. LOCATION: Bilateral chest FINDINGS: Endotracheal tube in good position. NG and temperature probe within the esophagus. Left central line in superior vena cava. Bilateral mostly basilar airspace consolidation. Small effusions. No pneumotho rax. CONCLUSION: 1. Apparatus in good position. Basilar airspace disease similar to August 29. Regan Awan MD on August 30, 2017 at 5:54 Board Certified Radiologist. This report was verified electronically.
[2017-08-30] MEDS: POTASSIUM CHLOR 40 MEQ PREMIX 100 ML IV SCH ×2 (06:30→08:18)
--- NOTE | 2017-08-30 06:42 | HHI.CCPN ---
Subjective Remarks/Hospital Course This is a 52-year-old female. Actually name is Casandra Deluca. Date of admission 08/23/2017. Past medical history is unremarkable including Dr. Prather spoke with uncle. Patient was in her normal state of health today until approximately 3 PM on Monday and then developed acute onset of nausea associated with vomiting and complained of not feeling well. At approximately 1800 hrs., she took a one-time dose of ibuprofen and fell asleep on the couch. Early this a.m., and just prior to arrival to the emergency department awake and vomiting and then became unresponsive. Uncle states there was no injury or trauma he assisted her to the floor and because she was vomiting rolled her over so that she would not aspirate her emesis. Due to instability patient received 20 mg etomidate, 5 mg midazolam and 70 mg succinylcholine was intubated by ED physician. CT brain revealed a large left frontal parenchymal hemorrhage with diffuse intraventricular blood [address] Valencia /neurosurgery was notified. Recommended 50 g mannitol still hyperventilating he will evaluate the patient. [facility] [employer]ender were asked to admit. 08/23 0930 hours: Continued deterioration in neurological exam with absent peripheral reflexes and minimal cough. No Doll's eyes present. Mildly alkalotic , will correct to facilitate apnea test tomorrow. 08/24: Appears to withdraw left foot this morning mild cough response. Breathes strongly over ventilator with slight hyperventilation. Otherwise unresponsive. About 6 x 5 cm area of hemorrhage persists in the left hemisphere with considerable intraventricular blood. Ventricles starting to dilate. Vasogenic edema and surrounding normal brain. 08/25: No improvement in neurologic function. Persistent severe neurologic deficit. She lives with her uncle and that appears to be the only available family. She basically took care of her uncle and he appears quite devastated by her illness. Her son is estranged for many years and the uncle says he would not know how to get a hold of him. In a personal conversation with the uncle in the [facility] he specifically stated that the patient and he had an agreement that they would not allow the other to be kept alive with artificial devices if each were irreparably injured. The uncle has expressed that he needs to stop the ventilator but states that he cannot do it. I will ask the palliative care service to assist the uncle in his decision involving her care plan. 08/26: Devastating neurological injury. Largely unresponsive with the exception of withdrawal of her feet to noxious stimulation. Her uncle is still deciding care plan. 08/27: No improvement in neurologic function. Withdrawal response and lower extremities persists. Convert to APRV ventilator mode to maintain lung recruitment. 08/28: Positive cough. Currently does not bilateral lower extremities. Decreased urine output noted. Increasing gastric distention with 800 cc via NG tube. Right pupil 4 mm. Left pupil 6 mm. 08/29: High residuals overnight. Started on D10 normal saline at 50 cc an hour by overnight x ray inspector due to hypoglycemia. No bowel movement since admission. Remains on xiomara hugger. 1250 cc urine output overnight. Abdomen became more distended. Brain flow scan revealed some flow in the sagittal sinuses. Subjective 08/30: T-max 101.1. Awaiting first son's decision whether he is able to make it here for compassionate withdrawal and timing. 3 bowel movements past 24 hours. Not tolerating tube feeding. Patient has leukocytosis today. Objective Vital Signs Date Time Temp Pulse Resp B/P (MAP) Pulse Ox O2 Delivery O2 Flow Rate FiO2 08/30/17 06:00 85 08/30/17 04:01 100 50 08/30/17 04:00 101.1 14 128/61 (83) 08/29/17 19:00 Mechanical Ventilator Intake and Output 08/30/17 08/30/17 08/31/17 08:00 16:00 00:00 Intake Total 2220 ml Output Total 1650 ml Balance 570 ml Result Diagram: 08/30/17 0445 08/30/17 0445 Imaging Last Impressions Chest X-Ray 08/30/17 0600 Signed Impressions: Service Date/Time: Wednesday, August 30, 2017 05:10 - CONCLUSION: 1. Apparatus in good position. Basilar airspace disease similar to August 29. Regan Awan MD Abdomen X-Ray 08/29/17 0930 Signed Impressions: Service Date/Time: Tuesday, August 29, 2017 09:34 - CONCLUSION: 1. NGT in the stomach. 2. Paucity of bowel gas. This finding is nonspecific but may rarely be seen with diffusely fluid-filled bowel loops. Roldan Ambrosio MD Brain Flow Nuclear Medicine 08/28/17 0000 Signed Impressions: Service Date/Time: Monday, August 28, 2017 15:57 - CONCLUSION: Small amount of flow in the sagittal sinus. Jamey Sears MD Head CT 08/24/17 0600 Signed Impressions: Service Date/Time: August 04:27 - CONCLUSION: Diffuse intraventricular hemorrhage and left frontal lobe parenchymal hemorrhage again noted. Intraventricular blood has increased and there is mild to moderate ventriculomegaly. 9 mm of rightward midline shift, slightly improved. Saeid Choi MD Neck CTA 08/23/17 0157 Signed Impressions: Service Date/Time: Wednesday, August 23, 2017 02:26 - CONCLUSION: Normal carotid arteries. Saeid Choi MD Head CTA 08/23/17 0157 Signed Impressions: Service Date/Time: Wednesday, August 23, 2017 02:26 - CONCLUSION: No perceptible aneurysm or enhancing mass. Saeid Choi MD Cervical Spine CT 08/23/17 0000 Signed Impressions: Service Date/Time: Wednesday, August 23, 2017 02:08 - CONCLUSION: 1. No fracture or acute appearing malalignment of the cervical spine. 2. Degenerative changes as above. Saeid Choi MD Objective Remarks GENERAL: 52-year-old female currently orotracheally intubated, SKIN: Warm and dry. HEAD: Atraumatic. Normocephalic. EYES: Right pupil is 4 mm in size. Left pupil is 6 mm and nonreactive. No scleral icterus or drainage. Positive scleral edema ENT: No nasal bleeding or discharge. Mucous membranes pink and moist. OG tube in place to low intermittent wall suction NECK: Trachea midline. Orally intubated. No JVD or thyromegaly. CARDIOVASCULAR: RRR. S1, S2. No S4. Without murmur RESPIRATORY: Diminished breath sounds in the bases left greater than right. No wheezing. GASTROINTESTINAL: Abdomen more distended and protuberant the same. Very hypoactive bowel sounds are appreciated. MUSCULOSKELETAL: Extremities with 1-2+ bilateral upper and lower extremity edema /anasarca. Dopplerable pulse to right radial. No obvious deformities. NEUROLOGICAL: Unresponsive. Unreactive toes. No cough the same. No gag. Currently no withdrawal response left or right foot. Pupils as above. Urinary Catheter: Yes Assessment to: Continue Dumont insert reason: ICU Pt Getting Diuretics Vascular Central Line Catheter: Yes Assessment to: Continue Date of Insertion: Aug 23, 2017 Line: Central Venous Catheter Side: Left Location: Internal, Jugular A/P Assessment and Plan Neuro/Psych: Large left frontal lobe parenchymal hemorrhage with intraventricular blood with associated 11 mm shift from right to left. Seizure THC use CT brain revealed 4.85.9 cm left frontoparietal hemorrhage with surrounding cerebral edema and 11 mm right which midline shift. Hemorrhage extends to the ventricles. Negative CT angiogram the brain. Dr. Valencia/neurosurgery following. Recommended mannitol 50 g IV 1, hyperventilation on admission Repeat brain CT 08/24 revealed mild to moderate amount of blood/increased intraventricular hemorrhage with evolving left frontal parenchymal hemorrhage. Slight improvement of hemorrhage shift to 9 mm right to left. EEG - Markedly abnormal EEG because of a burst suppression pattern, with mild asymmetry/asynchronous, but the findings overall suggest a severe diffuse disturbance of cerebral function, No epileptiform features present. UDS + THC/Benzos Nuclear medicine brain flow scan with some flow in the sagittal sinus Hypertonic saline with goal sodium 150-155 currently on hold Mannitol 12.5 g IV every 8 hours. Hold if osm > greater than 310. Currently 311 Currently off 3% saline Seizures have ceased on levetiracetam 500 mg IV every 6 hours and fosphenytoin 100 mg every 8 hours. Phenytoin level 14.8. Repeat in a.m. 08/[address] Garcia/Neurology Written for propofol/fentanyl drips as needed for sedation/analgesia while intubated Acetaminophen 650 mg by tube every 6 hours as needed fever CV: Hypertensive emergency Nicardipine drip to keep systolic blood pressure less than 140 with as needed labetalol/hydralazine Norepinephrine drip currently at 4 mcg/min to keep systolic blood pressure greater than 110 Currently normal saline 50 cc an hour in D10 normal saline at 50 cc an hour due to hypoglycemia Resp: Acute respiratory failure secondary to large parenchymal hemorrhage PRVC 14/500/05/13/49 Ventilator bundle Albuterol and ipratropium aerosols every alternate nebs 8 hours with albuterol aerosols every 2 hours as needed dyspnea Spontaneous breathing trials when clinically indicated A.m. chest x-ray 08/30 reveals stable bilateral lower lobe infiltrates GI: Constipation Elevated AST Hypoalbuminemia Vital 1.5 goal 45 cc an hour per nutrition's recommendation currently on hold due to high residuals OG tube to low intermittent wall suction Lansoprazole 30 mg daily for GI prophylaxis Docusate sodium 100 cc twice daily/senna liquid 8.8 mg tablet twice daily for bowel regimen, polythene glycol 17 g twice daily, lactulose 30 cc 4 times daily Check KUB this a.m. 08/28 with nonobstructive bowel gas pattern. On metoclopramide 10 mg 3 times daily and erythromycin 250 mg 3 times daily prokinetic : Dumont catheter for accurate I's and O's in a critically ill patient Endo: Sliding scale insulin Novulin R with Accu-Cheks every 6 hours to maintain euglycemia/medium protocol Pending TSH was 2.33 Renal: Currently slightly elevated 1.04 Monitor urine output Accurate I's and O's Heme: Leukocytosis Normocytic anemia Monitor CBC daily. Follow trends ID: Monitor for infection Blood cultures 2, sputum and UA ordered 08/30 MSK: PT/OT evaluate and treat FEN: Hypernatremia Hypokalemia 80 mEq KCl, 2 g mag sulfate IV times now. Recheck in a.m. Replace electrolytes per ICU electrolyte protocol Electrolyte replacement protocol, add potassium. Access -Left IJ CVL day #8 placed 08/23 -Right dorsalis pedis arterial line placed 08/[address] Carl day #6 Prophylaxis -GI -lansoprazole -DVT -SCD/holding pharmacological prophylaxis until okayed with neurosurgery Level 2 follow-up Sami Carmona MD Aug 30, 2017 06:42
[2017-08-30] MEDS: MAGNESIUM SULFATE 1 GM PREMIX 100 ML IV SCH ×2 (07:30→08:44)
[2017-08-30] MEDS: ERYTHROMYCIN ETHYLSUCCINATE 200 MG/5 ML SUSP 100 ML BOTTLE PO SCH ×3 (08:00→17:00)
[2017-08-30] MEDS: CHLORHEXIDINE 0.12% (ORAL KIT) 15 ML CUP MT SCH ×2 (08:00→20:39)
[2017-08-30] MEDS: ARTIFICIAL TEARS OPTH SOLN 15 ML BTL EACH EYE SCH ×3 (08:45→18:00)
[2017-08-30] MEDS: LACTULOSE SYRUP 20 GM/30 ML CUP PO SCH ×4 (08:47→20:40)
[2017-08-30] MEDS: LANSOPRAZOLE SOLUTAB 30 MG TAB G-TUBE SCH (08:47)
[2017-08-30] MEDS: FOLIC ACID 1 MG TAB PO SCH (08:47)
[2017-08-30] MEDS: DOCUSATE SODIUM 100 MG/10 ML UDC PO SCH ×2 (08:47→20:40)
[2017-08-30] MEDS: MULTIVITAMIN TAB PO SCH (08:47)
[2017-08-30] MEDS: SENNOSIDES SYRUP 8.8 MG/5 ML CUP PO SCH ×2 (08:48→20:40)
[2017-08-30] MEDS: POTASSIUM CHLORIDE 20 MEQ PWD PACKET NG SCH (08:48)
[2017-08-30] MEDS: POLYETHYLENE GLYCOL 17 GM PKG NG SCH ×2 (08:48→20:40)
[2017-08-30] MEDS: SODIUM CHLORIDE 0.9% FLUSH 10 ML FLUSH IV FLUSH SCH ×3 (08:49→20:40)
[2017-08-30] MEDS: THIAMINE INJ 100 MG in SODIUM CHLORIDE 0.9% INJ 100 ML IV SCH (08:49)
--- NOTE | 2017-08-30 09:28 | HHI.NSPN ---
(Darrin Luna) History Chief Complaint: Unable to obtain due to patient's clinical condition. (Darrin Luna) Interval History 08/30/17: Pt off sedation. No eyes opening. No response to pain. Left pupil 5mm right 4.5 mm NR bilaterally. No cough. No gag. No corneal response bilaterally. Intubated PRVC A/C rate 14 no spontaneous breaths over vent. (Darrin Luna) System Review Comments Not able to obtain given clinical condition. (Darrin Luna) Exam Results Vital Signs Date Time Temp Pulse Resp B/P (MAP) Pulse Ox O2 Delivery O2 Flow Rate FiO2 08/30/17 08:26 93 40 08/30/17 06:00 85 08/30/17 04:00 101.1 14 128/61 (83) 08/29/17 19:00 Mechanical Ventilator Intake and Output 08/30/17 08/30/17 08/31/17 08:00 16:00 00:00 Intake Total 2220 ml Output Total 1650 ml Balance 570 ml (Darrin Luna) Physical Examination General: Pt intubated in bed unresponsive to stimulation off sedatives. Eyes: Pupils left 5mm right 4.5mm No reaction bilaterally. Sclera anicteric. Resp: Intubated. CTA bilaterally. No spontaneous breaths over vent. No cough or gag reflex. Heart: NSR no murmurs Abd: Soft positive bs diminished. Skin: No cyanosis or erythema. Muscle: No response to pain. Neuro: Pt off sedation. Not opening eyes. Pupils left 5mm right 4.5mm, no reaction bilaterally. Not following commands. No corneal response bilaterally. No cough or gag reflex. (Darrin Luna) Lab, Micro, Other Results Last Impressions Chest X-Ray 08/30/17 0600 Signed Impressions: Service Date/Time: Wednesday, August 30, 2017 05:10 - CONCLUSION: 1. Apparatus in good position. Basilar airspace disease similar to August 29. Regan Awan MD Abdomen X-Ray 08/29/17 0930 Signed Impressions: Service Date/Time: Tuesday, August 29, 2017 09:34 - CONCLUSION: 1. NGT in the stomach. 2. Paucity of bowel gas. This finding is nonspecific but may rarely be seen with diffusely fluid-filled bowel loops. Roldan Ambrosio MD Brain Flow Nuclear Medicine 08/28/17 0000 Signed Impressions: Service Date/Time: Monday, August 28, 2017 15:57 - CONCLUSION: Small amount of flow in the sagittal sinus. Jamey Sears MD Head CT 08/24/17 0600 Signed Impressions: Service Date/Time: August 04:27 - CONCLUSION: Diffuse intraventricular hemorrhage and left frontal lobe parenchymal hemorrhage again noted. Intraventricular blood has increased and there is mild to moderate ventriculomegaly. 9 mm of rightward midline shift, slightly improved. Saeid Choi MD Neck CTA 08/23/17 0157 Signed Impressions: Service Date/Time: Wednesday, August 23, 2017 02:26 - CONCLUSION: Normal carotid arteries. Saeid Choi MD Head CTA 08/23/17 0157 Signed Impressions: Service Date/Time: Wednesday, August 23, 2017 02:26 - CONCLUSION: No perceptible aneurysm or enhancing mass. Saeid Choi MD Cervical Spine CT 08/23/17 0000 Signed Impressions: Service Date/Time: Wednesday, August 23, 2017 02:08 - CONCLUSION: 1. No fracture or acute appearing malalignment of the cervical spine. 2. Degenerative changes as above. Saeid Choi MD Laboratory Tests Test 08/30/17 04:45 White Blood Count 15.1 TH/MM3 Red Blood Count 3.14 MIL/MM3 Hemoglobin 9.3 GM/DL Hematocrit 28.0 % Mean Corpuscular Volume 89.2 FL Mean Corpuscular Hemoglobin 29.7 PG Mean Corpuscular Hemoglobin Concent 33.3 % Red Cell Distribution Width 14.1 % Platelet Count 281 TH/MM3 Mean Platelet Volume 9.1 FL Neutrophils (%) (Auto) 83.0 % Lymphocytes (%) (Auto) 8.0 % Monocytes (%) (Auto) 7.9 % Eosinophils (%) (Auto) 0.8 % Basophils (%) (Auto) 0.3 % Neutrophils # (Auto) 12.6 TH/MM3 Lymphocytes # (Auto) 1.2 TH/MM3 Monocytes # (Auto) 1.2 TH/MM3 Eosinophils # (Auto) 0.1 TH/MM3 Basophils # (Auto) 0.0 TH/MM3 CBC Comment DIFF FINAL Differential Comment Blood Urea Nitrogen 12 MG/DL Creatinine 1.04 MG/DL Random Glucose 103 MG/DL Total Protein 5.0 GM/DL Albumin 1.3 GM/DL Calcium Level 7.7 MG/DL Phosphorus Level 4.6 MG/DL Magnesium Level 1.8 MG/DL Alkaline Phosphatase 105 U/L Aspartate Amino Transf (AST/SGOT) 44 U/L Alanine Aminotransferase (ALT/SGPT) 17 U/L Total Bilirubin 0.2 MG/DL Sodium Level 155 MEQ/L Potassium Level 3.0 MEQ/L Chloride Level 127 MEQ/L Carbon Dioxide Level 22.6 MEQ/L Anion Gap 5 MEQ/L Estimat Glomerular Filtration Rate 56 ML/MIN (Darrin Luna) Medical Decision Making Impression and Plan A/P: 52 y/o FM with large left intra-cranial hemorrhage, intraventricular hemorrhage Her condition is irreversible, and there is no chance for meaningful recovery at this time. She is not a surgical candidate. I cannot be enthusiastic recommending a neurosurgical intervention. She is undergoing medical treatment cerebral blood flow study. CBF showed a trickle of flow through the sagital sinus Pulmonary. Continue aggressive pulmonary toilette, nasotracheal suction, and breathing treatments with nebulizers. Daily PT and OT Renal. Continue to monitor closely urine output, BUN and creatinine Endocrine. Continue to Monitor serial Acu checks and SSI as needed in detail ID continue to monitor for signs of infection Continue Protonix for stress ulcer prophylaxis Continue Lc hose and SCD's for DVT prophylaxis (Darrin Luna) Attending Statement The exam, history, and the medical decision-making described in the above note were completed with the assistance of the mid-level provider. I reviewed and agree with the findings presented. I attest that I had a [id number] encounter with the patient on the same day, and personally performed and documented my assessment and findings in the medical record. (Chilo Medina MD) Darrin Luna Aug 30, 2017 09:28 Chilo Medina MD Aug 30, 2017 17:40
[2017-08-30] MEDS ORDERED: MAGNESIUM SULFATE 1 GM PREMIX 100 ML IV SCH (09:30)
--- NOTE | 2017-08-30 10:21 | HHI.HCPN ---
Received call from sonMichael late last night. Message states he does not want his father (patient's ex-) or other family members to have any information on Ms. Deluca. At this time he would like information to be filtered through him. Attempted to return his phone call, left message requesting call back. 1230pm-- spoke with sonMichael. He gives approval for staff to speak openly with patient's uncle. Confirms he does not want any information given to anyone else. At this time he states he is still trying to make arrangements to get here. He wants to speak with patient's uncle prior to moving forward with consideration of transition to comfort. Left message with uncle in attempt to coordinate phone conference. Palliative care will continue to follow throughout hospitalization. Sultana Gray, [employer] MA[employer]GER Aug 30, 2017 10:21
[2017-08-30 11:07] LABS: BACTERIA, URINE MOD /hpf; BILIRUBIN, URINE NEG (NEG); BLOOD, URINE SMALL (NEG); GLUCOSE,URINE NEG (NEG); KETONE, URINE NEG (NEG); MUCUS URINE FEW /lpf (OCC); NITRITE,URINE POS (NEG); SQUAMOUS EPITHELIAL CELL URINE 1 /hpf (0-5); URINE COLOR YELLOW (YELLW/STRAW); URINE LEUKOCYTE ESTERASE LARGE (NEG); WHITE BLOOD CELL CLUMPS MOD
[2017-08-30] MEDS: RESP: ALBUTEROL 2.5 MG/3 ML NEB (SCH) NEB ×3 (12:20→23:52)
--- NOTE | 2017-08-30 15:57 | HHI.HCPN ---
Reason for visit a. To assist with evaluation and management of symptoms including: dyspnea, pain. b. To assist medical decision maker(s) with: better understanding of current medical conditions; weighing benefits/burdens of medical treatment options; making medical treatment decisions. . Subjective/Interval History Patient seen and examined in ICU. No family at bedside. Discussed with Dr. Carmona and nurse. Tmax 101. Current temp 96.[address]. Patient remains on mech vent, FiO2 40%. Remains unresponsive off sedation. Labs and imaging reviewed: BP 118/ 57. WBC increased significantly from 6.4 to 15.1 overnight. Albumin 1.3. Sodium 155, potassium 3.0, serum osmolality 319. Urine, blood and sputum cultures pending. Chest xray with stable basilar airspace disease. Patient remains unresponsive. She does not appear painful or short of breath during my visit. . Family/friend interactions 3:30 PM: Call from Andrew Katz, patient's uncle to request medical update. Medical update provided including possible infection and implications of sepsis in this critically ill patient with poor prognosis. I explained that patient's son, Michael verbalized struggling with "signing the papers" for withdrawal of life support. While he verbalizes his mother would not want to be prolonged artificially, he states that he just found her after 15 years in the past 24 hours and how emotionally difficult this is for him. I explained Michael requested earlier today that we provide his #2 the patient's uncle Andrew Katz so that he can speak with him as Mr. Donovan has had prior conversations with patient regarding end-of-life wishes. Mr. Katz indicates he will call for any when we get off the phone. Advised palliative care is here to assist should they have any further questions or concerns. I will attempt to call for any to provide medical update later today. . Advance Directives Living Will: Never completed Health Care Surrogate: Never completed Durable Power of Corporate Relations Director: Never completed Advance Directive Specifics Health Care Surrogate(s): Patient is not capacitated to make her own healthcare decisions, will not regain capacity. No written advanced directives. Single. According to [place] statutes healthcare proxy decision making would fall to the majority of adult children. Reportedly has 1 son. Left message to obtain additional information from uncle, to further clarify healthcare proxy decision making. . Documented care wishes: None in EMR. Significant change in goals: NO CODE. Family considering transition to comfort with withdrawal of life support, son is struggling with making these decisions after finding his mother in less than 24 hours ago after 15 years of being estranged. . Objective Vital Signs Date Time Temp Pulse Resp B/P (MAP) Pulse Ox O2 Delivery O2 Flow Rate FiO2 08/30/17 14:00 72 08/30/17 13:09 95 40 08/30/17 12:24 72 118/57 08/30/17 12:00 50 08/30/17 12:00 74 08/30/17 12:00 96.8 74 14 113/55 (74) 95 08/30/17 10:00 82 08/30/17 08:26 93 40 08/30/17 08:00 97.9 82 14 111/59 (76) 96 08/30/17 08:00 50 08/30/17 08:00 82 08/30/17 07:00 95 Mechanical Ventilator 50 08/30/17 06:00 85 08/30/17 04:01 100 50 08/30/17 04:00 101.1 90 14 128/61 (83) 96 08/30/17 04:00 50 08/30/17 04:00 90 08/30/17 03:17 88 122/56 08/30/17 02:00 92 08/30/17 00:00 100.6 94 14 117/58 (77) 93 08/30/17 00:00 90 08/30/17 00:00 50 08/29/17 23:44 98 50 08/29/17 22:00 90 08/29/17 20:00 97.5 84 14 120/57 (78) 92 08/29/17 20:00 84 08/29/17 20:00 50 08/29/17 19:31 92 50 08/29/17 19:00 92 Mechanical Ventilator 50 08/29/17 18:00 80 08/29/17 16:32 97 40 08/29/17 16:00 95.0 74 14 154/69 (97) 96 08/29/17 16:00 84 08/29/17 16:00 50 Intake & Output 08/30/17 08/30/17 07:00 19:00 Intake Total 2220 ml Output Total 1650 ml Balance 570 ml Intake IV Total 2100 ml Other 120 ml Output Urine Total 1000 ml Gastric Drainage Total 650 ml Physical Exam CONSTITUTIONAL/GENERAL: This is an adequately nourished patient, in no apparent distress. She appears younger than her actual age. TUBES/LINES/DRAINS: ETT, OG, left IJ central line, PIV right, a-line right dorsalis pedis, SCDs. SKIN: No jaundice, rashes, or lesions. Ecchymoses on upper extremities. No wounds seen anteriorly. Skin temperature appropriate. Not diaphoretic. EYES: Pupils unequal, non reactive. ENT: Unable to assess hearing. Nose without bleeding or purulent drainage. Throat difficult to visualize due to tubes. Tongue edematous. CARDIOVASCULAR: Regular rate and rhythm without murmur. RESPIRATORY/CHEST: Diminished breath sounds, scattered course breath sounds. GASTROINTESTINAL: Abdomen distended. Hypoactive bowel sounds. GENITOURINARY: Without palpable bladder distension. MUSCULOSKELETAL: Extremities with increased edema. NEUROLOGICAL: Unresponsive. PSYCHIATRIC: Unresponsive, no sedation. . Diagnostic Tests Laboratory Laboratory Tests Test 08/28/17 04:30 08/28/17 14:50 08/28/17 18:57 08/29/17 06:00 White Blood Count 9.9 TH/MM3 (4.0-11.0) 6.4 TH/MM3 (4.0-11.0) Red Blood Count 3.08 MIL/MM3 (4.00-5.30) 3.32 MIL/MM3 (4.00-5.30) Hemoglobin 9.6 GM/DL (11.6-15.3) 10.0 GM/DL (11.6-15.3) Hematocrit 28.0 % (35.0-46.0) 30.0 % (35.0-46.0) Mean Corpuscular Volume 90.8 FL (80.0-100.0) 90.4 FL (80.0-100.0) Mean Corpuscular Hemoglobin 31.2 PG (27.0-34.0) 30.2 PG (27.0-34.0) Mean Corpuscular Hemoglobin Concent 34.4 % (32.0-36.0) 33.4 % (32.0-36.0) Red Cell Distribution Width 13.8 % (11.6-17.2) 13.9 % (11.6-17.2) Platelet Count 218 TH/MM3 (150-450) 241 TH/MM3 (150-450) Mean Platelet Volume 8.3 FL (7.0-11.0) 9.1 FL (7.0-11.0) Neutrophils (%) (Auto) 72.7 % (16.0-70.0) 79.4 % (16.0-70.0) Lymphocytes (%) (Auto) 13.6 % (9.0-44.0) 12.5 % (9.0-44.0) Monocytes (%) (Auto) 12.6 % (0.0-8.0) 6.5 % (0.0-8.0) Eosinophils (%) (Auto) 0.8 % (0.0-4.0) 1.4 % (0.0-4.0) Basophils (%) (Auto) 0.3 % (0.0-2.0) 0.2 % (0.0-2.0) Neutrophils # (Auto) 7.2 TH/MM3 (1.8-7.7) 5.1 TH/MM3 (1.8-7.7) Lymphocytes # (Auto) 1.3 TH/MM3 (1.0-4.8) 0.8 TH/MM3 (1.0-4.8) Monocytes # (Auto) 1.2 TH/MM3 (0-0.9) 0.4 TH/MM3 (0-0.9) Eosinophils # (Auto) 0.1 TH/MM3 (0-0.4) 0.1 TH/MM3 (0-0.4) Basophils # (Auto) 0.0 TH/MM3 (0-0.2) 0.0 TH/MM3 (0-0.2) CBC Comment DIFF FINAL DIFF FINAL Differential Comment Blood Urea Nitrogen 13 MG/DL (7-18) 13 MG/DL (7-18) Creatinine 0.42 MG/DL (0.50-1.00) 0.68 MG/DL (0.50-1.00) Random Glucose 64 MG/DL (74-106) 87 MG/DL (74-106) Total Protein 5.3 GM/DL (6.4-8.2) 5.0 GM/DL (6.4-8.2) Albumin 1.7 GM/DL (3.4-5.0) 1.3 GM/DL (3.4-5.0) Calcium Level 7.8 MG/DL (8.5-10.1) 8.0 MG/DL (8.5-10.1) Alkaline Phosphatase 66 U/L (45-117) 83 U/L (45-117) Aspartate Amino Transf (AST/SGOT) 41 U/L (15-37) 40 U/L (15-37) Alanine Aminotransferase (ALT/SGPT) 20 U/L (10-53) 18 U/L (10-53) Total Bilirubin 0.2 MG/DL (0.2-1.0) 0.1 MG/DL (0.2-1.0) Direct Bilirubin 0.1 MG/DL (0.0-0.2) Sodium Level 153 MEQ/L (136-145) 155 MEQ/L (136-145) Potassium Level 3.2 MEQ/L (3.5-5.1) 3.7 MEQ/L (3.5-5.1) 3.4 MEQ/L (3.5-5.1) Chloride Level 122 MEQ/L (98-107) 126 MEQ/L (98-107) Carbon Dioxide Level 21.4 MEQ/L (21.0-32.0) 20.2 MEQ/L (21.0-32.0) Anion Gap 10 MEQ/L (5-15) 9 MEQ/L (5-15) Estimat Glomerular Filtration Rate 159 ML/MIN (>89) 91 ML/MIN (>89) Phosphorus Level 2.4 MG/DL (2.5-4.9) 4.7 MG/DL (2.5-4.9) Magnesium Level 1.3 MG/DL (1.5-2.5) 1.9 MG/DL (1.5-2.5) Indirect Bilirubin 0.1 MG/DL (0.0-0.8) Blood Gas Puncture Site ART LINE Blood Gas Patient Temperature 98.6 Blood Gas HCO3 20 mmol/L (22-26) Blood Gas Base Excess -4.0 mmol/L (-2-2) Blood Gas Oxygen Saturation 95 % (90-100) Arterial Blood pH 7.43 (7.380-7.420) Arterial Blood Partial Pressure CO2 30 mmHg (38-42) Arterial Blood Partial Pressure O2 84 mmHg (61-120) Arterial Blood Oxygen Content 13.2 Vol % (12.0-20.0) Arterial Blood Carboxyhemoglobin 1.3 % (0-4) Arterial Blood Methemoglobin 0.9 % (0-2) Blood Gas Hemoglobin 9.8 G/DL (12.0-16.0) Oxygen Delivery Device VENTILATOR Blood Gas Ventilator Setting 15/500/PEEP5 Blood Gas Inspired Oxygen 30 % Serum Osmolality 311 MOSM/KG (275-295) Thyroid Stimulating Hormone 3rd Gen 2.330 uIU/ML (0.358-3.740) Phenytoin (Dilantin) Level 9.3 MCG/ML (10.0-20.0) Test 08/30/17 04:45 08/30/17 08:58 08/30/17 09:40 08/30/17 13:49 White Blood Count 15.1 TH/MM3 (4.0-11.0) Red Blood Count 3.14 MIL/MM3 (4.00-5.30) Hemoglobin 9.3 GM/DL (11.6-15.3) Hematocrit 28.0 % (35.0-46.0) Mean Corpuscular Volume 89.2 FL (80.0-100.0) Mean Corpuscular Hemoglobin 29.7 PG (27.0-34.0) Mean Corpuscular Hemoglobin Concent 33.3 % (32.0-36.0) Red Cell Distribution Width 14.1 % (11.6-17.2) Platelet Count 281 TH/MM3 (150-450) Mean Platelet Volume 9.1 FL (7.0-11.0) Neutrophils (%) (Auto) 83.0 % (16.0-70.0) Lymphocytes (%) (Auto) 8.0 % (9.0-44.0) Monocytes (%) (Auto) 7.9 % (0.0-8.0) Eosinophils (%) (Auto) 0.8 % (0.0-4.0) Basophils (%) (Auto) 0.3 % (0.0-2.0) Neutrophils # (Auto) 12.6 TH/MM3 (1.8-7.7) Lymphocytes # (Auto) 1.2 TH/MM3 (1.0-4.8) Monocytes # (Auto) 1.2 TH/MM3 (0-0.9) Eosinophils # (Auto) 0.1 TH/MM3 (0-0.4) Basophils # (Auto) 0.0 TH/MM3 (0-0.2) CBC Comment DIFF FINAL Differential Comment Blood Urea Nitrogen 12 MG/DL (7-18) Creatinine 1.04 MG/DL (0.50-1.00) Random Glucose 103 MG/DL (74-106) Total Protein 5.0 GM/DL (6.4-8.2) Albumin 1.3 GM/DL (3.4-5.0) Calcium Level 7.7 MG/DL (8.5-10.1) Phosphorus Level 4.6 MG/DL (2.5-4.9) Magnesium Level 1.8 MG/DL (1.5-2.5) 2.1 MG/DL (1.5-2.5) Alkaline Phosphatase 105 U/L (45-117) Aspartate Amino Transf (AST/SGOT) 44 U/L (15-37) Alanine Aminotransferase (ALT/SGPT) 17 U/L (10-53) Total Bilirubin 0.2 MG/DL (0.2-1.0) Sodium Level 155 MEQ/L (136-145) Potassium Level 3.0 MEQ/L (3.5-5.1) 3.5 MEQ/L (3.5-5.1) Chloride Level 127 MEQ/L (98-107) Carbon Dioxide Level 22.6 MEQ/L (21.0-32.0) Anion Gap 5 MEQ/L (5-15) Estimat Glomerular Filtration Rate 56 ML/MIN (>89) Serum Osmolality 319 MOSM/KG (275-295) Urine Color YELLOW (YELLW/STRAW) Urine Turbidity CLOUDY (CLEAR) Urine pH 5.0 (5.0-8.5) Urine Specific [place] 1.010 (1.002-1.035) Urine Protein TRACE mg/dL (NEG-TRACE) Urine Glucose (UA) NEG mg/dL (NEG) Urine Ketones NEG mg/dL (NEG) Urine Occult Blood SMALL (NEG) Urine Nitrite POS (NEG) Urine Bilirubin NEG (NEG) Urine Urobilinogen LESS THAN 2.0 MG/DL (LESS Urine Leukocyte Esterase LARGE (NEG) Urine RBC 27 /hpf (0-3) Urine WBC /hpf (0-5) Urine WBC Clumps MOD (NONE) Urine Squamous Epithelial Cells 1 /hpf (0-5) Urine Bacteria MOD /hpf (NONE) Urine Granular Casts 15 /lpf (NONE) Urine Mucus FEW /lpf (OCC) Microscopic Urinalysis Comment CULTURE INDICATED Result Diagram: 08/30/17 0445 08/30/17 1349 Microbiology Microbiology Date/Time Source Procedure Growth Status 08/30/17 09:03 Blood Peripheral Aerobic Blood Culture Pending Received 08/30/17 09:03 Blood Peripheral Anaerobic Blood Culture Pending Received 08/30/17 09:03 Blood Peripheral Aerobic Blood Culture Pending Received 08/30/17 09:03 Blood Peripheral Anaerobic Blood Culture Pending Received 08/30/17 06:50 Sputum Endotracheal Gram Stain Pending Received 08/30/17 06:50 Sputum Endotracheal Sputum Culture Pending Received 08/30/17 09:40 Urine Catheterized Urine Urine Culture Pending Received Imaging Last Impressions Chest X-Ray 08/30/17 06 Signed Impressions: Service Date/Time: Wednesday, August 30, 2017 05:10 - CONCLUSION: 1. Apparatus in good position. Basilar airspace disease similar to August 29. Regan Awan MD Abdomen X-Ray 08/29/17 0930 Signed Impressions: Service Date/Time: Tuesday, August 29, 2017 09:34 - CONCLUSION: 1. NGT in the stomach. 2. Paucity of bowel gas. This finding is nonspecific but may rarely be seen with diffusely fluid-filled bowel loops. Roldan Ambrosio MD Brain Flow Nuclear Medicine 08/28/17 0000 Signed Impressions: Service Date/Time: Monday, August 28, 2017 15:57 - CONCLUSION: Small amount of flow in the sagittal sinus. Jamey Sears MD Head CT 08/24/17 0600 Signed Impressions: Service Date/Time: August 04:27 - CONCLUSION: Diffuse intraventricular hemorrhage and left frontal lobe parenchymal hemorrhage again noted. Intraventricular blood has increased and there is mild to moderate ventriculomegaly. 9 mm of rightward midline shift, slightly improved. Saeid Choi MD Neck CTA 08/23/17156 Signed Impressions: Service Date/Time: Wednesday, August 23, 2017 02:26 - CONCLUSION: Normal carotid arteries. Saeid Choi MD Head CTA 08/23/17156 Signed Impressions: Service Date/Time: Wednesday, August 23, 2017 02:26 - CONCLUSION: No perceptible aneurysm or enhancing mass. Saeid Choi MD Cervical Spine CT 08/23/17 0000 Signed Impressions: Service Date/Time: Wednesday, August 23, 2017 02:08 - CONCLUSION: 1. No fracture or acute appearing malalignment of the cervical spine. 2. Degenerative changes as above. Saeid Choi MD . Procedures * 08/23/17 - A line placement. * 08/23/17 - left IJ central line placement. * 08/23/17 - Intubated. . Assessment and Plan Disease Oriented Problem List: (1) Leukocytosis (2) Acute respiratory failure (3) Intraparenchymal hemorrhage of brain (4) HTN (hypertension) Symptom Scale: (1) Pain 0-10 Scale: Unable to quantify Comment: secondary to intracranial hemorrhage, tubes/lines,etc. (2) Dyspnea 0-10 Scale: Unable to quantify Comment: On mechanical ventilation Pertinent Non-Medical Issues Psychosocial: Spiritual: Legal: Ethical issues impacting care: Important Contacts * Michael Barnes, son/HCP: [phone] (lives in [place]) * Adnrew Katz, uncle: [phone] (lives [facility]) . Prognosis Per Dr. Valencia, neurosurgery was consulted; his note states "this patient has suffered a devastating injury in his dominant hemisphere with clinical evidence of uncal herniation. Her condition is irreversible, and there is no chance for meaningful recovery at this time. She is not a surgical candidate." . Code Status: No Code Plan * Patient is not capacitated to make her own healthcare decisions, will not regain capacity. No written advanced directives. Single. According to [place] statutes healthcare proxy decision making would fall to the majority of adult children. Reportedly has 1 son, Michael Barnes is willing to serve as HCP. * NO CODE * 08/30/17 - Son is struggling with having just found his mother on 08/29/17 after 15 years of being estranged and being faced with making decisions to transition to comfort. * Uncle Andrew Moreno has been update, Michael's number has been provided and they plan to talk. Mr. Kinney said he will call Michael 08/30/17. * Exhibits B & C on chart, signed by Dr. Contreras and Dr. Carmona. Exhibit sent to sonMichael for signature if he is unable to come to [place]. * Discussed with nurse and Dr. Carmona. * SYMPTOMS: Pain: secondary to intracranial hemorrhage, tubes/lines,etc. Dyspnea : On mechanical ventilation. No new medication recommendations at this time. * Palliative care will continue to follow to assist with communication, symptom management and further clarification of medical treatment goals throughout hospital course. . Attestation To help prompt me to consider important information that might be impacting today's encounter and assessment, information from prior notes written by myself or my colleagues may have been "brought forward" into today's note. My signature on this note, however, is an attestation that I personally performed the exam, history, and/or decision-making noted today, and, unless otherwise indicated, the interactions with patient, family, and staff as well as the review of records all occurred today. I also attest that the listed assessment and stated plan reflect my best clinical judgment today based on the combination of historical information, prior notes, and today's exam/ interactions. When time spent is documented, it refers only to time spent today by the signer, or if indicated, combined time spent today by collaborating physician/nurse practitioner. Mey Sherwood Aug 30, 2017 15:57
[2017-08-31] VITALS (20 sets, daily range): BP systolic 117–151; BP diastolic 57–68; PULSE 64–86; RESP 14–15; TEMP 93.6–99.3; O2SAT 92–100
[2017-08-31] MEDS: RESP: IPRATROPIUM 0.5 MG/2.5 ML NEB NEB SCH ×3 (02:36→19:49)
[2017-08-31] MEDS: CHLORHEXIDINE GLUCONATE 2 % 1 PACK (2 CLOTHS) TOP SCH (04:00)
[2017-08-31] MEDS: FOSPHENYTOIN SODIUM 100 MG PE/2 ML VIAL IV SCH ×3 (05:22→22:47)
[2017-08-31] MEDS: METOCLOPRAMIDE HCL 10 MG/2 ML VIAL IV PUSH SCH ×3 (05:22→22:47)
[2017-08-31] MEDS: levETIRAcetam INJ 500 MG in SODIUM CHLORIDE 0.9% INJ 100 ML IV SCH ×4 (05:22→23:11)
[2017-08-31 05:45] LABS: HEMATOCRIT 27.4 % (35.0-46.0); HEMOGLOBIN 9.1 GM/DL (11.6-15.3); MEAN CELL VOLUME 89.3 FL (80.0-100.0); MEAN CORPUSCULAR HEMOGLOBIN 29.8 PG (27.0-34.0); MEAN CORPUSCULAR HGB CONC 33.4 % (32.0-36.0); MEAN PLATELET VOLUME 8.6 FL (7.0-11.0); PLATELET COUNT 273 TH/MM3 (150-450); RED BLOOD COUNT 3.07 MIL/MM3 (4.00-5.30); RED CELL DISTRIBUTION WIDTH 13.7 % (11.6-17.2); WHITE BLOOD COUNT 16.2 TH/MM3 (4.0-11.0)
[2017-08-31] MEDS: INSULIN NovoLIN REGULAR SUPPLEMENTAL SCALE SQ SCH ×5 (06:00→23:29)
[2017-08-31 06:27] LABS: BICARBONATE 20.1 MEQ/L (21.0-32.0); CALCIUM 8.3 MG/DL (8.5-10.1); CREATININE 1.05 MG/DL (0.50-1.00); MAGNESIUM 2.1 MG/DL (1.5-2.5); PHOSPHORUS 4.2 MG/DL (2.5-4.9)
[2017-08-31] MEDS: RESP: ALBUTEROL 2.5 MG/3 ML NEB (SCH) NEB ×3 (08:00→23:51)
[2017-08-31] MEDS: ERYTHROMYCIN ETHYLSUCCINATE 200 MG/5 ML SUSP 100 ML BOTTLE PO SCH ×3 (08:00→14:57)
[2017-08-31] MEDS: POTASSIUM CHLOR 40 MEQ PREMIX 100 ML IV PRN ×2 (08:06→10:44)
[2017-08-31] MEDS: NOREPINEPHRINE INJ 4 MG in SODIUM CHLOR 0.9% 250 ML INJ 246 ML IV PRN ×3 (08:34→23:07)
[2017-08-31] MEDS: SODIUM CHLORIDE 0.9% FLUSH 10 ML FLUSH IV FLUSH SCH ×3 (09:00→21:00)
[2017-08-31] MEDS: SENNOSIDES SYRUP 8.8 MG/5 ML CUP PO SCH ×2 (09:00→21:00)
--- NOTE | 2017-08-31 09:14 | HHI.CCPN ---
Subjective Remarks/Hospital Course This is a 52-year-old female. Actually name is Casandra Deluca. Date of admission 08/23/2017. Past medical history is unremarkable including Dr. Prather spoke with uncle. Patient was in her normal state of health today until approximately 3 PM on Monday and then developed acute onset of nausea associated with vomiting and complained of not feeling well. At approximately 1800 hrs., she took a one-time dose of ibuprofen and fell asleep on the couch. Early this a.m., and just prior to arrival to the emergency department awake and vomiting and then became unresponsive. Uncle states there was no injury or trauma he assisted her to the floor and because she was vomiting rolled her over so that she would not aspirate her emesis. Due to instability patient received 20 mg etomidate, 5 mg midazolam and 70 mg succinylcholine was intubated by ED physician. CT brain revealed a large left frontal parenchymal hemorrhage with diffuse intraventricular blood [address] Valencia /neurosurgery was notified. Recommended 50 g mannitol still hyperventilating he will evaluate the patient. [facility] were asked to admit. 08/23 0930 hours: Continued deterioration in neurological exam with absent peripheral reflexes and minimal cough. No Doll's eyes present. Mildly alkalotic , will correct to facilitate apnea test tomorrow. 08/24: Appears to withdraw left foot this morning mild cough response. Breathes strongly over ventilator with slight hyperventilation. Otherwise unresponsive. About 6 x 5 cm area of hemorrhage persists in the left hemisphere with considerable intraventricular blood. Ventricles starting to dilate. Vasogenic edema and surrounding normal brain. 08/25: No improvement in neurologic function. Persistent severe neurologic deficit. She lives with her uncle and that appears to be the only available family. She basically took care of her uncle and he appears quite devastated by her illness. Her son is estranged for many years and the uncle says he would not know how to get a hold of him. In a personal conversation with the uncle in the [facility] he specifically stated that the patient and he had an agreement that they would not allow the other to be kept alive with artificial devices if each were irreparably injured. The uncle has expressed that he needs to stop the ventilator but states that he cannot do it. I will ask the palliative care service to assist the uncle in his decision involving her care plan. 08/26: Devastating neurological injury. Largely unresponsive with the exception of withdrawal of her feet to noxious stimulation. Her uncle is still deciding care plan. 08/27: No improvement in neurologic function. Withdrawal response and lower extremities persists. Convert to APRV ventilator mode to maintain lung recruitment. 08/28: Positive cough. Currently does not bilateral lower extremities. Decreased urine output noted. Increasing gastric distention with 800 cc via NG tube. Right pupil 4 mm. Left pupil 6 mm. 08/29: High residuals overnight. Started on D10 normal saline at 50 cc an hour by overnight rental agent due to hypoglycemia. No bowel movement since admission. Remains on xiomara hugger. 1250 cc urine output overnight. Abdomen became more distended. Brain flow scan revealed some flow in the sagittal sinuses. 08/30: T-max 101.1. Awaiting first son's decision whether he is able to make it here for compassionate withdrawal and timing. 3 bowel movements past 24 hours. Not tolerating tube feeding. Patient has leukocytosis today. Subjective 08/31: Hypothermic overnight. No bowel movement overnight. FiO2 remains at 40% . Neurological examination is unchanged. Replacing potassium this a.m. Awaiting family decision regarding eventual compassionate withdrawal Objective Vital Signs Date Time Temp Pulse Resp B/P (MAP) Pulse Ox O2 Delivery O2 Flow Rate FiO2 08/31/17 08:34 81 110/55 08/31/17 08:18 93 40 08/31/17 04:00 98.6 14 08/30/17 19:00 Mechanical Ventilator Intake and Output 08/31/17 08/31/17 09/01/17 08:00 16:00 00:00 Intake Total 105 ml Output Total 2100 ml Balance -1995 ml Result Diagram: 08/31/17 0530 08/31/17 0530 Other Results Microbiology Date/Time Source Procedure Growth Status 08/30/17 09:03 Blood Peripheral Aerobic Blood Culture Pending Received 08/30/17 09:03 Blood Peripheral Anaerobic Blood Culture Pending Received 08/30/17 06:50 Sputum Endotracheal Gram Stain Pending Received 08/30/17 06:50 Sputum Endotracheal Sputum Culture Pending Received 08/30/17 09:40 Urine Catheterized Urine Urine Culture Pending Received Imaging Last Impressions Chest X-Ray 08/30/17 0600 Signed Impressions: Service Date/Time: Wednesday, August 30, 2017 05:10 - CONCLUSION: 1. Apparatus in good position. Basilar airspace disease similar to August 29. Regan Awan MD Abdomen X-Ray 08/29/17 0930 Signed Impressions: Service Date/Time: Tuesday, August 29, 2017 09:34 - CONCLUSION: 1. NGT in the stomach. 2. Paucity of bowel gas. This finding is nonspecific but may rarely be seen with diffusely fluid-filled bowel loops. Roldan Ambrosio MD Brain Flow Nuclear Medicine 08/28/17 0000 Signed Impressions: Service Date/Time: Monday, August 28, 2017 15:57 - CONCLUSION: Small amount of flow in the sagittal sinus. Jamey Sears MD Head CT 08/24/17 0600 Signed Impressions: Service Date/Time: August 04:27 - CONCLUSION: Diffuse intraventricular hemorrhage and left frontal lobe parenchymal hemorrhage again noted. Intraventricular blood has increased and there is mild to moderate ventriculomegaly. 9 mm of rightward midline shift, slightly improved. Saeid Choi MD Neck CTA 08/23/17 0157 Signed Impressions: Service Date/Time: Wednesday, August 23, 2017 02:26 - CONCLUSION: Normal carotid arteries. Saeid Choi MD Head CTA 08/23/17 0157 Signed Impressions: Service Date/Time: Wednesday, August 23, 2017 02:26 - CONCLUSION: No perceptible aneurysm or enhancing mass. Saeid Choi MD Cervical Spine CT 08/23/17 0000 Signed Impressions: Service Date/Time: Wednesday, August 23, 2017 02:08 - CONCLUSION: 1. No fracture or acute appearing malalignment of the cervical spine. 2. Degenerative changes as above. Saeid Choi MD Objective Remarks GENERAL: 52-year-old female currently orotracheally intubated, SKIN: Warm and dry. HEAD: Atraumatic. Normocephalic. EYES: Right pupil is 4 mm in size. Left pupil is 6 mm and nonreactive. No scleral icterus or drainage. Positive scleral edema ENT: No nasal bleeding or discharge. Mucous membranes pink and moist. OG tube in place to low intermittent wall suction NECK: Trachea midline. Orally intubated. No JVD or thyromegaly. CARDIOVASCULAR: RRR. S1, S2. No S4. Without murmur RESPIRATORY: Diminished breath sounds in the bases left greater than right. No wheezing. GASTROINTESTINAL: Abdomen more distended and protuberant the same. Very hypoactive bowel sounds are appreciated. MUSCULOSKELETAL: Extremities with 1-2+ bilateral upper and lower extremity edema /anasarca. Dopplerable pulse to right radial. No obvious deformities. NEUROLOGICAL: Unresponsive. Unreactive toes. No cough the same. No gag. Currently no withdrawal response left or right foot. Pupils as above. Urinary Catheter: Yes Assessment to: Continue Dumont insert reason: Prolonged Immobilization Vascular Central Line Catheter: Yes Assessment to: Continue Date of Insertion: Aug 23, 2017 Line: Central Venous Catheter Side: Left Location: Internal, Jugular A/P Assessment and Plan Neuro/Psych: Large left frontal lobe parenchymal hemorrhage with intraventricular blood with associated 11 mm shift from right to left. Seizure THC use CT brain revealed 4.85.9 cm left frontoparietal hemorrhage with surrounding cerebral edema and 11 mm right which midline shift. Hemorrhage extends to the ventricles. Negative CT angiogram the brain. Dr. Valencia/neurosurgery following. Recommended mannitol 50 g IV 1, hyperventilation on admission Repeat brain CT 08/24 revealed mild to moderate amount of blood/increased intraventricular hemorrhage with evolving left frontal parenchymal hemorrhage. Slight improvement of hemorrhage shift to 9 mm right to left. EEG - Markedly abnormal EEG because of a burst suppression pattern, with mild asymmetry/asynchronous, but the findings overall suggest a severe diffuse disturbance of cerebral function, No epileptiform features present. UDS + THC/Benzos Nuclear medicine brain flow scan with some flow in the sagittal sinus Hypertonic saline with goal sodium 150-155 currently on hold. Sodium currently 160 Mannitol 12.5 g IV every 8 hours. Hold if osm > greater than 310. Currently 319 Currently off 3% saline Seizures have ceased on levetiracetam 500 mg IV every 6 hours and fosphenytoin 100 mg every 8 hours. Phenytoin level 14.8. Repeat a.m. 09/[address] Garcia/Neurology Written for propofol/fentanyl drips as needed for sedation/analgesia while intubated Acetaminophen 650 mg by tube every 6 hours as needed fever CV: Hypertensive emergency Nicardipine drip to keep systolic blood pressure less than 140 with as needed labetalol/hydralazine Norepinephrine drip currently at 4 mcg/min to keep systolic blood pressure greater than 110 Currently one half normal saline with 20 mEq KCl at 42 cc an hour in D10 normal saline at 50 cc an hour due to hypoglycemia Resp: Acute respiratory failure secondary to large parenchymal hemorrhage PRVC 14/500/05/12/39 Ventilator bundle Albuterol and ipratropium aerosols every alternate nebs 8 hours with albuterol aerosols every 2 hours as needed dyspnea Spontaneous breathing trials when clinically indicated A.m. chest x-ray 08/30 reveals stable bilateral lower lobe infiltrates GI: Constipation Elevated AST Hypoalbuminemia Vital 1.5 goal 45 cc an hour per nutrition's recommendation currently on hold due to high residuals OG tube to low intermittent wall suction Lansoprazole 30 mg daily for GI prophylaxis Docusate sodium 100 cc twice daily/senna liquid 8.8 mg tablet twice daily for bowel regimen, polythene glycol 17 g twice daily, lactulose 30 cc 4 times daily On metoclopramide 10 mg 3 times daily and erythromycin 250 mg 3 times daily prokinetic : Dumont catheter for accurate I's and O's in a critically ill patient Endo: Sliding scale insulin Novulin R with Accu-Cheks every 6 hours to maintain euglycemia/medium protocol TSH was 2.33 Renal: Currently slightly elevated 1.05 Monitor urine output Accurate I's and O's Heme: Leukocytosis Normocytic anemia Monitor CBC daily. Follow trends ID: Monitor for infection Blood cultures 2, sputum and UA ordered 08/30 MSK: PT/OT evaluate and treat FEN: Hypernatremia Hypokalemia 80 mEq KCl IV times now. Recheck in a.m. Replace electrolytes per ICU electrolyte protocol Electrolyte replacement protocol, add potassium. Access -Left IJ CVL day #9 placed 08/23 -Right dorsalis pedis arterial line placed 08/25-08/31 Prophylaxis -GI -lansoprazole -DVT -SCD/holding pharmacological prophylaxis until okayed with neurosurgery Level 2 follow-up Sami Carmona MD Aug 31, 2017 09:14
[2017-08-31] MEDS: CHLORHEXIDINE 0.12% (ORAL KIT) 15 ML CUP MT SCH ×2 (09:51→20:00)
[2017-08-31] MEDS: LANSOPRAZOLE SOLUTAB 30 MG TAB G-TUBE SCH (09:52)
[2017-08-31] MEDS: MULTIVITAMIN TAB PO SCH (09:52)
[2017-08-31] MEDS: THIAMINE INJ 100 MG in SODIUM CHLORIDE 0.9% INJ 100 ML IV SCH (09:52)
[2017-08-31] MEDS: FOLIC ACID 1 MG TAB PO SCH (09:52)
[2017-08-31] MEDS: POTASSIUM CHLORIDE 20 MEQ PWD PACKET NG SCH (09:53)
[2017-08-31] MEDS: LACTULOSE SYRUP 20 GM/30 ML CUP PO SCH ×4 (09:53→21:00)
[2017-08-31] MEDS: POLYETHYLENE GLYCOL 17 GM PKG NG SCH ×2 (09:53→21:00)
[2017-08-31] MEDS: DOCUSATE SODIUM 100 MG/10 ML UDC PO SCH ×2 (09:53→21:00)
--- NOTE | 2017-08-31 10:14 | HHI.NSPN ---
History Chief Complaint: Unable to obtain due to patient's clinical condition. Interval History 52-year-old female status post extensive intracranial hemorrhage. 08/31/2017: Remains intubated. No intravenous sedation. Exam Results Vital Signs Date Time Temp Pulse Resp B/P (MAP) Pulse Ox O2 Delivery O2 Flow Rate FiO2 08/31/17 08:34 81 110/55 08/31/17 08:18 93 40 08/31/17 04:00 98.6 14 08/30/17 19:00 Mechanical Ventilator Intake and Output 08/31/17 08/31/17 09/01/17 08:00 16:00 00:00 Intake Total 105 ml 150 ml Output Total 2100 ml Balance -1995 ml 150 ml Physical Examination General: Pt intubated in bed unresponsive to stimulation off sedatives. Eyes: Pupils left 5mm right 4.5mm No reaction bilaterally. Sclera anicteric. Resp: Intubated. CTA bilaterally. No spontaneous breaths over vent. No cough or gag reflex. Heart: NSR no murmurs Abd: Soft positive bs diminished. Skin: No cyanosis or erythema. Muscle: No response to pain. Neuro: Pt off sedation. Not opening eyes. Pupils left 5mm right 4.5mm, no reaction bilaterally. Not following commands. No corneal response bilaterally. No cough or gag reflex. No response to deep pain all extremities No cough or gag response with endotracheal tube suctioning-manipulation. Lab, Micro, Other Results Laboratory Tests Test 08/30/17 13:49 08/31/17 05:30 Potassium Level 3.5 MEQ/L 3.1 MEQ/L Magnesium Level 2.1 MG/DL 2.1 MG/DL White Blood Count 16.2 TH/MM3 Red Blood Count 3.07 MIL/MM3 Hemoglobin 9.1 GM/DL Hematocrit 27.4 % Mean Corpuscular Volume 89.3 FL Mean Corpuscular Hemoglobin 29.8 PG Mean Corpuscular Hemoglobin Concent 33.4 % Red Cell Distribution Width 13.7 % Platelet Count 273 TH/MM3 Mean Platelet Volume 8.6 FL Blood Urea Nitrogen 9 MG/DL Creatinine 1.05 MG/DL Random Glucose 123 MG/DL Calcium Level 8.3 MG/DL Phosphorus Level 4.2 MG/DL Sodium Level 161 MEQ/L Chloride Level 134 MEQ/L Carbon Dioxide Level 20.1 MEQ/L Anion Gap 7 MEQ/L Estimat Glomerular Filtration Rate 55 ML/MIN Medical Decision Making Impression and Plan Impression: Patient remains with severe neurologic deficit following intracranial hemorrhage. No evidence of cortical or brainstem function on present examination. Previous cerebral blood flow study 08/28/2017 revealed minimal activity in the sagittal sinus. Plan: Discussed with nursing staff Case management notes reviewed Patient son is involved with decision making Plan repeat cerebral blood flow study in a.m. Sodium 161-adjust fluids Mannitol and hypertonic saline discontinued Remains off sedation Sher Segal MD Aug 31, 2017 10:14
[2017-08-31] MEDS: 1/2 NS + KCL 20 MEQ INJ 1,000 ML IV SCH (10:47)
[2017-08-31] MEDS: ARTIFICIAL TEARS OPTH SOLN 15 ML BTL EACH EYE SCH ×3 (10:47→16:59)
[2017-08-31] MEDS ORDERED: SODIUM CHLORIDE 23.4% INJ 77 MEQ in DEXTROSE 10% INJ 1,000 ML IV SCH (12:00)
--- NOTE | 2017-08-31 12:30 | RADRPT ---
EXAM DATE/TIME: 08/31/2017 12:10 [facility] COMPARISON: CHEST SINGLE AP, August 30, 2017, 5:10. INDICATIONS : Acute desaturation. Respiratory failure.. MEDICAL HISTORY : None. SURGICAL HISTORY : None. ENCOUNTER: Subsequent ACUITY: 1 week PAIN SCORE: Non-responsive. LOCATION: chest FINDINGS: 2 AP erect views of the chest were obtained and demonstrate the endotracheal tube in place with the t ip approximately 3-4 cm above the ashley. The nasogastric tube remains in place and is seen coursing through the esophagus into the stomach. The left internal jugular central venous line remains in plac e. Hazy opacity remains at the lung bases without significant change. Both costophrenic angles are bl unted. The heart size appears at the upper limits of normal. There is no pneumothorax. CONCLUSION: No significant change. Airspace disease remains at the lung bases as well as bilatera l effusions. Jamey Sears MD on August 31, 2017 at 12:27 Board Certified Radiologist. This report was verified electronically.
[2017-08-31] MEDS ORDERED: LACTATED RINGER'S 1000 ML INJ 1,000 ML IV ONE (12:45)
--- NOTE | 2017-08-31 15:07 | HHI.HCPN ---
Reason for visit a. To assist with evaluation and management of symptoms including: dyspnea, pain. b. To assist medical decision maker(s) with: better understanding of current medical conditions; weighing benefits/burdens of medical treatment options; making medical treatment decisions. . Subjective/Interval History Patient seen and examined in ICU. No family at bedside. Discussed with Dr. Carmona and nurse. Tmax 97.[address]. Patient had episode of desaturation today, FiO2 70%, PEEP 5. Remains unresponsive off sedation. Labs and imaging reviewed. BP stable. WBC 16.2, sodium 161, potassium 3.1, creatinine 1.05. Urine culture gram negative blake. Blood culture no growth in 1 day. Sputum culture Haemophilus influenzae, beta strep group C. Chest xray with stable basilar airspace disease and bilateral effusions. Patient remains unresponsive. She does not appear painful during my visit. No cough, gag, corneal reflex or response to painful stimuli. Plan for repeat cerebral brain flow study on 09/01/17. . Family/friend interactions Spoke with son, Michael Barnes he has decided he does not want to serve as health care proxy decision maker. He fully supports NO CODE and transition to comfort measures with withdrawal of life support but does not feel comfortable being the one to make these decisions and "signing the paper." Conversation witnessed by Dr. Contreras and Sultana Gray LCSW. He again is very grateful that we were able to allow him to say his final goodbyes to his mother before she dies. He hopes for peace and comfort for her. He thanks the entire staff for providing her the care she has received. 3:15pm: Call to uncle Reed to notify Michael has opted out of making medical decisions (serving as HCP) for Ms. Deluca. Therefore health care proxy decision making falls to him as close family, he is willing to serve as HCP. He is willing to serve as HCP. Medical update provided, reviewed current condition and plan for possible brain testing on 09/01/17. He states "I don't know if I can pull the plug, I don't know what to do." Explained she may be declared brain which would then leave him not having to make a decision to withdraw life support, he requests to wait until tests are don't tomorrow. He asks if I will call him on 09/01/17 with medical update and I agreed. Offered support. . Advance Directives Living Will: Never completed Health Care Surrogate: Never completed Durable Power of Sole Leather Cutting Machine Operator: Never completed Advance Directive Specifics Health Care Surrogate(s): Patient is not capacitated to make her own healthcare decisions, will not regain capacity. No written advanced directives. Single. According to [place] statutes healthcare proxy decision making would fall to the majority of adult children. Reportedly has 1 son. Left message to obtain additional information from uncle, to further clarify healthcare proxy decision making. . Documented care wishes: None in EMR. Significant change in goals: NO CODE. Family would like to make decisions after brain flow study on 09/01/17. . Objective Vital Signs Date Time Temp Pulse Resp B/P (MAP) Pulse Ox O2 Delivery O2 Flow Rate FiO2 08/31/17 14:00 75 08/31/17 12:00 97.5 80 14 119/59 (79) 97 08/31/17 12:00 50 08/31/17 12:00 80 08/31/17 11:45 94 100 08/31/17 10:00 76 08/31/17 08:34 81 110/55 08/31/17 08:18 93 40 08/31/17 08:00 99.3 78 14 118/57 (77) 94 08/31/17 08:00 78 08/31/17 08:00 50 08/31/17 07:00 94 Mechanical Ventilator 50 08/31/17 06:00 76 08/31/17 04:00 98.6 72 14 117/58 (77) 95 08/31/17 04:00 50 08/31/17 04:00 74 08/31/17 03:42 97 40 08/31/17 02:00 68 08/31/17 00:43 96 40 08/31/17 00:00 50 08/31/17 00:00 93.6 64 14 151/68 (95) 97 08/31/17 00:00 64 08/30/17 22:00 66 08/30/17 21:09 70 113/59 08/30/17 20:00 72 08/30/17 20:00 50 08/30/17 20:00 96.1 72 14 113/57 (75) 96 08/30/17 19:53 96 40 08/30/17 19:00 96 Mechanical Ventilator 50 08/30/17 18:00 75 08/30/17 16:30 96 40 08/30/17 16:00 97.9 74 14 107/56 (73) 95 08/30/17 16:00 74 08/30/17 16:00 50 Intake & Output 08/31/17 08/31/17 07:00 19:00 Intake Total 1310 ml 350 ml Output Total 2100 ml Balance -790 ml 350 ml Intake IV Total 1310 ml 350 ml Output Urine Total 1800 ml Gastric Drainage Total 300 ml Physical Exam CONSTITUTIONAL/GENERAL: This is an adequately nourished patient, in no apparent distress. She appears younger than her actual age. TUBES/LINES/DRAINS: ETT, OG, left IJ central line, PIV right, a-line right dorsalis pedis, SCDs. SKIN: No jaundice, rashes, or lesions. Ecchymoses on upper extremities. No wounds seen anteriorly. Skin temperature appropriate. Not diaphoretic. EYES: Pupils unequal, non reactive. ENT: Unable to assess hearing. Tongue edematous. CARDIOVASCULAR: Regular rate and rhythm without murmur. RESPIRATORY/CHEST: Diminished breath sounds, scattered course breath sounds. GASTROINTESTINAL: Abdomen distended. Hypoactive bowel sounds. GENITOURINARY: Without palpable bladder distension. MUSCULOSKELETAL: Extremities with increased edema. NEUROLOGICAL: Unresponsive. PSYCHIATRIC: Unresponsive, no sedation. . Diagnostic Tests Laboratory Laboratory Tests Test 08/28/17 18:57 08/29/17 06:00 08/30/17 04:45 08/30/17 08:58 Potassium Level 3.7 MEQ/L (3.5-5.1) 3.4 MEQ/L (3.5-5.1) 3.0 MEQ/L (3.5-5.1) White Blood Count 6.4 TH/MM3 (4.0-11.0) 15.1 TH/MM3 (4.0-11.0) Red Blood Count 3.32 MIL/MM3 (4.00-5.30) 3.14 MIL/MM3 (4.00-5.30) Hemoglobin 10.0 GM/DL (11.6-15.3) 9.3 GM/DL (11.6-15.3) Hematocrit 30.0 % (35.0-46.0) 28.0 % (35.0-46.0) Mean Corpuscular Volume 90.4 FL (80.0-100.0) 89.2 FL (80.0-100.0) Mean Corpuscular Hemoglobin 30.2 PG (27.0-34.0) 29.7 PG (27.0-34.0) Mean Corpuscular Hemoglobin Concent 33.4 % (32.0-36.0) 33.3 % (32.0-36.0) Red Cell Distribution Width 13.9 % (11.6-17.2) 14.1 % (11.6-17.2) Platelet Count 241 TH/MM3 (150-450) 281 TH/MM3 (150-450) Mean Platelet Volume 9.1 FL (7.0-11.0) 9.1 FL (7.0-11.0) Neutrophils (%) (Auto) 79.4 % (16.0-70.0) 83.0 % (16.0-70.0) Lymphocytes (%) (Auto) 12.5 % (9.0-44.0) 8.0 % (9.0-44.0) Monocytes (%) (Auto) 6.5 % (0.0-8.0) 7.9 % (0.0-8.0) Eosinophils (%) (Auto) 1.4 % (0.0-4.0) 0.8 % (0.0-4.0) Basophils (%) (Auto) 0.2 % (0.0-2.0) 0.3 % (0.0-2.0) Neutrophils # (Auto) 5.1 TH/MM3 (1.8-7.7) 12.6 TH/MM3 (1.8-7.7) Lymphocytes # (Auto) 0.8 TH/MM3 (1.0-4.8) 1.2 TH/MM3 (1.0-4.8) Monocytes # (Auto) 0.4 TH/MM3 (0-0.9) 1.2 TH/MM3 (0-0.9) Eosinophils # (Auto) 0.1 TH/MM3 (0-0.4) 0.1 TH/MM3 (0-0.4) Basophils # (Auto) 0.0 TH/MM3 (0-0.2) 0.0 TH/MM3 (0-0.2) CBC Comment DIFF FINAL DIFF FINAL Differential Comment Blood Urea Nitrogen 13 MG/DL (7-18) 12 MG/DL (7-18) Creatinine 0.68 MG/DL (0.50-1.00) 1.04 MG/DL (0.50-1.00) Random Glucose 87 MG/DL (74-106) 103 MG/DL (74-106) Total Protein 5.0 GM/DL (6.4-8.2) 5.0 GM/DL (6.4-8.2) Albumin 1.3 GM/DL (3.4-5.0) 1.3 GM/DL (3.4-5.0) Calcium Level 8.0 MG/DL (8.5-10.1) 7.7 MG/DL (8.5-10.1) Phosphorus Level 4.7 MG/DL (2.5-4.9) 4.6 MG/DL (2.5-4.9) Magnesium Level 1.9 MG/DL (1.5-2.5) 1.8 MG/DL (1.5-2.5) Alkaline Phosphatase 83 U/L (45-117) 105 U/L (45-117) Aspartate Amino Transf (AST/SGOT) 40 U/L (15-37) 44 U/L (15-37) Alanine Aminotransferase (ALT/SGPT) 18 U/L (10-53) 17 U/L (10-53) Total Bilirubin 0.1 MG/DL (0.2-1.0) 0.2 MG/DL (0.2-1.0) Sodium Level 155 MEQ/L (136-145) 155 MEQ/L (136-145) Chloride Level 126 MEQ/L (98-107) 127 MEQ/L (98-107) Carbon Dioxide Level 20.2 MEQ/L (21.0-32.0) 22.6 MEQ/L (21.0-32.0) Anion Gap 9 MEQ/L (5-15) 5 MEQ/L (5-15) Estimat Glomerular Filtration Rate 91 ML/MIN (>89) 56 ML/MIN (>89) Serum Osmolality 311 MOSM/KG (275-295) 319 MOSM/KG (275-295) Thyroid Stimulating Hormone 3rd Gen 2.330 uIU/ML (0.358-3.740) Phenytoin (Dilantin) Level 9.3 MCG/ML (10.0-20.0) Test 08/30/17 09:40 08/30/17 13:49 08/31/17 05:30 08/31/17 12:00 Urine Color YELLOW (YELLW/STRAW) Urine Turbidity CLOUDY (CLEAR) Urine pH 5.0 (5.0-8.5) Urine Specific Anderson 1.010 (1.002-1.035) Urine Protein TRACE mg/dL (NEG-TRACE) Urine Glucose (UA) NEG mg/dL (NEG) Urine Ketones NEG mg/dL (NEG) Urine Occult Blood SMALL (NEG) Urine Nitrite POS (NEG) Urine Bilirubin NEG (NEG) Urine Urobilinogen LESS THAN 2.0 MG/DL (LESS Urine Leukocyte Esterase LARGE (NEG) Urine RBC 27 /hpf (0-3) Urine WBC /hpf (0-5) Urine WBC Clumps MOD (NONE) Urine Squamous Epithelial Cells 1 /hpf (0-5) Urine Bacteria MOD /hpf (NONE) Urine Granular Casts 15 /lpf (NONE) Urine Mucus FEW /lpf (OCC) Microscopic Urinalysis Comment CULTURE INDICATED Potassium Level 3.5 MEQ/L (3.5-5.1) 3.1 MEQ/L (3.5-5.1) Magnesium Level 2.1 MG/DL (1.5-2.5) 2.1 MG/DL (1.5-2.5) White Blood Count 16.2 TH/MM3 (4.0-11.0) Red Blood Count 3.07 MIL/MM3 (4.00-5.30) Hemoglobin 9.1 GM/DL (11.6-15.3) Hematocrit 27.4 % (35.0-46.0) Mean Corpuscular Volume 89.3 FL (80.0-100.0) Mean Corpuscular Hemoglobin 29.8 PG (27.0-34.0) Mean Corpuscular Hemoglobin Concent 33.4 % (32.0-36.0) Red Cell Distribution Width 13.7 % (11.6-17.2) Platelet Count 273 TH/MM3 (150-450) Mean Platelet Volume 8.6 FL (7.0-11.0) Blood Urea Nitrogen 9 MG/DL (7-18) Creatinine 1.05 MG/DL (0.50-1.00) Random Glucose 123 MG/DL (74-106) Calcium Level 8.3 MG/DL (8.5-10.1) Phosphorus Level 4.2 MG/DL (2.5-4.9) Sodium Level 161 MEQ/L (136-145) Chloride Level 134 MEQ/L (98-107) Carbon Dioxide Level 20.1 MEQ/L (21.0-32.0) Anion Gap 7 MEQ/L (5-15) Estimat Glomerular Filtration Rate 55 ML/MIN (>89) Blood Gas Puncture Site LT RADIAL Blood Gas Patient Temperature 98.6 Blood Gas HCO3 19 mmol/L (22-26) Blood Gas Base Excess -5.4 mmol/L (-2-2) Blood Gas Oxygen Saturation 87 % (90-100) Arterial Blood pH 7.38 (7.380-7.420) Arterial Blood Partial Pressure CO2 33 mmHg (38-42) Arterial Blood Partial Pressure O2 57 mmHg (61-120) Arterial Blood Oxygen Content 13.4 Vol % (12.0-20.0) Arterial Blood Carboxyhemoglobin 1.1 % (0-4) Arterial Blood Methemoglobin 0.8 % (0-2) Blood Gas Hemoglobin 11.0 G/DL (12.0-16.0) Oxygen Delivery Device VENTILATOR Blood Gas Ventilator Setting Blood Gas Inspired Oxygen 100 % Result Diagram: 08/31/1730 08/31/1730 Microbiology Microbiology Date/Time Source Procedure Growth Status 08/30/17 09:03 Blood Peripheral Aerobic Blood Culture - Preliminary NO GROWTH IN 1 DAY Resulted 08/30/17 09:03 Blood Peripheral Anaerobic Blood Culture - Preliminary NO GROWTH IN 1 DAY Resulted 08/30/17 09:03 Blood Peripheral Aerobic Blood Culture - Preliminary NO GROWTH IN 1 DAY Resulted 08/30/17 09:03 Blood Peripheral Anaerobic Blood Culture - Preliminary NO GROWTH IN 1 DAY Resulted 08/30/17 06:50 Sputum Endotracheal Gram Stain - Final Resulted 08/30/17 06:50 Sputum Culture - Preliminary Haemophilus Influenzae Beta Streptococcus Group C Resulted 08/30/17 09:40 Urine Catheterized Urine Urine Culture - Preliminary Gram Negative Blake Resulted Imaging Last Impressions Chest X-Ray 08/31/17 0000 Signed Impressions: Service Date/Time: August 12:10 - CONCLUSION: No significant change. Airspace disease remains at the lung bases as well as bilateral effusions. Jamey Sears MD Abdomen X-Ray 08/29/17 0930 Signed Impressions: Service Date/Time: Tuesday, August 29, 2017 09:34 - CONCLUSION: 1. NGT in the stomach. 2. Paucity of bowel gas. This finding is nonspecific but may rarely be seen with diffusely fluid-filled bowel loops. Roldan Ambrosio MD Brain Flow Nuclear Medicine 08/28/17 0000 Signed Impressions: Service Date/Time: Monday, August 28, 2017 15:57 - CONCLUSION: Small amount of flow in the sagittal sinus. Jamey Sears MD Head CT 08/24/17 0600 Signed Impressions: Service Date/Time: August 04:27 - CONCLUSION: Diffuse intraventricular hemorrhage and left frontal lobe parenchymal hemorrhage again noted. Intraventricular blood has increased and there is mild to moderate ventriculomegaly. 9 mm of rightward midline shift, slightly improved. Saeid Choi MD Neck CTA 08/23/17 0157 Signed Impressions: Service Date/Time: Wednesday, August 23, 2017 02:26 - CONCLUSION: Normal carotid arteries. Saeid Choi MD Head CTA 08/23/17 0157 Signed Impressions: Service Date/Time: Wednesday, August 23, 2017 02:26 - CONCLUSION: No perceptible aneurysm or enhancing mass. Saeid Choi MD Cervical Spine CT 08/23/17 0000 Signed Impressions: Service Date/Time: Wednesday, August 23, 2017 02:08 - CONCLUSION: 1. No fracture or acute appearing malalignment of the cervical spine. 2. Degenerative changes as above. Saeid Choi MD . Procedures * 08/23/17 - A line placement. * 08/23/17 - left IJ central line placement. * 08/23/17 - Intubated. . Assessment and Plan Disease Oriented Problem List: (1) Leukocytosis (2) Acute respiratory failure (3) Intraparenchymal hemorrhage of brain (4) HTN (hypertension) Symptom Scale: (1) Pain 0-10 Scale: Unable to quantify Comment: secondary to intracranial hemorrhage, tubes/lines,etc. (2) Dyspnea 0-10 Scale: Unable to quantify Comment: On mechanical ventilation Pertinent Non-Medical Issues Psychosocial: Single. 1 sonMichael lives in [place]. Spiritual: Not an important part of her life. Legal: Patient is not capacitated to make his own decisions, will not regain capacitated. Single. 1 sonMichael has opted out of decision making. No other family. According to [place] statutes, health care proxy decision making falls to close family or friend. Uncle, Andrew Moreno is willing to serve as HCP. Ethical issues impacting care: No known concerns at this time. . Important Contacts * Michael Barnes son/HCP: [phone] (lives in [place]) * Andrew Katz, uncle: [phone] ([facility]) . Prognosis Per Dr. Valencia, neurosurgery was consulted; his note states "this patient has suffered a devastating injury in his dominant hemisphere with clinical evidence of uncal herniation. Her condition is irreversible, and there is no chance for meaningful recovery at this time. She is not a surgical candidate." . Code Status: No Code Plan * Patient is not capacitated to make her own healthcare decisions, will not regain capacity. No written advanced directives. Patient is not capacitated to make his own decisions, will not regain capacitated. Single. 1 sonMichael has opted out of decision making. No other family. According to [place] statutes, health care proxy decision making falls to close family or friend. UncleAndrew is willing to serve as HCP. * NO CODE * 08/31/17 3pm - Spoke with sonMichael he has decided he does not want to serve as health care proxy decision maker. He fully supports NO CODE and transition to comfort measures with withdrawal of life support but does not feel comfortable being the one to make these decisions and "signing the paper. " Conversation witnessed by Dr. Contreras and DANO SappW. He again is very grateful that we were able to allow him to say his final goodbyes to his mother before she dies. He hopes for peace and comfort for her. He thanks the entire staff for providing her the care she has received. * 3:15pm: Call to Andrew Moreno uncle to notify Michael has opted out of making medical decisions (serving as HCP) for Ms. Deluca. Therefore health care proxy decision making falls to him as close family, he is willing to serve as HCP. He is willing to serve as HCP. Medical update provided, reviewed current condition and plan for possible brain testing on 09/01/17. He states "I don't know if I can pull the plug, I don't know what to do." Explained she may be declared brain which would then leave him not having to make a decision to withdraw life support, he requests to wait until tests are don't tomorrow. He asks if I will call him on 09/01/17 with medical update and I agreed. Offered support. * Exhibits B & C on chart, signed by Dr. Contreras and Dr. Carmona if family elects to proceed with withdrawal of life support. * Discussed with nurse and Dr. Carmona. * SYMPTOMS: Pain: secondary to intracranial hemorrhage, tubes/lines,etc. Dyspnea : On mechanical ventilation. No new medication recommendations at this time. * Palliative care will continue to follow to assist with communication, symptom management and further clarification of medical treatment goals throughout hospital course. . Attestation To help prompt me to consider important information that might be impacting today's encounter and assessment, information from prior notes written by myself or my colleagues may have been "brought forward" into today's note. My signature on this note, however, is an attestation that I personally performed the exam, history, and/or decision-making noted today, and, unless otherwise indicated, the interactions with patient, family, and staff as well as the review of records all occurred today. I also attest that the listed assessment and stated plan reflect my best clinical judgment today based on the combination of historical information, prior notes, and today's exam/ interactions. When time spent is documented, it refers only to time spent today by the signer, or if indicated, combined time spent today by collaborating physician/nurse practitioner. . Mey Sherwood Aug 31, 2017 15:07
[2017-09-01] VITALS (17 sets, daily range): BP systolic 60–171; BP diastolic 54–79; PULSE 71–89; RESP 8–15; TEMP 95.6–98.6; O2SAT 90–98
[2017-09-01] MEDS: RESP: IPRATROPIUM 0.5 MG/2.5 ML NEB NEB SCH ×3 (03:09→20:06)
[2017-09-01] MEDS: CHLORHEXIDINE GLUCONATE 2 % 1 PACK (2 CLOTHS) TOP SCH (03:53)
[2017-09-01 05:33] LABS: HEMATOCRIT 28.7 % (35.0-46.0); HEMOGLOBIN 9.5 GM/DL (11.6-15.3); MEAN CORPUSCULAR HEMOGLOBIN 29.7 PG (27.0-34.0); MEAN PLATELET VOLUME 9.2 FL (7.0-11.0); PLATELET COUNT 285 TH/MM3 (150-450); RED BLOOD COUNT 3.19 MIL/MM3 (4.00-5.30); RED CELL DISTRIBUTION WIDTH 14.3 % (11.6-17.2)
[2017-09-01 05:57] LABS: CALCIUM 8.5 MG/DL (8.5-10.1); CREATININE 1.44 MG/DL (0.50-1.00)
[2017-09-01] MEDS: INSULIN NovoLIN REGULAR SUPPLEMENTAL SCALE SQ SCH ×3 (06:00→18:00)
[2017-09-01] MEDS: 1/2 NS + KCL 20 MEQ INJ 1,000 ML IV SCH (06:09)
[2017-09-01] MEDS: levETIRAcetam INJ 500 MG in SODIUM CHLORIDE 0.9% INJ 100 ML IV SCH ×3 (06:09→18:00)
[2017-09-01] MEDS: METOCLOPRAMIDE HCL 10 MG/2 ML VIAL IV PUSH SCH ×3 (06:09→22:45)
[2017-09-01] MEDS: FOSPHENYTOIN SODIUM 100 MG PE/2 ML VIAL IV SCH ×3 (06:10→22:45)
[2017-09-01] MEDS ORDERED: TERBUTALINE INJ 1 MG/ML AMP SQ PRN (06:45)
[2017-09-01] MEDS ORDERED: POTASSIUM CHLORIDE 20 MEQ PWD PACKET PO ONE (07:00)
[2017-09-01] MEDS ORDERED: PHENYLEPHRINE INJ 160 MG in SODIUM CHLORID 0.9% 500 ML INJ 484 ML IV PRN (07:00)
[2017-09-01] MEDS: RESP: ALBUTEROL 2.5 MG/3 ML NEB (SCH) NEB ×3 (07:31→23:21)
[2017-09-01] MEDS ORDERED: POTASSIUM CHLORIDE INJ 30 MEQ in SODIUM CHLORIDE 0.9% INJ 100 ML IV-CENTRAL ONE (08:00)
[2017-09-01] MEDS: CHLORHEXIDINE 0.12% (ORAL KIT) 15 ML CUP MT SCH ×2 (08:00→20:03)
[2017-09-01] MEDS: ERYTHROMYCIN ETHYLSUCCINATE 200 MG/5 ML SUSP 100 ML BOTTLE PO SCH ×3 (08:00→16:18)
[2017-09-01] MEDS: DEXTROSE 10% INJ 1,000 ML IV SCH (08:25)
--- NOTE | 2017-09-01 08:25 | HHI.CCPN ---
Subjective Remarks/Hospital Course This is a 52-year-old female. Actually name is Casandra Deluca. Date of admission 08/23/2017. Past medical history is unremarkable including Dr. Prather spoke with uncle. Patient was in her normal state of health today until approximately 3 PM on Monday and then developed acute onset of nausea associated with vomiting and complained of not feeling well. At approximately 1800 hrs., she took a one-time dose of ibuprofen and fell asleep on the couch. Early this a.m., and just prior to arrival to the emergency department awake and vomiting and then became unresponsive. Uncle states there was no injury or trauma he assisted her to the floor and because she was vomiting rolled her over so that she would not aspirate her emesis. Due to instability patient received 20 mg etomidate, 5 mg midazolam and 70 mg succinylcholine was intubated by ED physician. CT brain revealed a large left frontal parenchymal hemorrhage with diffuse intraventricular blood [address] Valencia /neurosurgery was notified. Recommended 50 g mannitol still hyperventilating he will evaluate the patient. Attorney At Law were asked to admit. 08/23 0930 hours: Continued deterioration in neurological exam with absent peripheral reflexes and minimal cough. No Doll's eyes present. Mildly alkalotic , will correct to facilitate apnea test tomorrow. 08/24: Appears to withdraw left foot this morning mild cough response. Breathes strongly over ventilator with slight hyperventilation. Otherwise unresponsive. About 6 x 5 cm area of hemorrhage persists in the left hemisphere with considerable intraventricular blood. Ventricles starting to dilate. Vasogenic edema and surrounding normal brain. 08/25: No improvement in neurologic function. Persistent severe neurologic deficit. She lives with her uncle and that appears to be the only available family. She basically took care of her uncle and he appears quite devastated by her illness. Her son is estranged for many years and the uncle says he would not know how to get a hold of him. In a personal conversation with the uncle in the [facility] he specifically stated that the patient and he had an agreement that they would not allow the other to be kept alive with artificial devices if each were irreparably injured. The uncle has expressed that he needs to stop the ventilator but states that he cannot do it. I will ask the palliative care service to assist the uncle in his decision involving her care plan. 08/26: Devastating neurological injury. Largely unresponsive with the exception of withdrawal of her feet to noxious stimulation. Her uncle is still deciding care plan. 08/27: No improvement in neurologic function. Withdrawal response and lower extremities persists. Convert to APRV ventilator mode to maintain lung recruitment. 08/28: Positive cough. Currently does not bilateral lower extremities. Decreased urine output noted. Increasing gastric distention with 800 cc via NG tube. Right pupil 4 mm. Left pupil 6 mm. 08/29: High residuals overnight. Started on D10 normal saline at 50 cc an hour by overnight carbonizer tester due to hypoglycemia. No bowel movement since admission. Remains on xiomara hugger. 1250 cc urine output overnight. Abdomen became more distended. Brain flow scan revealed some flow in the sagittal sinuses. 08/30: T-max 101.1. Awaiting first son's decision whether he is able to make it here for compassionate withdrawal and timing. 3 bowel movements past 24 hours. Not tolerating tube feeding. Patient has leukocytosis today. 08/31: Hypothermic overnight. No bowel movement overnight. FiO2 remains at 40% . Neurological examination is unchanged. Replacing potassium this a.m. Awaiting family decision regarding eventual compassionate withdrawal Subjective 09/01: Patient with hospital-acquired pneumonia/urinary tract infection. Remains on ventilator. Nuclear medicine brain flow scan ordered. Not tolerating tube feeds. Remains on D10 due to persistent hypoglycemia. Sodium trending upward. See adjustments IV fluids. Started on piperacillin/ tazobactam and azithromycin Objective Vital Signs Date Time Temp Pulse Resp B/P (MAP) Pulse Ox O2 Delivery O2 Flow Rate FiO2 09/01/17 07:31 90 60 09/01/17 07:00 Mechanical Ventilator 09/01/17 06:47 86 88/59 09/01/17 04:00 96.1 15 Intake and Output 09/01/17 09/01/17 09/02/17 08:00 16:00 00:00 Intake Total 160 ml Output Total 1550 ml Balance -1390 ml Result Diagram: 09/01/17 0506 09/01/17 0506 Other Results Microbiology Date/Time Source Procedure Growth Status 08/30/17 09:03 Blood Peripheral Aerobic Blood Culture - Preliminary NO GROWTH IN 1 DAY Resulted 08/30/17 09:03 Blood Peripheral Anaerobic Blood Culture - Preliminary NO GROWTH IN 1 DAY Resulted 08/30/17 06:50 Sputum Endotracheal Gram Stain - Final Resulted 08/30/17 06:50 Sputum Culture - Preliminary Haemophilus Influenzae Beta Streptococcus Group C Resulted 08/30/17 09:40 Urine Catheterized Urine Urine Culture - Preliminary Gram Negative Blake Resulted Imaging Last Impressions Chest X-Ray 08/31/17 0000 Signed Impressions: Service Date/Time: August 12:10 - CONCLUSION: No significant change. Airspace disease remains at the lung bases as well as bilateral effusions. Jamey Sears MD Abdomen X-Ray 08/29/17 0930 Signed Impressions: Service Date/Time: Tuesday, August 29, 2017 09:34 - CONCLUSION: 1. NGT in the stomach. 2. Paucity of bowel gas. This finding is nonspecific but may rarely be seen with diffusely fluid-filled bowel loops. Roldan Ambrosio MD Brain Flow Nuclear Medicine 08/28/17 0000 Signed Impressions: Service Date/Time: Monday, August 28, 2017 15:57 - CONCLUSION: Small amount of flow in the sagittal sinus. Jamey Sears MD Head CT 08/24/17 0600 Signed Impressions: Service Date/Time: August 04:27 - CONCLUSION: Diffuse intraventricular hemorrhage and left frontal lobe parenchymal hemorrhage again noted. Intraventricular blood has increased and there is mild to moderate ventriculomegaly. 9 mm of rightward midline shift, slightly improved. Saeid Choi MD Neck CTA 08/23/17 0157 Signed Impressions: Service Date/Time: Wednesday, August 23, 2017 02:26 - CONCLUSION: Normal carotid arteries. Saeid Choi MD Head CTA 08/23/17 0157 Signed Impressions: Service Date/Time: Wednesday, August 23, 2017 02:26 - CONCLUSION: No perceptible aneurysm or enhancing mass. Saeid Choi MD Cervical Spine CT 08/23/17 0000 Signed Impressions: Service Date/Time: Wednesday, August 23, 2017 02:08 - CONCLUSION: 1. No fracture or acute appearing malalignment of the cervical spine. 2. Degenerative changes as above. Saeid Choi MD Objective Remarks GENERAL: 52-year-old female currently orotracheally intubated, SKIN: Warm and dry. HEAD: Atraumatic. Normocephalic. EYES: Right pupil is 4 mm in size. Left pupil is 6 mm and nonreactive. No scleral icterus or drainage. Positive scleral edema ENT: No nasal bleeding or discharge. Mucous membranes pink and moist. OG tube in place to low intermittent wall suction NECK: Trachea midline. Orally intubated. No JVD or thyromegaly. CARDIOVASCULAR: RRR. S1, S2. No S4. Without murmur RESPIRATORY: Diminished breath sounds in the bases left greater than right. Few rhonchorous breath sounds appreciated throughout. No wheezing. GASTROINTESTINAL: Abdomen more distended and protuberant the same. Very hypoactive bowel sounds are appreciated. MUSCULOSKELETAL: Extremities with 1-2+ bilateral upper and lower extremity edema /anasarca. Dopplerable pulse to right radial. No obvious deformities. NEUROLOGICAL: Unresponsive. Unreactive toes. No cough the same. No gag. Currently no withdrawal response left or right foot. Pupils as above. Urinary Catheter: Yes Assessment to: Continue Dumont insert reason: Prolonged Immobilization Vascular Central Line Catheter: Yes Assessment to: Continue Date of Insertion: Aug 23, 2017 Line: Central Venous Catheter Side: Left Location: Internal, Jugular A/P Assessment and Plan Neuro/Psych: Large left frontal lobe parenchymal hemorrhage with intraventricular blood with associated 11 mm shift from right to left. Seizure THC use CT brain revealed 4.85.9 cm left frontoparietal hemorrhage with surrounding cerebral edema and 11 mm right which midline shift. Hemorrhage extends to the ventricles. Negative CT angiogram the brain. Dr. Valencia/neurosurgery following. Recommended mannitol 50 g IV 1, hyperventilation on admission Repeat brain CT 08/24 revealed mild to moderate amount of blood/increased intraventricular hemorrhage with evolving left frontal parenchymal hemorrhage. Slight improvement of hemorrhage shift to 9 mm right to left. EEG - Markedly abnormal EEG because of a burst suppression pattern, with mild asymmetry/asynchronous, but the findings overall suggest a severe diffuse disturbance of cerebral function, No epileptiform features present. UDS + THC/Benzos Nuclear medicine brain flow scan 08/29 with some flow in the sagittal sinus Repeat ordered 09/01 per neurosurgery Hypertonic saline with goal sodium 150-155 currently on hold. Sodium currently 166 Mannitol 12.5 g IV every 8 hours. Hold if osm > greater than 310. Currently 330 Currently off 3% saline Seizures have ceased on levetiracetam 500 mg IV every 6 hours and fosphenytoin 100 mg every 8 hours. Phenytoin level 14.8. Repeat a.m. 09/[address] Garcia/Neurology Written for propofol/fentanyl drips as needed for sedation/analgesia while intubated Acetaminophen 650 mg by tube every 6 hours as needed fever CV: Hypertensive emergency Nicardipine drip to keep systolic blood pressure less than 140 with as needed labetalol/hydralazine Norepinephrine drip currently at 4 mcg/min to keep systolic blood pressure greater than 110 Currently one quarter normal saline at 42 cc an hour in D10 water at 50 cc an hour due to hypoglycemia Resp: Acute respiratory failure secondary to large parenchymal hemorrhage PRVC 15/500// Ventilator bundle Albuterol and ipratropium aerosols every alternate nebs 8 hours with albuterol aerosols every 2 hours as needed dyspnea Spontaneous breathing trials when clinically indicated A.m. chest x-ray 08/31 reveals stable bilateral lower lobe infiltrates GI: Constipation Elevated AST Hypoalbuminemia Vital 1.5 goal 45 cc an hour per nutrition's recommendation currently on hold due to high residuals. Recheck KUB 08/25 7 AM OG tube to low intermittent wall suction Lansoprazole 30 mg daily for GI prophylaxis Docusate sodium 100 cc twice daily/senna liquid 8.8 mg tablet twice daily for bowel regimen, polythene glycol 17 g twice daily, lactulose 30 cc 4 times daily On metoclopramide 10 mg 3 times daily and erythromycin 200 mg 3 times daily prokinetic : Dumont catheter for accurate I's and O's in a critically ill patient Endo: Sliding scale insulin Novulin R with Accu-Cheks every 6 hours to maintain euglycemia/medium protocol TSH was 2.33 Renal: Acute kidney injury Currently slightly elevated 1.44 Monitor urine output Accurate I's and O's Heme: Leukocytosis Normocytic anemia Monitor CBC daily. Follow trends ID: Hospital-acquired pneumonia Urinary tract infection Piperacillin/tazobactam and azithromycin day #1 will cover strep and Haemophilus respectively with piperacillin/tazobactam covering gram-negative blake UTI 08/30 - blood cultures 2 no growth 08/30 -sputum -beta strep group C and Haemophilus influenza 08/30 -UA -gram-negative blake MSK: PT/OT evaluate and treat FEN: Hypernatremia Hypokalemia 40 mEq KCl IV times now. Recheck at 1800. Replace electrolytes per ICU electrolyte protocol Electrolyte replacement protocol, add potassium. Access -Left IJ CVL day #10 placed 08/23 -Right dorsalis pedis arterial line placed 08/25- present Prophylaxis -GI -lansoprazole -DVT -SCD/holding pharmacological prophylaxis until okayed with neurosurgery Level 2 follow-up Sami Carmona MD Sep 01, 2017 08:25
[2017-09-01] MEDS: SODIUM CHLORIDE 23.4% INJ 38.5 MEQ in WATER STERILE FOR INJ 1,000 ML IV SCH (08:29)
[2017-09-01] MEDS: POTASSIUM CHLORIDE 20 MEQ PWD PACKET NG SCH (09:00)
[2017-09-01] MEDS: ARTIFICIAL TEARS OPTH SOLN 15 ML BTL EACH EYE SCH ×3 (09:00→18:00)
[2017-09-01] MEDS: SODIUM CHLORIDE 0.9% FLUSH 10 ML FLUSH IV FLUSH SCH ×3 (09:00→20:01)
[2017-09-01] MEDS: DOCUSATE SODIUM 100 MG/10 ML UDC PO SCH ×2 (09:07→21:00)
[2017-09-01] MEDS: PIPERACIL-TAZO 3.375 GM PREMIX 50 ML IV SCH ×3 (09:07→19:58)
[2017-09-01] MEDS: LANSOPRAZOLE SOLUTAB 30 MG TAB G-TUBE SCH (09:07)
[2017-09-01] MEDS: LACTULOSE SYRUP 20 GM/30 ML CUP PO SCH ×4 (09:07→19:58)
[2017-09-01] MEDS: FOLIC ACID 1 MG TAB PO SCH (09:07)
[2017-09-01] MEDS: POLYETHYLENE GLYCOL 17 GM PKG NG SCH ×2 (09:07→20:01)
[2017-09-01] MEDS: MULTIVITAMIN TAB PO SCH (09:07)
[2017-09-01] MEDS: SENNOSIDES SYRUP 8.8 MG/5 ML CUP PO SCH ×2 (09:07→20:01)
--- NOTE | 2017-09-01 09:07 | HHI.NSPN ---
History Chief Complaint: Unable to obtain due to patient's clinical condition. Interval History Patient status post ICH. No change in clinical status Exam Results Vital Signs Date Time Temp Pulse Resp B/P (MAP) Pulse Ox O2 Delivery O2 Flow Rate FiO2 09/01/17 07:31 90 60 09/01/17 07:00 Mechanical Ventilator 09/01/17 06:47 86 88/59 09/01/17 04:00 96.1 15 Intake and Output 09/01/17 09/01/17 09/02/17 08:00 16:00 00:00 Intake Total 160 ml Output Total 1550 ml Balance -1390 ml Physical Examination Patient remains comatose and unresponsive. Is intubated on a respirator Pupils are about 5 mm nonreactive No response to pain No cough or gag Medical Decision Making Impression and Plan No change in clinical status Awaiting family input Issac Colón MD Sep 01, 2017 09:07
[2017-09-01] MEDS: THIAMINE INJ 100 MG in SODIUM CHLORIDE 0.9% INJ 100 ML IV SCH (09:09)
[2017-09-01] MEDS: AZITHROMYCIN INJ 500 MG in SODIUM CHLOR 0.9% 250 ML INJ 250 ML IV SCH (09:14)
[2017-09-01] MEDS: NOREPINEPHRINE INJ 4 MG in SODIUM CHLOR 0.9% 250 ML INJ 246 ML IV PRN ×2 (09:18→19:58)
--- NOTE | 2017-09-01 11:56 | RADRPT ---
EXAM DATE/TIME: 08/28/2017 15:57 [facility] COMPARISON: BRAIN IMAGE WITH FLOW, August 28, 2017, 15:57. INDICATIONS : Hemorrhage with midline shift. DOSE: 24.5 mCi Tc99m DTPA IV The diagnosis of brain is clinical and the results of this test should be taken in the content of clinical and electrocephalographic data. MEDICAL HISTORY : None SURGICAL HISTORY : None. ENCOUNTER: Initial ACUITY: 1 week PAIN SCALE: Non-responsive LOCATION: Head. TECHNIQUE: Anterior dynamic imaging as well as delayed static imaging. FINDINGS: There is no evidence of cerebral blood flow or cerebral sinus activity identified indicating brain de ath. Clinical correlation is recommended. CONCLUSION: No evidence of cerebral blood flow or cerebral sinus activity indicating brain . Clinical correlation is recommended. Rodrigo Arshad MD on September 01, 2017 at 11:52 Board Certified Radiologist. This report was verified electronically.
--- NOTE | 2017-09-01 14:38 | HHI.HCPN ---
Spoke with nurse, Dr. Carmona. Records reviewed. Brain flow scan revealed no evidence of cerebral blood flow or cerebral sinus activity indicating brain . Notified uncle Hu Kinney and son Michael Barnes of clinical change and likely declaration of once exams have been completed later today. They are very appreciative of time throughout hospital course to provide communication and to assist with decisions. . Mey Sherwood Sep 01, 2017 14:38
[2017-09-01 16:53] LABS: CALCIUM 8.2 MG/DL (8.5-10.1); CREATININE 1.63 MG/DL (0.50-1.00)
[2017-09-01 16:54] LABS: BICARBONATE 18.8 MEQ/L (21.0-32.0)
[2017-09-01] MEDS: FREE WATER G-TUBE SCH (20:00)
[2017-09-02] VITALS (19 sets, daily range): BP systolic 75–133; BP diastolic 50–100; PULSE 68–123; RESP 8–12; TEMP 96.4–100.5; O2SAT 90–100
[2017-09-02] MEDS: levETIRAcetam INJ 500 MG in SODIUM CHLORIDE 0.9% INJ 100 ML IV SCH ×4 (00:20→17:20)
[2017-09-02] MEDS: PIPERACIL-TAZO 3.375 GM PREMIX 50 ML IV SCH ×4 (01:45→20:55)
[2017-09-02] MEDS: SODIUM CHLORIDE 23.4% INJ 38.5 MEQ in WATER STERILE FOR INJ 1,000 ML IV SCH ×5 (02:49→22:36)
[2017-09-02] MEDS: NOREPINEPHRINE INJ 4 MG in SODIUM CHLOR 0.9% 250 ML INJ 246 ML IV PRN ×2 (02:50→08:16)
[2017-09-02] MEDS: RESP: IPRATROPIUM 0.5 MG/2.5 ML NEB NEB SCH ×3 (03:11→20:54)
[2017-09-02] MEDS: CHLORHEXIDINE GLUCONATE 2 % 1 PACK (2 CLOTHS) TOP SCH (04:00)
[2017-09-02] MEDS: FREE WATER G-TUBE SCH ×6 (04:00→20:00)
[2017-09-02] MEDS: DEXTROSE 10% INJ 1,000 ML IV SCH ×2 (04:12→08:16)
[2017-09-02 04:32] LABS: AUTOMATED NEUTROPHIL # 13.2 TH/MM3 (1.8-7.7); BASOPHIL # 0.1 TH/MM3 (0-0.2); BASOPHIL % 0.4 % (0.0-2.0); EOSINOPHIL # 0.2 TH/MM3 (0-0.4); EOSINOPHIL % 1.1 % (0.0-4.0); HEMATOCRIT 30.1 % (35.0-46.0); HEMOGLOBIN 9.8 GM/DL (11.6-15.3); LYMPH % 12.2 % (9.0-44.0); MEAN CELL VOLUME 91.3 FL (80.0-100.0); MEAN CORPUSCULAR HEMOGLOBIN 29.6 PG (27.0-34.0); MEAN CORPUSCULAR HGB CONC 32.4 % (32.0-36.0); MEAN PLATELET VOLUME 8.9 FL (7.0-11.0); MONO % 5.8 % (0.0-8.0); NEUT % 80.5 % (16.0-70.0); PLATELET COUNT 299 TH/MM3 (150-450); RED CELL DISTRIBUTION WIDTH 15.1 % (11.6-17.2); WHITE BLOOD COUNT 16.4 TH/MM3 (4.0-11.0)
--- NOTE | 2017-09-02 04:34 | RADRPT ---
EXAM DATE/TIME: 09/02/2017 03:45 [facility] COMPARISON: BRAIN IMAGE WITH FLOW, August 28, 2017, 15:57. BRAIN IMAGE WITH FLOW, August 28, 2017, 15:57. CHEST S TANMAY AP, August 31, 2017, 12:10. INDICATIONS : Respiratory failure. MEDICAL HISTORY : None. SURGICAL HISTORY : None. ENCOUNTER: Subsequent ACUITY: 1 week PAIN SCORE: Non-responsive. LOCATION: Bilateral chest FINDINGS: ET tube tip well above the ashley. Left internal jugular catheter tip at the cavoatrial junction. G astric tube traverses the [id number]. Increasing airspace opacities in the right lower lobe and a left lower and mid lung. Heart size is normal. CONCLUSION: Increasing airspace opacities in both lungs. Julian Spangler MD on September 02, 2017 at 4:30 Board Certified Radiologist. This report was verified electronically.
--- NOTE | 2017-09-02 04:35 | RADRPT ---
EXAM DATE/TIME: 09/02/2017 03:38 [facility] COMPARISON: ABDOMEN KUB ONLY, August 29, 2017, 9:34. INDICATIONS : Ileus MEDICAL HISTORY : None. SURGICAL HISTORY : None. ENCOUNTER: Subsequent ACUITY: 1 week PAIN SCORE: Non-responsive. LOCATION: abdomen FINDINGS: Gastric tube tip and side-port project within the stomach. No gas distended loops of small or large bowel. Moderate degenerative changes in the lower lumbar spine, stable from prior. CONCLUSION: No dilated loops of small or large bowel seen. Julian Spangler MD on September 02, 2017 at 4:33 Board Certified Radiologist. This report was verified electronically.
[2017-09-02 04:52] LABS: ALKALINE PHOSPHATASE 350 U/L (45-117); ALT (GPT) 24 U/L (10-53); AST (GOT) 184 U/L (15-37); BLOOD UREA NITROGEN 16 MG/DL (7-18); CALCIUM 7.9 MG/DL (8.5-10.1); CHLORIDE 131 MEQ/L (98-107); CREATININE 1.76 MG/DL (0.50-1.00); GLOMERULAR FILTRATION RATE 30 ML/MIN (>89); GLUCOSE,RANDOM 128 MG/DL (74-106); MAGNESIUM 1.8 MG/DL (1.5-2.5); PHENYTOIN (DILANTIN) 10.6 MCG/ML (10.0-20.0); PHOSPHORUS 6.4 MG/DL (2.5-4.9); TOTAL BILIRUBIN ADULT 0.3 MG/DL (0.2-1.0); TOTAL PROTEIN 4.8 GM/DL (6.4-8.2)
[2017-09-02 05:16] LABS: SODIUM (NA) 162 MEQ/L (136-145)
[2017-09-02] MEDS: INSULIN NovoLIN REGULAR SUPPLEMENTAL SCALE SQ SCH ×4 (06:00→17:20)
[2017-09-02] MEDS: AZITHROMYCIN INJ 500 MG in SODIUM CHLOR 0.9% 250 ML INJ 250 ML IV SCH (06:17)
[2017-09-02] MEDS: METOCLOPRAMIDE HCL 10 MG/2 ML VIAL IV PUSH SCH ×3 (06:18→20:55)
[2017-09-02] MEDS: FOSPHENYTOIN SODIUM 100 MG PE/2 ML VIAL IV SCH ×3 (06:18→20:55)
[2017-09-02] MEDS ORDERED: DEXTROSE 5% IN WATE 500 ML INJ 500 ML IV ONE (07:45)
[2017-09-02] MEDS: ARTIFICIAL TEARS OPTH SOLN 15 ML BTL EACH EYE SCH ×3 (07:56→17:20)
[2017-09-02] MEDS: CHLORHEXIDINE 0.12% (ORAL KIT) 15 ML CUP MT SCH ×2 (08:00→20:00)
[2017-09-02] MEDS: ERYTHROMYCIN ETHYLSUCCINATE 200 MG/5 ML SUSP 100 ML BOTTLE PO SCH ×3 (08:00→17:00)
[2017-09-02] MEDS ORDERED: SODIUM BICARBONATE 8.4% SOLN 50 MEQ/50 ML VIAL IV ONE (08:00)
[2017-09-02] MEDS: FOLIC ACID 1 MG TAB PO SCH (08:10)
[2017-09-02] MEDS: THIAMINE INJ 100 MG in SODIUM CHLORIDE 0.9% INJ 100 ML IV SCH (08:11)
[2017-09-02] MEDS: MULTIVITAMIN TAB PO SCH (08:11)
[2017-09-02] MEDS: LANSOPRAZOLE SOLUTAB 30 MG TAB G-TUBE SCH (08:11)
[2017-09-02] MEDS: LACTULOSE SYRUP 20 GM/30 ML CUP PO SCH ×4 (08:11→20:55)
[2017-09-02] MEDS: SENNOSIDES SYRUP 8.8 MG/5 ML CUP PO SCH ×2 (08:12→20:55)
[2017-09-02] MEDS: SODIUM CHLORIDE 0.9% FLUSH 10 ML FLUSH IV FLUSH SCH ×3 (08:12→20:55)
[2017-09-02] MEDS: POTASSIUM CHLORIDE 20 MEQ PWD PACKET NG SCH (08:12)
[2017-09-02] MEDS: POLYETHYLENE GLYCOL 17 GM PKG NG SCH ×2 (08:12→20:55)
[2017-09-02] MEDS: DOCUSATE SODIUM 100 MG/10 ML UDC PO SCH ×2 (08:12→20:55)
[2017-09-02] MEDS: RESP: ALBUTEROL 2.5 MG/3 ML NEB (SCH) NEB ×3 (08:55→23:50)
[2017-09-02] MEDS ORDERED: SODIUM BICARBONATE 8.4% INJ 50 MEQ/50 ML SYR ONE (09:55)
--- NOTE | 2017-09-02 12:43 | HHI.NSPN ---
History Chief Complaint: Unable to obtain due to patient's clinical condition. Interval History Patient status post ICH. No change in clinical status Exam Results Vital Signs Date Time Temp Pulse Resp B/P (MAP) Pulse Ox O2 Delivery O2 Flow Rate FiO2 09/02/17 11:09 98 50 09/02/17 10:00 74 09/02/17 08:16 115/95 09/02/17 08:00 96.4 12 09/02/17 07:00 Mechanical Ventilator Intake and Output 09/02/17 09/02/17 09/03/17 08:00 16:00 00:00 Intake Total 2305 ml 500 ml Output Total 2100 ml Balance 205 ml 500 ml Physical Examination Patient remains comatose and unresponsive. Is intubated on a respirator Pupils are about 5 mm nonreactive No response to pain No cough or gag Medical Decision Making Impression and Plan Brain determination performed. Please see official form Continuing Education Specialist to perform second exam and apnea test Issac Colón MD Sep 02, 2017 12:43
--- NOTE | 2017-09-02 13:20 | HHI.CCPN ---
Subjective Remarks/Hospital Course DUPLICATE NOTE Objective Vital Signs Date Time Temp Pulse Resp B/P (MAP) Pulse Ox O2 Delivery O2 Flow Rate FiO2 09/02/17 11:09 98 50 09/02/17 10:00 74 09/02/17 08:16 115/95 09/02/17 08:00 96.4 12 09/02/17 07:00 Mechanical Ventilator Intake and Output 09/02/17 09/02/17 09/03/17 08:00 16:00 00:00 Intake Total 2305 ml 500 ml Output Total 2100 ml Balance 205 ml 500 ml Result Diagram: 09/02/17 0355 09/02/17 1000 Other Results Laboratory Tests Test 09/01/17 15:57 09/02/17 04:44 09/02/17 09:38 Blood Gas Puncture Site RT RADIAL LT RADIAL RT RADIAL Blood Gas Patient Temperature 98.6 98.6 98.6 Blood Gas HCO3 17 mmol/L (22-26) 21 mmol/L (22-26) 20 mmol/L (22-26) Blood Gas Base Excess -6.9 mmol/L (-2-2) -7.3 mmol/L (-2-2) -5.3 mmol/L (-2-2) Blood Gas Oxygen Saturation 95 % (90-100) 92 % (90-100) 94 % (90-100) Arterial Blood pH 7.37 (7.380-7.420) 7.13 (7.380-7.420) 7.30 (7.380-7.420) Arterial Blood Partial Pressure CO2 31 mmHg (38-42) 64 mmHg (38-42) 42 mmHg (38-42) Arterial Blood Partial Pressure O2 82 mmHg (61-120) 85 mmHg (61-120) 77 mmHg (61-120) Arterial Blood Oxygen Content 13.3 Vol % (12.0-20.0) 15.7 Vol % (12.0-20.0) 13.0 Vol % (12.0-20.0) Arterial Blood Carboxyhemoglobin 1.0 % (0-4) 0.7 % (0-4) 1.1 % (0-4) Arterial Blood Methemoglobin 0.5 % (0-2) 1.0 % (0-2) 0.9 % (0-2) Blood Gas Hemoglobin 9.9 G/DL (12.0-16.0) 12.0 G/DL (12.0-16.0) 9.7 G/DL (12.0-16.0) Oxygen Delivery Device VENTILATOR VENTILATOR VENTILATOR Blood Gas Ventilator Setting PRVC/AC PRVC8/600/1.3/+5 PRVC/14/600/1.3/+5 Blood Gas Inspired Oxygen 70 % 70 % 60 % Imaging Last Impressions Chest X-Ray 08/31/17 0000 Signed Impressions: Service Date/Time: August 12:10 - CONCLUSION: No significant change. Airspace disease remains at the lung bases as well as bilateral effusions. Jamey Sears MD Abdomen X-Ray 08/29/17 0930 Signed Impressions: Service Date/Time: Tuesday, August 29, 2017 09:34 - CONCLUSION: 1. NGT in the stomach. 2. Paucity of bowel gas. This finding is nonspecific but may rarely be seen with diffusely fluid-filled bowel loops. Roldan Ambrosio MD Brain Flow Nuclear Medicine 08/28/17 0000 Signed Impressions: Service Date/Time: Monday, August 28, 2017 15:57 - CONCLUSION: Small amount of flow in the sagittal sinus. Jamey Sears MD Head CT 08/24/17 0600 Signed Impressions: Service Date/Time: August 04:27 - CONCLUSION: Diffuse intraventricular hemorrhage and left frontal lobe parenchymal hemorrhage again noted. Intraventricular blood has increased and there is mild to moderate ventriculomegaly. 9 mm of rightward midline shift, slightly improved. Saeid Choi MD Neck CTA 08/23/17 0157 Signed Impressions: Service Date/Time: Wednesday, August 23, 2017 02:26 - CONCLUSION: Normal carotid arteries. aSeid Choi MD Head CTA 08/23/17 0157 Signed Impressions: Service Date/Time: Wednesday, August 23, 2017 02:26 - CONCLUSION: No perceptible aneurysm or enhancing mass. Saeid Choi MD Cervical Spine CT 08/23/17 0000 Signed Impressions: Service Date/Time: Wednesday, August 23, 2017 02:08 - CONCLUSION: 1. No fracture or acute appearing malalignment of the cervical spine. 2. Degenerative changes as above. Saeid Choi MD Date of Insertion: Aug 23, 2017 Line: Central Venous Catheter Side: Left Location: Internal, Jugular A/P Assessment and Plan DUPLICATE Daisy Breaux MD Sep 02, 2017 13:20
--- NOTE | 2017-09-02 13:58 | HHI.CCPN ---
Subjective Remarks/Hospital Course This is a 52-year-old female. Actually name is Casandra Deluca. Date of admission 08/23/2017. Past medical history is unremarkable including Dr. Prather spoke with uncle. Patient was in her normal state of health today until approximately 3 PM on Monday and then developed acute onset of nausea associated with vomiting and complained of not feeling well. At approximately 1800 hrs., she took a one-time dose of ibuprofen and fell asleep on the couch. Early this a.m., and just prior to arrival to the emergency department awake and vomiting and then became unresponsive. Uncle states there was no injury or trauma he assisted her to the floor and because she was vomiting rolled her over so that she would not aspirate her emesis. Due to instability patient received 20 mg etomidate, 5 mg midazolam and 70 mg succinylcholine was intubated by ED physician. CT brain revealed a large left frontal parenchymal hemorrhage with diffuse intraventricular blood [address] Valencia /neurosurgery was notified. Recommended 50 g mannitol still hyperventilating he will evaluate the patient. Induction Brazer were asked to admit. 08/23 0930 hours: Continued deterioration in neurological exam with absent peripheral reflexes and minimal cough. No Doll's eyes present. Mildly alkalotic , will correct to facilitate apnea test tomorrow. 08/24: Appears to withdraw left foot this morning mild cough response. Breathes strongly over ventilator with slight hyperventilation. Otherwise unresponsive. About 6 x 5 cm area of hemorrhage persists in the left hemisphere with considerable intraventricular blood. Ventricles starting to dilate. Vasogenic edema and surrounding normal brain. 08/25: No improvement in neurologic function. Persistent severe neurologic deficit. She lives with her uncle and that appears to be the only available family. She basically took care of her uncle and he appears quite devastated by her illness. Her son is estranged for many years and the uncle says he would not know how to get a hold of him. In a personal conversation with the uncle in the [facility] he specifically stated that the patient and he had an agreement that they would not allow the other to be kept alive with artificial devices if each were irreparably injured. The uncle has expressed that he needs to stop the ventilator but states that he cannot do it. I will ask the palliative care service to assist the uncle in his decision involving her care plan. 08/26: Devastating neurological injury. Largely unresponsive with the exception of withdrawal of her feet to noxious stimulation. Her uncle is still deciding care plan. 08/27: No improvement in neurologic function. Withdrawal response and lower extremities persists. Convert to APRV ventilator mode to maintain lung recruitment. 08/28: Positive cough. Currently does not bilateral lower extremities. Decreased urine output noted. Increasing gastric distention with 800 cc via NG tube. Right pupil 4 mm. Left pupil 6 mm. 08/29: High residuals overnight. Started on D10 normal saline at 50 cc an hour by overnight stamps or coins salesperson due to hypoglycemia. No bowel movement since admission. Remains on xiomara hugger. 1250 cc urine output overnight. Abdomen became more distended. Brain flow scan revealed some flow in the sagittal sinuses. 08/30: T-max 101.1. Awaiting first son's decision whether he is able to make it here for compassionate withdrawal and timing. 3 bowel movements past 24 hours. Not tolerating tube feeding. Patient has leukocytosis today. 08/31: Hypothermic overnight. No bowel movement overnight. FiO2 remains at 40% . Neurological examination is unchanged. Replacing potassium this a.m. Awaiting family decision regarding eventual compassionate withdrawal Subjective 09/01: Patient with hospital-acquired pneumonia/urinary tract infection. Remains on ventilator. Nuclear medicine brain flow scan ordered. Not tolerating tube feeds. Remains on D10 due to persistent hypoglycemia. Sodium trending upward. See adjustments IV fluids. Started on piperacillin/ tazobactam and azithromycin 09/02: Clinical neuro exam again consistent with brain . Nuclear medicine confirmatory's test-no brain flow. Neurosurgery requested apnea testing which will be conducted today. Objective Vital Signs Date Time Temp Pulse Resp B/P (MAP) Pulse Ox O2 Delivery O2 Flow Rate FiO2 09/02/17 11:09 98 50 09/02/17 10:00 74 09/02/17 08:16 115/95 09/02/17 08:00 96.4 12 09/02/17 07:00 Mechanical Ventilator Intake and Output 09/02/17 09/02/17 09/02/17 07:59 15:59 23:59 Intake Total 2305 ml 500 ml Output Total 2100 ml Balance 205 ml 500 ml Result Diagram: 09/02/17 0355 09/02/17 1000 Other Results Laboratory Tests Test 09/01/17 15:57 09/02/17 04:44 09/02/17 09:38 09/02/17 12:44 Blood Gas Puncture Site RT RADIAL LT RADIAL RT RADIAL LT RADIAL Blood Gas Patient Temperature 98.6 98.6 98.6 98.6 Blood Gas HCO3 17 mmol/L (22-26) 21 mmol/L (22-26) 20 mmol/L (22-26) 22 mmol/L (22-26) Blood Gas Base Excess -6.9 mmol/L (-2-2) -7.3 mmol/L (-2-2) -5.3 mmol/L (-2-2) -3.8 mmol/L (-2-2) Blood Gas Oxygen Saturation 95 % (90-100) 92 % (90-100) 94 % (90-100) 98 % ( 90-100) Arterial Blood pH 7.37 (7.380-7.420) 7.13 (7.380-7.420) 7.30 (7.380-7.420) 7.29 (7.380-7.420) Arterial Blood Partial Pressure CO2 31 mmHg (38-42) 64 mmHg (38-42) 42 mmHg (38-42) 46 mmHg (38-42) Arterial Blood Partial Pressure O2 82 mmHg (61-120) 85 mmHg (61-120) 77 mmHg (61-120) 179 mmHg (61-120) Arterial Blood Oxygen Content 13.3 Vol % (12.0-20.0) 15.7 Vol % (12.0-20.0) 13.0 Vol % (12.0-20.0) 13.8 Vol % (12.0-20.0) Arterial Blood Carboxyhemoglobin 1.0 % (0-4) 0.7 % (0-4) 1.1 % (0-4) 1.0 % (0-4) Arterial Blood Methemoglobin 0.5 % (0-2) 1.0 % (0-2) 0.9 % (0-2) 0.6 % (0-2) Blood Gas Hemoglobin 9.9 G/DL (12.0-16.0) 12.0 G/DL (12.0-16.0) 9.7 G/DL (12.0-16.0) 9.8 G/DL (12.0-16.0) Oxygen Delivery Device VENTILATOR VENTILATOR VENTILATOR VENTILATOR Blood Gas Ventilator Setting PRVC/AC PRVC8/600/1.3/+5 PRVC/14/600/1.3/+5 PRVC/10/600/1.3/+5 Blood Gas Inspired Oxygen 70 % 70 % 60 % 100 % Imaging Last Impressions Chest X-Ray 08/31/17 0000 Signed Impressions: Service Date/Time: August 12:10 - CONCLUSION: No significant change. Airspace disease remains at the lung bases as well as bilateral effusions. Jamey Sears MD Abdomen X-Ray 08/29/17 0930 Signed Impressions: Service Date/Time: Tuesday, August 29, 2017 09:34 - CONCLUSION: 1. NGT in the stomach. 2. Paucity of bowel gas. This finding is nonspecific but may rarely be seen with diffusely fluid-filled bowel loops. Roldan Ambrosio MD Brain Flow Nuclear Medicine 08/28/17 0000 Signed Impressions: Service Date/Time: Monday, August 28, 2017 15:57 - CONCLUSION: Small amount of flow in the sagittal sinus. Jamey Sears MD Head CT 08/24/17 0600 Signed Impressions: Service Date/Time: August 04:27 - CONCLUSION: Diffuse intraventricular hemorrhage and left frontal lobe parenchymal hemorrhage again noted. Intraventricular blood has increased and there is mild to moderate ventriculomegaly. 9 mm of rightward midline shift, slightly improved. Saeid Choi MD Neck CTA 08/23/17 0157 Signed Impressions: Service Date/Time: Wednesday, August 23, 2017 02:26 - CONCLUSION: Normal carotid arteries. Saeid Choi MD Head CTA 08/23/17 0157 Signed Impressions: Service Date/Time: Wednesday, August 23, 2017 02:26 - CONCLUSION: No perceptible aneurysm or enhancing mass. Saeid Choi MD Cervical Spine CT 08/23/17 0000 Signed Impressions: Service Date/Time: Wednesday, August 23, 2017 02:08 - CONCLUSION: 1. No fracture or acute appearing malalignment of the cervical spine. 2. Degenerative changes as above. Saeid Choi MD Objective Remarks GENERAL: 52-year-old female currently orotracheally intubated, SKIN: Warm and dry. HEAD: Atraumatic. Normocephalic. EYES: Right pupil is 4 mm in size. Left pupil is 6 mm and nonreactive. No scleral icterus or drainage. Positive scleral edema ENT: No nasal bleeding or discharge. Mucous membranes pink and moist. OG tube in place to low intermittent wall suction NECK: Trachea midline. Orally intubated. No JVD or thyromegaly. CARDIOVASCULAR: RRR. S1, S2. No S4. Without murmur RESPIRATORY: Diminished breath sounds in the bases left greater than right. Few rhonchorous breath sounds appreciated throughout. No wheezing. GASTROINTESTINAL: Abdomen more distended and protuberant the same. Very hypoactive bowel sounds are appreciated. MUSCULOSKELETAL: Extremities with 1-2+ bilateral upper and lower extremity edema /anasarca. Dopplerable pulse to right radial. No obvious deformities. NEUROLOGICAL: Unresponsive. Unreactive toes. No cough the same. No gag. Currently no withdrawal response left or right foot. Pupils as above. No spontaneous breathing, no corneal reflex, no oculovestibular reflex. No doll s eye Date of Insertion: Aug 23, 2017 Line: Central Venous Catheter Side: Left Location: Internal, Jugular A/P Assessment and Plan Neuro/Psych: Probable brain Large left frontal lobe parenchymal hemorrhage with intraventricular blood with associated 11 mm shift from right to left. Seizure THC use Nuclear medicine brain flow scan 08/29 with some flow in the sagittal sinus, repeat ordered 09/01 per neurosurgery-There is no evidence of cerebral blood flow or cerebral sinus activity identified indicating brain . Clinical study consistent with brain . Neurosurgery requests apnea testing prior to declining brain , plan for today CT brain revealed 4.85.9 cm left frontoparietal hemorrhage with surrounding cerebral edema and 11 mm right which midline shift. Hemorrhage extends to the ventricles. Negative CT angiogram the brain. Dr. Valencia/neurosurgery following. Repeat brain CT 08/24 revealed mild to moderate amount of blood/increased intraventricular hemorrhage with evolving left frontal parenchymal hemorrhage. Slight improvement of hemorrhage shift to 9 mm right to left. EEG - Markedly abnormal EEG because of a burst suppression pattern, with mild asymmetry/asynchronous, but the findings overall suggest a severe diffuse disturbance of cerebral function, No epileptiform features present. UDS + THC/Benzos Hypertonic saline with goal sodium 150-155 currently on hold. last na 156 Mannitol 12.5 g IV every 8 hours. Hold if osm > greater than 310. Currently 330 Currently off 3% saline Seizures have ceased on levetiracetam 500 mg IV every 6 hours and fosphenytoin 100 mg every 8 hours. Phenytoin level 14.8. Repeat a.m. 09/[address] Garcia/Neurology Off all sedation for brain exam Acetaminophen 650 mg by tube every 6 hours as needed fever CV: Hypertensive emergency Norepinephrine drip currently at 4 mcg/min to keep systolic blood pressure greater than 110 Currently one quarter normal saline at 42 cc an hour in D10 water at 50 cc an hour due to hypoglycemia Nicardipine drip to keep systolic blood pressure less than 140 with as needed labetalol/hydralazine Resp: Acute respiratory failure secondary to large parenchymal hemorrhage PRVC 15/05/12/49 Ventilator bundle Albuterol and ipratropium aerosols every alternate nebs 8 hours with albuterol aerosols every 2 hours as needed dyspnea GI: Constipation Elevated AST Hypoalbuminemia OG tube to low intermittent wall suction Lansoprazole 30 mg daily for GI prophylaxis Endo: Sliding scale insulin Novulin R with Accu-Cheks every 6 hours to maintain euglycemia/medium protocol TSH was 2.33 Renal: Acute kidney injury Monitor urine output Accurate I's and O's Heme: Leukocytosis Normocytic anemia Monitor CBC daily. Follow trends ID: Hospital-acquired pneumonia Urinary tract infection Piperacillin/tazobactam and azithromycin will cover strep and Haemophilus respectively with piperacillin/tazobactam covering gram-negative vaishali UTI 08/30 - blood cultures 2 no growth 08/30 -sputum -beta strep group C and Haemophilus influenza 08/30 -UA -gram-negative vaishali MSK: PT/OT evaluate and treat FEN: Hypernatremia Hypokalemia 40 mEq KCl IV times now. Recheck at 1800. Replace electrolytes per ICU electrolyte protocol Electrolyte replacement protocol, add potassium. Access -Left IJ CVL day placed 08/23 -Right dorsalis pedis arterial line placed 08/25- present Prophylaxis -GI -lansoprazole -DVT -SCD/holding pharmacological prophylaxis until okayed with neurosurgery Level 2 follow-up Clinical exam and nuclear medicine scan consistent with brain . Need apnea testing per neurosurgery Daisy Breaux MD Sep 02, 2017 13:58
[2017-09-03] VITALS: BP 95/60; PULSE 66; RESP 10; TEMP 97; O2SAT 100
[2017-09-03] MEDS: levETIRAcetam INJ 500 MG in SODIUM CHLORIDE 0.9% INJ 100 ML IV SCH ×2 (00:45→05:01)
[2017-09-03 02:00] VITALS: PULSE 68
[2017-09-03] MEDS: PIPERACIL-TAZO 3.375 GM PREMIX 50 ML IV SCH (02:48)
[2017-09-03] MEDS: RESP: IPRATROPIUM 0.5 MG/2.5 ML NEB NEB SCH (03:24)
[2017-09-03 03:25] VITALS: O2SAT 99
[2017-09-03] MEDS: SODIUM CHLORIDE 23.4% INJ 38.5 MEQ in WATER STERILE FOR INJ 1,000 ML IV SCH (03:40)
[2017-09-03] MEDS: FREE WATER G-TUBE SCH ×2 (03:40)
[2017-09-03] MEDS: CHLORHEXIDINE GLUCONATE 2 % 1 PACK (2 CLOTHS) TOP SCH (03:40)
[2017-09-03 04:00] VITALS: BP 95/56; PULSE 66; RESP 10; TEMP 97; O2SAT 100
[2017-09-03] MEDS: METOCLOPRAMIDE HCL 10 MG/2 ML VIAL IV PUSH SCH (05:01)
[2017-09-03] MEDS: FOSPHENYTOIN SODIUM 100 MG PE/2 ML VIAL IV SCH (05:01)
[2017-09-03] MEDS: INSULIN NovoLIN REGULAR SUPPLEMENTAL SCALE SQ SCH ×2 (05:01)
[2017-09-03 06:00] VITALS: PULSE 68
[2017-09-03 08:23] VITALS: O2SAT 100
[2017-09-03] MEDS: RESP: ALBUTEROL 2.5 MG/3 ML NEB (SCH) NEB (08:26)
--- NOTE | 2017-09-03 08:48 | HHI.CCPN ---
Subjective Remarks/Hospital Course This is a 52-year-old female. Actually name is Casandra Deluca. Date of admission 08/23/2017. Past medical history is unremarkable including Dr. Prather spoke with uncle. Patient was in her normal state of health today until approximately 3 PM on Monday and then developed acute onset of nausea associated with vomiting and complained of not feeling well. At approximately 1800 hrs., she took a one-time dose of ibuprofen and fell asleep on the couch. Early this a.m., and just prior to arrival to the emergency department awake and vomiting and then became unresponsive. Uncle states there was no injury or trauma he assisted her to the floor and because she was vomiting rolled her over so that she would not aspirate her emesis. Due to instability patient received 20 mg etomidate, 5 mg midazolam and 70 mg succinylcholine was intubated by ED physician. CT brain revealed a large left frontal parenchymal hemorrhage with diffuse intraventricular blood [address] Valencia /neurosurgery was notified. Recommended 50 g mannitol still hyperventilating he will evaluate the patient. Social Work Professor were asked to admit. 08/23 0930 hours: Continued deterioration in neurological exam with absent peripheral reflexes and minimal cough. No Doll's eyes present. Mildly alkalotic , will correct to facilitate apnea test tomorrow. 08/24: Appears to withdraw left foot this morning mild cough response. Breathes strongly over ventilator with slight hyperventilation. Otherwise unresponsive. About 6 x 5 cm area of hemorrhage persists in the left hemisphere with considerable intraventricular blood. Ventricles starting to dilate. Vasogenic edema and surrounding normal brain. 08/25: No improvement in neurologic function. Persistent severe neurologic deficit. She lives with her uncle and that appears to be the only available family. She basically took care of her uncle and he appears quite devastated by her illness. Her son is estranged for many years and the uncle says he would not know how to get a hold of him. In a personal conversation with the uncle in the [facility] he specifically stated that the patient and he had an agreement that they would not allow the other to be kept alive with artificial devices if each were irreparably injured. The uncle has expressed that he needs to stop the ventilator but states that he cannot do it. I will ask the palliative care service to assist the uncle in his decision involving her care plan. 08/26: Devastating neurological injury. Largely unresponsive with the exception of withdrawal of her feet to noxious stimulation. Her uncle is still deciding care plan. 08/27: No improvement in neurologic function. Withdrawal response and lower extremities persists. Convert to APRV ventilator mode to maintain lung recruitment. 08/28: Positive cough. Currently does not bilateral lower extremities. Decreased urine output noted. Increasing gastric distention with 800 cc via NG tube. Right pupil 4 mm. Left pupil 6 mm. 08/29: High residuals overnight. Started on D10 normal saline at 50 cc an hour by overnight consumer loan processor due to hypoglycemia. No bowel movement since admission. Remains on xiomara hugger. 1250 cc urine output overnight. Abdomen became more distended. Brain flow scan revealed some flow in the sagittal sinuses. 08/30: T-max 101.1. Awaiting first son's decision whether he is able to make it here for compassionate withdrawal and timing. 3 bowel movements past 24 hours. Not tolerating tube feeding. Patient has leukocytosis today. 08/31: Hypothermic overnight. No bowel movement overnight. FiO2 remains at 40% . Neurological examination is unchanged. Replacing potassium this a.m. Awaiting family decision regarding eventual compassionate withdrawal Subjective 09/01: Patient with hospital-acquired pneumonia/urinary tract infection. Remains on ventilator. Nuclear medicine brain flow scan ordered. Not tolerating tube feeds. Remains on D10 due to persistent hypoglycemia. Sodium trending upward. See adjustments IV fluids. Started on piperacillin/ tazobactam and azithromycin 09/02: Clinical neuro exam again consistent with brain . Nuclear medicine confirmatory's test-no brain flow. Neurosurgery requested apnea testing which will be conducted today. 09/03: Hemodynamically more unstable currently on Levophed. Unable to do apnea test as PO2 is only 77 on 100% FiO2, and PEEP of 12. Discussed with neurosurgery Dr. Hernandez. Will proceed with brain certification. Objective Vital Signs Date Time Temp Pulse Resp B/P (MAP) Pulse Ox O2 Delivery O2 Flow Rate FiO2 09/03/17 08:23 100 100 09/03/17 06:00 68 09/03/17 04:00 97.0 10 95/56 (69) 09/02/17 19:00 Mechanical Ventilator Intake and Output 09/03/17 09/03/17 09/04/17 08:00 16:00 00:00 Intake Total 810 ml Output Total 650 ml Balance 160 ml Result Diagram: 09/02/17 0355 09/02/17 1000 Other Results Laboratory Tests Test 09/02/17 09:38 09/02/17 12:44 09/02/17 13:48 09/03/17 05:34 Blood Gas Puncture Site RT RADIAL LT RADIAL LT RADIAL LT RADIAL Blood Gas Patient Temperature 98.6 98.6 98.6 98.6 Blood Gas HCO3 20 mmol/L (22-26) 22 mmol/L (22-26) 22 mmol/L (22-26) 20 mmol/L (22-26) Blood Gas Base Excess -5.3 mmol/L (-2-2) -3.8 mmol/L (-2-2) -3.6 mmol/L (-2-2) -6.6 mmol/L (-2-2) Blood Gas Oxygen Saturation 94 % (90-100) 98 % (90-100) 97 % (90-100) 92 % ( 90-100) Arterial Blood pH 7.30 (7.380-7.420) 7.29 (7.380-7.420) 7.30 (7.380-7.420) 7.21 (7.380-7.420) Arterial Blood Partial Pressure CO2 42 mmHg (38-42) 46 mmHg (38-42) 46 mmHg (38-42) 52 mmHg (38-42) Arterial Blood Partial Pressure O2 77 mmHg (61-120) 179 mmHg (61-120) 155 mmHg (61-120) 77 mmHg (61-120) Arterial Blood Oxygen Content 13.0 Vol % (12.0-20.0) 13.8 Vol % (12.0-20.0) 17.6 Vol % (12.0-20.0) 15.1 Vol % (12.0-20.0) Arterial Blood Carboxyhemoglobin 1.1 % (0-4) 1.0 % (0-4) 0.8 % (0-4) 0.9 % (0-4) Arterial Blood Methemoglobin 0.9 % (0-2) 0.6 % (0-2) 1.0 % (0-2) 0.9 % (0-2) Blood Gas Hemoglobin 9.7 G/DL (12.0-16.0) 9.8 G/DL (12.0-16.0) 12.7 G/DL (12.0-16.0) 11.6 G/DL (12.0-16.0) Oxygen Delivery Device VENTILATOR VENTILATOR VENTILATOR VENT Blood Gas Ventilator Setting PRVC/14/600/1.3/+5 PRVC/10/600/1.3/+5 SEE COMMENTS Blood Gas Inspired Oxygen 60 % 100 % 100 % 100 % Imaging Last Impressions Chest X-Ray 08/31/17 0000 Signed Impressions: Service Date/Time: August 12:10 - CONCLUSION: No significant change. Airspace disease remains at the lung bases as well as bilateral effusions. Jamey Sears MD Abdomen X-Ray 08/29/17 0930 Signed Impressions: Service Date/Time: Tuesday, August 29, 2017 09:34 - CONCLUSION: 1. NGT in the stomach. 2. Paucity of bowel gas. This finding is nonspecific but may rarely be seen with diffusely fluid-filled bowel loops. Roldan Ambrosio MD Brain Flow Nuclear Medicine 08/28/17 0000 Signed Impressions: Service Date/Time: Monday, August 28, 2017 15:57 - CONCLUSION: Small amount of flow in the sagittal sinus. Jamey Sears MD Head CT 08/24/17 0600 Signed Impressions: Service Date/Time: August 04:27 - CONCLUSION: Diffuse intraventricular hemorrhage and left frontal lobe parenchymal hemorrhage again noted. Intraventricular blood has increased and there is mild to moderate ventriculomegaly. 9 mm of rightward midline shift, slightly improved. Saeid Choi MD Neck CTA 08/23/17 0157 Signed Impressions: Service Date/Time: Wednesday, August 23, 2017 02:26 - CONCLUSION: Normal carotid arteries. Saeid Choi MD Head CTA 08/23/17 0157 Signed Impressions: Service Date/Time: Wednesday, August 23, 2017 02:26 - CONCLUSION: No perceptible aneurysm or enhancing mass. Saeid Choi MD Cervical Spine CT 08/23/17 0000 Signed Impressions: Service Date/Time: Wednesday, August 23, 2017 02:08 - CONCLUSION: 1. No fracture or acute appearing malalignment of the cervical spine. 2. Degenerative changes as above. Saeid Choi MD Objective Remarks GENERAL: 52-year-old female currently orotracheally intubated, SKIN: Warm and dry. HEAD: Atraumatic. Normocephalic. EYES: Right pupil is 4 mm in size. Left pupil is 6 mm and nonreactive. No scleral icterus or drainage. Positive scleral edema ENT: No nasal bleeding or discharge. OG tube in place to low intermittent wall suction NECK: Trachea midline. Orally intubated. No JVD or thyromegaly. CARDIOVASCULAR: RRR. S1, S2. No S4. Without murmur RESPIRATORY: Diminished breath sounds in the bases left greater than right. Few rhonchorous breath sounds appreciated throughout. No wheezing. GASTROINTESTINAL: Abdomen more distended and protuberant the same. MUSCULOSKELETAL: Extremities with 1-2+ bilateral upper and lower extremity edema /anasarca. Dopplerable pulse to right radial. No obvious deformities. NEUROLOGICAL: Unresponsive. Unreactive pupils. No cough. No gag. No withdrawal response to any extremity. Pupils as above. No spontaneous breathing, no corneal reflex, no oculovestibular reflex. No doll's eye Date of Insertion: Aug 23, 2017 Line: Central Venous Catheter Side: Left Location: Internal, Jugular A/P Assessment and Plan Neuro/Psych: Brain Large left frontal lobe parenchymal hemorrhage with intraventricular blood with associated 11 mm shift from right to left. Seizure THC use Nuclear medicine brain flow scan 08/29 with some flow in the sagittal sinus, repeat ordered 09/01 per neurosurgery-There is no evidence of cerebral blood flow or cerebral sinus activity identified indicating brain . Clinical study consistent with brain . Neurosurgery requests apnea testing but unable to due to severe hypoxia (PaO2 77 on 100 % FiO2) CT brain revealed 4.85.9 cm left frontoparietal hemorrhage with surrounding cerebral edema and 11 mm right which midline shift. Hemorrhage extends to the ventricles. Negative CT angiogram the brain. D/W Dr. Hernandez Repeat brain CT 08/24 revealed mild to moderate amount of blood/increased intraventricular hemorrhage with evolving left frontal parenchymal hemorrhage. Slight improvement of hemorrhage shift to 9 mm right to left. EEG - Markedly abnormal EEG because of a burst suppression pattern, with mild asymmetry/asynchronous, but the findings overall suggest a severe diffuse disturbance of cerebral function, No epileptiform features present. UDS + THC/Benzos Hypertonic saline with goal sodium 150-155 currently on hold. last na 156 Mannitol 12.5 g IV every 8 hours. Hold if osm > greater than 310. Currently 330 Seizures have ceased on levetiracetam 500 mg IV every 6 hours and fosphenytoin 100 mg every 8 hours. Phenytoin level 14.8. Repeat a.m. 09/[address] Garcia/Neurology Acetaminophen 650 mg by tube every 6 hours as needed fever CV: Shock Norepinephrine drip currently at 2 mcg/min to keep systolic blood pressure greater than 110 Nicardipine drip to keep systolic blood pressure less than 140 with as needed labetalol/hydralazine Resp: Acute respiratory failure secondary to large parenchymal hemorrhage PRVC 15/500/05/12/49. Ventilator bundle Albuterol and ipratropium aerosols every alternate nebs 8 hours with albuterol aerosols every 2 hours as needed dyspnea GI: OG tube to low intermittent wall suction Lansoprazole 30 mg daily for GI prophylaxis Endo: Sliding scale insulin Novulin R with Accu-Cheks every 6 hours to maintain euglycemia/medium protocol Renal: Acute kidney injury Monitor urine output Accurate I's and O's Heme: Leukocytosis Normocytic anemia Monitor CBC daily. Follow trends ID: Hospital-acquired pneumonia Urinary tract infection Piperacillin/tazobactam and azithromycin will cover strep and Haemophilus respectively with piperacillin/tazobactam covering gram-negative vaishali UTI 08/30 - blood cultures 2 no growth 08/30 -sputum -beta strep group C and Haemophilus influenza 08/30 -UA -gram-negative vaishali MSK: PT/OT evaluate and treat Access -Left IJ CVL day placed 08/23 -Right dorsalis pedis arterial line placed 08/25- present Prophylaxis -GI -lansoprazole -DVT -SCD/holding pharmacological prophylaxis until okayed with neurosurgery Level 2 follow-up Clinical exam and nuclear medicine scan consistent with brain . Unable to perform apnea test. Will proceed with brain deceleration. Dr. Mary thakkar. Time of 0900 AM 08/24/17 Daisy Breaux MD Sep 03, 2017 08:48
--- NOTE | 2017-09-03 11:00 | DEATH SUM ---
Summary Demographics Date Pronounced : Sep 03, 2017 Time Of : 09:00 Pronounced By: Dr. Walker Breaux Preliminary Cause of : Brain Daisy Breaux MD Sep 03, 2017 11:00
--- NOTE | 2017-09-03 16:27 | HHI.DS ---
Summary Note Date of : Sep 03, 2017 Time Of : 09:00 Admission Date Aug 23, 2017 at 02:43 Admitting Diagnosis L intraparenchymal hemorrhage w/ shift; HTN Diagnosis at Time of : (1) Brain ICD Code: G93.82 - Brain Diagnosis: Principal (2) Intraparenchymal hemorrhage of brain ICD Code: I61.9 - Nontraumatic intracerebral hemorrhage, unspecified Diagnosis: Principal (3) Acute hypoxemic respiratory failure ICD Code: J96.01 - Acute respiratory failure with hypoxia Diagnosis: Principal (4) HCAP (healthcare-associated pneumonia) ICD Code: J18.9 - Pneumonia, unspecified organism Diagnosis: Principal (5) UTI (urinary tract infection) ICD Code: N39.0 - Urinary tract infection, site not specified Diagnosis: Principal (6) JEANIE (acute kidney injury) ICD Code: N17.9 - Acute kidney failure, unspecified Diagnosis: Principal (7) Shock ICD Code: R57.9 - Shock, unspecified Diagnosis: Principal (8) IVH (intraventricular hemorrhage) ICD Code: I61.5 - Nontraumatic intracerebral hemorrhage, intraventricular Diagnosis: Principal (9) Seizure ICD Code: R56.9 - Unspecified convulsions Diagnosis: Principal (10) HTN (hypertension) ICD Code: I10 - Essential (primary) hypertension Diagnosis: Principal (11) Leukocytosis ICD Code: D72.829 - Elevated white blood cell count, unspecified Diagnosis: Principal Procedures See EMR Brief History This is a 52-year-old female. Actually name is Casandra Deluca. Date of admission 08/23/2017. Past medical history is unremarkable including Dr. Prather spoke with uncle. Patient was in her normal state of health today until approximately 3 PM on Monday and then developed acute onset of nausea associated with vomiting and complained of not feeling well. At approximately 1800 hrs., she took a one-time dose of ibuprofen and fell asleep on the couch. Early this a.m., and just prior to arrival to the emergency department awake and vomiting and then became unresponsive. Uncle states there was no injury or trauma he assisted her to the floor and because she was vomiting rolled her over so that she would not aspirate her emesis. Due to instability patient received 20 mg etomidate, 5 mg midazolam and 70 mg succinylcholine was intubated by ED physician. CT brain revealed a large left frontal parenchymal hemorrhage with diffuse intraventricular blood [address] Valencia/neurosurgery was notified. Recommended 50 g mannitol still hyperventilating he will evaluate the patient. Stamping Die Try Out Worker were asked to admit. Central lines placed in ED for mannitol, hypertonic saline and multiple lab draws. Potassium is been reordered. CBC/BMP: 09/02/17 0355 09/02/17 1000 Significant Findings Laboratory Tests Test 09/01/17 05:06 09/01/17 15:57 09/01/17 16:09 09/02/17 03:55 White Blood Count 20.0 TH/MM3 (4.0-11.0) 16.4 TH/MM3 (4.0-11.0) Red Blood Count 3.19 MIL/MM3 (4.00-5.30) 3.30 MIL/MM3 (4.00-5.30) Hemoglobin 9.5 GM/DL (11.6-15.3) 9.8 GM/DL (11.6-15.3) Hematocrit 28.7 % (35.0-46.0) 30.1 % (35.0-46.0) Creatinine 1.44 MG/DL (0.50-1.00) 1.63 MG/DL (0.50-1.00) 1.76 MG/DL (0.50-1.00) Sodium Level 166 MEQ/L (136-145) 163 MEQ/L (136-145) 162 MEQ/L (136-145) Potassium Level 3.4 MEQ/L (3.5-5.1) Chloride Level 138 MEQ/L (98-107) 134 MEQ/L (98-107) 131 MEQ/L (98-107) Carbon Dioxide Level 19.0 MEQ/L (21.0-32.0) 18.8 MEQ/L (21.0-32.0) Estimat Glomerular Filtration Rate 38 ML/MIN (>89) 33 ML/MIN (>89) 30 ML/MIN (>89) Serum Osmolality 330 MOSM/KG (275-295) Blood Gas HCO3 17 mmol/L (22-26) Blood Gas Base Excess -6.9 mmol/L (-2-2) Arterial Blood pH 7.37 (7.380-7.420) Arterial Blood Partial Pressure CO2 31 mmHg (38-42) Blood Gas Hemoglobin 9.9 G/DL (12.0-16.0) Random Glucose 126 MG/DL (74-106) 128 MG/DL (74-106) Calcium Level 8.2 MG/DL (8.5-10.1) 7.9 MG/DL (8.5-10.1) Neutrophils (%) (Auto) 80.5 % (16.0-70.0) Neutrophils # (Auto) 13.2 TH/MM3 (1.8-7.7) Monocytes # (Auto) 1.0 TH/MM3 (0-0.9) Total Protein 4.8 GM/DL (6.4-8.2) Albumin 1.0 GM/DL (3.4-5.0) Phosphorus Level 6.4 MG/DL (2.5-4.9) Alkaline Phosphatase 350 U/L (45-117) Aspartate Amino Transf (AST/SGOT) 184 U/L (15-37) Ammonia LESS THAN 10 MCMOL/L Test 09/02/17 04:44 09/02/17 09:38 09/02/17 10:00 09/02/17 12:44 Blood Gas HCO3 21 mmol/L (22-26) 20 mmol/L (22-26) Blood Gas Base Excess -7.3 mmol/L (-2-2) -5.3 mmol/L (-2-2) -3.8 mmol/L (-2-2) Arterial Blood pH 7.13 (7.380-7.420) 7.30 (7.380-7.420) 7.29 (7.380-7.420) Arterial Blood Partial Pressure CO2 64 mmHg (38-42) 46 mmHg (38-42) Blood Gas Hemoglobin 9.7 G/DL (12.0-16.0) 9.8 G/DL (12.0-16.0) Sodium Level 156 MEQ/L (136-145) Arterial Blood Partial Pressure O2 179 mmHg (61-120) Test 09/02/17 13:48 09/03/17 05:34 Blood Gas Base Excess -3.6 mmol/L (-2-2) -6.6 mmol/L (-2-2) Arterial Blood pH 7.30 (7.380-7.420) 7.21 (7.380-7.420) Arterial Blood Partial Pressure CO2 46 mmHg (38-42) 52 mmHg (38-42) Arterial Blood Partial Pressure O2 155 mmHg (61-120) Blood Gas HCO3 20 mmol/L (22-26) Blood Gas Hemoglobin 11.6 G/DL (12.0-16.0) Imaging Last Impressions Chest X-Ray 08/31/17 0000 Signed Impressions: Service Date/Time: August 12:10 - CONCLUSION: No significant change. Airspace disease remains at the lung bases as well as bilateral effusions. Jamey Sears MD Abdomen X-Ray 08/29/17 0930 Signed Impressions: Service Date/Time: Tuesday, August 29, 2017 09:34 - CONCLUSION: 1. NGT in the stomach. 2. Paucity of bowel gas. This finding is nonspecific but may rarely be seen with diffusely fluid-filled bowel loops. Roldan Ambrosio MD Brain Flow Nuclear Medicine 08/28/17 0000 Signed Impressions: Service Date/Time: Monday, August 28, 2017 15:57 - CONCLUSION: Small amount of flow in the sagittal sinus. Jamey Sears MD Head CT 08/24/17 0600 Signed Impressions: Service Date/Time: August 04:27 - CONCLUSION: Diffuse intraventricular hemorrhage and left frontal lobe parenchymal hemorrhage again noted. Intraventricular blood has increased and there is mild to moderate ventriculomegaly. 9 mm of rightward midline shift, slightly improved. Saeid Choi MD Neck CTA 08/23/17 0157 Signed Impressions: Service Date/Time: Wednesday, August 23, 2017 02:26 - CONCLUSION: Normal carotid arteries. Saeid Choi MD Head CTA 08/23/17 0157 Signed Impressions: Service Date/Time: Wednesday, August 23, 2017 02:26 - CONCLUSION: No perceptible aneurysm or enhancing mass. Saeid Choi MD Cervical Spine CT 08/23/17 0000 Signed Impressions: Service Date/Time: Wednesday, August 23, 2017 02:08 - CONCLUSION: 1. No fracture or acute appearing malalignment of the cervical spine. 2. Degenerative changes as above. Saeid Choi MD Hospital Course This is a 52-year-old female. Actually name is Casandra Deluca. Date of admission 08/23/2017. Past medical history is unremarkable including Dr. Prather spoke with uncle. Patient was in her normal state of health today until approximately 3 PM on Monday and then developed acute onset of nausea associated with vomiting and complained of not feeling well. At approximately 1800 hrs., she took a one-time dose of ibuprofen and fell asleep on the couch. Early this a.m., and just prior to arrival to the emergency department awake and vomiting and then became unresponsive. Uncle states there was no injury or trauma he assisted her to the floor and because she was vomiting rolled her over so that she would not aspirate her emesis. Due to instability patient received 20 mg etomidate, 5 mg midazolam and 70 mg succinylcholine was intubated by ED physician. CT brain revealed a large left frontal parenchymal hemorrhage with diffuse intraventricular blood [address] Valencia /neurosurgery was notified. Recommended 50 g mannitol still hyperventilating he will evaluate the patient. Stamping Die Try Out Worker were asked to admit. 08/23 0930 hours: Continued deterioration in neurological exam with absent peripheral reflexes and minimal cough. No Doll's eyes present. Mildly alkalotic , will correct to facilitate apnea test tomorrow. 08/24: Appears to withdraw left foot this morning mild cough response. Breathes strongly over ventilator with slight hyperventilation. Otherwise unresponsive. About 6 x 5 cm area of hemorrhage persists in the left hemisphere with considerable intraventricular blood. Ventricles starting to dilate. Vasogenic edema and surrounding normal brain. 08/25: No improvement in neurologic function. Persistent severe neurologic deficit. She lives with her uncle and that appears to be the only available family. She basically took care of her uncle and he appears quite devastated by her illness. Her son is estranged for many years and the uncle says he would not know how to get a hold of him. In a personal conversation with the uncle in the [facility] he specifically stated that the patient and he had an agreement that they would not allow the other to be kept alive with artificial devices if each were irreparably injured. The uncle has expressed that he needs to stop the ventilator but states that he cannot do it. I will ask the palliative care service to assist the uncle in his decision involving her care plan. 08/26: Devastating neurological injury. Largely unresponsive with the exception of withdrawal of her feet to noxious stimulation. Her uncle is still deciding care plan. 08/27: No improvement in neurologic function. Withdrawal response and lower extremities persists. Convert to APRV ventilator mode to maintain lung recruitment. 08/28: Positive cough. Currently does not bilateral lower extremities. Decreased urine output noted. Increasing gastric distention with 800 cc via NG tube. Right pupil 4 mm. Left pupil 6 mm. 08/29: High residuals overnight. Started on D10 normal saline at 50 cc an hour by overnight etl software engineer due to hypoglycemia. No bowel movement since admission. Remains on xiomara hugger. 1250 cc urine output overnight. Abdomen became more distended. Brain flow scan revealed some flow in the sagittal sinuses. 08/30: T-max 101.1. Awaiting first son's decision whether he is able to make it here for compassionate withdrawal and timing. 3 bowel movements past 24 hours. Not tolerating tube feeding. Patient has leukocytosis today. 08/31: Hypothermic overnight. No bowel movement overnight. FiO2 remains at 40% . Neurological examination is unchanged. Replacing potassium this a.m. Awaiting family decision regarding eventual compassionate withdrawal 09/01: Patient with hospital-acquired pneumonia/urinary tract infection. Remains on ventilator. Nuclear medicine brain flow scan ordered. Not tolerating tube feeds. Remains on D10 due to persistent hypoglycemia. Sodium trending upward. See adjustments IV fluids. Started on piperacillin/ tazobactam and azithromycin 09/02: Clinical neuro exam again consistent with brain . Nuclear medicine confirmatory's test-no brain flow. Neurosurgery requested apnea testing which will be conducted today. 09/03: Hemodynamically more unstable currently on Levophed. Unable to do apnea test as PO2 is only 77 on 100% FiO2, and PEEP of 12. Discussed with neurosurgery Dr. Hernandez. This was documented in chart. Brain flow study on 09/01 conformed brain . Patient was declared brain at 0900 AM on 09/03/17. Family notified. Daisy Breaux MD Sep 03, 2017 16:27
== END 2017-09-03 13:04 | disposition expired | DRG 64 ==
LOC: NEPC 01:51 → EDBD 02:43 → NEDA 02:43 → N03A 03:49
PROVIDERS: ADMIT Internal Medicine Critical Care Medicine; ATTEND Internal Medicine Critical Care Medicine
PROC: 5A1955Z Respiratory Ventilation, Greater than 96 Consecutive Hours (ICD-10-PCS; principal; 2017-08-23)
PROC: 04HY32Z Insertion of Monitoring Device into Lower Artery, Percutaneous Approach (ICD-10-PCS; 2017-08-23)
PROC: 0BH17EZ Insertion of Endotracheal Airway into Trachea, Via Natural or Artificial Opening (ICD-10-PCS; 2017-08-23)
PROC: 02HV33Z Insertion of Infusion Device into Superior Vena Cava, Percutaneous Approach (ICD-10-PCS; 2017-08-23)
PROC: 04HY32Z Insertion of Monitoring Device into Lower Artery, Percutaneous Approach (ICD-10-PCS; 2017-08-25)
DX: I61.5 Nontraumatic intracerebral hemorrhage, intraventricular (principal); G93.6 Cerebral edema; G93.5 Compression of brain; J96.01 Acute respiratory failure with hypoxia; J18.9 Pneumonia, unspecified organism; I16.1 Hypertensive emergency; E87.3 Alkalosis; N39.0 Urinary tract infection, site not specified; N17.9 Acute kidney failure, unspecified; R57.9 Shock, unspecified; E87.0 Hyperosmolality and hypernatremia; I10 Essential (primary) hypertension; D72.823 Leukemoid reaction; E87.6 Hypokalemia; R40.2432 Glasgow coma scale score 3-8, at arrival to emergency department; F12.90 Cannabis use, unspecified, uncomplicated; Z51.5 Encounter for palliative care; R56.9 Unspecified convulsions; Z63.8 Other specified problems related to primary support group; Z72.0 Tobacco use; E16.2 Hypoglycemia, unspecified; Y95 Nosocomial condition; D64.9 Anemia, unspecified; E88.09 Other disorders of plasma-protein metabolism, not elsewhere classified; G93.89 Other specified disorders of brain; K59.00 Constipation, unspecified
CPT/HCPCS: 31500; 36600; 70450; 70496; 70498; 71045; 72125; 74018; 78606; 80048; 80053; 80074; 80076; 80185; 80307; 81001; 82140; 82550; 82805; 82948; 83605; 83735; 83930; 84100; 84132; 84295; 84443; 84484; 84702; 85025; 85027; 85384; 85610; 85730; 86403; 86850; 86900; 86901; 87040; 87070; 87077; 87086; 87184; 87185; 87186; 87205; 93005; 94002; 94003; 94640; 94664; 94770; 95819; 96365; A9539; J0330; J0360; J0456; J0610; J1120; J1940; J1953; J2060; J2150; J2212; J2250; J2370; J2543; J2710; J2765; J3411; J3475; J3480; J7030; J7040; J7050; J7060; J7120; J7613; J7644; Q2009; Q9967